=== PATIENT | female | born 1945 | race Caucasian/White ===

== ENCOUNTER → 2023-10-24 14:13 | Outpatient (REF) | payer MEDICARE, OTHER, SELFPAY | LOC: REG 14:13 | PROVIDERS: ATTENDING PHYSICIAN Psychiatry & Neurology Neurology; FAMILY PHYSICIAN Internal Medicine; REFERRING PHYSICIAN Psychiatry & Neurology Psychiatry | DX: R79.0 Abnormal level of blood mineral (principal) | CPT/HCPCS: 36415; 82728 ==

== ENCOUNTER → 2024-03-09 13:25 | Outpatient (REF) | payer MEDICARE, OTHER, SELFPAY ==
[2024-03-09 15:50] LABS: Ferritin 78.3 ng/ml (11.1-264.0)
== END ==
LOC: REG 13:25
PROVIDERS: ATTENDING PHYSICIAN Psychiatry & Neurology Psychiatry; FAMILY PHYSICIAN Internal Medicine; REFERRING PHYSICIAN Psychiatry & Neurology Neurology
DX: G25.81 Restless legs syndrome (principal); D64.9 Anemia, unspecified
CPT/HCPCS: 36415; 82728

== ENCOUNTER 2024-03-18 18:00 | Emergency (ER) | payer MEDICARE, OTHER, SELFPAY ==
[2024-03-18 18:03] VITALS: BP 179/88
[2024-03-18] MEDS: PERCOCET 5/325 1 TABLET PO ×2 (19:50→20:51)
--- NOTE | 2024-03-18 23:08 | ED.MUSCINJ ---
HPI-Injury
General
Chief Complaint: Extremity Pain (non-traumatic)
Source: patient
Exam Limitations: none
Time Seen by Provider: 03/18/24 19:34
Nursing documentation reviewed up to this point in time: agreed with
History of Present Illness-Injury
Is this injury a work related problem?: No
Is pt an associate of [facility] [place]?: No
Initial Injury comments:
Patient to ED wtih complaint of left posterior knee pain. States she woke last PM with a leg cramp and since then has had severe pain to left posterior knee. Brought to ED by spouse for eval. No fever/chills, recent illness. No history of truama.
Past History
Past History
ED Past Medical History: Hypercholesterolemia, Hypothyroidism, Psychiatric (bipolar) and Other (migraines, gi bleed, recurring UTI, anemia)
ED Past Surgical History: Other (tonsillectomy as child, tubal ligation, colonoscopy x 3, STEROTACTIC LEFT BREAST)
Social History
Tobacco: Non-smoker
Alcohol: Daily
Personal:
Living: with family
Employment: Employed
Review of Systems
Review of Systems
Allergies reviewed?: Yes
All Other Systems: ROS reviewed and negative except as documented in HPI and ROS
Constitutional: Reports no symptoms
EENT: Reports no symptoms
Respiratory: Reports no symptoms
Cardiac: Reports no symptoms
ABD/GI: Reports no symptoms
Musculoskeletal: Reports joint pain (pain to left posterior knee)
Skin: Reports no symptoms
Neurological: Reports no symptoms
Psychiatric: Reports no symptoms
Musculoskeletal Injury Exam
Musculoskeletal Injury Exam
Left Posterior Knee:
Pain with Movement?: Moderate
Tender to palpation?: Moderate
Soft tissue swelling?: None
External deformity and angulation?: None
Joint effusion?: None
Contusion?: None
Hematoma-local bleeding into tissue?: None
Strain- Sprain- Tear (Connective tissue injury)?: None
Crepitus with movement?: No
Joint instability?: No
Malalignment/deformity?: No
Range of motion: Limited
Distal skin color and temperature: normal-warm & good color
Capillary Refill: normal
Normal distal neurovascular exam?: Yes
Peripheral Pulses: posterior tibial (left): 3+ and dorsalis pedis (left): 3+
Phy Exam
General Physical Exam
General Presentation: well appearing and no apparent distress
General age: appears stated age
General Skin: warm and dry
General Habitus: normal
General Mental: alert
Musculoskeletal Exam
Musculoskeletal Exam: neuro vasc intact
Skin Exam
Skin Exam: normal color, warm/dry and no rash
Psychiatric Exam
Psychiatric Exam: normal mood/affect
Injury Course
Orders/Labs/Results
Orders:
Orders
03/18/24 18:05
Knee, Left 4 or More Views [CR Knee - Left 4 Or More View*] Urgent
Comment:
Reason For Exam: pain
03/18/24 19:43
Oxycodone/Acetaminophen [Percocet 5/325] 1 tablet PO NOW STA
US Periph Venous LOWER Ext LT Urgent
Comment:
Reason For Exam: posterior knee lower leg pain
03/18/24 20:39
Knee Immobilizer Left-Treatmen ONCE
03/18/24 20:40
Oxycodone/Acetaminophen [Percocet 5/325] 1 tablet PO NOW STA
*Radiology
Radiology exam reviewed: radiology read reviewed
*Pulse Oximetry
Patient hypoxic: no
*Critical Care Note
Total Time (30-74mins, 75-104mins- exclusive of procedures): Not Applicable
ED Attending Note
-
Portions of this chart may have been created with voice recognition software.� Occasional wrong word or��sound alike� substitutions may have occurred due to the inherent limitations of voice recognition software.
Discharge Plan
Departure
Patient Disposition: Home (Routine Discharge)
Date of Disposition: 03/18/24
Time of Disposition: 20:40
Patient with high blood pressure during this ER visit?: No
Condition: Good
Covid-19: Not Applicable
Discharge Problem:
Knee pain, Valle cyst
Instructions: Valle's Cyst (DC)
Prescriptions:
New
oxycodone-acetaminophen [Percocet] 5-325 mg tablet
1 tab PO Q4HPRN PRN (Reason: pain) Qty: 10 0RF
No Action
levothyroxine [Synthroid] 25 MCG tablet
25 mcg PO DAILY
lamotrigine 100 MG tablet
200 mg PO HS
clonazepam 1 MG tablet
1 mg PO DAILYPRN PRN (Reason: nerves)
zaleplon 10 mg Capsule
20 mg PO DAILY
rosuvastatin 20 mg Tablet
20 mg PO DAILY
zinc 50 mg Capsule
50 mg PO DAILY
Vitamin D-3 with Aloe 120-1,000-10 mg-unit-mg Tablet
1 tab PO DAILY
Centrum Adults
1 unit PO DAILY
iron, carbonyl [Feosol] 45 MG tablet
65 mg PO DAILY
valacyclovir [Valtrex] 1 gram Tablet
1,000 mg PO DAILY PRN (Reason: outbreak)
trazodone 150 mg Tablet
150 mg PO HS
hydrochlorothiazide 25 mg Tablet
25 mg PO DAILY
aspirin 81 mg Capsule
81 mg PO DAILY
Referrals:
Holland Pagan I., [Family Provider] -
Freedom Carlin MD [Active] - (Follow up if your symptoms do not improve over the next week.)
Interventions
Interventions:
*Risk Screen - Suicide Last Done: 03/18/24 19:15
*General Assessment Last Done: 03/18/24 19:15
*Neglect/Abuse Screening Last Done: 03/18/24 19:15
ED- Fall Risk Assessment Last Done: 03/18/24 19:15
*ED COVID-19 Vaccine History Last Done: 03/18/24 19:15
*Nursing Disposition Last Done: 03/18/24 20:59
ED-Skin Assessment Last Done: 03/18/24 19:15
ED-Peripheral Vascular Assessment Last Done: 03/18/24 19:15
ED-Musculoskeletal Assessment Last Done: 03/18/24 19:15
Discharge Date and Time
Discharge Date/Time: 03/18/24 20:59
Print Language: LAO
== END 2024-03-18 20:59 | disposition home or self-care (01) ==
LOC: EMR 18:00
PROVIDERS: EMERGENCY PHYSICIAN Emergency Medicine; FAMILY PHYSICIAN Internal Medicine
DX: M25.562 Pain in left knee (principal); M71.22 Synovial cyst of popliteal space [Baker], left knee
CPT/HCPCS: 99284; 73564; 93971

== ENCOUNTER → 2024-05-30 13:19 | Outpatient (REF) | payer MEDICARE, OTHER, SELFPAY ==
[2024-05-30 14:16] LABS: % Basophils 0.5 % (0-2); % Eosinophils 3.8 % (0-6); % Immature Granulocytes 0.2 % (0-0.5); % Lymphocytes 25.3 % (20.5-51.1); % Neutrophils 60.2 % (42.2-75.2); Absolute Eosinophils 0.2 10^3/uL (0-0.7); Absolute Lymphocytes 1.5 10^3/uL (1.2-3.4); Absolute Monocytes 0.6 10^3/uL (0.1-0.6); Absolute Neutrophils 3.7 10^3/uL (1.4-6.5); Hematocrit 39.3 % (37.0-47.0); Hemoglobin 13.1 g/dL (12.0-16.0); Mean Corp Hgb Conc. 33.3 g/dL (33.0-37.0); Mean Corpuscular Hgb 30.6 pg (27.0-31.0); Mean Corpuscular Volume 91.8 fL (81.0-99.0); Mean Platelet Volume 10.4 fL (7.4-10.4); Nucleated Red Blood Cells % 0 %; Platelet Count 237 10^3/uL (130-400); Red Blood Cell Count 4.28 10^6/uL (4.20-5.40); Red Cell Dist. Width 13.2 % (11.5-14.5); White Blood Cell Count 6.1 10^3/uL (4.8-10.8)
[2024-05-30 15:19] LABS: ALT (SGPT) 20 U/L (0-35); AST (SGOT) 25 U/L (14-36); Albumin 4.7 g/dl (3.5-5.0); Alkaline Phosphatase 76 U/L (38-126); Blood Urea Nitrogen 13 mg/dl (7-17); Calcium 10.1 mg/dl (8.4-10.2); Carbon Dioxide 29 mmol/L (22-30); Chloride 101 mmol/L (98-107); Glucose 118 mg/dl (70-99); Potassium 4.5 mmol/L (3.5-5.1); Sodium 140 mmol/L (135-145); Total Bilirubin 0.4 mg/dl (0.2-1.3); Total Cholesterol 208 mg/dl (50-199); Total Protein 7.3 g/dl (6.3-8.2); Triglyceride 57 mg/dl (10-149); Very Low Density Lipoprotein 11 mg/dl (0-30); eGFR > 60.00
[2024-05-30 15:28] LABS: Total Iron Binding Capacity 378 ug/dl (265-497)
[2024-05-30 15:29] LABS: HDL Cholesterol 117 mg/dl; LDL Cholesterol, Calculated 80 mg/dl
[2024-05-30 15:48] LABS: TSH Reflex To Free T4 3.35 uIU/ml (0.47-4.68)
[2024-05-30 15:52] LABS: Ferritin 65.7 ng/ml (11.1-264.0)
[2024-05-31 10:19] LABS: Glycohemoglobin (HgbA1c) 5.5 % (4.0-5.6)
== END ==
LOC: REG 13:19
PROVIDERS: ATTENDING PHYSICIAN Internal Medicine; FAMILY PHYSICIAN Psychiatry & Neurology Neurology; REFERRING PHYSICIAN Psychiatry & Neurology Psychiatry
DX: R73.9 Hyperglycemia, unspecified (principal); E03.9 Hypothyroidism, unspecified; D64.9 Anemia, unspecified; I10 Essential (primary) hypertension; E78.2 Mixed hyperlipidemia; R73.09 Other abnormal glucose; D50.0 Iron deficiency anemia secondary to blood loss (chronic); R79.89 Other specified abnormal findings of blood chemistry
CPT/HCPCS: 36415; 80053; 80061; 82728; 83036; 83550; 84443; 85025

== ENCOUNTER → 2024-06-20 14:01 | Outpatient (REF) | payer MEDICARE, OTHER, SELFPAY | LOC: HWWDC 14:01 | PROVIDERS: ATTENDING PHYSICIAN Internal Medicine | DX: Z12.31 Encounter for screening mammogram for malignant neoplasm of breast (principal) | CPT/HCPCS: 77063; 77067 ==

== ENCOUNTER 2024-09-21 16:32 | Inpatient (IN) | payer MEDICARE, OTHER, SELFPAY ==
[2024-09-21] VITALS (19 sets, daily range): BP systolic 75–166; BP diastolic 59–111; BMI 31.1
[2024-09-21 11:36] LABS: % Basophils 0.2 % (0-2); % Eosinophils 0.4 % (0-6); % Immature Granulocytes 0.7 % (0-0.5); % Lymphocytes 8.1 % (20.5-51.1); % Monocytes 8.9 % (1.7-9.3); % Neutrophils 81.7 % (42.2-75.2); Absolute Eosinophils 0.1 10^3/uL (0-0.7); Absolute Immature Granulocytes 0.1 10^3/uL (0-0.05); Absolute Monocytes 1.1 10^3/uL (0.1-0.6); Absolute Neutrophils 9.9 10^3/uL (1.4-6.5); Hematocrit 40.2 % (37.0-47.0); Hemoglobin 13.6 g/dL (12.0-16.0); Mean Corp Hgb Conc. 33.8 g/dL (33.0-37.0); Mean Corpuscular Hgb 30.8 pg (27.0-31.0); Mean Corpuscular Volume 91.2 fL (81.0-99.0); Mean Platelet Volume 10.3 fL (7.4-10.4); Nucleated Red Blood Cells % 0 %; Platelet Count 192 10^3/uL (130-400); Red Blood Cell Count 4.41 10^6/uL (4.20-5.40); Red Cell Dist. Width 13.8 % (11.5-14.5); White Blood Cell Count 12.1 10^3/uL (4.8-10.8)
[2024-09-21 11:44] LABS: ALT (SGPT) 21 U/L (0-35); AST (SGOT) 31 U/L (14-36); Albumin 3.9 g/dl (3.5-5.0); Alkaline Phosphatase 77 U/L (38-126); Blood Urea Nitrogen 17 mg/dl (7-17); Calcium 9.7 mg/dl (8.4-10.2); Carbon Dioxide 28 mmol/L (22-30); Chloride 93 mmol/L (98-107); Estimated Creatinine Clearance 60 ml/min; Glucose 153 mg/dl (70-99); Potassium 3.7 mmol/L (3.5-5.1); Sodium 131 mmol/L (135-145); Total Bilirubin 0.5 mg/dl (0.2-1.3); Total Protein 6.6 g/dl (6.3-8.2); eGFR > 60.00
[2024-09-21] MEDS: TYLENOL 650 MG PO (11:49)
[2024-09-21] MEDS: DUONEB 3 ML INH (11:49)
--- NOTE | 2024-09-21 12:01 | ED.GENMED ---
History of Present Illness
<Piyush Little PA-C - Last Filed: 09/21/24 15:59>
General
Chief Complaint: Breathing Problem
Source: patient
Time Seen by Provider: 09/21/24 11:19
History of Present Illness
History of Present Illness:
79-year-old female with past medical history of GERD, hypertension, hyperlipidemia presenting to the emergency department for evaluation after she started with flulike symptoms this past Tuesday, went to primary care provider on Tuesday where she
was given a nebulizer treatment and was found to be flu a positive. Patient states that her breathing has gotten worse to the point where she needed to contact EMS this morning. EMS notes that patient was hypoxic upon their arrival and
administered a breathing treatment as well as placed her on 2 L via nasal cannula. Patient still reporting shortness of breath on arrival and was still satting at 89% on room air so was placed on 2 L with minimal response and had this increased to
4 L. Patient endorses cough productive of a yellow-green sputum, shortness of breath, waxing and waning fevers, generalized fatigue. was also sick with the flu prior to this but patient reports he is now feeling better.
Past History
<Piyush Little PA-C - Last Filed: 09/21/24 15:59>
Past History
ED Past Medical History: GERD, HTN, Hypercholesterolemia, Hypothyroidism, Psychiatric (bipolar) and Other (migraines, gi bleed, recurring UTI, anemia)
ED Past Surgical History: Other (tonsillectomy as child, tubal ligation, colonoscopy x 3, STEROTACTIC LEFT BREAST)
Social History
Tobacco: Non-smoker
Alcohol: Occasional
Drug: None
Personal:
Living: with family
Employment: Employed
Review of Systems
<Piyush Little PA-C - Last Filed: 09/21/24 15:59>
Review of Systems
All Other Systems: ROS reviewed and negative except as documented in HPI and ROS
Phy Exam
<Piyush Little PA-C - Last Filed: 09/21/24 15:59>
Physical Exam
Physical Exam:
GENERAL: Alert , in no apparent distress
EYE: conjunctiva clear
NECK: Supple, no significant adenopathy.
ENT: o/p clr, mmm.
CARDIAC: tachycardic rate and rhythm
LUNGS: Wheezing most pronounced in the posterior lung erwin, somewhat restricted, coughing throughout the exam, tachypneic
NEUROLOGICAL: Alert and oriented
SKIN: Warm and dry, skin intact.
MUSCULOSKELETAL: well perfused. No edema
PSYCH: Normal and appropriate interaction.
Scores
<Piyush Little PA-C - Last Filed: 09/21/24 15:59>
Heart Failure Risk
Heart Failure Risk Score: Not Applicable
Heart Score for Chest Pain Patients
STEMI patient?: Not applicable
Withdrawal Assessment of Alcohol
Withdrawal Assessment Completed?: Not applicable
Sepsis
<Piyush Little PA-C - Last Filed: 09/21/24 15:59>
Sepsis Screening
Sepsis Assessment: Sepsis
Sepsis Screen
Sepsis Screen: Sepsis
Date: 09/21/24
Time: 15:59
<Diana Nina DO - Last Filed: 09/21/24 20:12>
Sepsis Screen
Sepsis Screen: Sepsis
Date: 09/21/24
Time: 20:10
Course
<Piyush Little PA-C - Last Filed: 09/21/24 15:59>
Orders/Labs/Results
Orders:
Orders
09/21/24 11:16
Electrocardiogram (*1) Urgent
Reason for Study: Other
Other Reason for Exam: Respiratory Distress
EKG- Treatment ONCE
09/21/24 11:17
Complete Blood Count/With Diff Urgent
Comprehensive Metabolic Panel Urgent
09/21/24 11:34
Acetaminophen [Tylenol] 650 mg PO NOW STA
Ipratropium/Albuterol Sulfate [Duoneb] 3 ml INH R NOW ONE
MethylPREDNISolone PF [Solu-Medrol Pf] 60 mg IV NOW STA
CR Chest Portable - 1 View Urgent
Comment:
Reason For Exam: flu, hypoxia
Reason Study Needs to be Portable: Unable to Transport
09/21/24 15:58
Admit/Transfer Patient As Directed
Co-Sign Provider:
Level of Care: Inpatient admission
Assign to:: Medical/Surgical
Physician / Group: Jamie
Diagnosis: Influenza bronchitis with hypoxia
Reason for Hospitalization: Above
Expected length of stay greater than two midnights?: Yes
ELOS- Estimated Length of Stay in days: 2
I certify the patient meets the requirements for IP care: Yes
PRN Pain Medication Management As Directed
May give lesser potent ordered pain med per pt: Yes
preference::
Protocol:: Medication orders for pain may be administered in a
manner that supports deferring to patient preference
when the pt is:
- Requesting an ordered lesser potent pain medication.
Least to most potent pain medications are defined
as: acetaminophen < NSAID < tramadol < opioids
(morphine, oxycodone, hydromorphone).
- Requesting a lesser dose of the same medication IF
ORDERED.
- Requesting a less intrusive route of administration
if both routes are prescribed by the provider (PO <
IV).
09/21/24 16:10
Code Status As Directed
Resuscitation Status: Full Code
09/21/24 19:31
Clonazepam [Klonopin] 0.5 mg PO DAILYPRN PRN
09/22/24 08:00
Non-Formulary Item See Dose Instructions PO Q48H
Abnormal Lab Results
09/21/24
11:17
WBC 12.1 H 10^3/uL
(4.8-10.8)
Abs Immat Gran (auto) 0.1 H 10^3/uL
(0-0.05)
Absolute Neuts (auto) 9.9 H 10^3/uL
(1.4-6.5)
Absolute Lymphs (auto) 1.0 L 10^3/uL
(1.2-3.4)
Absolute Monos (auto) 1.1 H 10^3/uL
(0.1-0.6)
Immature Gran % 0.7 H %
(0-0.5)
Neutrophils % 81.7 H %
(42.2-75.2)
Lymphocytes % 8.1 L %
(20.5-51.1)
Sodium 131 L mmol/L
(135-145)
Chloride 93 L mmol/L
(98-107)
Glucose 153 H mg/dl
(70-99)
09/21/24 11:17
09/21/24 11:17
Vital Signs
Initial and Last Documented VS:
Initial Vital Signs
Temp Pulse Resp BP Pulse Ox
100.3 F 119 24 157/86 89
09/21/24 11:12 09/21/24 11:12 09/21/24 11:12 09/21/24 11:12 09/21/24 11:12
Last Documented Vital Signs
Temp Pulse Resp BP Pulse Ox
98.3 F 93 20 132/67 95
09/21/24 15:04 09/21/24 17:00 09/21/24 17:00 09/21/24 17:00 09/21/24 17:00
<Diana Nina, DO - Last Filed: 09/21/24 20:12>
Orders/Labs/Results
Orders:
Orders
09/21/24 11:16
Electrocardiogram (*1) Urgent
Reason for Study: Other
Other Reason for Exam: Respiratory Distress
EKG- Treatment ONCE
09/21/24 11:17
Complete Blood Count/With Diff Urgent
Comprehensive Metabolic Panel Urgent
09/21/24 11:34
Acetaminophen [Tylenol] 650 mg PO NOW STA
Ipratropium/Albuterol Sulfate [Duoneb] 3 ml INH R NOW ONE
MethylPREDNISolone PF [Solu-Medrol Pf] 60 mg IV NOW STA
CR Chest Portable - 1 View Urgent
Comment:
Reason For Exam: flu, hypoxia
Reason Study Needs to be Portable: Unable to Transport
09/21/24 15:58
Admit/Transfer Patient As Directed
Co-Sign Provider:
Level of Care: Inpatient admission
Assign to:: Medical/Surgical
Physician / Group: Jamie
Diagnosis: Influenza bronchitis with hypoxia
Reason for Hospitalization: Above
Expected length of stay greater than two midnights?: Yes
ELOS- Estimated Length of Stay in days: 2
I certify the patient meets the requirements for IP care: Yes
PRN Pain Medication Management As Directed
May give lesser potent ordered pain med per pt: Yes
preference::
Protocol:: Medication orders for pain may be administered in a
manner that supports deferring to patient preference
when the pt is:
- Requesting an ordered lesser potent pain medication.
Least to most potent pain medications are defined
as: acetaminophen < NSAID < tramadol < opioids
(morphine, oxycodone, hydromorphone).
- Requesting a lesser dose of the same medication IF
ORDERED.
- Requesting a less intrusive route of administration
if both routes are prescribed by the provider (PO <
IV).
09/21/24 16:10
Code Status As Directed
Resuscitation Status: Full Code
09/21/24 19:31
Clonazepam [Klonopin] 0.5 mg PO DAILYPRN PRN
09/22/24 08:00
Non-Formulary Item See Dose Instructions PO Q48H
Abnormal Lab Results
09/21/24
11:17
WBC 12.1 H 10^3/uL
(4.8-10.8)
Abs Immat Gran (auto) 0.1 H 10^3/uL
(0-0.05)
Absolute Neuts (auto) 9.9 H 10^3/uL
(1.4-6.5)
Absolute Lymphs (auto) 1.0 L 10^3/uL
(1.2-3.4)
Absolute Monos (auto) 1.1 H 10^3/uL
(0.1-0.6)
Immature Gran % 0.7 H %
(0-0.5)
Neutrophils % 81.7 H %
(42.2-75.2)
Lymphocytes % 8.1 L %
(20.5-51.1)
Sodium 131 L mmol/L
(135-145)
Chloride 93 L mmol/L
(98-107)
Glucose 153 H mg/dl
(70-99)
09/21/24 11:17
09/21/24 11:17
Vital Signs
Initial and Last Documented VS:
Initial Vital Signs
Temp Pulse Resp BP Pulse Ox
100.3 F 119 24 157/86 89
09/21/24 11:12 09/21/24 11:12 09/21/24 11:12 09/21/24 11:12 09/21/24 11:12
Last Documented Vital Signs
Temp Pulse Resp BP Pulse Ox
98.3 F 93 20 132/67 95
09/21/24 15:04 09/21/24 17:00 09/21/24 17:00 09/21/24 17:00 09/21/24 17:00
Procedures
<Diana Nina DO - Last Filed: 09/21/24 20:12>
Intubations
Procedure completed by: Diana Nina DO
Method of Intubation: glidescope
Tube size (cm): 7.5
Placement confirmed by: auscutation and CXR
Breath sounds after intubation: equal
Intubation complications: no complications
<Piyush Little PA-C - Last Filed: 09/21/24 15:59>
MDM/Problems Addressed
Differential Diagnosis Includes:
Flu, pneumonia, COVID, reactive airway disease
MDM/Problems Addressed:
79-year-old female presenting to the emergency department for evaluation after she has been experiencing flulike symptoms over the last 4 to 5 days, tested positive for the flu on Tuesday with primary care provider. Worsening shortness of breath
and now hypoxic with increased respiratory rate, increased heart rate and febrile. She is currently on 4 L via nasal cannula satting between 93% to 95%. Wheezing noted. Will order Solu-Medrol and nebulizer treatment. Given her current O2
requirement and worsening symptoms we will plan for admission for continued supportive care. Remaining labs and chest x-ray ordered.
<Piyush Little PA-C - Last Filed: 09/21/24 15:59>
*Radiology
Radiology exam reviewed: preliminary read by ED provider (Normal chest x-ray)
*Pulse Oximetry
Patient hypoxic: yes
*EKG
Heart Rate: 111
Rate: tachycardiac
Rhythm: sinus
Ischemia: no ischemia
*[employer] Interpretation
Rate: tachycardiac
Rhythm: sinus
*Critical Care Note
Total Time (30-74mins, 75-104mins- exclusive of procedures): Not Applicable
<Diana Nina DO - Last Filed: 09/21/24 20:12>
*Critical Care Note
Total Time (30-74mins, 75-104mins- exclusive of procedures): 37
comment:
The high probability of a clinically significant, sudden or life threatening deterioration of the respiratory system(s) required my full and direct attention, intervention and personal management. The aggregate critical care time was 37 minutes.
This time is in addition to time spent performing reported procedures but includes the following:
[x] Data Review and interpretation
[x] Patient assessment and monitoring of vital signs
[x] Documentation
[x] Medication orders and management
<Piyush Little PA-C - Last Filed: 09/21/24 15:59>
Patient Management
Discussion with other providers: Hospitalist
Escalation/DeEscalation of care consider admission/obs:
Given patient's hypoxia combined with her known flu, unable to safely discharge patient home. Will continue with supportive care of oxygen and breathing treatments. Hospitalist team accepts for continued evaluation.
<Diana Nina DO - Last Filed: 09/21/24 20:12>
Update Note
Update Note:
Diana Nina DO
20:10 -called to bedside for increasing respiratory distress. Patient admitted to the hospital, flu a positive, requiring oxygen support. Patient already admitted to the hospital. However on my assessment, tachypnea, constantly pulling off
nonrebreather. Markedly tachycardic to the 160s and febrile to 105. Rectal Tylenol administered. Patient full code. Did discuss intubation with patient, and she would like to proceed with the intubation. Patient intubated without issue. Will
start propofol for sedation. Admitting team at bedside, plan for ICU. Will confirm tube with chest x-ray. Will update
ED Attending Note
<Piyush Little PA-C - Last Filed: 09/21/24 15:59>
-
Portions of this chart may have been created with voice recognition software.� Occasional wrong word or��sound alike� substitutions may have occurred due to the inherent limitations of voice recognition software.
Discharge Plan
Departure
Patient Disposition: Admit
Date of Disposition: 09/21/24
Time of Disposition: 12:56
Presentation/result/management discussed w/ accepting MD/DO: Hospitalist
Discharge Problem:
Influenza A, Hypoxia
Interventions
Interventions:
*Risk Screen - Suicide Last Done: 09/21/24 11:12
*General Assessment Last Done: 09/21/24 11:08
*Neglect/Abuse Screening Last Done: 09/21/24 11:12
ED- Fall Risk Assessment Last Done: 09/21/24 11:40
ED- Cardiac Assessment Last Done: 09/21/24 11:40
ED- Pulmonary Assessment Last Done: 09/21/24 11:40
--- NOTE | 2024-09-21 16:14 | HPS.HSE ---
Family Physician
-
Family Physician: Holland Pagan
Chief Complaint
-
Shortness of breath
History of Present Illness
Patient is a 79 is a female with hypertension and bipolar disorder who presents to the emergency room with shortness of breath. Patient was found to be positive for influenza 2 days prior to presentation. She was initiated on Tamiflu. Over the
last 24 hours or so patient describes worsening shortness of breath and productive cough now with yellow sputum. She denies any chest pain.-Presentation to the emergency room patient was found to be hypoxic with pulse ox in mid 80s. She was placed
on 2 L of nasal cannula oxygen with improved oxygenation. She feels improved after 1 nebulized bronchodilator treatment.
Medical History
Past Medical History
Past Medical History: Reports HTN and Other (Bipolar disorder)
Past Surgical History: Reports None
Social History
Tobacco: Non-smoker
Alcohol: None
Drug: None
Personal:
Living: With Family
Family History
Family History: Not pertinent
Allergies / Home Medications
Allergies reflects when Allergies were last updated in [facility].
Home Medications with original date entered in [facility]
Allergy/Medication List:
Allergies
Allergy/AdvReac Type Severity Reaction Status Date / Time
Corticosteroids Allergy KERRY Verified 09/21/24 11:08
(Glucocorticoids)
iodine [Iodine] Allergy Rash Verified 09/21/24 11:08
NSAIDS (Non-Steroidal Allergy Unknown Verified 09/21/24 11:08
Anti-Inflamma
Home Medications
levothyroxine 25 mcg tablet (Synthroid) 25 mcg PO DAILY 07/28/10
rosuvastatin 20 mg tablet 20 mg PO DAILY 01/05/23
therapeutic multivitamin 1 tab PO DAILY 01/05/23
zaleplon 10 mg capsule 20 mg PO DAILY 01/05/23
zinc 50 mg capsule 50 mg PO DAILY 01/05/23
aspirin 81 mg capsule 81 mg PO DAILY 07/01/23
hydrochlorothiazide 25 mg tablet 25 mg PO DAILY 07/01/23
valacyclovir 1 gram tablet (Valtrex) 1,000 mg PO DAILYPRN PRN outbreak 07/01/23
albuterol sulfate 90 mcg/actuation aerosol inhaler 1 puff inhalation R Q6HPRN PRN sob/wheezing 09/21/24
cariprazine 3 mg capsule (Vraylar) 3 mg PO Q48H 09/21/24
cholecalciferol (vitamin D3) 25 mcg (1,000 unit) tablet 25 mcg PO DAILY 09/21/24
clonazepam 0.5 mg tablet 0.5 mg PO DAILYPRN PRN severe anxiety 09/21/24
ferrous sulfate 325 mg (65 mg iron) tablet 325 mg PO DAILY 09/21/24
guaifenesin 600 mg tablet, extended release 12 hr (Mucinex) 600 mg PO [id number] PRN congestion 09/21/24
lamotrigine 200 mg tablet 200 mg PO HS 09/21/24
oseltamivir 75 mg capsule (Tamiflu) 75 mg PO BID 09/21/24
trazodone 100 mg tablet 150 mg PO HS 09/21/24
Review of Systems
-
A 12 point ROS was completed and negative except as noted: Yes
Physical Exam
Vital Signs
Vital Signs
Temp Pulse Resp BP Pulse Ox
98.3 F 94 19 124/71 92
09/21/24 15:04 09/21/24 15:00 09/21/24 15:00 09/21/24 14:00 09/21/24 15:00
Physical Exam
General: Well Developed, Well Nourished and No Apparent Distress
HEENT: NormoCephalic, Moist mucous membranes and Atraumatic
Respiratory: Wheezes and Rhonchi
Cardiac: S1/S2 and Regular Rhythm; No Murmur or Rub
GI: Soft, Non Tender, Non Distended and Normal Bowel Sounds; No Organomegaly
Rectal: Deferred by Provider
Musculoskeletal: No Clubbing, No Cyanosis and No Edema
Skin: No Rash
Neuro: Nonfocal/grossly intact
Psych: Calm
Laboratory Results
-
09/21/24 11:17
09/21/24 11:17
Laboratory Results
Total Bilirubin 0.5 mg/dl (0.2-1.3) 09/21/24 11:17
AST 31 U/L (14-36) 09/21/24 11:17
ALT 21 U/L (0-35) 09/21/24 11:17
Alkaline Phosphatase 77 U/L (38-126) 09/21/24 11:17
Impression/Plan
-
IMPRESSION:
Acute hypoxic respiratory insufficiency secondary to influenza bronchitis
Mild hyponatremia
Hypertension
Hypothyroidism
Bipolar disorder
PLAN:
Acute hypoxic respiratory insufficiency secondary to influenza bronchitis
Improved with oxygen supplementation and short acting bronchodilator treatment
Chest x-ray with no focal infiltrates, although reports productive sputum over the last 24 hours.
Continue oxygen supplementation.
Continue Tamiflu
Continue mucolytic's
Continue LINDSEY
Patient has been offered short course of corticosteroids, although reports manic episodes in the past while on systemic steroids.
Mild hyponatremia suspect due to acute respiratory illness, also had been on thiazide diuretic prior to presentation.
Update TSH.
Hold HCTZ.
Gentle hydration
Follow BMP
Essential hypertension
Dyslipidemia
Hold HCTZ.
Continue statin
Bipolar disorder.
Continue preadmission regimen include Vraylar, clonazepam, lamotrigine, zaleplon.
DVT prophylaxis heparin
Full code
[2024-09-21] MEDS: KLONOPIN 0.5 MG PO (19:34)
--- NOTE | 2024-09-21 20:38 | EDRN ---
Patient started at approx 1900 with what the patient explained as one of her panic attacks. Patient started with elevated HR, sinus on monitor and increased respirations. Patient was on found at the edge of the bed stating that she couldn't breath.
Increased Spo2 to 6L NC. Patient stated that she gets medication every night for her anxiety. Patient was given a dose of her Klonopin at 1930.
Patient had no improvement of her breathing. Patient then started to become more tachycardic and diaphoretic. Patient with increased restlessness and agitation.
Rolled patient to the side and got rectal temperature of 105.4.
Patient then placed on NRB at 15L as she was hypoxic in the low 80's.
Rapid response was called at approx 1950.
ICU staff along with Mishel Barrett ADMISSIONS CLINICIAN and Dr. Nina responded.
Patient was intubated due to respiratory distress and hypoxia on NRB.
Patient received 650mg rectal Tylenol for fever.
20mg etomidate, 70 rocc for intubation and propofol started at 20mcg/min for post intubation sedation.
ICU staff and respiratory transported the patient to ICU.
ED charge aware along with nursing brush fabrication supervisor.
[2024-09-21 20:56] LABS: Triglycerides 106 mg/dl (10-149)
[2024-09-21] MEDS: SUBLIMAZE 50 MCG IV ×2 (22:00→23:34)
[2024-09-21] MEDS: NSS IV (22:14)
[2024-09-21 22:21] LABS: INR 0.97; PT 13.2 Sec (11.4-14.6)
[2024-09-21 22:21] LABS: TSH 1.22 uIU/ml (0.47-4.68)
[2024-09-21 22:22] LABS: APTT 27.9 Sec (23.4-35.0)
[2024-09-21] MEDS: HEPARIN 5000 UNITS SC (22:25)
[2024-09-21 22:37] LABS: Triglycerides 119 mg/dl (10-149)
[2024-09-21 22:42] LABS: Blood Urea Nitrogen 24 mg/dl (7-17); Calcium 9.5 mg/dl (8.4-10.2); Carbon Dioxide 21 mmol/L (22-30); Chloride 93 mmol/L (98-107); Estimated Creatinine Clearance 34 ml/min; Glucose 308 mg/dl (70-99); Magnesium 1.8 mg/dl (1.6-2.3); Potassium 4.1 mmol/L (3.5-5.1); Sodium 129 mmol/L (135-145); eGFR 38.51
[2024-09-21 23:04] LABS: Glucose - Point of Care 254 mg/dl (70-99)
--- NOTE | 2024-09-21 23:04 | PTCARENOTE ---
Flakita (daughter, pediatric surgeon) okay to be given information per daughter Ladi and Viet.
Flakita # - [phone]
Frida - # [phone]
[2024-09-21 23:45] LABS: Lactic Acid 2.5 mmol/L (0.7-2.0)
[2024-09-21] MEDS: NOVOLIN R INSULIN INFUSION 100 IV (23:47)
[2024-09-21] MEDS: NSS 1000 IV (23:49)
[2024-09-21 23:50] LABS: Glucose - Point of Care 265 mg/dl (70-99)
[2024-09-21] MEDS: NSS 250 IV (23:50)
[2024-09-21] MEDS: VIBRAMYCIN 260 MG IV (23:50)
[2024-09-21] MEDS: NOVOLIN R 5 UNITS IV (23:53)
[2024-09-22] VITALS (7 sets, daily range): BP systolic 70–93; BP diastolic 48–67; BMI 30.8
--- NOTE | 2024-09-22 00:26 | W.PN.UPDATE ---
Update Note
Progress Note Update
Procedure Note: Arterial Line�
� Right Wrist Arrow 20 (09/25)�
Diagnosis:��Acute respiratory distress due to Flu A
IV Line Comments: Uneventful Procedure�
Domenic's test completed pre-procedure: Yes�
A-Line Comments: Sterile technique as per standard protocol, Ultrasound guided insertion�
Functioning A-line in situ: Yes�
A-line Insertion Start Time:�0000�
A-line in at:��0005
[2024-09-22 00:30] LABS: HCO3 23.7 mmol/L (21-28); Ionized Calcium 1.21 mMOL/L (1.15-1.33); O2 Saturation % 99.6 % (94-98); PCO2 43 mmHg (32-35); PO2 169 mmHg (83-108); Potassium 3.1 mMOL/L (3.5-5.1); Sodium 128 mMOL/L (136-145); pH 7.35 (7.35-7.45)
[2024-09-22] MEDS: SUBLIMAZE 50 MCG IV ×6 (00:35→18:17)
[2024-09-22] MEDS: SUBLIMAZE 100 IV ×2 (00:35→19:49)
[2024-09-22 00:45] LABS: Glucose - Point of Care 191 mg/dl (70-99)
[2024-09-22] MEDS: LEVOPHED 250 IV (00:45)
[2024-09-22] MEDS: NSS 250 IV ×2 (01:02→02:25)
--- NOTE | 2024-09-22 01:13 | PTCARENOTE ---
Late entry:
Rapid response called in ED ~1950 for pt. in respiratory distress, tachycardic (HR 170s), febrile 105 rectal. Pt. intubated by ED doctor. Propofol started. Transferred to ICU.
Pt. awakens to verbal, propofol titrated as needed to maintain RASS -2 to 0. Fentanyl pushes given PRN and fentanyl gtt started at 0035 for ongoing pain. Pt. able to nod 'yes' to pain. Following simple commands. Wrist restraints in place. Pupils 3mm
B/L. DEANGELO. #7.5 ETT - initially at 18cm at the lip, multiple xrays obtained and repositioned to 24cm at lip. Tolerating A/C 14/400/+5/80% (was weaned from 100% fio2). Spo2 >95%. ABG was obtained. Initially ST on tele, HR 160s upon arrival. Febrile
105.6 core upon arrival. Tylenol was given in ED. Placed on cooling blanket. As temp came down, HR improved. HR now 80s- NSR with occasional PVCs noted. Initially hypertensive, 160s/100s. Slowly trended down then became hypotensive 60s-70s/40s MAPs
50s. R radial A line placed by NANDINI Merrill. Levophed added with no effect despite up titrating. LABEL OPERATOR notified. Arsh ordered and infusing with good response. See worklist for titrations. Hypoactive bowel sounds. NG and OG tube placement was
attempted by 3 RNS with no success. LABEL OPERATOR aware. No BM. Evans was placed for I&O. 275ml yellow urine out initially. Urine output slowed- 250ml bolus x2 given. NSS @ 100ml/hr infusing. R FA #22, L AC #22, L hand #22 patent. Insulin gtt added for
hyperglycemia - see worklist. BCx2, urine culture and sputum cultures ordered. Following labs as ordered.
Daughter Ladi at bedside for a few hours - support given, questions answered.
Also updated daughter Flakita over the phone and answered questions.
[2024-09-22 01:43] LABS: Glucose - Point of Care 174 mg/dl (70-99)
[2024-09-22] MEDS: KCL 260 MEQ IV (01:59)
[2024-09-22] MEDS: NEO-SYNEPHRINE 250 IV ×4 (02:00→19:48)
--- NOTE | 2024-09-22 02:14 | PTCARENOTE ---
Addendum entered by Aminah Warner RN 09/22/24 02:25:
Correction: another 250ml bolus ordered and infusing.
Original Note:
Urine output dropping off, no output over last hour. Evans flushed without issue. Bladder scan = 0. CAR INSPECTION AND REPAIR MANAGER notified. Monitor for now, no new orders.
Was given two 250ml boluses previously with little effect on BP or urine output. Continue NSS @ 100ml/hr.
[2024-09-22 02:38] LABS: Glucose - Point of Care 125 mg/dl (70-99)
[2024-09-22 02:42] LABS: Urine Albumin 3+ (Neg - Trace); Urine Bilirubin Negative (Negative); Urine Character Clear (Clear); Urine Color Yellow; Urine Glucose Negative (Negative); Urine Ketone Negative (Negative); Urine Leukocyte Negative (Negative); Urine Nitrite Negative (Negative); Urine Occult Blood 3+ (Negative); Urine Urobilinogen Negative (Neg - 1+)
[2024-09-22 02:50] LABS: Urine Amorphous Seen; Urine Mucus Moderate; Urine Squamous Cell >30 /LPF (Few)
[2024-09-22 02:51] LABS: Urine Bacteria Many (Negative)
[2024-09-22 02:52] LABS: Urine White Cell 21-25 /HPF (0-5)
[2024-09-22 02:54] LABS: Urine Hyaline Cast >15 /LPF (0-2); Urine White Cell Cast 0-2 /LPF
--- NOTE | 2024-09-22 03:09 | PTCARENOTE ---
Pt. very restless in bed. Ativan ordered by NANDINI.
[2024-09-22] MEDS: NSS (PRESERVATIVE FREE) 0.25 ML IV (03:17)
[2024-09-22] MEDS: ATIVAN 0.5 MG IV (03:17)
[2024-09-22 03:57] LABS: Glucose - Point of Care 120 mg/dl (70-99)
[2024-09-22 04:09] LABS: Hematocrit 34.7 % (37.0-47.0); Hemoglobin 11.9 g/dL (12.0-16.0); Mean Corp Hgb Conc. 34.3 g/dL (33.0-37.0); Mean Corpuscular Hgb 31.2 pg (27.0-31.0); Mean Corpuscular Volume 91.1 fL (81.0-99.0); Mean Platelet Volume 10.5 fL (7.4-10.4); Platelet Count 210 10^3/uL (130-400); Red Blood Cell Count 3.81 10^6/uL (4.20-5.40); White Blood Cell Count 19.1 10^3/uL (4.8-10.8)
[2024-09-22 04:16] LABS: PT 13.5 Sec (11.4-14.6)
[2024-09-22] MEDS: DIPRIVAN 100 IV ×3 (04:27→23:11)
[2024-09-22 04:39] LABS: Blood Urea Nitrogen 26 mg/dl (7-17); Calcium 8.7 mg/dl (8.4-10.2); Carbon Dioxide 18 mmol/L (22-30); Chloride 102 mmol/L (98-107); Estimated Creatinine Clearance 27 ml/min; Glucose 118 mg/dl (70-99); Potassium 4.6 mmol/L (3.5-5.1); Sodium 131 mmol/L (135-145); eGFR 28.48
--- NOTE | 2024-09-22 05:39 | PTCARENOTE ---
Ativan had good effect on pt. for anxiety/restlessness. Resting comfortably now. Remains on propofol at 10mcg and fentanyl at 25mcg.RASS -1 to -2.
Remains with no urine output. Repeat bladder scan = 0. FERRYBOAT CAPTAIN aware. AM labs sent.
Rectal probe placed due to core being inaccurate with no urine. Afebrile 98.2.
On benedicto at 160mcg to maintain MAP>65. Levo off.
[2024-09-22 06:05] LABS: Glucose - Point of Care 119 mg/dl (70-99)
--- NOTE | 2024-09-22 08:00 | PTCARENOTE ---
Assumed care of patient. Pt rec'd intubated and sedated on ventilator. Responds to tactile stimuli. Pupils 3/sluggish. Bilateral wrist restraints on. S1 S2 reg w/ NSR on monitor. Weak PP. No edema. Heels elevated on pillows. #7.5 ETT 24cm
center lip....current vent settings: 14/400/+5/80%...sats 98%. Lungs diminished w/ scattered coarse rhonchi and exp wheezing throughout. Abdomen round...hypo BS. No GI access at present...will discuss w/ MD. Temp sensing paula draining scant
dark yellow/darin urine w/ sediment. Skin pale and diaphoretic...cool extremities...sacrum intact. Right radial victoriano...zeroed and flushed. IVF's, insulin, benedicto, fent, and propofol infusing via peripheral sites. VS documented. Safe environment
confirmed. Will continue to monitor closely.
[2024-09-22 08:18] LABS: Glucose - Point of Care 107 mg/dl (70-99)
[2024-09-22] MEDS: HEPARIN 5000 UNITS SC ×2 (08:21→19:48)
--- NOTE | 2024-09-22 08:23 | CON.INTV ---
Consultation
Consultation Request
Date/Time Consultation Requested: 09/21/2024 - 2042
Date/Time Consultation Performed: 09/22/2024818
Requesting Provider: NANDINI Quinteros
Performing Provider: Dr. Soriano
Reason for Consultation: Pneumonia/Flu/Intubated
Medical History
-
Chief Complaint: Shortness of breath
History of Present Illness:
79-year-old female non-smoker with a past medical history of hiatal hernia with intrathoracic stomach, Schatzki's ring with dilation (2012), bipolar disorder, osteopenia, history of swallowing difficulty, history of diverticula, tortuous colon,
nonrheumatic mitral regurgitation, hyperlipidemia, aortic atherosclerosis, hypothyroidism, Zarate's esophagus and history of syncope (2010) who presents with shortness of breath. She says she was flu a positive as of 1 day prior to arrival (09/20)
and has had symptoms for 4 days now. She was started on Tamiflu as an outpatient. Her shortness of breath has unfortunately continued to worsen and she has had a productive cough with yellow phlegm. Apparently her also has been sick with
the flu but he is starting to feel better. Initially in the ER she had a low-grade fever to 100.3 �F, pulse rate 119, respiratory rate 24, BP 157/86 and saturating 89% on room air. She was placed onto 4 L/min with saturations improving to 95%. At
around 8:00 PM the patient developed worsening respiratory distress, and she was intubated for airway protection. Initial labs showed leukocytosis to 12.1, Hb 13.6, sodium 131, TSH 1.22, and UA was not suggestive of UTI, and initial glucose was 265
via POCT. Blood cultures were collected. Flu swab was positive for influenza A. CXR showed a large predominantly air-filled hiatal hernia/intrathoracic stomach. In the ER she was given acetaminophen and DuoNebs. After intubation, she was
admitted to the ICU and Child Nutrition Assistant services consulted for additional management/recommendations.
When I saw the patient this morning, she was intubated on AC/CMV at 14/400/40%/5, with PIP: 20 cmH2O, VTe 396 mL and breathing at 14 breaths/min. Current heart rate 68, BP via A-line: 112/65 and saturating 95%. She is sedated on propofol
15mcg/kg/min and fentanyl at 50mcg/hr. Currently on insulin drip at 1 unit/hr and on Arsh-Synephrine at 100mcg/min. She is sedated and in no acute distress.
PMHx: Bipolar disorder, osteopenia, Schatzki's ring with dilation (2012), hiatal hernia with intrathoracic stomach, history of swallowing difficulty s/p EGD, history of diverticula, anemia, Zarate's esophagus, history of syncope (2010),
hypothyroidism, tubal ligation, aortic atherosclerosis, hyperlipidemia, nonrheumatic mitral regurgitation, tortuous colon, diverticulosis
PSHx: Breast biopsy, tonsillectomy, cataract surgery
Past Medical History
Past Medical History: Other (Above as per HPI)
Past Surgical History: Other (Above as per HPI)
Social History
Tobacco: Non-smoker
Alcohol: Occasional (Socially: Wine)
Drug: None
Personal:
Living: With Family
Family History
Family History: CAD (Father + mother), Cancer (Sibling: Breast cancer), Diabetes (Father) and Other (Father: Pacemaker)
Allergies / Home Medications
Allergies
Allergy/AdvReac Type Severity Reaction Status Date / Time
Corticosteroids Allergy ARCENIO Verified 09/21/24 11:08
(Glucocorticoids)
iodine [Iodine] Allergy Rash Verified 09/21/24 11:08
NSAIDS (Non-Steroidal Allergy Unknown Verified 09/21/24 11:08
Anti-Inflamma
Home Medications
�Medication �Instructions �Recorded �Confirmed �Last Taken �Type
levothyroxine 25 mcg tablet 25 mcg PO DAILY 07/28/10 09/21/24 06/30/23 History
(Synthroid)
rosuvastatin 20 mg tablet 20 mg PO DAILY 01/05/23 09/21/24 06/30/23 History
therapeutic multivitamin 1 tab PO DAILY 01/05/23 09/21/24 06/30/23 History
zaleplon 10 mg capsule 20 mg PO HS 01/05/23 09/21/24 06/30/23 History
zinc 50 mg capsule 50 mg PO DAILY 01/05/23 09/21/24 07/01/23 History
aspirin 81 mg capsule 81 mg PO DAILY 07/01/23 09/21/24 06/30/23 History
hydrochlorothiazide 25 mg tablet 25 mg PO DAILY 07/01/23 09/21/24 06/30/23 History
valacyclovir 1 gram tablet 1,000 mg PO DAILYPRN PRN outbreak 07/01/23 09/21/24 Unknown History
(Valtrex)
albuterol sulfate 90 mcg/actuation 1 puff inhalation R Q6HPRN PRN 09/21/24 09/21/24 Unknown History
aerosol inhaler sob/wheezing
cariprazine 3 mg capsule (Vraylar) 3 mg PO Q48H 09/21/24 09/21/24 Unknown History
cholecalciferol (vitamin D3) 25 25 mcg PO DAILY 09/21/24 09/21/24 Unknown History
mcg (1,000 unit) tablet
clonazepam 0.5 mg tablet 0.5 mg PO DAILYPRN PRN severe 09/21/24 09/21/24 Unknown History
anxiety
ferrous sulfate 325 mg (65 mg 325 mg PO DAILY 09/21/24 09/21/24 Unknown History
iron) tablet
guaifenesin 600 mg tablet, 600 mg PO [id number] PRN congestion 09/21/24 09/21/24 09/21/24 History
extended release 12 hr (Mucinex)
lamotrigine 200 mg tablet 200 mg PO HS 09/21/24 09/21/24 Unknown History
oseltamivir 75 mg capsule (Tamiflu) 75 mg PO BID 09/21/24 09/21/24 09/21/24 History
trazodone 100 mg tablet 150 mg PO HS 09/21/24 09/21/24 Unknown History
Review of Systems
-
Unable to Obtain full review of systems at this time due to: Patient Intubation
Vitals / Labs / Diagnostic Testing
Vital Signs
Temp Pulse Resp BP Pulse Ox
99.2 F 76 14 85/62 97
09/22/24 07:40 09/22/24 08:00 09/22/24 08:00 09/22/24 01:31 09/22/24 09:30
Lab Data
09/22/24 03:50
09/22/24 03:50
Laboratory Results
09/21/24 09/22/24 09/22/24
21:59 00:16 03:50
PT 13.2 13.5
INR 0.97 1.00
APTT 27.9
pH 7.35
pCO2 43 H
pO2 169 H
HCO3 23.7
O2 Delivery Level
Microbiology
09/22/24 00:16 Nasal Swab Influenza Types A & B (JAVON) - Final
Influenza A Positive, NAAT
Diagnostic Testing:
Physical Exam
-
HEENT: Normocephalic, Anicteric and Other (ETT in place)
Cardiovascular: S1/S2 and Peripheral Edema (negative)
Respiratory: Wheeze (negative), Rhonchi (negative), Non-Labored Respirations and Other (Mechanical/coarse breath sounds heard bilaterally)
GI: Soft, Distended (Abdominal obesity), Non Tender and Normal Bowel Sounds
Neurology: Tremors (negative) and Other (Sedated)
Skin: Warm and Dry
General: Respiratory Distress (negative), Comfortable, Fever (negative) and Chills (negative)
Assessment
-
Assessment: 79-year-old female non-smoker with a past medical history of hiatal hernia with intrathoracic stomach, Schatzki's ring with dilation (2012), bipolar disorder, osteopenia, history of swallowing difficulty, history of diverticula,
tortuous colon, nonrheumatic mitral regurgitation, hyperlipidemia, aortic atherosclerosis, hypothyroidism, Zarate's esophagus and history of syncope (2010) who presents with shortness of breath. She says she was flu a positive as of 1 day prior to
arrival (09/20) and has had symptoms for 4 days now. She was started on Tamiflu as an outpatient. Her shortness of breath has unfortunately continued to worsen and she has had a productive cough with yellow phlegm. Apparently her also has
been sick with the flu but he is starting to feel better. Initially in the ER she had a low-grade fever to 100.3 �F, pulse rate 119, respiratory rate 24, BP 157/86 and saturating 89% on room air. She was placed onto 4 L/min with saturations
improving to 95%. At around 8:00 PM the patient developed worsening respiratory distress, and she was intubated for airway protection. Initial labs showed leukocytosis to 12.1, Hb 13.6, sodium 131, TSH 1.22, and UA was not suggestive of UTI, and
initial glucose was 265 via POCT. Blood cultures were collected. Flu swab was positive for influenza A. CXR showed a large predominantly air-filled hiatal hernia/intrathoracic stomach. In the ER she was given acetaminophen and DuoNebs. After
intubation, she was admitted to the ICU and Child Nutrition Assistant services consulted for additional management/recommendations.
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
(2010), hypothyroidism, tubal ligation, aortic atherosclerosis, hyperlipidemia, nonrheumatic mitral regurgitation, tortuous colon, diverticulosis
Impression:
#Acute respiratory failure with hypoxia now on mechanical ventilation (intubated 09/21/2024)
#Septic shock due to severe CAP
#Influenza A pneumonia started on Tamiflu prior to arrival (got approximately 2 days worth thus far) with suspected bacterial superinfection likely from aspiration
#Large hiatal hernia with intrathoracic stomach noted on the right lower lobe of CXR
#Leukocytosis with bandemia (34%) due to sepsis
#Acute anemia
#Hyponatremia
#Metabolic acidosis with preserved anion gap
#MITALI
#Prediabetes with hyperglycemia now on insulin drip
#History of hiatal hernia with intrathoracic stomach
#Bipolar disorder
#Nonrheumatic mitral regurgitation
Plan:
- Continue with mechanical ventilation with daily SAT/SBT if clinically appropriate
- Keep plateau pressure <30
- Titrate PEEP + FiO2 to keep SpO2 >90-94%
- Endotracheal suctioning as needed for pulmonary toilet purposes, and keep HOB >30-45 �
- prn nebulized bronchodilators - not currently bronchospastic
- Lightly sedate with goal RASS 0 to -2
- Adjust ventilator daily as needed based on blood gas
- Check CXR tomorrow to assess proper position of ETT and further assess for any worsening pneumonia
- Continue with Tamiflu for 5 days, potentially 10 days if he remains critical
- Unfortunately with her hiatal hernia, multiple attempts have been made for NGT and OGT insertion which have been unsuccessful --> I will consult GI for assistance as it may need to be placed endoscopically --> she will get EGD tomorrow morning
for procedure
- Also currently on doxycycline --> given the development of a retrocardiac opacity on the evening CXR from 09/21/2024, would change Abx to Unasyn to cover for aspiration pneumonia
- Follow up sputum culture (collected today) + blood cultures x2 collected on 09/21/2024
- Follow up urine Cx
- Given that she has severe, I will start her on IV hydrocortisone --> monitor for side effects as apparently she has a reaction of arcenio to steroids; if any agitation occurs then we will need to start her on additional medications to counteract
this
- Trend WBC, monitor for fevers and tx with Ofirmev given no PO access currently
- Hold home PO meds for now, but transition any PO meds to IV for now if possible
- Given that she is septic and initial glucose was >200, she is now on an insulin drip, currently at 1 unit/h; continue with insulin as per hyperglycemic critical care protocol
- Trend sCr; give an additional 1L of crystalloids as she is likely dry; monitor UOP; strict I/O; renally dose all meds/Abx
- Maintain MAP>65 with Arsh-Synephrine, weaning down as tolerated
- Last echo in December 2019 showed normal biventricular function with mild concentric LVH and normal diastolic function. There was mild MR at the time and trace AI with mildly elevated PASP at 35 mmHg.; If we are unable to wean off vasopressors then
she will need a repeat echo
- Replete electrolytes with K>4, Mg>2
- Maintain euglycemia with goal BG 140-180
- early nutrition --> tried to insert NGT and OGT --> unsuccessful due to coiling and resistance; will need to wait till GI inserts enteral tube on 09/23 and then will start tube feeds at that time
- Trend H/H and transfuse if needed to keep Hb>7g/dL; keep plt>20k, unless there is concern for bleeding then keep plt>50k
- Stress ulcer ppx: start PPI
- DVT ppx: HSQ
Patient is critically ill � continue ICU level of care
Critical care statement: A total of 38 minutes of critical care time was provided for this patient today. This includes management of unstable vital signs, evaluation of the patient at bedside, reviewing the patient's pertinent medical records
including radiographs, microbiology, laboratory evaluations, and discussion with primary team, consultants, pharmacy, nutrition, physical therapy, case management, charge nurse, critical care nursing, and respiratory therapy.
[2024-09-22 10:18] LABS: Glucose - Point of Care 100 mg/dl (70-99)
[2024-09-22 10:18] LABS: Absolute Neutrophils -Man Diff 17.3 10^3/uL (1.4-6.5); Band Neutrophils 34 % (0-3); Lymphocytes 4 % (20-51); Metamyelocytes 2 % (-); Monocytes 3 % (2-9); Segmented Neutrophils 57 % (42-75)
[2024-09-22 10:21] LABS: Normal RBC Morphology Yes; Platelets Checked YES; Total Cells Counted 100
[2024-09-22] MEDS: UNASYN IV ×2 (10:39→19:45)
--- NOTE | 2024-09-22 11:19 | CM ---
Initial assessment completed. Admitted for shortness of breath.
Pt resides w/ spouse, daughter (Ladi) and grandchild in a 2STH- no steps to enter. Pt independent w/ ambulating and ADLs, pt has grab bars in all the bathrooms in the home. Pt has another supportive daughter who is a pediatric surgeon. No
SNF/VN/PT hx.
Address, point of contact and insurance verified. Spouse requested daughters, Ladi and Flakita Daniel to be listed as additional contacts. Admissions made aware and will update.
PCP: Dr. Pagan
Pharmacy: [facility]
Plan: CM will cont to follow hospital course for d/c planning
--- NOTE | 2024-09-22 12:00 | PTCARENOTE ---
Attempted to place dobhoff per MD orders....unsuccessful. aware. No major changes in physical assessment. Pt remains intubated, sedated, and restrained. Order rec'd to maintain sats > or = 90%. Will continue to monitor closely.
[2024-09-22] MEDS: NSS 1000 IV ×2 (12:21→20:42)
[2024-09-22 12:28] LABS: Glucose - Point of Care 107 mg/dl (70-99)
--- NOTE | 2024-09-22 14:30 | PTCARENOTE ---
Attempted to assist in placing a [place] sump both nasally and orally...both unsuccessful. GI consulted. Pt agitated and desats w/ agitation to 88%....prn fentanyl provided.
[2024-09-22 14:39] LABS: Glucose - Point of Care 87 mg/dl (70-99)
--- NOTE | 2024-09-22 15:18 | W.PN.HOSP.TC ---
Today's Communication/Plan
-
Assessment / Plan
Assessment / Plan
Gen-intubated and sedated
HEENT-ETT in place, normocephalic atraumatic
Neck-supple
CV-reg, no M, +S1/S2
Lungs-mechanical breath sounds bilaterally
Abd-soft, ND
Musculoskeletal-no edema, no deformity
Skin-warm and dry
Neuro-responds to noxious stimuli, no tremor
Psych-unable to assess
Ms. Daniel is a 79-year-old female with a medical history of hypertension and bipolar disorder who presented with shortness of breath. She tested positive for influenza 2 days prior to arrival and was started on oseltamivir as an outpatient.
However she had progressively worsening dyspnea and productive cough for 24 hours prior to presenting to the emergency department. In the ED, she was found to be hypoxic with her pulse ox in the mid 80s on room air. She was started on supplemental
oxygen via nasal cannula at that time with improvement in her respiratory status and oxygenation. She was also given nebulizer treatments. She was admitted for further evaluation and management of acute respiratory failure with hypoxia in the
setting of influenza infection.
Acute respiratory failure with hypoxia:
-Secondary to influenza A infection
-Worsening respiratory status overnight after admission leading to intubation
-Currently on relatively low vent settings, to be managed by parliamentary counsel
-Continue oseltamivir, also started on antibiotics empirically to cover for superimposed bacterial infection
-Follow-up respiratory cultures
Septic shock:
-Secondary to pulmonary infection
-Hypotension refractory to IV fluid resuscitation
-Continue vasopressors, appreciate input from parliamentary counsel
-Continue oseltamavir and antibiotics for treatment of pneumonia
-Titrate off of vasopressors as able
-Lactic acid now resulted within normal limits
MITALI:
-Mild, likely secondary to hypoperfusion in the setting of shock
-Continue IV fluids to maintain perfusion with vasopressors as needed
-Monitor
-Renally dose all medications
CODE STATUS: Full code
Anticipated Discharge: > 48 hours
Subjective/Interval History
-
Date of Service: September 22, 2024
Patient was seen and examined at bedside this morning. He was intubated overnight for respiratory distress in the setting of influenza infection. Respiratory status currently stable on close to minimal vent settings.
Objective Data
-
Labs:
Laboratory Results
09/22/24
03:50
WBC 19.1 H
Hgb 11.9 L
Hct 34.7 L
Plt Count 210
PT 13.5
INR 1.00
Sodium 131 L
Potassium 4.6
Chloride 102
Carbon Dioxide 18 L
BUN 26 H
Creatinine 1.8 H
Glucose 118 H
Calcium 8.7
Vital Signs:
Vital Signs
Temp Pulse Resp BP Pulse Ox
99.4 F 70 14 85/62 93
09/22/24 11:45 09/22/24 13:00 09/22/24 13:00 09/22/24 01:31 09/22/24 13:00
I&O
09/21/24 09/22/24 09/23/24
06:59 06:59 06:59
Intake Total 1841.2 / 2008.8 2980.2 / 2980.2
Output Total 362 / 362 188 / 188
Balance 1479.2 / 1646.8 2792.2 / 2792.2
Review of Systems
-
Unable to obtain full review of systems at this time due to: Patient Intubation
Physical Exam
-
General: Intubated
[2024-09-22 15:36] LABS: Glucose - Point of Care 87 mg/dl (70-99)
--- NOTE | 2024-09-22 16:00 | PTCARENOTE ---
Pt remains intubated and sedated. Lungs diminished w/ coarse scattered rhonchi throughout L>R and soft I/E wheezing. Spoke w/ GI MD in reference to issues w/ inserting NGT/OGT. Possible EGD tmr to evaluate hiatal hernia and tentatively insert
NGT. Off insulin gtt at present per glycemic protocol...see intervention. Slowly weaning benedicto gtt to maintain MAP > 65. Safe environment confirmed. Will continue to monitor closely.
[2024-09-22 16:38] LABS: Glucose - Point of Care 86 mg/dl (70-99)
[2024-09-22] MEDS: TYLENOL/FEVERALL 650 MG RECTAL (17:19)
[2024-09-22 17:46] LABS: Glucose - Point of Care 85 mg/dl (70-99)
[2024-09-22 18:33] LABS: Glucose - Point of Care 81 mg/dl (70-99)
--- NOTE | 2024-09-22 22:15 | PTCARENOTE ---
Pt received at 19:00. Intubated and sedated on fentanyl and propofol. Opens eyes spontaneously and tracks, not following commands. SR 60s-80s, pulses weak but palpable, R radial a-line zeroed and trasduced. Continues on benedicto to maintain MAP >65. 7.5
ETT @ 24cm. repositioned from L to R. AC 14/400/40%/+5. Diminished/coarse t/o. Suctioned for minimal thin clear to martinez secretions. Hypoactive bowel sounds, no BM. Evans in place, cloudy yellow urine, 15-30ml/hr. Safe environment maintained, pt
repositioned. call for update, update provided.
[2024-09-22 22:41] LABS: Glucose - Point of Care 85 mg/dl (70-99)
[2024-09-22] MEDS: VERSED 2 MG IV (23:11)
[2024-09-22] MEDS: SOLU-CORTEF 50 MG IV (23:59)
--- NOTE | 2024-09-22 23:59 | PTCARENOTE ---
Pt with increased agitation, PRN versed given and effective.
[2024-09-23 00:29] LABS: Glucose - Point of Care 72 mg/dl (70-99)
[2024-09-23] MEDS: KEPPRA 500 MG IV ×3 (01:27→19:47)
[2024-09-23 02:30] LABS: Glucose - Point of Care 99 mg/dl (70-99)
[2024-09-23] MEDS: NOVOLOG FLEXPEN-LOW RESISTANCE SC ×4 (03:06→18:09)
[2024-09-23 03:47] LABS: O2 Saturation % 99.1 % (94-98); PCO2 30 mmHg (32-35); PO2 128 mmHg (83-108); pH 7.31 (7.35-7.45)
[2024-09-23 03:53] LABS: HCO3 15.1 mmol/L (21-28)
[2024-09-23 04:24] LABS: ALT (SGPT) 297 U/L (0-35); AST (SGOT) 534 U/L (14-36); Albumin 2.6 g/dl (3.5-5.0); Alkaline Phosphatase 83 U/L (38-126); Blood Urea Nitrogen 33 mg/dl (7-17); Calcium 7.8 mg/dl (8.4-10.2); Carbon Dioxide 15 mmol/L (22-30); Chloride 109 mmol/L (98-107); Estimated Creatinine Clearance 25 ml/min; Glucose 93 mg/dl (70-99); Phosphorus 3.9 mg/dl (2.5-4.5); Potassium 4.5 mmol/L (3.5-5.1); Sodium 135 mmol/L (135-145); Total Bilirubin 0.5 mg/dl (0.2-1.3); Total Protein 4.8 g/dl (6.3-8.2); eGFR 26.69
[2024-09-23 04:33] LABS: Hematocrit 31.4 % (37.0-47.0); Hemoglobin 10.4 g/dL (12.0-16.0); Mean Corp Hgb Conc. 33.1 g/dL (33.0-37.0); Mean Corpuscular Hgb 30.8 pg (27.0-31.0); Mean Corpuscular Volume 92.9 fL (81.0-99.0); Mean Platelet Volume 11.1 fL (7.4-10.4); Platelet Count 141 10^3/uL (130-400); Red Blood Cell Count 3.38 10^6/uL (4.20-5.40); Red Cell Dist. Width 14.5 % (11.5-14.5); White Blood Cell Count 11.7 10^3/uL (4.8-10.8)
[2024-09-23] MEDS: DIPRIVAN 100 IV ×4 (04:58→21:54)
[2024-09-23] MEDS: SUBLIMAZE 100 IV ×2 (04:59→15:31)
[2024-09-23] MEDS: SOLU-CORTEF 50 MG IV ×2 (05:17→17:28)
[2024-09-23] MEDS: SODIUM BICARBONATE 1150 MEQ IV (05:17)
[2024-09-23 06:00] VITALS: BMI 33.4
[2024-09-23 06:31] LABS: Glucose - Point of Care 88 mg/dl (70-99)
--- NOTE | 2024-09-23 07:30 | PTCARENOTE ---
Assumed care of patient. Pt rec'd intubated and sedated on ventilator. Responds to tactile stimuli. Pupils 3/sluggish. Bilateral wrist restraints on. S1 S2 reg w/ SB on monitor w/ ST changes. ECG obtained and updated. Weak PP. No
edema. Heels elevated on pillows. #7.5 ETT 24cm left lip....current vent settings: 14/400/+5/80%...sats 98%. Lungs diminished w/ scattered coarse rhonchi and insp/exp wheezing throughout. Abdomen round...hypo BS. No GI access at present. Temp
sensing paula draining scant dark yellow/darin urine w/ sediment. Skin pale and diaphoretic...cool extremities...sacrum intact. Right radial victoriano...zeroed and flushed. IVF's, fent, and propofol infusing via peripheral sites. VS documented.
Safe environment confirmed. Will continue to monitor closely.
--- NOTE | 2024-09-23 07:55 | PTCARENOTE ---
notified via TT that pt had ST depression on monitor. ECG obtained and troponin sent.
[2024-09-23] MEDS: NSS (PRESERVATIVE FREE) 10 ML IV (08:02)
[2024-09-23] MEDS: PROTONIX IV 40 MG IV (08:02)
[2024-09-23] MEDS: HEPARIN 5000 UNITS SC (08:06)
[2024-09-23] MEDS: UNASYN IV ×2 (08:08→21:03)
--- NOTE | 2024-09-23 08:09 | W.PN.INTV ---
Today's Communication / Plan
Recommendations
Diffuse ST elevation seen today on EKG � LHC showed clear coronaries with evidence of Takotsubo's cardiomyopathy with postcapillary pulmonary hypertension with reduced cardiac index
Now on Bumex drip
Heparin drip started this morning but now we will change back to heparin SQ
Still with no PO access, GI was unable to insert OGT this morning even with EGD guidance
Convert PO meds to IV, if possible
Uses lamotrigine at home � will use Keppra for now to avoid lamotrigine withdrawal symptoms
Continue mechanical ventilation with daily SAT/SBT if clinically appropriate
Maintain SpO2 >90-94%
Off of vasopressors since alligator shear operator 09/23/2024
Follow Kane-Acosta numbers and consider inotropic support if CI remains <2 and MVO2 remains <70-75
Once PO access is established, start Tamiflu
Sputum culture growing strep pneumonia, continue with Unasyn
Continue stress dose steroids
Goal BG 140�180
Stress ulcer prophylaxis
Patient critically ill; continue with ICU level of care
Assessment
-
Assessment: 79-year-old female non-smoker with a past medical history of hiatal hernia with intrathoracic stomach, Schatzki's ring with dilation (2012), bipolar disorder, osteopenia, history of swallowing difficulty, history of diverticula,
tortuous colon, nonrheumatic mitral regurgitation, hyperlipidemia, aortic atherosclerosis, hypothyroidism, Zarate's esophagus and history of syncope (2010) who presents with shortness of breath. She says she was flu a positive as of 1 day prior to
arrival (09/20) and has had symptoms for 4 days now. She was started on Tamiflu as an outpatient. Her shortness of breath has unfortunately continued to worsen and she has had a productive cough with yellow phlegm. Apparently her also has
been sick with the flu but he is starting to feel better. Initially in the ER she had a low-grade fever to 100.3 �F, pulse rate 119, respiratory rate 24, BP 157/86 and saturating 89% on room air. She was placed onto 4 L/min with saturations
improving to 95%. At around 8:00 PM the patient developed worsening respiratory distress, and she was intubated for airway protection. Initial labs showed leukocytosis to 12.1, Hb 13.6, sodium 131, TSH 1.22, and UA was not suggestive of UTI, and
initial glucose was 265 via POCT. Blood cultures were collected. Flu swab was positive for influenza A. CXR showed a large predominantly air-filled hiatal hernia/intrathoracic stomach. In the ER she was given acetaminophen and DuoNebs. After
intubation, she was admitted to the ICU and Watch Assembler services consulted for additional management/recommendations.
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
(2010), hypothyroidism, tubal ligation, aortic atherosclerosis, hyperlipidemia, nonrheumatic mitral regurgitation, tortuous colon, diverticulosis
Impression:
#Acute respiratory failure with hypoxia now on mechanical ventilation (intubated 09/21/2024)
#Septic shock due to severe CAP due to Streptococcus pneumonia - septic shock state resolved as of alligator shear operator of 09/23/2024
#EKG changes today (on 09/23/2024) with ST elevations in lateral leads and elevated troponin, concern for ACS --> clear coronaries on [facility] with Dx of Takotsubo's cardiomyopathy
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
#Influenza A pneumonia started on Tamiflu prior to arrival (got approximately 2 days worth thus far) with suspected bacterial superinfection likely from aspiration
#Large hiatal hernia with intrathoracic stomach noted on the right lower lobe of CXR
#Leukocytosis with bandemia (34%) due to sepsis
#Acute anemia
#Hyponatremia
#Metabolic acidosis with preserved anion gap
#MITALI
#Prediabetes with hyperglycemia now on insulin drip
#History of hiatal hernia with intrathoracic stomach
#Bipolar disorder
#Nonrheumatic mitral regurgitation
Plan:
- Continue with mechanical ventilation with daily SAT/SBT if clinically appropriate
- Keep plateau pressure <30
- Titrate PEEP + FiO2 to keep SpO2 >90-94%
- Endotracheal suctioning as needed for pulmonary toilet purposes, and keep HOB >30-45 �
- prn nebulized bronchodilators - not currently bronchospastic
- Lightly sedate with goal RASS 0 to -2
- Adjust ventilator daily as needed based on blood gas
- Check CXR tomorrow to assess proper position of ETT and further assess for any worsening pneumonia
- Continue with Tamiflu for 5 days, potentially 10 days if he remains critical
- Unfortunately with her hiatal hernia, multiple attempts have been made for NGT and OGT insertion which have been unsuccessful --> GI consulted and they attempted EGD assisted enteral tube insertion however this was unsuccessful today (09/23/2024).
Hopefully we can extubate the patient over the next few days and then patient can take her PO meds at that is time.
- She was on doxycycline --> given the development of a retrocardiac opacity on the evening CXR from 09/21/2024, changed Abx to Unasyn to cover for aspiration pneumonia
- Sputum culture collected 09/22/2024 has grown Streptococcus pneumonia --> follow-up sensitivities; follow up blood cultures x2 collected on 09/21/2024
- Follow up urine Cx (collected 09/22/2024)
- Given that she has severe, I started her on IV hydrocortisone --> monitor for side effects as apparently she has a reaction of arcenio to steroids; if any agitation occurs then we will need to start her on additional medications to counteract this
- Trend WBC, monitor for fevers and tx with Ofirmev given no PO access currently
- Hold home PO meds for now, but transition any PO meds to IV for now if possible
- She takes lamotrigine at home and this was changed to Keppra; resume lamotrigine and stop Keppra once PO access is back
- Given her abnormal EKG findings this morning with elevated troponin, started heparin drip and gave rectal aspirin on AM of 09/23/2024
- Cardiology urgently consulted
- Check stat echo --> shows akinesis of the mid to apical inferoseptal, inferolateral and apical quintero with LVEF 40-45% and mild concentric LVH. Normal RV size/function with mild�moderate TR
- Given rectal ASA now
- Went for left heart catheterization today (09/23/2024) showing clear coronaries with left ventriculography showing hyperdynamic LV base with akinesis of the mid ventricle and dyskinesis of the apical ventricle consistent with Takotsubo's
cardiomyopathy. LVEF was 30-35%. There was discordance between the Rudy and thermodilution cardiac function with index lying somewhere between 1.27 to 2.03. Also moderate postcapillary pulmonary hypertension with mPAP 40 mmHg, PCWP: 35 mmHg, and
PVR: 2.02 HURTADO.
- Continue with GDMT as heart function normalizes
- Low threshold for inotropic therapy, and cardiology favors milrinone rather than dobutamine given elevated SVR of 1943 and stable BP off pressors since early on AM of 09/23
- Aggressive diuresis as tolerated - now on bumex gtt and she has Kane Acosta catheter in place via R-IJ cordis
- Given that she is septic and initial glucose was >200, she required an insulin drip on 09/22/2024. Now off insulin drip. Maintain goal BG 140�180; HbA1c was 6 on 09/21/2024
- Trend sCr; gave an additional 1L of crystalloids on 09/22/2024 given concern for hypovolemia with reduced UOP; monitor UOP; strict I/O; renally dose all meds/Abx
- Maintain MAP>65; now off all pressors as of early AM on 09/23/2024
- Last echo in December 2019 showed normal biventricular function with mild concentric LVH and normal diastolic function. There was mild MR at the time and trace AI with mildly elevated PASP at 35 mmHg. Repeat echo performed today (09/23/2024 - see
below for report).
- Replete electrolytes with K>4, Mg>2
- Early nutrition --> tried to insert NGT and OGT --> unsuccessful due to coiling and resistance; GI also attempted to place OGT under direct visualization with EGD however this was also unsuccessful on 09/23/2024 and the OGT was coiled in the mouth
- Trend H/H and transfuse if needed to keep Hb>7-8g/dL; keep plt>20k, unless there is concern for bleeding then keep plt>50k
- Stress ulcer ppx: PPI
- DVT ppx: Started heparin drip this AM, but given the clear coronaries on C with no evidence of CAD, I will stop heparin drip and resume HSQ
Family was updated by Dr. Soriano on AM of 09/23/2024 prior to left heart catheterization (Dr. Soriano spoke with and daughter), and cardiology updated the family after the left heart catheterization.
Patient is critically ill � continue ICU level of care
Data:
Left heart catheterization 09/23/2024:
CONCLUSIONS:
1. Right dominant circulation with no coronary artery disease.
2. Severely elevated filling pressures (LVEDP = 35 mmHg, PCWP = 35 mmHg at 88.0 kg).
3. Hyperdynamic LV base with akinesis of the mid ventricle and dyskinesis of the apical ventricle consistent with Takotsubo cardiomyopathy, LV ejection fraction estimated at 30-35%.
4. Discordance between Rudy and thermodilution cardiac function. Low normal to mildly impaired function by Rudy equation (cardiac index = 2.03 L/min/m�, a VO2 difference 5.45 volume %), severely depressed function by cardiac index (1.27 L/min/m�).
I suspect the truth is somewhere in between.
5. Moderate, postcapillary pulmonary hypertension (mean PA = 40 mmHg, PCWP = 35 mmHg, cardiac output = 2.47 L/min, PVR = 2.02 Oates units), WHO group 2.
Transthoracic echocardiogram 09/23/2024:
Normal left ventricular size.
Mild concentric left ventricular hypertrophy.
Akinesis of the mid to apical inferoseptal, inferolateral and apical quintero.
LV ejection fraction is 40-45% by Allen's method of discs which may be
overestimated.
Normal right ventricular size and function.
Mild to moderate tricuspid regurgitation.
Estimated pulmonary artery pressure of 15-20 mmHg assuming a right atrial
pressure of 3 mmHg.
Pulmonic valve is grossly normal but poorly visualized.
Normal pericardium without effusion.
The IVC is dilated and does not collapse.
The patient is mechanically ventilated.
CXR 09/23/2024:
ET tube placement as described above. No pneumothorax.
Large hiatal hernia versus intrathoracic stomach. Stable.
New minimal left lower lobe atelectasis.
Critical care statement: A total of 43 minutes of critical care time was provided for this patient today. This includes management of unstable vital signs, evaluation of the patient at bedside, reviewing the patient's pertinent medical records
including radiographs, microbiology, laboratory evaluations, and discussion with primary team, consultants, pharmacy, nutrition, physical therapy, case management, charge nurse, critical care nursing, and respiratory therapy.
Subjective Dataa
Subjective Data
Date of Service:
Date of Service: September 23, 2024
Chief Complaint: Watch Assembler Follow Up
Subjective:
Patient was seen and evaluated this morning. Nurse noted ST changes on payroll professional, and EKG showed diffuse ST elevations. Patient brought to the Mainframe Systems Engineer showing severely elevated filling pressures with LVEDP 35 mmHg, PCWP: 35 mmHg with
reduced cardiac index and moderate postcapillary pulmonary hypertension. Coronaries were clear. Diagnosed with Takotsubo's cardiomyopathy. LVEF 30-35% on left ventriculography. This morning prior to going to Mainframe Systems Engineer, heart rate 64, BP 106/57
via A-line, and saturating 100% via AC/CMV at 14/400/5/100%, with PIP: 27 cmH2O, VTe 453 mL and breathing at 14 breaths/min. Currently sedated on fentanyl at 100 mcg/hr + propofol at 30mcgkg/min. Also on bicarb drip at 100 cc/hour. Patient
remains sedated.
Review of Systems
General: Unobtainable - Sedation (Intubated)
Objective Data
Data Reviewed
Vital Signs / I&O / Oxygen:
Vital Signs
Temp Pulse Resp BP Pulse Ox
97.7 F 58 14 85/62 100
09/23/24 07:26 09/23/24 06:40 09/23/24 06:40 09/22/24 01:31 09/23/24 08:20
Intake and Output
09/22/24 09/23/24 09/24/24
06:59 06:59 06:59
Intake Total 1841.2 / 2008.8 5062.5 / 5184.8 362.1 / 362.1
Output Total 362 / 362 630 / 650 65 / 65
Balance 1479.2 / 1646.8 4432.5 / 4534.8 297.1 / 297.1
SaO2 [A/C] 98
SaO2 100
Nasal Cannula flow liters per 4
minute
Physical Exam
General: Respiratory Distress (negative), Comfortable, Chills (negative), Sweats (negative) and Other (Intubated/sedated)
HEENT: Normocephalic, Anicteric and Other (ETT in place)
Cardiovascular: S1-S2, Rub (negative) and Peripheral Edema (negative)
Respiratory: Wheeze (negative), Crackles (negative), Rhonchi (negative), Accessory Resp Muscle Use (negative) and ET Tube (Chronic breath sounds heard bilaterally)
GI: Soft, Non Distended, Non Tender and Other (Hypoactive bowel sounds)
Neurology: Tremors (negative) and Other (Sedated)
Skin: Warm, Dry, Cyanosis (negative) and Jaundice (negative)
Labs/Micro/Reports
Lab Data
03/02/25 03:39
09/23/24 03:39
Laboratory Results
09/23/24
03:39
pH 7.31 L
pCO2 30 L
pO2 128 H
HCO3 15.1 L*
O2 Delivery Level
Microbiology
09/21/24 23:24 Blood/Venous Blood Culture - Preliminary
No Growth in 24 hours- Final report to follow
09/21/24 23:24 Blood/Venous Blood Culture - Preliminary
No Growth in 24 hours- Final report to follow
09/22/24 04:33 Tracheal Aspirate Gram Stain - Preliminary
09/22/24 00:16 Nasal Swab Influenza Types A & B (JAVON) - Final
Influenza A Positive, NAAT
[2024-09-23] MEDS: SUBLIMAZE 50 MCG IV ×4 (09:29→19:21)
[2024-09-23] MEDS: VERSED 2 MG IV ×3 (09:34→19:31)
--- NOTE | 2024-09-23 09:40 | PTCARENOTE ---
At bedside w/ GI team and GI MD. Fentanyl and versed provided for EGD and insertion of NGT/OGT.
--- NOTE | 2024-09-23 09:42 | PTCARENOTE ---
made aware of pt's troponin results. Cardiology consulted.
--- NOTE | 2024-09-23 10:10 | PTCARENOTE ---
16fr salem placed orally by GI MD at bedside w/ guide wire and scope after EGD. Xray ordered to confirm placement. Rectal aspirin provided per MD order.
[2024-09-23] MEDS: ASPIRIN 300 MG RECTAL (10:17)
--- NOTE | 2024-09-23 10:19 | W.PN.UPDATE ---
Update Note
Progress Note Update
Requested by ICU team for placement of OGT under direct visualization with EGD since unable to place by ICU team. Consent obtained from patient's over the phone .
[2024-09-23] MEDS: HEPARIN 25000 UNITS/250 ML IV (10:37)
--- NOTE | 2024-09-23 10:45 | PTCARENOTE ---
Multiple manipulations of OGT by ULISES STEWART...unable to view on xray. OGT removed. Will proceed w/ prepping pt for tag and label cutter.
[2024-09-23] MEDS: HEPARIN 4000 UNITS IV (10:52)
[2024-09-23] MEDS: SOLU-CORTEF IV (11:06)
[2024-09-23 11:13] LABS: Glucose - Point of Care 93 mg/dl (70-99)
[2024-09-23] MEDS: SOLU-MEDROL PF 120 MG IV (11:13)
--- NOTE | 2024-09-23 11:17 | W.PN.UPDATE ---
Update Note
Progress Note Update
Please see full consultation to follow
Dr. Soriano from the pulmonary critical care team reached out regarding EKG changes in Mrs. Daniel. Her 7:50 AM ECG notes inferolateral and anterior ST elevations with terminal T wave inversions and sinus bradycardia. Her ECG from yesterday is
relatively normal. Troponin this morning noted to be 14.5. She is admitted with vent dilatory dependent respiratory failure and acute flu a infection. She has an echocardiogram from 2019 which is relatively normal. As she is intubated I called
her Viet by phone communicating the ECG changes, the positive troponin, and the need to perform emergent left and right heart catheterization and depending upon hemodynamics consideration for hemodynamic support. In parallel once notified
of the ECG changes I contacted Dr. Munson who called in the cardiac catheterization team and also will perform bedside echocardiography. Her creatinine is 1.9. I discussed with the critical nature of her care and risk benefits and
treatment alternatives for the left and right heart catheterization. He requested my contact information as his daughter is a pediatric surgeon and I did give him my cell phone number and told him that that his daughter can feel free to reach out
to me to discuss. Prior to this admission she has been relatively functional. Creatinine is 1.9 currently and was normal a few days ago.
Differential:
Her ST-T changes could be from coronary occlusion, profound myocarditis related to flu, Takotsubo cardiomyopathy, versus other and depending upon the left and right heart catheterization plan of care to follow. Findings communicated with nursing
team, pulmonary critical care, interventional cardiology, patient and family and GI team who is at the bedside. I arrived to evaluate the patient as she was getting an attempted endoscopic G-tube.
--- NOTE | 2024-09-23 11:30 | PTCARENOTE ---
Report given to cardiac catheterization technician and pt transported to cardiac catheterization technician w/ respiratory and cardiac catheterization technician staff.
--- NOTE | 2024-09-23 12:11 | CON.CAR ---
Addendum entered and electronically signed by Lc Powell MD 09/23/24 12:47:
Discussed results of left and right heart catheterization with Dr. Munson including clean coronaries, LV gram consistent with Takotsubo cardiomyopathy and elevated right and left heart pressures. Obviously the situation is somewhat more complex
given her acute renal failure but we will proceed with diuresis with bumetanide drip. Ideally in the intermediate term we would like to add beta-leticia and afterload reduction but would hold on ARB therapy given her renal insufficiency at this
time. Perhaps over the next 12 to 24 hours we can introduce low-dose Toprol XL or Coreg if she remains stable hemodynamically. Hopefully the diuresis will aid in her respiratory management as well.
I communicated these findings with the , critical care team, critical care nursing and internal medicine team.
Maintain telemetry in ICU
We will follow closely with you
Original Note:
Consultation
Consultation Request
Date/Time Consultation Requested: September 23, 2024
Date/Time Consultation Performed: September 23, 2024
Requesting Provider: Pulmonary critical care
Performing Provider: Andre
Reason for Consultation: EKG changes
Medical History
-
Chief Complaint: EKG changes
History of Present Illness:
79-year-old female who I was consulted earlier this morning by the pulmonary critical care team for a troponin of 14.5 and EKG changes. Review of yesterday's ECG is relatively normal and this morning she has new acute sinus bradycardia with diffuse
ST segment elevations with biphasic terminal ST segment inversions in the anterior, inferior, and lateral leads. She has contralateral changes in aVR. She is intubated and was admitted with ventilatory dependent respiratory failure from acute flu
A.
I spoke with her by phone detailing the EKG changes and the need for emergent right and left heart catheterization and in parallel discussed the case with Dr. Munson who called in the care team. I provided my contact information to the
in case his daughter who is a pediatric surgeon wanted to reach out.
When seen in ICU she was just finishing an attempted placement of a gastric tube and she has a known history of hiatal hernia and intrathoracic stomach.
She was noted to have heart rates in the high 50s with blood pressures in the 80s to 90 systolic over 50s to 60s.
She has acute renal failure creatinine 1.9 and at baseline was 1.02 days ago.
She has transaminitis.
History of normal echo in the past.
Past Medical History
Past Medical History: CHF
Social History
Tobacco: Non-Smoker
Alcohol: None
Drug: None
Personal:
Living: With Family
Employment: Not Employed
Family History
Family History: Reviewed & Not Pertinent
Allergies / Home Medications
Allergy/AdvReac Type Severity Reaction Status Date / Time
Corticosteroids Allergy KERRY Verified 09/21/24 11:08
(Glucocorticoids)
iodine [Iodine] Allergy Rash Verified 09/21/24 11:08
NSAIDS (Non-Steroidal Allergy Unknown Verified 09/21/24 11:08
Anti-Inflamma
�Medication �Instructions �Recorded �Confirmed �Type
levothyroxine 25 mcg tablet 25 mcg PO DAILY 07/28/10 09/21/24 History
(Synthroid)
rosuvastatin 20 mg tablet 20 mg PO DAILY 01/05/23 09/21/24 History
therapeutic multivitamin 1 tab PO DAILY 01/05/23 09/21/24 History
zaleplon 10 mg capsule 20 mg PO HS 01/05/23 09/21/24 History
zinc 50 mg capsule 50 mg PO DAILY 01/05/23 09/21/24 History
aspirin 81 mg capsule 81 mg PO DAILY 07/01/23 09/21/24 History
hydrochlorothiazide 25 mg tablet 25 mg PO DAILY 07/01/23 09/21/24 History
valacyclovir 1 gram tablet 1,000 mg PO DAILYPRN PRN outbreak 07/01/23 09/21/24 History
(Valtrex)
albuterol sulfate 90 mcg/actuation 1 puff inhalation R Q6HPRN PRN 09/21/24 09/21/24 History
aerosol inhaler sob/wheezing
cariprazine 3 mg capsule (Vraylar) 3 mg PO Q48H 09/21/24 09/21/24 History
cholecalciferol (vitamin D3) 25 25 mcg PO DAILY 09/21/24 09/21/24 History
mcg (1,000 unit) tablet
clonazepam 0.5 mg tablet 0.5 mg PO DAILYPRN PRN severe 09/21/24 09/21/24 History
anxiety
ferrous sulfate 325 mg (65 mg 325 mg PO DAILY 09/21/24 09/21/24 History
iron) tablet
guaifenesin 600 mg tablet, 600 mg PO [id number] PRN congestion 09/21/24 09/21/24 History
extended release 12 hr (Mucinex)
lamotrigine 200 mg tablet 200 mg PO HS 09/21/24 09/21/24 History
oseltamivir 75 mg capsule (Tamiflu) 75 mg PO BID 09/21/24 09/21/24 History
trazodone 100 mg tablet 150 mg PO HS 09/21/24 09/21/24 History
Review of Systems
-
Unable to obtain full review of systems at this time due to: Patient Intubation
Physical Exam
Vital Signs
Temp Pulse Resp BP Pulse Ox
97.7 F 65 5 85/62 98
09/23/24 11:11 09/23/24 10:40 09/23/24 10:40 09/22/24 01:31 09/23/24 10:00
Lab Results
09/23/24 03:39
Troponin I 14.500 ng/ml H* 09/23/24 08:58
Physical Exam
General: Well Developed, Well Nourished and Respiratory Distress
HEENT: Normocephalic and Other (Intubated)
Respiratory: Crackles and Rhonchi
Cardiac: Regular Rhythm and Murmur (No audible murmur)
Breast: Deferred by me
GI: Soft, Non Tender and Non Distended
Rectal: Deferred by Provider
Genito-urinary: Other
Musculoskeletal: No Clubbing and No Cyanosis
Skin: Warm, Dry and Other (Peripherally she is warm)
Neuro: Other (Intubated and sedated)
Hematologic/Lymphatic: No Lymphadenopathy
Psych: Other (Intubated and sedated)
Impression / Plan
-
Impression:
Acute ST segment elevation
Elevated troponin
Acute flu infection
Acute renal failure
Acute liver failure with transaminitis
Ventilatory dependent respiratory failure
History of normal ejection fraction without significant cardiac issue at prior echo
Sinus bradycardia
Recommendations:
I recommended emergent left and right heart catheterization and consent and the over the phone for each plus possible hemodynamic support. In the differential and sending to the cardiac catheterization lab would be coronary occlusion,
fulminant myocarditis from flu a, and stress cardiomyopathy. Treatment of each is different and despite the risk of intravenous dye targeting therapy is quite important in this critical ill patient.
Further orders by Dr. Munson as I observed at bedside during left heart catheterization as she has clean coronaries and left ventriculogram suggestive of Takotsubo or stress cardiomyopathy. This is also consistent with the limited bedside
echocardiogram which was performed in parallel.
Her LVEDP appears to be 37 and we will order diuretic as blood pressure tolerates and ultimately beta-leticia and ARB would be advised for the Takotsubo cardiomyopathy which is likely related to her fluid infection.
Given her acute renal insufficiency we will not be able to add the ARB until renal function is improving.
Further orders depending on right heart catheterization numbers which will be fully reported by Dr. Munson
I communicated findings of the left heart catheterization to the pulmonary critical care, internal medicine, and GI teams and we will follow closely with you. Please maintain telemetry
I communicated findings with the patient's and provided my contact information to the daughter is a pediatric surgeon. I left a message with the daughter.
Data Reviewed
-
EKG: Tracing Personally Visualized and interpreted
Radiology: Image Personally Visualized and interpreted
Medical Tests (Nuc Med, Echo etc): Image Personally Visualized and interpreted
Labs: Labs Reviewed by me
Old Records: Requested
--- NOTE | 2024-09-23 12:37 | ITS.CL.CATH ---
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
Cardiac Catheterization
Procedure Report:
CARDIAC CATHETERIZATION REPORT
Date of Procedure: 09/23/2024
Referring: Lc Powell M.D.
Indication: ST elevation on EKG with multifactorial shock, influenza A.
PROCEDURE:
1. Right heart catheterization.
2. Coronary angiography.
3. Left heart catheterization
4. Left ventriculography
A total of 60 minutes of procedural/moderate sedation was utilized. An independent medical staff assistant was present to assist with and help manage the patient's level of consciousness and physiologic status.
ACCESS:
1. 6 Kazakh right common femoral artery using a modified Seldinger technique with a micropuncture kit under ultrasound guidance. Ultrasound image obtained.
2. 8 Kazakh right internal jugular vein using a modified Seldinger technique with a micropuncture kit under ultrasound guidance. Ultrasound image obtained.
CATHETERS:
1. 7.5 Kazakh Reva-Acosta.
2. 5 Kazakh JL 4.
3. 5 Kazakh JR4.
4. 5 Kazakh angled pigtail.
HEMODYNAMIC DATA
Weight (kg): 88.0
AO (s/d/x, mmHg): 122/69/90
LV (s/x, mmHg): 124/35
PCWP (a/v/x, mmHg): 37/39/35
PA (s/d/x, mmHg): 51/35/40
RV (s/x, mmHg): 51/30
RA (a/v/x, mmHg): 35/31/30
SVC SvO2 (%): 64.5
IVC SvO2 (%): Not obtained.
RA SvO2 (%): Not obtained.
RV SvO2 (%): Not obtained.
PA SvO2 (%): 56.2
SaO2 (%): 94.0
Hbg (g/dL): 10.6
JORDY
CO (L/min): 3.94
CI (L/min/m2): 2.03
Thermodilution
CO (L/min): 2.47
CI (L/min/m2): 1.27
TPG (mmHg): 5
PVR (Oates Units): 2.02
SVR (dynes*seconds*cm^-5): 1943
AVO2 Diff (Volume %): 5.45
AV gradient (x, mmHg): None.
AV area (cm2): Normal
MV gradient (x, mmHg): Not obtained.
MV area (cm2): Not obtained.
LEFT VENTRICULOGRAPHY: Performed in an WALTERS projection. Normal left ventricular size with hyperdynamic ventricular basal function and akinesis of the mid ventricle to apex with ballooning of the LV apex and severe reduction in left ventricular
systolic function. LV ejection fraction estimated at 30-35%. There is no mitral regurgitation. There is no aortic valve insufficiency. The aortic root and visualized ascending and descending aorta appear normal.
AORTOGRAPHY: Not performed.
CORONARY ANGIOGRAPHY
Dominance: Right.
Left Main: Normal size, bifurcating vessel. There is no coronary artery disease.
LAD: Normal size vessel giving rise to 1 significant diagonal. There is no coronary artery disease.
Ramus: Congenitally absent.
Circumflex: Normal size, nondominant vessel that is essentially a single obtuse marginal. There is severe tortuosity but no coronary artery disease.
RCA: Large size, dominant vessel with a significant posterolateral arcade. There is no coronary artery disease. The distal RPDA severely tortuous.
INTERVENTIONS
None.
Closure Device: 6 Kazakh Angio-Seal for the right common femoral artery, the 8 Kazakh right internal jugular sheath was sutured in place.
Radiation dose (mGy): 328.94
DAP (cm2.Gy): 30.8775
Fluoroscopy time (minutes): 4.4
CONCLUSIONS:
1. Right dominant circulation with no coronary artery disease.
2. Severely elevated filling pressures (LVEDP = 35 mmHg, PCWP = 35 mmHg at 88.0 kg).
3. Hyperdynamic LV base with akinesis of the mid ventricle and dyskinesis of the apical ventricle consistent with Takotsubo cardiomyopathy, LV ejection fraction estimated at 30-35%.
4. Discordance between Jordy and thermodilution cardiac function. Low normal to mildly impaired function by Jordy equation (cardiac index = 2.03 L/min/m�, a VO2 difference 5.45 volume %), severely depressed function by cardiac index (1.27 L/min/m�).
I suspect the truth is somewhere in between.
5. Moderate, postcapillary pulmonary hypertension (mean PA = 40 mmHg, PCWP = 35 mmHg, cardiac output = 2.47 L/min, PVR = 2.02 Oates units), WHO group 2.
RECOMMENDATIONS:
1. Expectant management after cardiac catheterization via right common femoral approach.
2. Limited weight bearing for one week.
3. Aggressive diuresis as hemodynamics will tolerate.
4. Low threshold for initiation of inotropic therapy if indicated (favor milrinone or dobutamine given elevated SVR and stable blood pressure).
5. GDMT as heart function normalizes.
6. Discussed with Dr. Powell and Dr. Sexton.
Copy to: Lc Powell M.D., Holland Pagan D.O.
Benedicto Oneill, DO, FACC, FACP
--- NOTE | 2024-09-23 13:15 | PTCARENOTE ---
Pt rec'd from denture laboratory technician. Arrived to ICU post cath....right femoral dressing dry intact. Will monitor and chart under post angiography intervention. EM benitez/ delicia noted. All gtt tubing changed and infusing via cordis. Bumex gtt added per MD
orders. Will continue to monitor closely.
[2024-09-23] MEDS: BUMEX 50 IV (14:01)
[2024-09-23] MEDS: SODIUM BICARBONATE IV (14:46)
[2024-09-23 15:38] LABS: Lactic Acid 0.8 mmol/L (0.7-2.0)
--- NOTE | 2024-09-23 16:00 | PTCARENOTE ---
VAT made aware that PICC order could be placed on hold and re-evaluated in am. Pt currently has a RIJ swan w/ cordis. Current gtts: prop, fent, bumex, (and will add milrinone per cardiology) are all compatible and able to infuse via cordis.
Manifold applied. Pt remains sedated on vent...restrained. No major changes in physical assessment. Dtr at bedside...fully updated. Safe environment confirmed. Will continue to monitor.
--- NOTE | 2024-09-23 16:01 | PTCARENOTE ---
picc order on hold, per garth LAM, patient with adequate iv access at this time, cont to reevaluate for picc placement.
[2024-09-23] MEDS: PRIMACOR 20 MG 100 IV (16:15)
--- NOTE | 2024-09-23 16:23 | W.PN.HOSP.TC ---
Today's Communication/Plan
-
Assessment / Plan
Assessment / Plan
Gen-intubated and sedated
HEENT-ETT in place, normocephalic atraumatic
Neck-supple
CV-reg, no M, +S1/S2
Lungs-mechanical breath sounds bilaterally
Abd-soft, ND
Musculoskeletal-no edema, no deformity
Skin-warm and dry
Neuro-responds to noxious stimuli, no tremor
Psych-unable to assess
Ms. Daniel is a 79-year-old female with a medical history of hypertension and bipolar disorder who presented with shortness of breath. She tested positive for influenza 2 days prior to arrival and was started on oseltamivir as an outpatient.
However she had progressively worsening dyspnea and productive cough for 24 hours prior to presenting to the emergency department. In the ED, she was found to be hypoxic with her pulse ox in the mid 80s on room air. She was started on supplemental
oxygen via nasal cannula at that time with improvement in her respiratory status and oxygenation. She was also given nebulizer treatments. She was admitted for further evaluation and management of acute respiratory failure with hypoxia in the
setting of influenza infection.
Acute respiratory failure with hypoxia:
-Secondary to influenza A infection
-Worsening respiratory status overnight after admission leading to intubation
-Currently on relatively low vent settings, to be managed by slitter cut off operator
-Continue oseltamivir, also started on antibiotics empirically to cover for superimposed bacterial infection
-Follow-up respiratory cultures
Acute cardiomyopathy:
-Abnormal rhythm noted on telemetry
-EKG showed acute ST segment changes in the anterolateral leads, troponin significantly elevated
-Provide urgently for cardiac cath, no obstructive coronary artery disease, did identify Takotsubo's cardiomyopathy
-Started aggressive diuresis with Bumex and milrinone drips, will monitor renal function closely
-Beta-leticia and afterload reduction with DELANEY inhibitor/ARB as hemodynamics allow
-Appreciate guidance of cardiology
Septic shock:
-Secondary to pulmonary infection
-Now off vasopressors
-Continue oseltamavir and antibiotics for treatment of pneumonia
-Lactic acid now resulted within normal limits
Transaminitis:
-Significantly elevated AST greater than ALT, suspect due to acute viral illness and shock
-Will continue to monitor
MITALI:
-Suspect initially secondary to hypoperfusion in the setting of shock, however now likely element of volume overload
-Off vasopressors, continue aggressive diuresis with Bumex drip and milrinone
-Monitor
-Renally dose all medications
CODE STATUS: Full code
Anticipated Discharge: > 48 hours
Subjective/Interval History
-
Date of Service: September 23, 2024
Patient was seen and examined at bedside this morning. Remains intubated and sedated. Off vasopressors. Abnormal rhythm noted on telemetry. EKG showed acute ST segment changes in the anterolateral leads.
Objective Data
-
Labs:
Laboratory Results
09/23/24 09/23/24 09/23/24
03:39 10:33 10:37
WBC 11.7 H Cancelled Cancelled
Hgb 10.4 L Cancelled Cancelled
Hct 31.4 L Cancelled Cancelled
Plt Count 141 D Cancelled Cancelled
APTT Cancelled Cancelled
Sodium 135
Potassium 4.5
Chloride 109 H
Carbon Dioxide 15 L
BUN 33 H
Creatinine 1.9 H
Glucose 93
Calcium 7.8 L
Total Bilirubin 0.5
AST 534 H*
ALT 297 H
Alkaline Phosphatase 83
Vital Signs:
Vital Signs
Temp Pulse Resp BP Pulse Ox
96.5 F L 65 5 85/62 100
09/23/24 15:14 09/23/24 10:40 09/23/24 10:40 09/22/24 01:31 09/23/24 16:03
I&O
03/08/1809/23/24 09/24/24
06:59 06:59 06:59
Intake Total 1841.2 / 2008.8 5062.5 / 5184.8 838.3 / 838.3
Output Total 362 / 362 630 / 650 770 / 770
Balance 1479.2 / 1646.8 4432.5 / 4534.8 68.3 / 68.3
Review of Systems
-
Unable to obtain full review of systems at this time due to: Patient Intubation
Physical Exam
-
General: No Apparent Distress
[2024-09-23 17:54] LABS: Glucose - Point of Care 111 mg/dl (70-99)
[2024-09-23 19:21] LABS: Blood Urea Nitrogen 42 mg/dl (7-17); Calcium 7.9 mg/dl (8.4-10.2); Carbon Dioxide 16 mmol/L (22-30); Chloride 103 mmol/L (98-107); Estimated Creatinine Clearance 28 ml/min; Glucose 139 mg/dl (70-99); Phosphorus 4.9 mg/dl (2.5-4.5); Sodium 137 mmol/L (135-145); eGFR 28.48
[2024-09-23] MEDS: SODIUM BICARBONATE 50 MEQ IV (19:47)
[2024-09-23] MEDS: CORDARONE 103 MG IV (19:49)
[2024-09-23] MEDS: MAGNESIUM SULFATE 102 GRAMS IV (19:50)
[2024-09-23] MEDS: CORDARONE 518 MG IV (20:01)
[2024-09-23 20:24] LABS: B.E. -6.3 mmol/L; O2 Saturation % 95.6 % (94-98); PCO2 36 mmHg (32-35); PO2 72 mmHg (83-108); pH 7.33 (7.35-7.45)
--- NOTE | 2024-09-23 20:44 | W.PN.UPDATE ---
Update Note
Progress Note Update
Millrinone started earlier this afternoon without bolus (0.25 mcg/kg/min) due to CI 1.4 along with SVR 1900 to improve CI/lower SVR and potentially improve renal perfusion. Unfortunately she is having ventricular arrhythmia this evening and we will
stop milrinone and start amidoarone bolus/drip to suppress arrhythmia. The NSVT could be from the Takotsubo CM and/or the inotrope but given the timing will hold inotrope at this time. Her CI/SVR did improve with the milrinone at most recent
hemodynamics. Her urine output is reasonable on bumex gtt. Also keep K/Mg. >4, >2 and I did recommend consideration for empiric magnesium
Prognosis guarded.
I did communicate findings with her daughter Flakita who is a pediatric surgeon in phone call earlier and took time to answer all her questions
[2024-09-23] MEDS: NEO-SYNEPHRINE 250 IV (21:03)
--- NOTE | 2024-09-23 21:16 | W.PN.UPDATE ---
Update Note
Progress Note Update
1929- Patient having increased ectopy, polymorphic ventricular tachycardia. SBP 100s not currently on vasopressors. Stat electrolyte labs sent. Patient having some agitation additional sedation fentanyl and versed IV given, propofol gtt also
increased. Dr. Powell, portfolio analyst updated and recommendations received: stop milrinone gtt, check electrolytes K and Mag, give empiric magnesium, if continues amiodarone bolus 150mg IV and initiate amio gtt per protocol at 1mg/min, metoprolol
2.5mg IV q6h hold for HR<50 and SBP<90. Continue Bumex gtt, bicarb noted on BMP at 16, 1amp bicarb push IV given. Will also send ABG to check acidosis. RN updated with plan of care.
[2024-09-23] MEDS: VERSED 5 MG IV (22:26)
[2024-09-24] VITALS (26 sets, daily range): BP systolic 76–126; BP diastolic 40–100; BMI 32.8
--- NOTE | 2024-09-24 00:32 | PTCARENOTE ---
Pt became severely agitated and restless at 18:45, trying to sit up/moving legs/biting on ETT, desating into mid 80s, not receiving volumes on ventilator. PRN fentanyl given and gtt increased per protocol, PRN versed given with minimal
effectiveness, PRN fentanyl repeated and again in effective, Propofol gtt increased per protocol, x1 dose of 2mg versed ordered--effective. During this time, Pt began having VT runs and frequent ectopy, I-TAPE CONTROL SKIN OR SPAR MILL OPERATOR made aware and discussed with
cardiology-->milrinone discontinued, amiodarone bolus/gtt started approx 19:50, restarted benedicto to maintain map >65. Approx 23:50, sinus tho with PVCs, HR mid 50s, order received to decrease amio gtt rate from 1mg/min to 0.5mg/min.
Pt becomes severely agitated with care and stimulation. Remains seated on prop and fent. When awake not following commands, opens eyes and tracks. Sinus tho, mid to high 50s at this time, ocassional PVCs. R IJ swan/cordis, C.I. = 2.91, C.O. =
5.61. 7.5 ETT @ 24cm on the R. 14/400/50%/+5. Tolerating vent settings. Breath sounds coarse/intermittent wheezes both inspiratory & expiratory. Suctions for thick yellow secretions via ETT. Abdomen round, hypoactive bowel sounds, no BM. Evans in
place, draining clear yellow urine, output 140-250ml. R groin dressing remains CDI. Safe environment maintained, pt repositioned.
[2024-09-24] MEDS: SOLU-CORTEF 50 MG IV ×3 (00:42→12:50)
[2024-09-24] MEDS: NOVOLOG FLEXPEN-LOW RESISTANCE SC ×3 (00:43→23:40)
[2024-09-24] MEDS: HEPARIN 5000 UNITS SC ×4 (00:43→23:37)
[2024-09-24] MEDS: SUBLIMAZE 100 IV ×3 (00:44→17:34)
[2024-09-24 00:49] LABS: Glucose - Point of Care 142 mg/dl (70-99)
[2024-09-24 03:25] LABS: B.E. -2.8 mmol/L; HCO3 21.9 mmol/L (21-28); O2 Saturation % 98.4 % (94-98); PCO2 37 mmHg (32-35); PO2 115 mmHg (83-108); pH 7.38 (7.35-7.45)
[2024-09-24] MEDS: DIPRIVAN 100 IV ×4 (03:30→21:21)
[2024-09-24 03:50] LABS: Hematocrit 31.6 % (37.0-47.0); Hemoglobin 10.8 g/dL (12.0-16.0); Mean Corp Hgb Conc. 34.2 g/dL (33.0-37.0); Mean Corpuscular Hgb 30.8 pg (27.0-31.0); Mean Platelet Volume 11.5 fL (7.4-10.4); Platelet Count 187 10^3/uL (130-400); Red Blood Cell Count 3.51 10^6/uL (4.20-5.40); Red Cell Dist. Width 14.4 % (11.5-14.5); White Blood Cell Count 8.6 10^3/uL (4.8-10.8)
[2024-09-24 04:05] LABS: ALT (SGPT) 342 U/L (0-35); AST (SGOT) 383 U/L (14-36); Albumin 2.8 g/dl (3.5-5.0); Alkaline Phosphatase 88 U/L (38-126); Blood Urea Nitrogen 47 mg/dl (7-17); Calcium 7.5 mg/dl (8.4-10.2); Carbon Dioxide 23 mmol/L (22-30); Chloride 104 mmol/L (98-107); Estimated Creatinine Clearance 28 ml/min; Glucose 155 mg/dl (70-99); Magnesium 2.2 mg/dl (1.6-2.3); Phosphorus 4.9 mg/dl (2.5-4.5); Potassium 3.3 mmol/L (3.5-5.1); Sodium 139 mmol/L (135-145); Total Bilirubin 0.5 mg/dl (0.2-1.3); eGFR 28.48
[2024-09-24] MEDS: SUBLIMAZE 50 MCG IV ×3 (04:26→12:54)
[2024-09-24] MEDS: BUMEX 50 IV (04:41)
[2024-09-24] MEDS: NOVOLOG FLEXPEN-LOW RESISTANCE 1 UNITS SC ×2 (05:19→17:55)
[2024-09-24 05:29] LABS: Glucose - Point of Care 152 mg/dl (70-99)
--- NOTE | 2024-09-24 05:45 | PTCARENOTE ---
Pt with episode of agitation with bath/turn and ETT repositioning. PRN fentanyl given and effective. ETT repositioned from L to R. Otherwise assessment unchanged.
[2024-09-24] MEDS: KCL 270 MEQ IV (06:02)
[2024-09-24 07:56] LABS: Glucose - Point of Care 82 mg/dl (70-99)
[2024-09-24] MEDS: NSS (PRESERVATIVE FREE) 10 ML IV (07:56)
[2024-09-24] MEDS: KEPPRA 500 MG IV ×2 (07:56→20:27)
[2024-09-24] MEDS: PROTONIX IV 40 MG IV (07:57)
--- NOTE | 2024-09-24 08:00 | PTCARENOTE ---
Received pt @ change of shift intubated/sedated w b/l soft limb/4 rails restraints- see flow sheet. Pt. opens eyes spont; does not track or follow commands; agitated w care/resolves w rest. SB w prolonged QT on monitor. SpO2 99% on vent settings
AC14/400/.40/+5; FiO2 dropped from 50% to 40% @ this time; pt. tolerating. Suctioned for small amt of thick/yellow secretions. +cough/weak gag reflex. Hypoactive BS, abd round. Temp sensing paula in place draining clear, yellow urine. R groin
dressing c/d/i; neurovascular checks maintained per orders. R IJ cordis w prop/fent/bumex gtts infusing- see flow sheet. Amio gtt infusing via #22 L FA- see flow sheet. [place] stanley catheter in place measuring CVP/PAP; C.O./C.I. numbers obtained
this AM and relayed to cards. R rad A-line; CVP;PAP; transduced, calibrated, and monitored; all ports patent and secured. Pt. repositioned per protocol.
--- NOTE | 2024-09-24 08:11 | PN.DE.MGMTRT ---
Insulin Management
- -
09/24/2024: Diabetes Management Consult
79 year old female admitted with SOB-->Acute respiratory failure with hypoxia 2/2 Influenza A infection. PMH: HTN, Bipolar d/o. No hx of DM, A1C on admission was 6.0%-->pre-diabetes, Cr 0.8, eGFR >60-->Cr 1.8, eGFR 28.48 today.
Pt was noted for Hyperglycemia requiring initiation of glycemic protocol. She was transitioned off insulin infusion to low corrective insulin yesterday.
Pt is currently intubated and sedated, unable to provide h/o diabetes care, information obtained from chart review, and Dtr.
Pt's denies any knowledge of being treated for DM. Review of chart shows no diabetes medicines prior to admission.
Current glucose range 111 to 152, requiring no corrective insulin
Will make no changes, cont low corrective insulin Q6 hrs. Will cont to follow
Diabetes History
- -
Type of Diabetes: 2
Pre-Admission Diabetes Regimen
09/23/24 09/24/24
18:57 03:14
Creatinine 1.8 H 1.8 H
Lab Results
Hemoglobin A1c Cancelled 09/21/24 23:19
Insulin Pump Settings
IP Diabetes Regimen
09/22/24 09/23/24 09/23/24
20:34 11:02 17:43
Glucose
POC Glucose 82 93 111 H
09/23/24 09/24/24 09/24/24
18:57 00:37 03:14
Glucose 139 H 155 H
POC Glucose 142 H
09/24/24
05:17
Glucose
POC Glucose 152 H
Patient Education
[2024-09-24] MEDS: UNASYN IV ×2 (08:39→20:28)
--- NOTE | 2024-09-24 08:48 | W.PN.INTV ---
Today's Communication / Plan
Recommendations
-DC hydrocortisone
-Continue to wean pressors
-Continue Unasyn
-Replacing potassium and checking BMP with magnesium level every 12 hours
-DC Bumex drip and start 2 mg IV twice daily
Assessment
-
Assessment: 79-year-old female non-smoker with a past medical history of hiatal hernia with intrathoracic stomach, Schatzki's ring with dilation (2012), bipolar disorder, osteopenia, history of swallowing difficulty, history of diverticula,
tortuous colon, nonrheumatic mitral regurgitation, hyperlipidemia, aortic atherosclerosis, hypothyroidism, Zarate's esophagus and history of syncope (2010) who presents with shortness of breath. She says she was flu a positive as of 1 day prior to
arrival (09/20) and has had symptoms for 4 days now. She was started on Tamiflu as an outpatient. Her shortness of breath has unfortunately continued to worsen and she has had a productive cough with yellow phlegm. Apparently her also has
been sick with the flu but he is starting to feel better. Initially in the ER she had a low-grade fever to 100.3 �F, pulse rate 119, respiratory rate 24, BP 157/86 and saturating 89% on room air. She was placed onto 4 L/min with saturations
improving to 95%. At around 8:00 PM the patient developed worsening respiratory distress, and she was intubated for airway protection. Initial labs showed leukocytosis to 12.1, Hb 13.6, sodium 131, TSH 1.22, and UA was not suggestive of UTI, and
initial glucose was 265 via POCT. Blood cultures were collected. Flu swab was positive for influenza A. CXR showed a large predominantly air-filled hiatal hernia/intrathoracic stomach. In the ER she was given acetaminophen and DuoNebs. After
intubation, she was admitted to the ICU and Manufacturing Engineering Professor services consulted for additional management/recommendations.
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
(2010), hypothyroidism, tubal ligation, aortic atherosclerosis, hyperlipidemia, nonrheumatic mitral regurgitation, tortuous colon, diverticulosis
#1. Acute respiratory failure with hypoxia due to Influenza A (nasal swab positive)
- now on mechanical ventilation (intubated 09/21/2024)
- 40% FiO2 and PEEP of 5
-Unasyn to cover for superimposed bacterial infection, strep pneumo on tracheal aspirate noted
-Blood cultures have stayed negative
-Unable to give additional Tamiflu due to inability to secure GI access
#2. Cardiogenic shock with acute Takotsubo cardiomyopathy. Suspect primarily cardiogenic shock with low cardiac index of 1.4 and elevated SVR of 1900 rather than septic.
-Currently off pressors and has been weaned off phenylephrine
-Milrinone was attempted overnight however patient developed tachyarrhythmias hence it was stopped and amiodarone was started. Amiodarone has since been stopped, cardiology service on case
-Magnesium level normal, potassium low hence 40 mg IV given, will check BMP and magnesium level every 12 hours to monitor closely
-Continue to monitor QT interval
-Went for left heart catheterization (09/23/2024) showing clear coronaries with left ventriculography showing hyperdynamic LV base with akinesis of the mid ventricle and dyskinesis of the apical ventricle consistent with Takotsubo's cardiomyopathy.
LVEF was 30-35%
-Aspirin, statins
-DC hydrocortisone in view of influenza A positive status and reported increase in mortality with steroid use and influenza
#3. Nonsustained ventricular tachycardia, exacerbated with milrinone
-Avoid milrinone or dobutamine
-Currently off pressors
-Magnesium normal, replacing potassium, monitor potassium and magnesium every 12 hours
-Will start beta-blockers once blood pressure allows
#4. Acute kidney injury. Nonoliguric, suspect cardiorenal syndrome
-Creatinine stable at 1.8
-Continue Bumex infusion
#5. Large hiatal hernia with intrathoracic stomach.
-High risk of aspiration.
-Continue PPI
-Unable to get GI access even with EGD by GI service
hence not able to give oral Tamiflu
#6. Bipolar disorder
-Continue Keppra
-Rest of the meds to be started once oral access secured
#7. DVT prophylaxis with subcu heparin and GI prophylaxis with PPI 40 mg daily
Patient is critically ill � continue ICU level of care
Data:
Left heart catheterization 09/23/2024:
CONCLUSIONS:
1. Right dominant circulation with no coronary artery disease.
2. Severely elevated filling pressures (LVEDP = 35 mmHg, PCWP = 35 mmHg at 88.0 kg).
3. Hyperdynamic LV base with akinesis of the mid ventricle and dyskinesis of the apical ventricle consistent with Takotsubo cardiomyopathy, LV ejection fraction estimated at 30-35%.
4. Discordance between Rudy and thermodilution cardiac function. Low normal to mildly impaired function by Rudy equation (cardiac index = 2.03 L/min/m�, a VO2 difference 5.45 volume %), severely depressed function by cardiac index (1.27 L/min/m�).
I suspect the truth is somewhere in between.
5. Moderate, postcapillary pulmonary hypertension (mean PA = 40 mmHg, PCWP = 35 mmHg, cardiac output = 2.47 L/min, PVR = 2.02 Oates units), WHO group 2.
Transthoracic echocardiogram 09/23/2024:
Normal left ventricular size.
Mild concentric left ventricular hypertrophy.
Akinesis of the mid to apical inferoseptal, inferolateral and apical quintero.
LV ejection fraction is 40-45% by Allen's method of discs which may be
overestimated.
Normal right ventricular size and function.
Mild to moderate tricuspid regurgitation.
Estimated pulmonary artery pressure of 15-20 mmHg assuming a right atrial
pressure of 3 mmHg.
Pulmonic valve is grossly normal but poorly visualized.
Normal pericardium without effusion.
The IVC is dilated and does not collapse.
The patient is mechanically ventilated.
CXR 09/24:
Appears to be stable with bibasilar atelectasis more pronounced on the left.
Critical care statement: A total of 43 minutes of critical care time was provided for this patient today. This includes management of unstable vital signs, evaluation of the patient at bedside, reviewing the patient's pertinent medical records
including radiographs, microbiology, laboratory evaluations, and discussion with primary team, consultants, pharmacy, nutrition, physical therapy, case management, charge nurse, critical care nursing, and respiratory therapy.
Subjective Dataa
Subjective Data
Date of Service:
Date of Service: September 24, 2024
Chief Complaint: Manufacturing Engineering Professor Follow Up
Subjective:
Patient not in any acute distress
Objective Data
Data Reviewed
Vital Signs / I&O / Oxygen:
Vital Signs
Temp Pulse Resp BP Pulse Ox
98.3 F 55 14 85/62 100
09/24/24 07:00 09/24/24 05:00 09/24/24 05:00 09/22/24 01:31 09/24/24 08:17
Intake and Output
09/23/24 09/24/24 09/25/24
06:59 06:59 06:59
Intake Total 5062.5 / 5184.8 1871.4 / 1922.3 101.8 / 101.8
Output Total 630 / 650 3575 / 3875 525 / 525
Balance 4432.5 / 4534.8 -1703.6 / -1952.7 -423.2 / -423.2
SaO2 [A/C] 100
SaO2 100
Nasal Cannula flow liters per 4
minute
Physical Exam
General: Respiratory Distress (negative), Comfortable, Chills (negative), Sweats (negative) and Other (Intubated/sedated)
HEENT: Normocephalic, Anicteric and Other (ETT in place)
Cardiovascular: S1-S2, Rub (negative) and Peripheral Edema (negative)
Respiratory: Wheeze (negative), Crackles (negative), Rhonchi (negative), Accessory Resp Muscle Use (negative) and ET Tube (Chronic breath sounds heard bilaterally)
GI: Soft, Non Distended, Non Tender and Other (Hypoactive bowel sounds)
Neurology: Tremors (negative) and Other (Sedated)
Skin: Warm, Dry, Cyanosis (negative) and Jaundice (negative)
Labs/Micro/Reports
Lab Data
09/24/24 03:14
09/24/24 03:14
Laboratory Results
09/23/24 09/23/24 09/23/24
10:33 10:37 20:18
APTT Cancelled Cancelled
pH 7.33 L
pCO2 36 H
pO2 72 L
HCO3 19.0 L
O2 Delivery Level
09/24/24
03:14
APTT
pH 7.38
pCO2 37 H
pO2 115 H
HCO3 21.9
O2 Delivery Level
Microbiology
09/21/24 23:24 Blood/Venous Blood Culture - Preliminary
No Growth in 48 hours- Final report to follow
09/21/24 23:24 Blood/Venous Blood Culture - Preliminary
No Growth in 48 hours- Final report to follow
09/22/24 04:33 Tracheal Aspirate Respiratory Culture - Preliminary
Streptococcus pneumoniae
09/22/24 04:33 Tracheal Aspirate Gram Stain - Preliminary
09/22/24 02:35 Urine Urine Culture - Final
NO GROWTH
09/22/24 00:16 Nasal Swab Influenza Types A & B (JAVON) - Final
Influenza A Positive, NAAT
--- NOTE | 2024-09-24 09:06 | W.PN.CARDCBS ---
Today's Communication / Plan
-
Cont IV Bumex drip as per nephrology for diuresis
Wt coming down, 4 lbs down and over 2500 cc out with bumex drip
Likely d/c aaron cath tomorrow.
Wean pressor IV Arsh as able.
Cont to hold beta leticia
s/p NSVT on Milrinone which has resolved with transition to Amiodarone. Now QTc prolonged by EKG
Stop IV Amiodarone and monitor QTc.
Replete magnesium and potassium as needed.
Cath without obstructive CAD and consistent with Takotsubo CM
eventual beta leticia and ACEI once bp can tolerate.
Cont pulm toilet.
Discussed with nursing and with primary service
Impression / Plan
-
.
Impression:
Takotsubo CM with acute ST segment elevation with elevated trop consistent with Takotsubo
s/p NSVT
Elevated trop type II [place] with peak 14, abnormal EKG
Acute flu infection with Influenza A and suspected super-imposed bacterial pneumonitis and possible aspiration given large Hiatal hernia
Acute renal failure
Acute liver failure with transaminitis
Acute normocytic anemia
VDRF secondary to above
Prior hx of normal ejection fraction without significant cardiac issue at prior echo
Sinus bradycardia
Hypothyroidism
Bipolar disorder on psychiatric meds as outpt
Cath right and left September 23 2024:
HEMODYNAMIC DATA
AO (s/d/x, mmHg): 122/69/90
LV (s/x, mmHg): 124/35
PCWP (a/v/x, mmHg): 37/39/35
PA (s/d/x, mmHg): 51/35/40
RV (s/x, mmHg): 51/30
RA (a/v/x, mmHg): 35/31/30
SVC SvO2 (%):64.5
PA SvO2 (%):56.2
SaO2 (%):94.0
Hbg (g/dL):10.6
JORDY
CO (L/min): 3.94
CI (L/min/m2): 2.03
Thermodilution
CO (L/min):2.47
CI (L/min/m2):1.27
TPG (mmHg): 5
PVR (Oates Units): 2.02
SVR (dynes*seconds*cm^-5): 1943
AVO2 Diff (Volume %): 5.45
AV gradient (x, mmHg):None.
AV area (cm2):Normal
MV gradient (x, mmHg):Not obtained.
MV area (cm2):Not obtained.
LVG: Normal left ventricular size with hyperdynamic ventricular basal function and akinesis of the mid ventricle to apex with ballooning of the LV apex and severe reduction in left ventricular systolic function. LV ejection fraction estimated at
30-35%. There is no mitral regurgitation. There is no aortic valve insufficiency. The aortic root and visualized ascending and descending aorta appear normal.
CORONARY ANGIOGRAPHY
Dominance: Right.
Left Main: Normal size, bifurcating vessel. There is no coronary artery disease.
LAD: Normal size vessel giving rise to 1 significant diagonal. There is no coronary artery disease.
Ramus:Congenitally absent.
Circumflex: Normal size, nondominant vessel that is essentially a single obtuse marginal. There is severe tortuosity but no coronary artery disease.
RCA: Large size, dominant vessel with a significant posterolateral arcade. There is no coronary artery disease. The distal RPDA severely tortuous.
CONCLUSIONS:
1. Right dominant circulation with no coronary artery disease.
2. Severely elevated filling pressures (LVEDP = 35 mmHg, PCWP = 35 mmHg at 88.0 kg).
3. Hyperdynamic LV base with akinesis of the mid ventricle and dyskinesis of the apical ventricle consistent with Takotsubo cardiomyopathy, LV ejection fraction estimated at 30-35%.
4. Discordance between Jordy and thermodilution cardiac function. Low normal to mildly impaired function by Jordy equation (cardiac index = 2.03 L/min/m�, a VO2 difference 5.45 volume %), severely depressed function by cardiac index (1.27 L/min/m�).
I suspect the truth is somewhere in between.
5. Moderate, postcapillary pulmonary hypertension (mean PA = 40 mmHg, PCWP = 35 mmHg, cardiac output = 2.47 L/min, PVR = 2.02 Oates units), WHO group 2.
RECOMMENDATIONS:
1. Expectant management after cardiac catheterization via right common femoral approach.
2. Limited weight bearing for one week.
3. Aggressive diuresis as hemodynamics will tolerate.
4. Low threshold for initiation of inotropic therapy if indicated (favor milrinone or dobutamine given elevated SVR and stable blood pressure).
5. GDMT as heart function normalizes.
6. Discussed with Dr. Powell and Dr. Sexton.
Plan:
Cont IV Bumex drip as per nephrology for diuresis
Wt coming down, 4 lbs down and over 2500 cc out with bumex drip
Likely d/c aaron cath tomorrow.
Wean pressor IV Arsh as able.
Cont to hold beta leticia
s/p NSVT on Milrinone which has resolved with transition to Amiodarone. Now QTc prolonged by EKG
Stop IV Amiodarone and monitor QTc.
Replete magnesium and potassium as needed.
Cath without obstructive CAD and consistent with Takotsubo CM
eventual beta leticia and ACEI once bp can tolerate.
Cont pulm toilet.
Discussed with nursing and with primary service
Daughter Flakita is a pediactric surgeon.
CCT: 36 min
Progress Note - City Planning Teacher
Subjective
Date of Service: September 24, 2024
Pt seen and examined. Intubated and sedated
Objective
Labs:
09/24/24 03:14
09/24/24 03:14
Labs
Hgb 10.8 g/dL (12.0-16.0) L 09/24/24 03:14
Hct 31.6 % (37.0-47.0) L 09/24/24 03:14
Plt Count 187 10^3/uL (130-400) D 09/24/24 03:14
PT 13.5 Sec (11.4-14.6) 09/22/24 03:50
INR 1.00 09/22/24 03:50
APTT Cancelled 09/23/24 10:37
Sodium 139 mmol/L (135-145) 09/24/24 03:14
Potassium 3.3 mmol/L (3.5-5.1) L 09/24/24 03:14
BUN 47 mg/dl (7-17) H 09/24/24 03:14
Creatinine 1.8 mg/dL (0.6-1.0) H 09/24/24 03:14
Glucose 155 mg/dl (70-99) H 09/24/24 03:14
Troponins
09/23/24 09/23/24 09/23/24
08:16 08:58 15:00
Troponin I Cancelled 14.500 H* Cancelled
09/23/24
21:00
Troponin I Cancelled
Vital Signs and I&O:
Vital Signs
Temp Pulse Resp BP Pulse Ox
98.3 F 55 14 100
09/24/24 07:00 09/24/24 05:00 09/24/24 05:00 09/22/24 01:31 09/24/24 08:17
Vital Signs
Temp Pulse Resp BP Pulse Ox
98.3 F 55 14 100
09/24/24 07:00 09/24/24 05:00 09/24/24 05:00 09/22/24 01:31 09/24/24 08:17
Intake & Output
09/22/24 09/23/24 09/24/24 09/25/24
06:59 06:59 06:59 06:59
Intake Total 1841.2 / 2007.8 5062.5 / 5184.8 1871.4 / 1922.3 101.8 / 101.8
Output Total 362 / 362 630 / 650 3575 / 3875 525 / 525
Balance 1479.2 / 1646.8 4432.5 / 4534.8 -1703.6 / -1952.7 -423.2 / -423.2
Physical Exam
Physical Exam
General: Sedated on vent
Neck: Negative JVD
Heart: Regular, Negative S3 positive S1/S2, Negative S4, No murmur
Lungs: CTA b/l, negative wheezes/rales/rhonchi
Abd: Positive BS, NT/ND, neg rebound/rigidity/guarding
Ext: Negative cyanosis/clubbing/edema
Neuro: nonfocal
--- NOTE | 2024-09-24 09:44 | W.PN.HOSP.TC ---
Today's Communication/Plan
-
Ventilatory support
Antibiotics.
Aggressive diuresis.
Monitor for recurrent ventricular tachycardia
Replete electrolytes.
Follow hemoglobin.
GI for attempt of NG tube placement and initiate nutrition.
IV PPI
Total Critical Care Time__55___ minutes. I was immediately available to the patient and staff. I personally examined, reviewed labs, diagnostic images/reports, interpretations, treatment plans, discussed patient care with other providers and
family or caregivers (if patient is unable to make decisions), entered orders as appropriate and documented the medical record.
Assessment / Plan
Assessment / Plan
Ms. Daniel is a 79-year-old female with a medical history of hypertension and bipolar disorder who presented with shortness of breath. She tested positive for influenza 2 days prior to arrival and was started on oseltamivir as an outpatient.
However she had progressively worsening dyspnea and productive cough for 24 hours prior to presenting to the emergency department. In the ED, she was found to be hypoxic with her pulse ox in the mid 80s on room air. She was started on supplemental
oxygen via nasal cannula at that time with improvement in her respiratory status and oxygenation. She was also given nebulizer treatments. She was admitted for further evaluation and management of acute respiratory failure with hypoxia in the
setting of influenza infection.
Impression:
Acute hypoxic respiratory failure.
� Intubated 09/21/2024
Sepsis secondary to influenza A/bacterial�community-acquired pneumonia, also suspected aspiration pneumonia given large hiatal hernia with intrathoracic stomach
Shock, multifactorial due to sepsis as well as cardiogenic.
Acute heart failure reduced EF secondary to stress�Takotsubo cardiomyopathy.
Type II VA/demand ischemia with troponin peak 14
Polymorphic ventricular tachycardia on monitoring 09/23/24
Acute kidney injury.
Hypovolemic hyponatremia
Acute anemia with no evidence of blood loss, suspect dilutional/acute illness.
Elevated transaminases
Prediabetes
Hypothyroidism on replacement
Bipolar disorder.
Plan:
Acute hypoxic respiratory failure multifactorial in the settings of influenza A/bacterial pneumonia as well as cardiogenic shock.
Intubated on 09/21/24
Follow-up chest x-ray with large hiatal hernia, although with no focal infiltrate.
Remains on ventilatory support with FiO2 at 40%/PEEP 5
Continues sedation Fentanyl/propofol
Influenza A.
Suspected superimposed bacterial pneumonia community-acquired possibly aspiration given large hiatal hernia
Respiratory culture positive for Streptococcus
Initiated on Tamiflu, although currently no enteral access given large hiatal hernia and difficulty with NG tube placement
Antibiotics expanded from doxycycline to Unasyn.
Continue stress dose of corticosteroids: Hydrocortisone 50 mg IV every 6 hours
Acute cardiomyopathy.
Type II VA with troponin peak of 14.
ECG with diffuse ST segment changes with anterior lateral leads.
Urgent right and left catheterization with findings consistent with stress/Takotsubo cardiomyopathy LVEF 30-35%, no evidence of CAD, hemodynamics findings consistent with cardiogenic shock with decreased cardiac index, elevated PCWP/LVEDP and SVR
Initiated on milrinone
Noted with monomorphic ventricular tachycardia on 09/23/2024
Off milrinone to amiodarone
Initiated with diuresis on Bumex drip
Close follow-up with electrolytes including potassium and magnesium
Eventually introduction of GDMT including DELANEY and ARB's when hemodynamics allows
Acute kidney injury likely prerenal
Hyponatremia secondary to hypovolemia
Monitor renal function closely with diuresis
On HCTZ CLINICAL REVIEW NURSE
Acute normocytic anemia
Noted drop in hemoglobin 13.6�10.8
Urgent upper endoscopy with a large hiatal hernia and no evidence of bleeding
Follow-up hemoglobin closely.
Continue PPI prophylactic dose
Large hiatal hernia with intrathoracic stomach.
Remains with high aspiration risk.
Continue PPI.
GI on board with plan for NG tube placement.
Elevated transaminases suspect in the settings of hemodynamic instability.
No gastrointestinal complaints upon presentation
Follow-up trend
Consider additional imaging if uptrending
Hypothyroidism on replacement
Prediabetes
Continue basal bolus protocol with serial Accu-Cheks
Bipolar disorder.
Continue preadmission regimen include Vraylar, clonazepam, lamotrigine, zaleplon.
DVT prophylaxis heparin
Full code
Anticipated Discharge: > 48 hours
Subjective/Interval History
-
Date of Service: September 24, 2024
Objective Data
-
Labs:
Laboratory Results
09/24/24 09/24/24
03:14 16:00
WBC 8.6
Hgb 10.8 L
Hct 31.6 L
Plt Count 187 D
HCO3 21.9
Sodium 139 Pending
Potassium 3.3 L Pending
Chloride 104 Pending
Carbon Dioxide 23 Pending
BUN 47 H Pending
Creatinine 1.8 H Pending
Glucose 155 H Pending
Calcium 7.5 L Pending
Total Bilirubin 0.5
AST 383 H
ALT 342 H
Alkaline Phosphatase 88
Vital Signs:
Vital Signs
Temp Pulse Resp BP Pulse Ox
98.3 F 55 14 85/62 100
09/24/24 07:00 09/24/24 05:00 09/24/24 05:00 09/22/24 01:31 09/24/24 08:17
I&O
09/23/24 09/24/24 09/25/24
06:59 06:59 06:59
Intake Total 5062.5 / 5184.8 1871.4 / 1922.3 101.8 / 101.8
Output Total 630 / 650 3575 / 3875 525 / 525
Balance 4432.5 / 4534.8 -1703.6 / -1952.7 -423.2 / -423.2
Physical Exam
-
General: Well Developed and No Apparent Distress
HEENT: Normocephalic, Atraumatic, Moist Mucous Membranes and Other (ET tube with clear secretions)
Respiratory: Decreased Breath Sounds
Cardiac: Regular Rhythm and S1/S2; Negative Murmur, Rub or Gallop
GI: Soft, Nontender, Nondistended and Normal Bowel Sounds; Negative Organomegaly
Rectal: Deferred by Provider
Genito-urinary: Evans
Musculoskeletal: No Clubbing, No Cyanosis and No Edema
Skin: Negative Rash
Neuro: Sedated
--- NOTE | 2024-09-24 10:48 | PTCARENOTE ---
pt.'s cardiac rhythm w prolonged QT/QTc this AM. EKG obtained; no changes in EKG from previous. Cards, Dr. Dennis, made aware. Further orders to d/c amio gtt- see flow sheet. On grand rounds this AM, plan to keep pt. intubated/sedated and monitor
closely for cardiac changes/ectopy off amio gtt and re-eval for SAT/SBT when approp. R rad A-line w/out wave form; upon assessment, leaking; removed and clean dressing applied. Pt.'s daughter @ bedside, updated by MD during rounds. Safe
environment maintained.
[2024-09-24 12:10] LABS: Glucose - Point of Care 141 mg/dl (70-99)
--- NOTE | 2024-09-24 14:00 | PTCARENOTE ---
RASS -3; sedation lowered- see flow sheet. Approx 1H s/p sedation lightened @ approx 1250 pt w increased cardiac ectopy; v-tach alarms, upon cardiac review appears as wide complex tachycardiac/ multiple runs of pvc's. EKG obtained- unchanged from
previous. Increased agitation/RASS/CPOT during increased cardiac ectopy episodes. Fent bolus'd x2-see SEP. Fent and prop gtts increased per orders; RASS and CPOT improved. Cardiac ectopy improved s/p sedation increase. Pt. repositioned per
protocol. Safe environment maintained.
[2024-09-24 16:13] LABS: Blood Urea Nitrogen 54 mg/dl (7-17); Calcium 7.3 mg/dl (8.4-10.2); Carbon Dioxide 30 mmol/L (22-30); Chloride 102 mmol/L (98-107); Estimated Creatinine Clearance 26 ml/min; Glucose 156 mg/dl (70-99); Magnesium 2.1 mg/dl (1.6-2.3); Potassium 3.2 mmol/L (3.5-5.1); Sodium 141 mmol/L (135-145); eGFR 26.69
--- NOTE | 2024-09-24 17:13 | W.PN.UPDATE ---
Update Note
Progress Note Update
Case discussed with hospitalist today. Difficulty placing NG tube secondary to intra-thoracic stomach. Attempted EGD for placement yesterday-unsuccessful secondary to coiling. Patient currently being treated for shock secondary to
sepsis/cardiogenic. Discussed about aspiration risk with tube feeding with intrathoracic stomach . Will hold off on further attempts on placing NG tube or OG-tube at this point. Medical team will consider TPN if feeding to be initiated in the
future. Advised to call us back if any assistance required in the future.
[2024-09-24] MEDS: KCL 100 IV (17:41)
--- NOTE | 2024-09-24 18:00 | PTCARENOTE ---
Bumex gtt d/c'd per orders- see flow sheet. K+ resulted 3.2 on latest BMP draw. Continued ectopy/runs of PVCs on telemetry. Dr. Headley notified and further order received for additional IV K+ rider- see JOSE D. Family @ bedside, updated.
--- NOTE | 2024-09-24 20:00 | PTCARENOTE ---
assumed care, pt intubated and sedated, not aroused verbally, wd to pain, not following commands, NS on the monitor c PVCs and prolonged Qt, +2 anasarca, weak pulses, B/L scds, GARCIA gtt started per worklist, lungs coarse c expiratory wheeze, SpO2
95%, AC 14/400/40/5 ETT 7.5 24 @ lip, BSx4 hypoactive, thermistor paula clear yellow output, scattered ecchymosis on upper extremities and abd, R groin dressing dry and intact, R cordis, 18G RAC, B/L 22G in forearms, Fent and prop gtts per worklist,
otherwise refer to documentation.
[2024-09-24] MEDS: BUMEX 2 MG IV (20:27)
[2024-09-24 22:52] LABS: ALT (SGPT) 312 U/L (0-35); AST (SGOT) 241 U/L (14-36); Albumin 3.3 g/dl (3.5-5.0); Alkaline Phosphatase 102 U/L (38-126); Blood Urea Nitrogen 55 mg/dl (7-17); Calcium 7.7 mg/dl (8.4-10.2); Carbon Dioxide 26 mmol/L (22-30); Chloride 105 mmol/L (98-107); Estimated Creatinine Clearance 24 ml/min; Glucose 157 mg/dl (70-99); Magnesium 2.3 mg/dl (1.6-2.3); Potassium 3.9 mmol/L (3.5-5.1); Sodium 143 mmol/L (135-145); Total Bilirubin 0.8 mg/dl (0.2-1.3); Total Protein 5.7 g/dl (6.3-8.2); eGFR 23.67
[2024-09-24] MEDS: KCL 50 IV (23:37)
[2024-09-24 23:51] LABS: Glucose - Point of Care 145 mg/dl (70-99)
[2024-09-25] VITALS (52 sets, daily range): BP systolic 72–166; BP diastolic 58–98; PULSE 77; BMI 32.5
--- NOTE | 2024-09-25 | PTCARENOTE ---
systems reviewed, gtts per worklist, labs sent @ 2230 and replenished per SEP, daughter updated via phone, CHG bath otherwise refer to documentation
[2024-09-25] MEDS: DIPRIVAN 100 IV ×2 (01:57→09:48)
[2024-09-25] MEDS: SUBLIMAZE 100 IV ×2 (02:29→11:08)
--- NOTE | 2024-09-25 04:22 | PTCARENOTE ---
systems reviewed, put in new IV per worklist, labs drawn, gtts per worklist, otherwise refer to documentation.
[2024-09-25 05:13] LABS: % Basophils 0.1 % (0-2); % Immature Granulocytes 1.5 % (0-0.5); % Lymphocytes 9.8 % (20.5-51.1); % Monocytes 7.8 % (1.7-9.3); % Neutrophils 80.8 % (42.2-75.2); Absolute Immature Granulocytes 0.2 10^3/uL (0-0.05); Absolute Lymphocytes 1.1 10^3/uL (1.2-3.4); Absolute Monocytes 0.9 10^3/uL (0.1-0.6); Absolute Neutrophils 8.9 10^3/uL (1.4-6.5); Hematocrit 33.4 % (37.0-47.0); Hemoglobin 11.2 g/dL (12.0-16.0); Mean Corp Hgb Conc. 33.5 g/dL (33.0-37.0); Mean Corpuscular Hgb 30.4 pg (27.0-31.0); Mean Corpuscular Volume 90.5 fL (81.0-99.0); Mean Platelet Volume 11.6 fL (7.4-10.4); Nucleated Red Blood Cells % 0.6 %; Platelet Count 242 10^3/uL (130-400); Red Blood Cell Count 3.69 10^6/uL (4.20-5.40); Red Cell Dist. Width 14.6 % (11.5-14.5)
[2024-09-25 05:28] LABS: Blood Urea Nitrogen 57 mg/dl (7-17); Calcium 7.9 mg/dl (8.4-10.2); Carbon Dioxide 27 mmol/L (22-30); Chloride 104 mmol/L (98-107); Estimated Creatinine Clearance 25 ml/min; Glucose 151 mg/dl (70-99); Magnesium 2.3 mg/dl (1.6-2.3); Potassium 3.7 mmol/L (3.5-5.1); Sodium 143 mmol/L (135-145)
[2024-09-25] MEDS: NOVOLOG FLEXPEN-LOW RESISTANCE 1 UNITS SC (05:41)
[2024-09-25 05:52] LABS: Glucose - Point of Care 151 mg/dl (70-99)
[2024-09-25] MEDS: KCL 270 MEQ IV (06:26)
--- NOTE | 2024-09-25 07:21 | W.PN.CARDCBS ---
Addendum entered and electronically signed by Guanaco Dennis DO 09/26/24 06:22:
.
spoke with family friend, at family's request, who is a autocad draftsman, Dr Zaidi, and gave him an update. he was very appreciative and feels care has been excellent and appropriate here at [place].
Original Note:
Today's Communication / Plan
-
Cont IV Bumex drip changed to Bumex 2mg IV BID as per nephrology for diuresis
over 1500 cc out last 24 hrs. wt down 1 lb
D/C swan and cordis September 25 2024.
No longer on pressors.
Likely add beta leticia next 24 hrs if bp remains stable.
s/p NSVT on Milrinone which has resolved with stopping Milrinone.
QTc prolongation with amiodarone which was stopped September 24 2024.
Cont to replete magnesium and potassium as needed.
QTc improving and was 585 on EKG September 25 2024.
Cath without obstructive CAD and consistent with Takotsubo CM
eventual beta leticia and ACEI once bp can tolerate.
GI was unable to place NG tube secondary to intra-thoracic stomach, including via EGD approach.
Cont pulm toilet.
Monitor H/H with anemia, Hb 11.2 on September 25.
Impression / Plan
-
.
Impression:
Takotsubo CM with acute ST segment elevation with elevated trop consistent with Takotsubo
s/p NSVT
Elevated trop type II [place] with peak 14, abnormal EKG
Acute flu infection with Influenza A and suspected super-imposed bacterial pneumonitis and possible aspiration given large Hiatal hernia
Acute renal failure
Acute liver failure with transaminitis
Acute normocytic anemia
VDRF secondary to above
Prior hx of normal ejection fraction without significant cardiac issue at prior echo
Sinus bradycardia
Hypothyroidism
Bipolar disorder on psychiatric meds as outpt
Hiatal hernia
Cath right and left September 23 2024:
HEMODYNAMIC DATA
AO (s/d/x, mmHg): 122/69/90
LV (s/x, mmHg): 124/35
PCWP (a/v/x, mmHg): 37/39/35
PA (s/d/x, mmHg): 51/35/40
RV (s/x, mmHg): 51/30
RA (a/v/x, mmHg): 35/31/30
SVC SvO2 (%):64.5
PA SvO2 (%):56.2
SaO2 (%):94.0
Hbg (g/dL):10.6
JORDY
CO (L/min): 3.94
CI (L/min/m2): 2.03
Thermodilution
CO (L/min):2.47
CI (L/min/m2):1.27
TPG (mmHg): 5
PVR (Oates Units): 2.02
SVR (dynes*seconds*cm^-5): 1943
AVO2 Diff (Volume %): 5.45
AV gradient (x, mmHg):None.
AV area (cm2):Normal
MV gradient (x, mmHg):Not obtained.
MV area (cm2):Not obtained.
LVG: Normal left ventricular size with hyperdynamic ventricular basal function and akinesis of the mid ventricle to apex with ballooning of the LV apex and severe reduction in left ventricular systolic function. LV ejection fraction estimated at
30-35%. There is no mitral regurgitation. There is no aortic valve insufficiency. The aortic root and visualized ascending and descending aorta appear normal.
CORONARY ANGIOGRAPHY
Dominance: Right.
Left Main: Normal size, bifurcating vessel. There is no coronary artery disease.
LAD: Normal size vessel giving rise to 1 significant diagonal. There is no coronary artery disease.
Ramus:Congenitally absent.
Circumflex: Normal size, nondominant vessel that is essentially a single obtuse marginal. There is severe tortuosity but no coronary artery disease.
RCA: Large size, dominant vessel with a significant posterolateral arcade. There is no coronary artery disease. The distal RPDA severely tortuous.
CONCLUSIONS:
1. Right dominant circulation with no coronary artery disease.
2. Severely elevated filling pressures (LVEDP = 35 mmHg, PCWP = 35 mmHg at 88.0 kg).
3. Hyperdynamic LV base with akinesis of the mid ventricle and dyskinesis of the apical ventricle consistent with Takotsubo cardiomyopathy, LV ejection fraction estimated at 30-35%.
4. Discordance between Jordy and thermodilution cardiac function. Low normal to mildly impaired function by Jordy equation (cardiac index = 2.03 L/min/m�, a VO2 difference 5.45 volume %), severely depressed function by cardiac index (1.27 L/min/m�).
I suspect the truth is somewhere in between.
5. Moderate, postcapillary pulmonary hypertension (mean PA = 40 mmHg, PCWP = 35 mmHg, cardiac output = 2.47 L/min, PVR = 2.02 Oates units), WHO group 2.
RECOMMENDATIONS:
1. Expectant management after cardiac catheterization via right common femoral approach.
2. Limited weight bearing for one week.
3. Aggressive diuresis as hemodynamics will tolerate.
4. Low threshold for initiation of inotropic therapy if indicated (favor milrinone or dobutamine given elevated SVR and stable blood pressure).
5. GDMT as heart function normalizes.
6. Discussed with Dr. Powell and Dr. Sexton.
Echo September 23 2024: Normal left ventricular size. Mild concentric left ventricular hypertrophy. Akinesis of the mid to apical inferoseptal, inferolateral and apical quintero.
LV ejection fraction is 40-45% by Allen's method of discs which may be overestimated. Normal right ventricular size and function. Mild to moderate tricuspid regurgitation.
Estimated pulmonary artery pressure of 15-20 mmHg assuming a right atrial pressure of 3 mmHg. Pulmonic valve is grossly normal but poorly visualized. Normal pericardium without effusion.
The IVC is dilated and does not collapse.
Plan:
Cont IV Bumex drip changed to Bumex 2mg IV BID as per nephrology for diuresis
over 1500 cc out last 24 hrs. wt down 1 lb
D/C swan and cordis September 25 2024.
No longer on pressors.
Likely add beta leticia next 24 hrs if bp remains stable.
s/p NSVT on Milrinone which has resolved with stopping Milrinone.
QTc prolongation with amiodarone which was stopped September 24 2024.
Cont to replete magnesium and potassium as needed.
QTc improving and was 585 on EKG September 25 2024.
Cath without obstructive CAD and consistent with Takotsubo CM
eventual beta leticia and ACEI once bp can tolerate.
GI was unable to place NG tube secondary to intra-thoracic stomach, including via EGD approach.
Cont pulm toilet.
Monitor H/H with anemia, Hb 11.2 on September 25.
Discussed with nursing
Daughter Flakita is a pediatric surgeon.
CCT: 34 min
Progress Note - Scientific Manager
Subjective
Date of Service: September 25, 2024
pt seen and examined. Sedated on vent.
Objective
Labs:
09/25/24 04:06
Labs
Hgb 11.2 g/dL (12.0-16.0) L 09/25/24 04:06
Hct 33.4 % (37.0-47.0) L 09/25/24 04:06
Plt Count 242 10^3/uL (130-400) D 09/25/24 04:06
PT 13.5 Sec (11.4-14.6) 09/22/24 03:50
INR 1.00 09/22/24 03:50
APTT Cancelled 09/23/24 10:37
Sodium 143 mmol/L (135-145) 09/25/24 04:06
Potassium 3.7 mmol/L (3.5-5.1) 09/25/24 04:06
BUN 57 mg/dl (7-17) H 09/25/24 04:06
Creatinine 2.0 mg/dL (0.6-1.0) H 09/25/24 04:06
Glucose 151 mg/dl (70-99) H 09/25/24 04:06
Troponins
09/23/24 09/23/24 09/23/24
08:16 08:58 15:00
Troponin I Cancelled 14.500 H* Cancelled
09/23/24
21:00
Troponin I Cancelled
Vital Signs and I&O:
Vital Signs
Temp Pulse Resp BP Pulse Ox
99.4 F 54 14 106/67 98
09/25/24 04:20 09/25/24 06:40 09/25/24 06:40 09/25/24 06:30 09/25/24 04:00
Vital Signs
Temp Pulse Resp BP Pulse Ox
99.4 F 54 14 106/67 98
09/25/24 04:20 09/25/24 06:40 09/25/24 06:40 09/25/24 06:30 09/25/24 04:00
Intake & Output
09/23/24 09/24/24 09/25/24 09/26/24
06:59 06:59 06:59 06:59
Intake Total 5062.5 / 5184.8 1871.4 / 1922.3 1284.1 / 1284.1
Output Total 630 / 650 3575 / 3875 3115 / 3115
Balance 4432.5 / 4534.8 -1703.6 / -1952.7 -1830.9 / -1830.9
Physical Exam
Physical Exam
General: sedated on vent
Neck: Negative JVD
Heart: Regular, Negative S3 positive S1/S2, Negative S4, No murmur
Lungs: CTA b/l, negative wheezes/rales/rhonchi
Abd: Positive BS, NT/ND, neg rebound/rigidity/guarding
Ext: Negative cyanosis/clubbing/edema
Neuro: nonfocal
--- NOTE | 2024-09-25 07:45 | W.PN.INTV ---
Today's Communication / Plan
Recommendations
-BMP and Mg q 12 hrs, target K above 4 and Mg above 2
-Monitor i/o and Cr closely
-Continue Unasyn and Bumex current dose
-Start Precedex and initiate weaning from propofol with the aim to extubate within next 24 hours
Assessment
-
Assessment: 79-year-old female non-smoker with a past medical history of hiatal hernia with intrathoracic stomach, Schatzki's ring with dilation (2012), bipolar disorder, osteopenia, history of swallowing difficulty, history of diverticula,
tortuous colon, nonrheumatic mitral regurgitation, hyperlipidemia, aortic atherosclerosis, hypothyroidism, Zarate's esophagus and history of syncope (2010) who presents with shortness of breath. Patient noted to have influenza A and was started on
oseltamivir as outpatient. Initially in the ER she had a low-grade fever to 100.3 �F, pulse rate 119, respiratory rate 24, BP 157/86 and saturating 89% on room air. She was placed onto 4 L/min with saturations improving to 95%. At around 8:00 PM
the patient developed worsening respiratory distress, and she was intubated for airway protection. Flu swab was positive for influenza A. CXR showed a large predominantly air-filled hiatal hernia/intrathoracic stomach. In the ER she was given
acetaminophen and DuoNebs. After intubation, she was admitted to the ICU and Conveyor Weigher Operator services consulted for additional management/recommendations. Subsequently patient developed diffused ST elevation and was taken to Architecture Instructor. Patient was not
noted to have any significant coronary artery disease and was thought to have Takotsubo cardiomyopathy. Patient did develop cardiogenic shock and briefly required pressor support. When milrinone was started, patient developed significant
ectopy/nonsustained ventricular tachycardia hence it was discontinued. Wedge pressure was noted to be quite high in the setting of cardiogenic shock and patient was started on Bumex infusion with significant diuresis and ongoing improvement.
Oral access could not be obtained because patient has large hiatal hernia. GI consult was requested and even with the assistance of endoscopy oral access could not be secured.
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
(2010), hypothyroidism, tubal ligation, aortic atherosclerosis, hyperlipidemia, nonrheumatic mitral regurgitation, tortuous colon, diverticulosis
#1. Acute respiratory failure with hypoxia due to Influenza A (nasal swab positive)
- now on mechanical ventilation (intubated 09/21/2024)
-Start weaning. Patient gets agitated with lowering propofol/fentanyl. Unable to give any oral medication due to lack of oral access. Start Precedex infusion with the goal of lowering propofol and then eventually taking off propofol. Will try to
extubate patient on Precedex. SAT/SBT
- 40% FiO2 and PEEP of 5
-Unasyn to cover for superimposed bacterial infection, strep pneumo on tracheal aspirate noted
-Blood cultures have stayed negative
-Unable to give additional Tamiflu due to inability to secure GI access
#2. Cardiogenic shock with acute Takotsubo cardiomyopathy. Suspect primarily cardiogenic shock with low cardiac index of 1.4 and elevated SVR of 1900 rather than septic.
-Currently off pressors and has been weaned off phenylephrine
-Milrinone was attempted however patient developed tachyarrhythmias hence it was stopped and amiodarone was started. Amiodarone has since been stopped due to elevated QTc cardiology service on case
-Magnesium level normal, additional potassium ordered and scheduled 40 mg IV every 8 ordered while on Bumex IV
-Continue to monitor QT interval
-Went for left heart catheterization (09/23/2024) showing clear coronaries with left ventriculography showing hyperdynamic LV base with akinesis of the mid ventricle and dyskinesis of the apical ventricle consistent with Takotsubo's cardiomyopathy.
LVEF was 30-35%
-Aspirin, statins
-Discontinued hydrocortisone in view of influenza A positive status and reported increase in mortality with steroid use and influenza
#3. Nonsustained ventricular tachycardia, exacerbated with milrinone
-Avoid milrinone or dobutamine
-Currently off pressors
-Magnesium normal, replacing potassium, monitor potassium and magnesium every 12 hours
-Will start beta-blockers once blood pressure allows, likely within the next 24 hours
#4. Acute kidney injury. Nonoliguric, suspect cardiorenal syndrome
-Creatinine stable at 2.0, nonoliguric
-Continue Bumex twice daily and close monitoring of ins and out as well as creatinine trend
#5. Large hiatal hernia with intrathoracic stomach.
-High risk of aspiration.
-Continue PPI
-Unable to get GI access even with EGD by GI service
hence not able to give oral Tamiflu
#6. Bipolar disorder
-Continue Keppra
-Rest of the meds to be started once oral access secured
#7. DVT prophylaxis with subcu heparin and GI prophylaxis with PPI 40 mg daily
Patient is critically ill � continue ICU level of care
Data:
Left heart catheterization 09/23/2024:
CONCLUSIONS:
1. Right dominant circulation with no coronary artery disease.
2. Severely elevated filling pressures (LVEDP = 35 mmHg, PCWP = 35 mmHg at 88.0 kg).
3. Hyperdynamic LV base with akinesis of the mid ventricle and dyskinesis of the apical ventricle consistent with Takotsubo cardiomyopathy, LV ejection fraction estimated at 30-35%.
4. Discordance between Rudy and thermodilution cardiac function. Low normal to mildly impaired function by Rudy equation (cardiac index = 2.03 L/min/m�, a VO2 difference 5.45 volume %), severely depressed function by cardiac index (1.27 L/min/m�).
I suspect the truth is somewhere in between.
5. Moderate, postcapillary pulmonary hypertension (mean PA = 40 mmHg, PCWP = 35 mmHg, cardiac output = 2.47 L/min, PVR = 2.02 Oates units), WHO group 2.
Transthoracic echocardiogram 09/23/2024:
Normal left ventricular size.
Mild concentric left ventricular hypertrophy.
Akinesis of the mid to apical inferoseptal, inferolateral and apical quintero.
LV ejection fraction is 40-45% by Allen's method of discs which may be
overestimated.
Normal right ventricular size and function.
Mild to moderate tricuspid regurgitation.
Estimated pulmonary artery pressure of 15-20 mmHg assuming a right atrial
pressure of 3 mmHg.
Pulmonic valve is grossly normal but poorly visualized.
Normal pericardium without effusion.
The IVC is dilated and does not collapse.
The patient is mechanically ventilated.
CXR 09/24:
Appears to be stable with bibasilar atelectasis more pronounced on the left.
Critical care statement: A total of 43 minutes of critical care time was provided for this patient today. This includes management of unstable vital signs, evaluation of the patient at bedside, reviewing the patient's pertinent medical records
including radiographs, microbiology, laboratory evaluations, and discussion with primary team, consultants, pharmacy, nutrition, physical therapy, case management, charge nurse, critical care nursing, and respiratory therapy.
Subjective Dataa
Subjective Data
Date of Service:
Date of Service: September 25, 2024
Chief Complaint: Conveyor Weigher Operator Follow Up
Subjective:
Patient continues to be intubated and mechanically ventilated
Objective Data
Data Reviewed
Vital Signs / I&O / Oxygen:
Vital Signs
Temp Pulse Resp BP Pulse Ox
99.4 F 54 14 106/67 98
09/25/24 04:20 09/25/24 06:40 09/25/24 06:40 09/25/24 06:30 09/25/24 04:00
Intake and Output
09/24/24 09/25/24 09/26/24
06:59 06:59 06:59
Intake Total 1871.4 / 1922.3 1284.1 / 1284.1
Output Total 3575 / 3875 3115 / 3115
Balance -1703.6 / -1952.7 -1830.9 / -1830.9
SaO2 [A/C] 98
SaO2 100
Nasal Cannula flow liters per 4
minute
Physical Exam
General: Respiratory Distress (negative), Comfortable, Chills (negative), Sweats (negative) and Other (Intubated/sedated)
HEENT: Normocephalic, Anicteric and Other (ETT in place)
Cardiovascular: S1-S2, Rub (negative) and Peripheral Edema (negative)
Respiratory: Wheeze (negative), Crackles (negative), Rhonchi (negative), Accessory Resp Muscle Use (negative) and ET Tube (Chronic breath sounds heard bilaterally)
GI: Soft, Non Distended, Non Tender and Other (Hypoactive bowel sounds)
Neurology: Tremors (negative) and Other (Sedated)
Skin: Warm, Dry, Cyanosis (negative) and Jaundice (negative)
Labs/Micro/Reports
Lab Data
09/25/24 04:06
Microbiology
09/21/24 23:24 Blood/Venous Blood Culture - Preliminary
No Growth in 72 hours- Final report to follow
09/21/24 23:24 Blood/Venous Blood Culture - Preliminary
No Growth in 72 hours- Final report to follow
09/22/24 04:33 Tracheal Aspirate Respiratory Culture - Final
Streptococcus pneumoniae
09/22/24 04:33 Tracheal Aspirate Gram Stain - Final
09/22/24 02:35 Urine Urine Culture - Final
NO GROWTH
--- NOTE | 2024-09-25 08:00 | PTCARENOTE ---
Received pt @ change of shift intubated/sedated w b/l soft limb/4 rails restraints- see flow sheet. RASS -3. SB w prolonged QT on monitor. SpO2 99% on vent settings AC 14/400/.40/+5; weak gag reflex. Scant oral secretions, Hypoactive BS, abd
round. Temp sensing paula in place draining clear, yellow urine. R groin dressing c/d/i; neurovascular checks maintained per orders. R IJ cordis w prop/fent gtts infusing- see flow sheet. Orders reviewed, oral and paula care provided. Pt.
repositioned per protocol.
[2024-09-25 08:04] LABS: Glucose - Point of Care 191 mg/dl (70-99)
--- NOTE | 2024-09-25 08:14 | PN.DE.MGMTRT ---
Insulin Management
- -
09/25/2024: Diabetes Management Consult Follow up
79 year old female admitted with SOB-->Acute respiratory failure with hypoxia 2/2 Influenza A infection. PMH: HTN, Bipolar d/o. No hx of DM, A1C on admission was 6.0%-->pre-diabetes, Cr 0.8, eGFR >60-->Cr 2, eGFR 25.10 today.
Pt was noted for Hyperglycemia requiring initiation of glycemic protocol. She was transitioned off insulin infusion to low corrective insulin 09/23.
Pt is currently intubated and sedated, unable to provide h/o diabetes care, information obtained from chart review.
Current glucose range 141 to 191, requiring corrective insulin
Will make no changes, cont low corrective insulin Q6 hrs.
Will cont to follow
Discussed with nurse, she will notify me if glucose begins to trend up.
09/24 Pt's denies any knowledge of being treated for DM. Review of chart shows no diabetes medicines prior to admission.
Diabetes History
- -
Pre-Admission Diabetes Regimen
09/24/24 09/24/24 09/24/24
15:44 20:00 22:23
Creatinine 1.9 H Cancelled 2.1 H
09/25/24
04:06
Creatinine 2.0 H
Lab Results
Hemoglobin A1c Cancelled 09/21/24 23:19
Insulin Pump Settings
IP Diabetes Regimen
09/24/24 09/24/24 09/24/24
11:50 15:44 17:39
Glucose 156 H
POC Glucose 141 H 191 H
09/24/24 09/24/24 09/24/24
20:00 22:23 23:39
Glucose Cancelled 157 H
POC Glucose 145 H
09/25/24 09/25/24
04:06 05:41
Glucose 151 H
POC Glucose 151 H
Patient Education
[2024-09-25] MEDS: NSS (PRESERVATIVE FREE) 10 ML IV (09:50)
[2024-09-25] MEDS: KEPPRA 500 MG IV ×2 (09:51→20:43)
[2024-09-25] MEDS: BUMEX 2 MG IV ×2 (09:51→20:42)
[2024-09-25] MEDS: HEPARIN 5000 UNITS SC ×2 (09:52→17:00)
[2024-09-25] MEDS: UNASYN IV ×2 (09:53→20:43)
[2024-09-25] MEDS: PROTONIX IV 40 MG IV (09:56)
--- NOTE | 2024-09-25 10:53 | PTCARENOTE ---
Addendum entered by Taurus Aguayo, RN 09/25/24 12:26:
Family asking if MD can update family friend who is yardage control clerk Dr. Pichardo-per media marketing director, msg sent to Dr. Dennis who will reach out to him when able. ([phone])
Original Note:
Plan discussed in rounds with daughter at bedside, Product Marketing Intern and care team, will attempt SAT and SBT. Orders rec'd to dc CALVIN jones contacted to place PICC per orders, RELIEF COOK at bedside to remove swan, for now Cordis remains. Orders rec'd...meds
and assessment as documented. Propofol lowered at this time, see flowsheet.
[2024-09-25] MEDS: KCL 100 IV ×2 (11:47→20:51)
[2024-09-25 11:50] LABS: Glucose - Point of Care 123 mg/dl (70-99)
[2024-09-25] MEDS: PRECEDEX 100 IV (11:52)
--- NOTE | 2024-09-25 12:01 | PTCARENOTE ---
Precedex gtt initiated at 12:00 at 0.2 mcg/kg/hr per order, propofol weaned further to 30 mcg/kg/min, RASS -3. See flowsheet. Daughter continues offering emotional support to patient, questions answered.
--- NOTE | 2024-09-25 13:33 | PTCARENOTE ---
Addendum entered by Taurus Aguayo RN 09/25/24 13:45:
Pt failed SBT for apnea after <5 min. Per RT, will attempt again at approx 14:00. Pt remains on Precedex gtt, pt more awake, RASS +1, no eye contact but moving arms and legs, opening eyes.
Original Note:
Prop and fent weaned off, SBT started at 13:35.
[2024-09-25] MEDS: NOVOLOG FLEXPEN-LOW RESISTANCE SC ×2 (13:40→17:54)
--- NOTE | 2024-09-25 13:58 | W.PN.HOSP.TC ---
Today's Communication/Plan
-
IV antibiotics
IV diuresis
Attempt to wean off sedation with SBT.
Total Critical Care Time__55___ minutes. I was immediately available to the patient and staff. I personally examined, reviewed labs, diagnostic images/reports, interpretations, treatment plans, discussed patient care with other providers and
family or caregivers (if patient is unable to make decisions), entered orders as appropriate and documented the medical record.
Assessment / Plan
Assessment / Plan
Ms. Daniel is a 79-year-old female with a medical history of hypertension and bipolar disorder who presented with shortness of breath. She tested positive for influenza 2 days prior to arrival and was started on oseltamivir as an outpatient.
However she had progressively worsening dyspnea and productive cough for 24 hours prior to presenting to the emergency department. In the ED, she was found to be hypoxic with her pulse ox in the mid 80s on room air. She was started on supplemental
oxygen via nasal cannula at that time with improvement in her respiratory status and oxygenation. She was also given nebulizer treatments. She was admitted for further evaluation and management of acute respiratory failure with hypoxia in the
setting of influenza infection.
Impression:
Acute hypoxic respiratory failure.
� Intubated 09/21/2024
Sepsis secondary to influenza A/bacterial�community-acquired pneumonia, also suspected aspiration pneumonia given large hiatal hernia with intrathoracic stomach
Shock, multifactorial due to sepsis as well as cardiogenic.
Acute heart failure reduced EF secondary to stress�Takotsubo cardiomyopathy.
Type II VT/demand ischemia with troponin peak 14
Polymorphic ventricular tachycardia on monitoring 09/23/24
Prolonged QTc
Acute kidney injury.
Hypovolemic hyponatremia
Acute anemia with no evidence of blood loss, suspect dilutional/acute illness.
Elevated transaminases
Prediabetes
Hypothyroidism on replacement
Bipolar disorder.
Plan:
Acute hypoxic respiratory failure multifactorial in the settings of influenza A/bacterial pneumonia as well as cardiogenic shock.
Intubated on 09/21/24
Follow-up chest x-ray with large hiatal hernia, although with no focal infiltrate.
Remains on ventilatory support with FiO2 at 40%/PEEP 5
As volume status improves. Consider wean off continuous sedation with attempt of SBT
Influenza A.
Suspected superimposed bacterial pneumonia community-acquired possibly aspiration given large hiatal hernia
Respiratory culture positive for Streptococcus
Initiated on Tamiflu, although currently no enteral access given large hiatal hernia and difficulty with NG tube placement
Antibiotics expanded from doxycycline to Unasyn.
Continue stress dose of corticosteroids: Hydrocortisone 50 mg IV every 6 hours
Acute cardiomyopathy.
Type II VT with troponin peak of 14.
ECG with diffuse ST segment changes with anterior lateral leads.
Urgent right and left catheterization with findings consistent with stress/Takotsubo cardiomyopathy LVEF 30-35%, no evidence of CAD, hemodynamics findings consistent with cardiogenic shock with decreased cardiac index, elevated PCWP/LVEDP and SVR
Initiated on milrinone
Noted with monomorphic ventricular tachycardia on 09/23/2024
Off milrinone and amiodarone
Initiated with diuresis on Bumex drip transition to Bumex twice daily
Close follow-up with electrolytes including potassium and magnesium
Eventually introduction of GDMT including DELANEY and ARB's when hemodynamics allows
Acute kidney injury likely prerenal
Hyponatremia secondary to hypovolemia
Monitor renal function closely with diuresis
On HCTZ NEUROPSYCHIATRIC AIDE
Creatinine plateaued at 2.
Acute normocytic anemia
Noted drop in hemoglobin 13.6�10.8
Urgent upper endoscopy with a large hiatal hernia and no evidence of bleeding
Follow-up hemoglobin closely.
Continue PPI prophylactic dose
Large hiatal hernia with intrathoracic stomach.
Remains with high aspiration risk.
Continue PPI.
Unable to place NG tube due to large hiatal hernia
Elevated transaminases suspect in the settings of hemodynamic instability.
No gastrointestinal complaints upon presentation
Follow-up trend
Consider additional imaging if uptrending
Hypothyroidism on replacement
Prediabetes
Continue basal bolus protocol with serial Accu-Cheks
Bipolar disorder.
Continue preadmission regimen include Vraylar, clonazepam, lamotrigine, zaleplon.
DVT prophylaxis heparin
Full code
Anticipated Discharge: > 48 hours
Subjective/Interval History
-
Date of Service: September 25, 2024
Objective Data
-
Labs:
Laboratory Results
09/25/24
04:06
WBC 11.0 H
Hgb 11.2 L
Hct 33.4 L
Plt Count 242 D
Sodium 143
Potassium 3.7
Chloride 104
Carbon Dioxide 27
BUN 57 H
Creatinine 2.0 H
Glucose 151 H
Calcium 7.9 L
Vital Signs:
Vital Signs
Temp Pulse Resp BP Pulse Ox
98.1 F 57 14 122/81 99
09/25/24 12:00 09/25/24 13:40 09/25/24 13:40 09/25/24 13:30 09/25/24 12:20
I&O
09/24/24 09/25/24 09/26/24
06:59 06:59 06:59
Intake Total 1871.4 / 1922.3 1284.1 / 1383.6 672.3 / 672.3
Output Total 3575 / 3875 3115 / 3175 800 / 800
Balance -1703.6 / -1952.7 -1830.9 / -1791.4 -127.7 / -127.7
Physical Exam
-
General: Well Developed and No Apparent Distress
HEENT: Normocephalic, Atraumatic, Moist Mucous Membranes and Other (ET tube with clear secretions)
Respiratory: Decreased Breath Sounds
Cardiac: Regular Rhythm and S1/S2; Negative Murmur, Rub or Gallop
GI: Soft, Nontender, Nondistended and Normal Bowel Sounds; Negative Organomegaly
Rectal: Deferred by Provider
Genito-urinary: Evans
Musculoskeletal: No Clubbing, No Cyanosis and No Edema
Skin: Negative Rash
Neuro: Sedated
--- NOTE | 2024-09-25 14:38 | PTCARENOTE ---
midline placed by IVT ~13:00.
--- NOTE | 2024-09-25 15:11 | CM ---
CM following re: discharge planning.
Reviewed pt's chart. per Rounds meeting, pt intubated on 09/21/24 due to Acute hypoxic respiratory failure, Sepsis secondary to influenza A/bacterial�community-acquired pneumonia, remains intubated, continue supportive care.
Pt resides w/ spouse, daughter (Ladi) and grandchild in a 2SH and pt independent w/ ambulating and ADLs
D/c plan: uncertain at this time and will depend on pt's progress.
CM will follow with discharge plan updates as hospitalization progresses
[2024-09-25 17:43] LABS: Blood Urea Nitrogen 57 mg/dl (7-17); Calcium 8.8 mg/dl (8.4-10.2); Carbon Dioxide 32 mmol/L (22-30); Chloride 105 mmol/L (98-107); Estimated Creatinine Clearance 25 ml/min; Glucose 145 mg/dl (70-99); Magnesium 2.1 mg/dl (1.6-2.3); Potassium 3.6 mmol/L (3.5-5.1); Sodium 147 mmol/L (135-145)
--- NOTE | 2024-09-25 17:51 | RESPNOTE ---
Respiratory: patient extubated @ 1735 without incident no stridor, per Dr Headley. Patient placed on Bilevel 12/5 5 LPM.
--- NOTE | 2024-09-25 18:00 | PTCARENOTE ---
Received pt at 1500, complete assessment done and documented. Pt intubated, was put on a wean of PS 5/5 40%, O2 ksd=382%. Pt seen by ICU milk powder grinder, and was updated. Pt extubated as per Dr Osuna, at put on bipap 12/5, 5L. Pt's in room
updated. Pt tolerating bipap well. O2 tnk=853%. Dex presently at 0.2 mcg/kg/min.
[2024-09-25 18:04] LABS: Glucose - Point of Care 141 mg/dl (70-99)
--- NOTE | 2024-09-25 19:45 | PTCARENOTE ---
Assumed care of Pt from day RN. Pt continues on Precedex at 0.2mcg with RASS of -2. Received Pt on Bipap 12/ 5L. Pt SPO2 100%. During assessment Pt RASS going to 2. Precedex titrated per order, see work list. Respiratory at bed side Bipap removed,
Pt placed on NC 4L. PT appears to be tolerating nc 4L ,spo2 97% lungs course b/l throughout respiration even unlabored.
[2024-09-25] MEDS: LOPRESSOR 2.5 MG IV (21:02)
[2024-09-25] MEDS: DILAUDID 0.25 MG IV (21:23)
[2024-09-26] VITALS (42 sets, daily range): BP systolic 110–174; BP diastolic 59–112; PULSE 2–78; BMI 31.0
[2024-09-26 00:09] LABS: Glucose - Point of Care 158 mg/dl (70-99)
--- NOTE | 2024-09-26 00:15 | PTCARENOTE ---
Red/Mccormick petechiae rash found on Pt back, EYE SURGEON made aware. CHG wipes used for bathing, clean sheets to bed. Pt continues on Precedex (see work list for titration). Pt maintaining 99-100% on NC at 4L, brief periods of apnea noted without drop in spo2.
[2024-09-26] MEDS: NOVOLOG FLEXPEN-LOW RESISTANCE 1 UNITS SC ×2 (00:27→06:11)
[2024-09-26] MEDS: HEPARIN 5000 UNITS SC ×4 (00:27→23:16)
[2024-09-26] MEDS: PRECEDEX 100 IV ×5 (00:28→21:01)
[2024-09-26] MEDS: DILAUDID 0.25 MG IV ×3 (00:33→11:04)
[2024-09-26] MEDS: LOPRESSOR 2.5 MG IV ×2 (03:04→11:46)
[2024-09-26] MEDS: KCL 100 IV ×2 (04:09→11:02)
[2024-09-26 04:58] LABS: Hemoglobin 10.9 g/dL (12.0-16.0); Mean Corp Hgb Conc. 34.1 g/dL (33.0-37.0); Mean Corpuscular Hgb 31.1 pg (27.0-31.0); Mean Corpuscular Volume 91.4 fL (81.0-99.0); Mean Platelet Volume 11.1 fL (7.4-10.4); Platelet Count 186 10^3/uL (130-400); Red Cell Dist. Width 14.3 % (11.5-14.5); White Blood Cell Count 9.2 10^3/uL (4.8-10.8)
--- NOTE | 2024-09-26 05:30 | PTCARENOTE ---
Pt continues on Precedex. Pt spo2 98-99% on 5L. Pt hypertensive at times, PRN Lopressor given. CPOT done, PRN pain medication given, improving BP's. B/L soft restraints order continued.
[2024-09-26 05:42] LABS: Hematocrit 34.2 % (37.0-47.0); Hemoglobin 11.5 g/dL (12.0-16.0); Mean Corp Hgb Conc. 33.6 g/dL (33.0-37.0); Mean Corpuscular Hgb 30.6 pg (27.0-31.0); Mean Platelet Volume 10.7 fL (7.4-10.4); Platelet Count 196 10^3/uL (130-400); Red Blood Cell Count 3.76 10^6/uL (4.20-5.40); Red Cell Dist. Width 14.4 % (11.5-14.5)
[2024-09-26 05:56] LABS: Blood Urea Nitrogen 53 mg/dl (7-17); Calcium 9.6 mg/dl (8.4-10.2); Carbon Dioxide 33 mmol/L (22-30); Chloride 108 mmol/L (98-107); Estimated Creatinine Clearance 30 ml/min; Glucose 181 mg/dl (70-99); Magnesium 1.9 mg/dl (1.6-2.3); Potassium 3.7 mmol/L (3.5-5.1); Sodium 151 mmol/L (135-145); eGFR 32.81
[2024-09-26 06:20] LABS: Glucose - Point of Care 176 mg/dl (70-99)
--- NOTE | 2024-09-26 07:41 | W.PN.INTV ---
Today's Communication / Plan
Recommendations
-In view of hypernatremia and significant diuresis, hold 2 mg IV Bumex twice daily dose
-Repeat labs later in the day and decide on dose of diuretics/D5W
-CXR in am
-Resume oral medications including Tamiflu when able to take p.o.
-PT/OT/ST
-Considering patient bit encephalopathy stable, continue BiPAP on for 4 hours with 2-hour break alternating
-Titrate Precedex down as tolerated
Assessment
-
Assessment: 79-year-old female non-smoker with a past medical history of hiatal hernia with intrathoracic stomach, Schatzki's ring with dilation (2012), bipolar disorder, osteopenia, history of swallowing difficulty, history of diverticula,
tortuous colon, nonrheumatic mitral regurgitation, hyperlipidemia, aortic atherosclerosis, hypothyroidism, Zarate's esophagus and history of syncope (2010) who presents with shortness of breath. Patient noted to have influenza A and was started on
oseltamivir as outpatient. Initially in the ER she had a low-grade fever to 100.3 �F, pulse rate 119, respiratory rate 24, BP 157/86 and saturating 89% on room air. She was placed onto 4 L/min with saturations improving to 95%. At around 8:00 PM
the patient developed worsening respiratory distress, and she was intubated for airway protection. Flu swab was positive for influenza A. CXR showed a large predominantly air-filled hiatal hernia/intrathoracic stomach. In the ER she was given
acetaminophen and DuoNebs. After intubation, she was admitted to the ICU and Clinical Education Manager services consulted for additional management/recommendations. Subsequently patient developed diffused ST elevation and was taken to Circulation Director. Patient was not
noted to have any significant coronary artery disease and was thought to have Takotsubo cardiomyopathy. Patient did develop cardiogenic shock and briefly required pressor support. When milrinone was started, patient developed significant
ectopy/nonsustained ventricular tachycardia hence it was discontinued. Wedge pressure was noted to be quite high in the setting of cardiogenic shock and patient was started on Bumex infusion with significant diuresis and ongoing improvement.
Oral access could not be obtained because patient has large hiatal hernia. GI consult was requested and even with the assistance of endoscopy oral access could not be secured.
09/25, patient was extubated
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
(2010), hypothyroidism, tubal ligation, aortic atherosclerosis, hyperlipidemia, nonrheumatic mitral regurgitation, tortuous colon, diverticulosis
#1. Acute respiratory failure with hypoxia due to Influenza A (nasal swab positive)
-Intubated 09/21, successfully extubated 09/25
-saturating well on room air, no respiratory distress
-Unasyn to cover for superimposed bacterial infection, strep pneumo on tracheal aspirate noted
-Blood cultures have stayed negative
-Start oral Tamiflu when able to take p.o.
#2. Cardiogenic shock with acute Takotsubo cardiomyopathy. Suspect primarily cardiogenic shock with low cardiac index of 1.4 and elevated SVR of 1900 rather than septic.
-Currently off pressors and has been weaned off phenylephrine
-Milrinone was attempted however patient developed tachyarrhythmias hence it was stopped and amiodarone was started. Amiodarone has since been stopped due to elevated QTc cardiology service on case
-Replacing magnesium and potassium
-Continue to monitor QT interval
-Went for left heart catheterization (09/23/2024) showing clear coronaries with left ventriculography showing hyperdynamic LV base with akinesis of the mid ventricle and dyskinesis of the apical ventricle consistent with Takotsubo's cardiomyopathy.
LVEF was 30-35%
-Aspirin, statins
-Discontinued hydrocortisone in view of influenza A positive status and reported increase in mortality with steroid use and influenza
-Hydralazine, nitrate and metoprolol started per cardiology service
#3. Nonsustained ventricular tachycardia, exacerbated with milrinone
-Avoid milrinone or dobutamine
-Currently off pressors
-Continue to replete potassium and magnesium
-Started low-dose beta-blockers
#4. Acute kidney injury. Now with hypernatremia,
-Creatinine improved to 1.6 this morning, nonoliguric, patient urinated 3.7 L yesterday and is -2.6 L
-In view of hypernatremia, hold Bumex and follow-up on labs later today
#5. Large hiatal hernia with intrathoracic stomach.
-High risk of aspiration.
-Continue PPI
-Unable to get GI access even with EGD by GI service
hence not able to give oral Tamiflu
#6. Bipolar disorder
-Continue Keppra
-Rest of the meds to be started once oral intake deemed safe
#7. DVT prophylaxis with subcu heparin and GI prophylaxis with PPI 40 mg daily
Patient is critically ill � continue ICU level of care
Critical Care time 45 mins -- The patient is admitted for acute critical illness for the treatment of vital organ failure and/or prevention of further life-threatening conditions. Total care includes time spent in review of history, physical exam,
medications, hemodynamic/ventilator parameters, laboratory data, imaging and discussion with house staff, pharmacy, respiratory therapy, wire mill rover, and nursing. Time includes discussion with family at bedside.
Data:
Left heart catheterization 09/23/2024:
CONCLUSIONS:
1. Right dominant circulation with no coronary artery disease.
2. Severely elevated filling pressures (LVEDP = 35 mmHg, PCWP = 35 mmHg at 88.0 kg).
3. Hyperdynamic LV base with akinesis of the mid ventricle and dyskinesis of the apical ventricle consistent with Takotsubo cardiomyopathy, LV ejection fraction estimated at 30-35%.
4. Discordance between Rudy and thermodilution cardiac function. Low normal to mildly impaired function by Rudy equation (cardiac index = 2.03 L/min/m�, a VO2 difference 5.45 volume %), severely depressed function by cardiac index (1.27 L/min/m�).
I suspect the truth is somewhere in between.
5. Moderate, postcapillary pulmonary hypertension (mean PA = 40 mmHg, PCWP = 35 mmHg, cardiac output = 2.47 L/min, PVR = 2.02 Oates units), WHO group 2.
Transthoracic echocardiogram 09/23/2024:
Normal left ventricular size.
Mild concentric left ventricular hypertrophy.
Akinesis of the mid to apical inferoseptal, inferolateral and apical quintero.
LV ejection fraction is 40-45% by Allen's method of discs which may be
overestimated.
Normal right ventricular size and function.
Mild to moderate tricuspid regurgitation.
Estimated pulmonary artery pressure of 15-20 mmHg assuming a right atrial
pressure of 3 mmHg.
Pulmonic valve is grossly normal but poorly visualized.
Normal pericardium without effusion.
The IVC is dilated and does not collapse.
The patient is mechanically ventilated.
CXR 09/24:
Appears to be stable with bibasilar atelectasis more pronounced on the left.
Critical care statement: A total of 43 minutes of critical care time was provided for this patient today. This includes management of unstable vital signs, evaluation of the patient at bedside, reviewing the patient's pertinent medical records
including radiographs, microbiology, laboratory evaluations, and discussion with primary team, consultants, pharmacy, nutrition, physical therapy, case management, charge nurse, critical care nursing, and respiratory therapy.
Subjective Dataa
Subjective Data
Date of Service:
Date of Service: September 26, 2024
Chief Complaint: Clinical Education Manager Follow Up
Objective Data
Data Reviewed
Vital Signs / I&O / Oxygen:
Vital Signs
Temp Pulse Resp BP Pulse Ox
98.7 F 64 13 161/93 99
09/26/24 03:20 09/26/24 05:20 09/26/24 05:20 09/26/24 05:20 09/26/24 05:20
Intake and Output
09/25/24 09/26/24 09/27/24
06:59 06:59 06:59
Intake Total 1284.1 / 1383.6 1206.0 / 1206.0
Output Total 3115 / 3175 3800 / 3800
Balance -1830.9 / -1791.4 -2594.0 / -2594.0
SaO2 [A/C] 99
SaO2 99
Nasal Cannula flow liters per 5
minute
Physical Exam
General: Respiratory Distress (negative), Comfortable, Chills (negative), Sweats (negative) and Other (Intubated/sedated)
HEENT: Normocephalic, Anicteric and Other (ETT in place)
Cardiovascular: S1-S2, Rub (negative) and Peripheral Edema (negative)
Respiratory: Wheeze (negative), Crackles (negative), Rhonchi (negative), Accessory Resp Muscle Use (negative) and ET Tube (Chronic breath sounds heard bilaterally)
GI: Soft, Non Distended, Non Tender and Other (Hypoactive bowel sounds)
Neurology: Tremors (negative) and Other (Sedated)
Skin: Warm, Dry, Cyanosis (negative) and Jaundice (negative)
Labs/Micro/Reports
Lab Data
09/26/24 05:31
Laboratory Results
09/25/24
16:07
pH Cancelled
pCO2 Cancelled
pO2 Cancelled
HCO3 Cancelled
O2 Delivery Level Cancelled
Microbiology
09/21/24 23:24 Blood/Venous Blood Culture - Preliminary
No Growth in 4 days- Final report to follow
09/21/24 23:24 Blood/Venous Blood Culture - Preliminary
No Growth in 4 days- Final report to follow
09/22/24 04:33 Tracheal Aspirate Respiratory Culture - Final
Streptococcus pneumoniae
09/22/24 04:33 Tracheal Aspirate Gram Stain - Final
09/22/24 02:35 Urine Urine Culture - Final
NO GROWTH
Cultures, tracheal aspirate showed strep pneumo, pansensitive also influenza A positive.
[2024-09-26] MEDS: NSS (PRESERVATIVE FREE) 10 ML IV (07:53)
[2024-09-26] MEDS: PROTONIX IV 40 MG IV (07:53)
[2024-09-26] MEDS: UNASYN IV ×2 (07:54→21:45)
[2024-09-26] MEDS: KEPPRA 500 MG IV (07:59)
--- NOTE | 2024-09-26 08:48 | PN.DE.MGMTRT ---
Insulin Management
- -
09/25/2024: Diabetes Management Consult Follow up
79 year old female admitted with SOB-->Acute respiratory failure with hypoxia 2/2 Influenza A infection. PMH: HTN, Bipolar d/o. No hx of DM, A1C on admission was 6.0%-->pre-diabetes, Cr 0.8, eGFR >60-->Cr 1.6, eGFR 32.81 today.
Pt was noted for Hyperglycemia requiring initiation of glycemic protocol. She was transitioned off insulin infusion to low corrective insulin 09/23.
Patient is sedated, unable to answer questions.
Current glucose range 141 to 158 requiring corrective insulin
Glucose beginning to trend up, 228 pre lunch. Will increase corrective insulin to moderate Q6 hrs.
Will cont to follow
Discussed with nurse, will notify me if glucose begins to trend up.
/ Pt's denies any knowledge of being treated for DM. Review of chart shows no diabetes medicines prior to admission.
Diabetes History
- -
Pre-Admission Diabetes Regimen
09/25/24 09/26/24 09/26/24
17:12 04:35 05:31
Creatinine 2.0 H Cancelled 1.6 H
Lab Results
Hemoglobin A1c Cancelled 09/21/24 23:19
Insulin Pump Settings
IP Diabetes Regimen
09/25/24 09/25/24 09/25/24
11:38 17:12 17:53
Glucose 145 H
POC Glucose 123 H 141 H
09/25/24 09/26/24 09/26/24
23:58 04:35 05:31
Glucose Cancelled 181 H
POC Glucose 158 H
09/26/24
06:09
Glucose
POC Glucose 176 H
Patient Education
--- NOTE | 2024-09-26 10:14 | W.PN.CARDCBS ---
Today's Communication / Plan
-
Cont Bumex 2mg IV BID as per nephrology for diuresis.
Aggressively replete potassium and magnesium
Hydralazine intravenously with parameters and nitroglycerin patch started given patient is sedated.
Low-dose IV beta-leticia added.
Repeat EKG.
Avoid QT prolonging medications
Impression / Plan
-
.
Impression:
Takotsubo CM with acute ST segment elevation with elevated trop consistent with Takotsubo
Multifactorial shock in the setting of influenza pneumonia and cardiogenic shock contributing
s/p NSVT
Elevated trop type II DE with peak 14, abnormal EKG
Acute flu infection with Influenza A and suspected super-imposed bacterial pneumonitis and possible aspiration given large Hiatal hernia
Acute renal failure
Acute liver failure with transaminitis
Acute normocytic anemia
VDRF secondary to above
Prior hx of normal ejection fraction without significant cardiac issue at prior echo
Sinus bradycardia
Hypothyroidism
Bipolar disorder on psychiatric meds as outpt
Hiatal hernia
Cath right and left September 23 2024:
HEMODYNAMIC DATA
AO (s/d/x, mmHg): 122/69/90
LV (s/x, mmHg): 124/35
PCWP (a/v/x, mmHg): 37/39/35
PA (s/d/x, mmHg): 51/35/40
RV (s/x, mmHg): 51/30
RA (a/v/x, mmHg): 35/31/30
SVC SvO2 (%):64.5
PA SvO2 (%):56.2
SaO2 (%):94.0
Hbg (g/dL):10.6
JORDY
CO (L/min): 3.94
CI (L/min/m2): 2.03
Thermodilution
CO (L/min):2.47
CI (L/min/m2):1.27
TPG (mmHg): 5
PVR (Oates Units): 2.02
SVR (dynes*seconds*cm^-5): 1943
AVO2 Diff (Volume %): 5.45
AV gradient (x, mmHg):None.
AV area (cm2):Normal
MV gradient (x, mmHg):Not obtained.
MV area (cm2):Not obtained.
LVG: Normal left ventricular size with hyperdynamic ventricular basal function and akinesis of the mid ventricle to apex with ballooning of the LV apex and severe reduction in left ventricular systolic function. LV ejection fraction estimated at
30-35%. There is no mitral regurgitation. There is no aortic valve insufficiency. The aortic root and visualized ascending and descending aorta appear normal.
CORONARY ANGIOGRAPHY
Dominance: Right.
Left Main: Normal size, bifurcating vessel. There is no coronary artery disease.
LAD: Normal size vessel giving rise to 1 significant diagonal. There is no coronary artery disease.
Ramus:Congenitally absent.
Circumflex: Normal size, nondominant vessel that is essentially a single obtuse marginal. There is severe tortuosity but no coronary artery disease.
RCA: Large size, dominant vessel with a significant posterolateral arcade. There is no coronary artery disease. The distal RPDA severely tortuous.
CONCLUSIONS:
1. Right dominant circulation with no coronary artery disease.
2. Severely elevated filling pressures (LVEDP = 35 mmHg, PCWP = 35 mmHg at 88.0 kg).
3. Hyperdynamic LV base with akinesis of the mid ventricle and dyskinesis of the apical ventricle consistent with Takotsubo cardiomyopathy, LV ejection fraction estimated at 30-35%.
4. Discordance between Jordy and thermodilution cardiac function. Low normal to mildly impaired function by Jordy equation (cardiac index = 2.03 L/min/m�, a VO2 difference 5.45 volume %), severely depressed function by cardiac index (1.27 L/min/m�).
I suspect the truth is somewhere in between.
5. Moderate, postcapillary pulmonary hypertension (mean PA = 40 mmHg, PCWP = 35 mmHg, cardiac output = 2.47 L/min, PVR = 2.02 Oates units), WHO group 2.
RECOMMENDATIONS:
1. Expectant management after cardiac catheterization via right common femoral approach.
2. Limited weight bearing for one week.
3. Aggressive diuresis as hemodynamics will tolerate.
4. Low threshold for initiation of inotropic therapy if indicated (favor milrinone or dobutamine given elevated SVR and stable blood pressure).
5. GDMT as heart function normalizes.
6. Discussed with Dr. Powell and Dr. Sexton.
Echo September 23 2024: Normal left ventricular size. Mild concentric left ventricular hypertrophy. Akinesis of the mid to apical inferoseptal, inferolateral and apical quintero.
LV ejection fraction is 40-45% by Allen's method of discs which may be overestimated. Normal right ventricular size and function. Mild to moderate tricuspid regurgitation.
Estimated pulmonary artery pressure of 15-20 mmHg assuming a right atrial pressure of 3 mmHg. Pulmonic valve is grossly normal but poorly visualized. Normal pericardium without effusion.
The IVC is dilated and does not collapse.
Plan:
Guideline directed medical therapy for heart failure with reduced ejection fraction in the setting of Takotsubo cardiomyopathy as tolerates. Given elevated right heart pressures continue with diuresis, numbers had been followed by [facility]
catheter until 09/25/2024.
Cont Bumex 2mg IV BID as per nephrology for diuresis. She continues to diurese well.
Aggressively replete potassium and magnesium
Follow input/output and daily weights.
Currently given renal failure not an DELANEY inhibitor/ARB/Arni/Aldactone candidate. Continue to reassess. Hold on SGLT2 inhibitor at this time also.
Hydralazine intravenously with parameters and nitroglycerin patch started given patient is sedated. Blood pressure is elevated. Continue to work on decreasing afterload.
Low-dose IV beta-leticia added. Eventually switched to carvedilol.
s/p NSVT on Milrinone which has resolved with stopping Milrinone.
In addition, QTc prolongation with amiodarone which was stopped September 24 2024.
Cont to replete magnesium and potassium as needed.
QTc improving and was 585 on EKG September 25 2024. Repeat EKG.
Avoid QT prolonging medications
Cath without obstructive CAD and consistent with Takotsubo CM
GI was unable to place NG tube secondary to intra-thoracic stomach, including via EGD approach.
Cont pulm toilet.
Monitor H/H with anemia. Defer to primary service.
Discussed with nursing
Total critical care time 31 minutes
Progress Note - [employer]
Subjective
Date of Service: September 26, 2024
Sedated and not answering questions
Objective
Labs:
09/26/24 05:31
Labs
Hgb 11.5 g/dL (12.0-16.0) L 09/26/24 05:31
Hct 34.2 % (37.0-47.0) L 09/26/24 05:31
Plt Count 196 10^3/uL (130-400) 09/26/24 05:31
PT 13.5 Sec (11.4-14.6) 09/22/24 03:50
INR 1.00 09/22/24 03:50
APTT Cancelled 09/23/24 10:37
Sodium 151 mmol/L (135-145) H 09/26/24 05:31
Potassium 3.7 mmol/L (3.5-5.1) 09/26/24 05:31
BUN 53 mg/dl (7-17) H 09/26/24 05:31
Creatinine 1.6 mg/dL (0.6-1.0) H 09/26/24 05:31
Glucose 181 mg/dl (70-99) H 09/26/24 05:31
Troponins
09/23/24 09/23/24
15:00 21:00
Troponin I Cancelled Cancelled
Vital Signs and I&O:
Vital Signs
Temp Pulse Resp BP Pulse Ox
98.1 F 64 13 161/93 99
09/26/24 07:44 09/26/24 05:20 09/26/24 05:20 09/26/24 05:20 09/26/24 05:20
Vital Signs
Temp Pulse Resp BP Pulse Ox
98.1 F 64 13 161/93 99
09/26/24 07:44 09/26/24 05:20 09/26/24 05:20 09/26/24 05:20 09/26/24 05:20
Intake & Output
09/24/24 09/25/24 09/26/24 09/27/24
06:59 06:59 06:59 06:59
Intake Total 1871.4 / 1922.3 1284.1 / 1383.6 1206.0 / 1206.0
Output Total 3575 / 3875 3115 / 3175 3800 / 3800
Balance -1703.6 / -1952.7 -1830.9 / -1791.4 -2594.0 / -2594.0
Physical Exam
Physical Exam
General: Critically ill woman sedated
Heart: Distant heart sounds, regular
Lungs: Coarse anterior breath sounds
Extremities: No clubbing, cyanosis and trace edema bilaterally.
Neuro: Grossly nonfocal, awake, alert and oriented x3.
[2024-09-26] MEDS: APRESOLINE 10 MG IV ×3 (10:15→22:10)
[2024-09-26] MEDS: MAGNESIUM SULFATE 50 IV (11:46)
[2024-09-26] MEDS: NOVOLOG FLEXPEN-LOW RESISTANCE 2 UNITS SC (11:59)
[2024-09-26 12:06] LABS: Glucose - Point of Care 228 mg/dl (70-99)
[2024-09-26] MEDS: NITRO-DUR 0.1 MG TRANSDERM (13:07)
--- NOTE | 2024-09-26 14:35 | CM ---
CM following re: discharge planning.
Discussed in rounds, reviewed pt's chart.
Per Rounds meeting, pt was intubated 09/21, successfully extubated yesterday 09/25 to Bi-pap, continue Bi-pap treatment, continue supportive care.
PT and OT will evaluate the pt when clinically appropriate to determine a level of care at discharge.
Pt resides w/ spouse, daughter (Ladi) and grandchild in a 2SH and pt independent w/ ambulating and ADLs.
D/c plan: Awaiting for PT/OT evaluations and recommendations.
CM will follow with discharge plan updates as hospitalization progresses
--- NOTE | 2024-09-26 16:21 | W.PN.HOSP.TC ---
Today's Communication/Plan
-
Extubated on 09/25.
Remains encephalopathic delirious
Continue Precedex while off preadmission psychiatric regimen including Lamictal, clonazepam, Vraylar.
With hypernatremia, hold Bumex
Noticed improved creatinine down to 1.6.
Optimize cardiovascular regimen with goal of afterload reduction given acute stress cardiomyopathy.
Remains n.p.o. with aspiration precautions
Assessment / Plan
Assessment / Plan
Ms. Daniel is a 79-year-old female with a medical history of hypertension and bipolar disorder who presented with shortness of breath. She tested positive for influenza 2 days prior to arrival and was started on oseltamivir as an outpatient.
However she had progressively worsening dyspnea and productive cough for 24 hours prior to presenting to the emergency department. In the ED, she was found to be hypoxic with her pulse ox in the mid 80s on room air. She was started on supplemental
oxygen via nasal cannula at that time with improvement in her respiratory status and oxygenation. She was also given nebulizer treatments. She was admitted for further evaluation and management of acute respiratory failure with hypoxia in the
setting of influenza infection.
Impression:
Acute hypoxic respiratory failure.
� Intubated 09/21/2024
Sepsis secondary to influenza A/bacterial�community-acquired pneumonia, also suspected aspiration pneumonia given large hiatal hernia with intrathoracic stomach
Shock, multifactorial due to sepsis as well as cardiogenic.
Acute heart failure reduced EF secondary to stress�Takotsubo cardiomyopathy.
Type II ID/demand ischemia with troponin peak 14
Polymorphic ventricular tachycardia on monitoring 09/23/24
Prolonged QTc
Acute kidney injury.
Hypovolemic hyponatremia
Acute anemia with no evidence of blood loss, suspect dilutional/acute illness.
Elevated transaminases
Prediabetes
Hypothyroidism on replacement
Bipolar disorder.
Plan:
Acute hypoxic respiratory failure multifactorial in the settings of influenza A/bacterial pneumonia as well as cardiogenic shock.
Intubated on 09/21/24
Extubated on 09/25/2024
Follow-up chest x-ray with large hiatal hernia, although with no focal infiltrate.
Influenza A.
Suspected superimposed bacterial pneumonia community-acquired possibly aspiration given large hiatal hernia
Respiratory culture positive for Streptococcus
Initiated on Tamiflu, although currently no enteral access given large hiatal hernia and difficulty with NG tube placement
Antibiotics expanded from doxycycline to Unasyn.
Continue stress dose of corticosteroids: Hydrocortisone 50 mg IV every 6 hours
Toxic metabolic encephalopathy protracted secondary to acute illness
Reported bipolar disorder of unknown significance.
Acute delirium.
Continue Precedex
Currently off Lamictal
Stress cardiomyopathy Takotsubo type
Type II ID with troponin peak of 14.
ECG with diffuse ST segment changes with anterior lateral leads.
Urgent right and left catheterization with findings consistent with stress/Takotsubo cardiomyopathy LVEF 30-35%, no evidence of CAD, hemodynamics findings consistent with cardiogenic shock with decreased cardiac index, elevated PCWP/LVEDP and SVR
Status post milrinone and amiodarone, short course, discontinued
Noted with monomorphic ventricular tachycardia on 09/23/2024
Initiated on diuresis initially Bumex drip, then Bumex twice daily. Noted hyponatremia.
Hold further Bumex
Consider gentle hydration if persistent hyponatremia
Optimize cardiovascular regimen as per cardiology introducing IV Lopressor, hydralazine, Nitropaste with goal for afterload reduction
Acute kidney injury likely prerenal
Creatinine 2.0�1 point
Hyponatremia secondary to hypovolemia
Currently hyponatremia while on Bumex
Hold diuresis
Follow renal function
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
Acute normocytic anemia
Noted drop in hemoglobin 13.6�10.8
Urgent upper endoscopy with a large hiatal hernia and no evidence of bleeding
Follow-up hemoglobin closely.
Continue PPI prophylactic dose
Large hiatal hernia with intrathoracic stomach.
Remains with high aspiration risk.
Continue PPI.
Unable to place NG tube due to large hiatal hernia
Elevated transaminases suspect in the settings of hemodynamic instability.
No gastrointestinal complaints upon presentation
Follow-up trend
Consider additional imaging if uptrending
Hypothyroidism on replacement
Prediabetes
Continue basal bolus protocol with serial Accu-Cheks
Bipolar disorder.
Continue preadmission regimen include Vraylar, clonazepam, lamotrigine, zaleplon.
DVT prophylaxis heparin
Full code
Anticipated Discharge: > 48 hours
Subjective/Interval History
-
Date of Service: September 26, 2024
Objective Data
-
Labs:
Laboratory Results
09/26/24 09/26/24
04:35 05:31
WBC 9.2 9.0
Hgb 10.9 L 11.5 L
Hct 32.0 L 34.2 L
Plt Count 186 D 196
Sodium Cancelled 151 H
Potassium Cancelled 3.7
Chloride Cancelled 108 H
Carbon Dioxide Cancelled 33 H
BUN Cancelled 53 H
Creatinine Cancelled 1.6 H
Glucose Cancelled 181 H
Calcium Cancelled 9.6
Vital Signs:
Vital Signs
Temp Pulse Resp BP Pulse Ox
97.9 F 69 25 140/78 100
09/26/24 15:10 09/26/24 13:20 09/26/24 13:20 09/26/24 13:00 09/26/24 13:20
I&O
09/25/24 09/26/24 09/27/24
06:59 06:59 06:59
Intake Total 1284.1 / 1383.6 1206.0 / 1252.4 434.6 / 434.6
Output Total 3115 / 3175 3800 / 3950 1200 / 1200
Balance -1830.9 / -1791.4 -2594.0 / -2697.6 -765.4 / -765.4
Physical Exam
-
General: Well Developed and No Apparent Distress
HEENT: Normocephalic, Atraumatic, Moist Mucous Membranes and Other (ET tube with clear secretions)
Respiratory: Decreased Breath Sounds
Cardiac: Regular Rhythm and S1/S2; Negative Murmur, Rub or Gallop
GI: Soft, Nontender, Nondistended and Normal Bowel Sounds; Negative Organomegaly
Rectal: Deferred by Provider
Genito-urinary: Evans
Musculoskeletal: No Clubbing, No Cyanosis and No Edema
Skin: Negative Rash
Neuro: Other (Lethargic, thrashing and not following commands.)
[2024-09-26 17:15] LABS: Blood Urea Nitrogen 53 mg/dl (7-17); Calcium 9.7 mg/dl (8.4-10.2); Carbon Dioxide 33 mmol/L (22-30); Chloride 107 mmol/L (98-107); Estimated Creatinine Clearance 34 ml/min; Glucose 174 mg/dl (70-99); Magnesium 2.5 mg/dl (1.6-2.3); Potassium 4.1 mmol/L (3.5-5.1); Sodium 150 mmol/L (135-145); eGFR 38.51
[2024-09-26] MEDS: LOPRESSOR IV ×2 (18:17→23:15)
[2024-09-26] MEDS: NOVOLOG FLEXPEN-MODERATE RESISTANCE 2 UNITS SC (18:25)
--- NOTE | 2024-09-26 19:29 | PTCARENOTE ---
Updated assessment ongoing and documented. Vital signs as per unit based protocols. Continue progressive wean of prescedex thru day. Follow up labs and lytes as per orders. Updates with attending and hospitalist thru day. Follow up teaching needs
and emotional support thru day. Skin cares and wound cares as per unit based protocols. working with gas engine operator team and respiratory therapy for Bipap progression thru day, with 2hour breaks as tolerated. Complete bed bath and update with daughter
via phone. Change Agent team in and out at bedside with updates for family and critical cares staff. Continue supportive cares. Follow up medications with pharmacy, follow up home meds with patients family, continue with Emar follow up. Hourly
rounds, frequent patient safety checks, nursing or tech at bedside while maintained on BIPap
--- NOTE | 2024-09-26 21:00 | PTCARENOTE ---
Resumed care of pt this evening. Received pt on precedex gtt infusing at 0.8 mcg/kg/hr via cordis. Pt also on Bipap at 12/6, tolerating satting at 98% pulse ox. Pt currently asleep but arousable to verbal/tactile stimuli.
[2024-09-27] VITALS (29 sets, daily range): BP systolic 122–165; BP diastolic 65–92; PULSE 2–107; O2SAT 100; BMI 30.4
[2024-09-27 00:17] LABS: Glucose - Point of Care 171 mg/dl (70-99)
[2024-09-27] MEDS: NOVOLOG FLEXPEN-MODERATE RESISTANCE 1 UNITS SC ×4 (00:51→19:29)
--- NOTE | 2024-09-27 01:25 | PTCARENOTE ---
Upon reassessment pt resting comfortably.
--- NOTE | 2024-09-27 04:20 | PTCARENOTE ---
1:[address] for continuous bipap while restrained.
[2024-09-27 04:41] LABS: % Basophils 0.3 % (0-2); % Eosinophils 0.6 % (0-6); % Lymphocytes 12.6 % (20.5-51.1); % Monocytes 10.6 % (1.7-9.3); % Neutrophils 73.9 % (42.2-75.2); Absolute Immature Granulocytes 0.1 10^3/uL (0-0.05); Absolute Lymphocytes 0.9 10^3/uL (1.2-3.4); Absolute Monocytes 0.7 10^3/uL (0.1-0.6); Absolute Neutrophils 5.1 10^3/uL (1.4-6.5); Hematocrit 33.1 % (37.0-47.0); Hemoglobin 10.8 g/dL (12.0-16.0); Mean Corp Hgb Conc. 32.6 g/dL (33.0-37.0); Mean Corpuscular Hgb 30.3 pg (27.0-31.0); Mean Platelet Volume 11.1 fL (7.4-10.4); Nucleated Red Blood Cells % 0 %; Platelet Count 191 10^3/uL (130-400); Red Blood Cell Count 3.56 10^6/uL (4.20-5.40); Red Cell Dist. Width 14.6 % (11.5-14.5); White Blood Cell Count 6.9 10^3/uL (4.8-10.8)
[2024-09-27 05:02] LABS: NT-proBNP 13300 pg/ml
[2024-09-27] MEDS: APRESOLINE 10 MG IV ×4 (05:05→21:01)
[2024-09-27 05:22] LABS: Blood Urea Nitrogen 56 mg/dl (7-17); Calcium 9.9 mg/dl (8.4-10.2); Carbon Dioxide 34 mmol/L (22-30); Chloride 111 mmol/L (98-107); Estimated Creatinine Clearance 34 ml/min; Glucose 157 mg/dl (70-99); Magnesium 2.5 mg/dl (1.6-2.3); Potassium 3.8 mmol/L (3.5-5.1); Sodium 153 mmol/L (135-145); eGFR 38.51
[2024-09-27] MEDS: LOPRESSOR 2.5 MG IV ×4 (06:16→23:27)
[2024-09-27 06:20] LABS: Glucose - Point of Care 150 mg/dl (70-99)
--- NOTE | 2024-09-27 07:32 | W.PN.INTV ---
Today's Communication / Plan
Recommendations
-Continue to stay off Precedex
-Speech therapy evaluation, PT, OT
-Up in chair, activity as tolerated
-Stop Unasyn in view of maculopapular rash, Benadryl x 1 followed by ceftriaxone IV instead
-BIPAP nightly
Assessment
-
Assessment: 79-year-old female non-smoker with a past medical history of hiatal hernia with intrathoracic stomach, Schatzki's ring with dilation (2012), bipolar disorder, osteopenia, history of swallowing difficulty, history of diverticula,
tortuous colon, nonrheumatic mitral regurgitation, hyperlipidemia, aortic atherosclerosis, hypothyroidism, Zarate's esophagus and history of syncope (2010) who presents with shortness of breath. Patient noted to have influenza A and was started on
oseltamivir as outpatient. Initially in the ER she had a low-grade fever to 100.3 �F, pulse rate 119, respiratory rate 24, BP 157/86 and saturating 89% on room air. She was placed onto 4 L/min with saturations improving to 95%. At around 8:00 PM
the patient developed worsening respiratory distress, and she was intubated for airway protection. Flu swab was positive for influenza A. CXR showed a large predominantly air-filled hiatal hernia/intrathoracic stomach. In the ER she was given
acetaminophen and DuoNebs. After intubation, she was admitted to the ICU and Medical Referral Coordinator services consulted for additional management/recommendations. Subsequently patient developed diffused ST elevation and was taken to Wine Manager. Patient was not
noted to have any significant coronary artery disease and was thought to have Takotsubo cardiomyopathy. Patient did develop cardiogenic shock and briefly required pressor support. When milrinone was started, patient developed significant
ectopy/nonsustained ventricular tachycardia hence it was discontinued. Wedge pressure was noted to be quite high in the setting of cardiogenic shock and patient was started on Bumex infusion with significant diuresis and ongoing improvement.
Oral access could not be obtained because patient has large hiatal hernia. GI consult was requested and even with the assistance of endoscopy oral access could not be secured.
09/25, patient was extubated
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
(2010), hypothyroidism, tubal ligation, aortic atherosclerosis, hyperlipidemia, nonrheumatic mitral regurgitation, tortuous colon, diverticulosis
#1. Acute respiratory failure with hypoxia due to Influenza A (nasal swab positive)
-Intubated 09/21, successfully extubated 09/25
-saturating well on room air, no respiratory distress
-Rocephin to cover for strep pneumo on tracheal aspirate, plan for total 7 days of antibiotics
-Blood cultures have stayed negative
-Start oral Tamiflu when able to take p.o.
#2. Cardiogenic shock with acute Takotsubo cardiomyopathy. Suspect primarily cardiogenic shock with low cardiac index of 1.4 and elevated SVR of 1900 rather than septic.
-Currently off pressors and has been weaned off phenylephrine
-Milrinone was attempted however patient developed tachyarrhythmias hence it was stopped and amiodarone was started. Amiodarone has since been stopped due to elevated QTc cardiology service on case
-Replacing magnesium and potassium
-Continue to monitor QT interval
-Went for left heart catheterization (09/23/2024) showing clear coronaries with left ventriculography showing hyperdynamic LV base with akinesis of the mid ventricle and dyskinesis of the apical ventricle consistent with Takotsubo's cardiomyopathy.
LVEF was 30-35%
-Aspirin, statins
-Discontinued hydrocortisone in view of influenza A positive status and reported increase in mortality with steroid use and influenza
-Hydralazine, nitrate and metoprolol started per cardiology service
#3. Nonsustained ventricular tachycardia, exacerbated with milrinone
-Avoid milrinone or dobutamine
-Currently off pressors
-Continue to replete potassium and magnesium
-Started low-dose beta-blockers
#4. Acute kidney injury. Now with hypernatremia,
-Creatinine improved to 1.6 this morning, nonoliguric, patient urinated 3.7 L yesterday and is -2.6 L
-In view of hypernatremia, hold Bumex and follow-up on labs later today
#5. Large hiatal hernia with intrathoracic stomach.
-High risk of aspiration.
-Continue PPI
-Unable to get GI access even with EGD by GI service
hence not able to give oral Tamiflu
#6. Bipolar disorder
-Continue Keppra
-Rest of the meds to be started once oral intake deemed safe
#7. DVT prophylaxis with subcu heparin and GI prophylaxis with PPI 40 mg daily
Patient is critically ill � continue ICU level of care
Critical Care time 35 mins -- The patient is admitted for acute critical illness for the treatment of vital organ failure and/or prevention of further life-threatening conditions. Total care includes time spent in review of history, physical exam,
medications, hemodynamic/ventilator parameters, laboratory data, imaging and discussion with house staff, pharmacy, respiratory therapy, machine operators, and nursing. Time includes discussion with family at bedside.
Data:
Left heart catheterization 09/23/2024:
CONCLUSIONS:
1. Right dominant circulation with no coronary artery disease.
2. Severely elevated filling pressures (LVEDP = 35 mmHg, PCWP = 35 mmHg at 88.0 kg).
3. Hyperdynamic LV base with akinesis of the mid ventricle and dyskinesis of the apical ventricle consistent with Takotsubo cardiomyopathy, LV ejection fraction estimated at 30-35%.
4. Discordance between Rudy and thermodilution cardiac function. Low normal to mildly impaired function by Rudy equation (cardiac index = 2.03 L/min/m�, a VO2 difference 5.45 volume %), severely depressed function by cardiac index (1.27 L/min/m�).
I suspect the truth is somewhere in between.
5. Moderate, postcapillary pulmonary hypertension (mean PA = 40 mmHg, PCWP = 35 mmHg, cardiac output = 2.47 L/min, PVR = 2.02 Oates units), WHO group 2.
Transthoracic echocardiogram 09/23/2024:
Normal left ventricular size.
Mild concentric left ventricular hypertrophy.
Akinesis of the mid to apical inferoseptal, inferolateral and apical quintero.
LV ejection fraction is 40-45% by Allen's method of discs which may be
overestimated.
Normal right ventricular size and function.
Mild to moderate tricuspid regurgitation.
Estimated pulmonary artery pressure of 15-20 mmHg assuming a right atrial
pressure of 3 mmHg.
Pulmonic valve is grossly normal but poorly visualized.
Normal pericardium without effusion.
The IVC is dilated and does not collapse.
The patient is mechanically ventilated.
CXR 09/24:
Appears to be stable with bibasilar atelectasis more pronounced on the left.
Critical care statement: A total of 43 minutes of critical care time was provided for this patient today. This includes management of unstable vital signs, evaluation of the patient at bedside, reviewing the patient's pertinent medical records
including radiographs, microbiology, laboratory evaluations, and discussion with primary team, consultants, pharmacy, nutrition, physical therapy, case management, charge nurse, critical care nursing, and respiratory therapy.
Subjective Dataa
Subjective Data
Date of Service:
Date of Service: September 27, 2024
Chief Complaint: Medical Referral Coordinator Follow Up
Objective Data
Data Reviewed
Vital Signs / I&O / Oxygen:
Vital Signs
Temp Pulse Resp BP Pulse Ox
98.3 F 72 19 135/70 99
09/27/24 04:38 09/27/24 06:16 09/27/24 06:00 09/27/24 06:16 09/27/24 06:00
Intake and Output
09/26/24 09/27/24 09/28/24
06:59 06:59 06:59
Intake Total 1206.0 / 1252.4 901.9 / 901.9
Output Total 3800 / 3950 2371 / 2371
Balance -2594.0 / -2697.6 -1469.1 / -1469.1
SaO2 [A/C] 99
SaO2 99
Nasal Cannula flow liters per 4
minute
Physical Exam
General: Respiratory Distress (negative), Comfortable, Chills (negative), Sweats (negative) and Other (Intubated/sedated)
HEENT: Normocephalic, Anicteric and Other (ETT in place)
Cardiovascular: S1-S2, Rub (negative) and Peripheral Edema (negative)
Respiratory: Wheeze (negative), Crackles (negative), Rhonchi (negative), Accessory Resp Muscle Use (negative) and ET Tube (Chronic breath sounds heard bilaterally)
GI: Soft, Non Distended, Non Tender and Other (Hypoactive bowel sounds)
Neurology: Tremors (negative) and Other (Sedated)
Skin: Warm, Dry, Cyanosis (negative) and Jaundice (negative)
Labs/Micro/Reports
Lab Data
09/27/24 04:29
09/27/24 04:29
Microbiology
09/21/24 23:24 Blood/Venous Blood Culture - Final
No Growth - Final Report
09/21/24 23:24 Blood/Venous Blood Culture - Final
No Growth - Final Report
09/22/24 04:33 Tracheal Aspirate Respiratory Culture - Final
Streptococcus pneumoniae
09/22/24 04:33 Tracheal Aspirate Gram Stain - Final
--- NOTE | 2024-09-27 08:09 | PN.DE.MGMTRT ---
Insulin Management
- -
09/27/2024: Diabetes Management Consult Follow up
79 year old female admitted with SOB-->Acute respiratory failure with hypoxia 2/2 Influenza A infection. PMH: HTN, Bipolar d/o. No hx of DM, A1C on admission was 6.0%-->pre-diabetes, Cr 0.8, eGFR >60.
Pt was noted for Hyperglycemia requiring initiation of glycemic protocol. She was transitioned off insulin infusion to low corrective insulin 09/23.
Patient is sedated, briefly opens eyes when name called but unable to answer most questions. She did nod her head NO when asked if her doctor ever told her she had diabetes. Remains NPO, will need to be more awake for speech eval.
Current glucose range 171 to 228 requiring corrective insulin. Cr 1.4, eGFR 38.51. Glucose target 140 to 180.
Will continue moderate corrective insulin Q6 hrs.
Will cont to follow
Discussed with nurse, will notify me if glucose begins to trend up or if diet started.
3/ Pt's denies any knowledge of being treated for DM. Review of chart shows no diabetes medicines prior to admission.
Diabetes History
- -
Pre-Admission Diabetes Regimen
09/26/24 09/27/24
16:31 04:29
Creatinine 1.4 H 1.4 H
Lab Results
Hemoglobin A1c Cancelled 09/21/24 23:19
Insulin Pump Settings
IP Diabetes Regimen
09/26/24 09/26/24 09/27/24
11:55 16:31 00:04
Glucose 174 H
POC Glucose 228 H 171 H
09/27/24 09/27/24
04:29 06:08
Glucose 157 H
POC Glucose 150 H
Meal type: Lunch
Meal type: Breakfast
Patient Education
--- NOTE | 2024-09-27 08:17 | W.PN.CARDCBS ---
Today's Communication / Plan
-
Overall improving
Stop Bumex
Patient will need gentle hypotonic fluid, defer to hospitalist/critical care
Eventual oral medications
Possibly repeat echo prior to discharge
Impression / Plan
-
.
Impression:
Takotsubo CM, trop 14
Multifactorial shock with MSOF
s/p NSVT
VDRF/influenza A, probable bacterial pneumonia acute
Acute renal failure
Acute liver failure with transaminitis
Acute normocytic anemia
Hypothyroidism
Bipolar disorder on psychiatric meds as outpt
Hiatal hernia
Hyponatremia
Cath September 23 2024:
PCWP (a/v/x, mmHg): 37/39/35
Rudy
CI (L/min/m2): 2.03
Thermodilution
CI (L/min/m2):1.2
LVG: hyperdynamic ventricular basal function and akinesis of the mid ventricle to apex with ballooning of the LV apex EF 30-35%. There is no mitral regurgitation.
Left Main: Normal size, bifurcating vessel. There is no coronary artery disease.
LAD: Normal size vessel giving rise to 1 significant diagonal. There is no coronary artery disease.
Circumflex: Normal size, nondominant vessel that is essentially a single obtuse marginal. There is severe tortuosity but no coronary artery disease.
RCA: Large size, dominant vessel with a significant posterolateral arcade. There is no coronary artery disease. The distal RPDA severely tortuous.
Echo September 23 2024: Normal left ventricular size. Mild concentric left ventricular hypertrophy. Akinesis of the mid to apical inferoseptal, inferolateral and apical quintero.
LV ejection fraction is 40-45% by Allen's method of discs which may be overestimated. Normal right ventricular size and function. Mild to moderate tricuspid regurgitation.
Estimated pulmonary artery pressure of 15-20 mmHg assuming a right atrial pressure of 3 mmHg. Pulmonic valve is grossly normal but poorly visualized. Normal pericardium without effusion.
The IVC is dilated and does not collapse.
Plan:
Despite presumed Takotsubo cardiomyopathy in the setting of influenza A, with severe LV dysfunction, she seems improved.
Level of awareness seems to be improving.
Still NPO related to impaired mentation
No evidence of heart failure, and based on clinical appearance no evidence of cardiogenic shock despite proBNP of 13,300 today, suspect it was higher, acute kidney injury is resolving, shock liver resolving, mentation improving
Stop Bumex.
She is hypernatremic, needs hypotonic fluid, will defer to hospitalist/critical care team.
EKG shows prolonged QT with T wave inversions, typical of Takotsubo.
She seems to be recovering from influenza A.
Will continue IV hydralazine IV beta-leticia, convert to oral when mentation has improved, consider DELANEY or ARB in place of hydralazine and nitrates. Patient does not have NG tube related to anatomic considerations.
We may repeat echo prior to discharge looking for improvement in EF.
Total critical care time 40 minutes
Progress Note - Translator Deaf
Subjective
Date of Service: September 27, 2024:
Patient more alert today, still fairly obtunded, calling out 'coffee', no longer on droplet precautions
Current meds: Vraylar, aspirin 81 mg a day on hold, levothyroxine on hold, rosuvastatin 20, Tamiflu on hold, subcu heparin, Bumex 2 IV every 12 on hold, Precedex, hydralazine IV Q6, nitroglycerin patch, metoprolol 2.5 IV every 6, potassium rider
135/78, pulse 72, respiratory 19, afebrile, sats 90%, weight is 80.4 kg, Down 1.4 kg from yesterday and 5.4 kg since the third, intake and output -1.3 L, does not open eyes to command but occasionally calls out for coffee,, limited lung exam but
relatively clear, regular rate and rhythm without obvious murmurs, abdomen benign, no edema
White count 6.9, hemoglobin 10.8, platelets are 190, sodium is 153, potassium is 3.8, carbon dioxide is 34, BUN is 56, creatinine is 1.4,, creatinine had been 2.1
Chest x-ray today, probably improved vascular congestion, atherosclerotic change
EKG today sinus bradycardia deep anterolateral T wave inversions, long QT
Objective
Labs:
09/27/24 04:29
09/27/24 04:29
Labs
Hgb 10.8 g/dL (12.0-16.0) L 09/27/24 04:29
Hct 33.1 % (37.0-47.0) L 09/27/24 04:29
Plt Count 191 10^3/uL (130-400) 09/27/24 04:29
PT 13.5 Sec (11.4-14.6) 09/22/24 03:50
INR 1.00 09/22/24 03:50
APTT Cancelled 09/23/24 10:37
Sodium 153 mmol/L (135-145) H 09/27/24 04:29
Potassium 3.8 mmol/L (3.5-5.1) 09/27/24 04:29
BUN 56 mg/dl (7-17) H 09/27/24 04:29
Creatinine 1.4 mg/dL (0.6-1.0) H 09/27/24 04:29
Glucose 157 mg/dl (70-99) H 09/27/24 04:29
Vital Signs and I&O:
Vital Signs
Temp Pulse Resp BP Pulse Ox
36.7 C 72 19 135/70 99
09/27/24 08:10 09/27/24 06:16 09/27/24 06:00 09/27/24 06:16 09/27/24 06:00
Vital Signs
Temp Pulse Resp BP Pulse Ox
36.7 C 72 19 135/70 99
09/27/24 08:10 09/27/24 06:16 09/27/24 06:00 09/27/24 06:16 09/27/24 06:00
Intake & Output
09/25/24 09/26/24 09/27/24 09/28/24
07:59 07:59 07:59 07:59
Intake Total 1332.7 / 1432.2 1152.9 / 1197.3 855.5 / 855.5
Output Total 2875 / 3000 3890 / 4040 2221 / 2221
Balance -1542.3 / -1567.8 -2737.1 / -2842.7 -1365.5 / -1365.5
Physical Exam
Physical Exam
See above
[2024-09-27] MEDS: HEPARIN 5000 UNITS SC ×3 (09:06→23:50)
[2024-09-27] MEDS: KCL 100 IV (09:06)
[2024-09-27] MEDS: NITRO-DUR 0.1 MG TRANSDERM (09:08)
[2024-09-27] MEDS: UNASYN IV (09:11)
[2024-09-27] MEDS: D5W 1000 IV ×2 (10:52→20:46)
[2024-09-27 11:39] LABS: Glucose - Point of Care 151 mg/dl (70-99)
--- NOTE | 2024-09-27 12:39 | PTOTSP ---
Speech Therapy Evaluation:
Pt exhibits clinical signs of oropharyngeal dysphagia, acutely related to prolonged intubation (5 days), tenuous respiratory status, lethargy, and generalized weakness/fatigue. Pt accepted PO trials of ice chips, thin liquids via pipetted straw/1/2
tsp, and puree. Pt demonstrated guarded retrieval, reduced oral opening, reduced labial seal, and occasional oral holding requiring cues for oral manipulation. No overt s/sx of aspiration at bedside, however cannot exclude silent aspiration given pt
specific risk factors. Pt also remains at HIGH risk for post-prandial aspiration given significant esophageal hx including GERD, Schatzki's ring, Zarate's esophagus, and large hiatal hernia.
Recommend:
1. Continue NPO
2. Meds non-oral
3. Initiate ARHP via sparing ice chips/tsp of water with staff supervision
4. d/c ARHP if worsening in respiratory status
5. Oral care 3x/daily
6. WOOL DYER to closely follow to assess candidacy for diet initiation versus need for instrumental. Pt not currently appropriate for instrumental assessment.
--- NOTE | 2024-09-27 12:45 | PTCARENOTE ---
red rash noted on her entire back that wraps around her torso under her breasts and groin area. Dr. Headley notified via TT to assess.
[2024-09-27] MEDS: BENADRYL 25 MG IV (14:09)
--- NOTE | 2024-09-27 14:46 | CM ---
CM following re: discharge planning.
Reviewed pt' that, met with pt and pt's at bedside.
PT and OT evaluations noted. Both pt and her are aware, expressed their agreement. A list of SNFs provided. Pt's stated he will review it with their children and will let me know.
D/C plan: preferred SNF. has a list of SNFs
CM will follow to assist the pt with discharge to a preferred SNF.
--- NOTE | 2024-09-27 15:24 | W.PN.HOSP.TC ---
Today's Communication/Plan
-
Treat toxic metabolic encephalopathy and delirium. Attempt to wean off Precedex.
Aspiration precautions.
Speech and swallow evaluation with hope to initiate diet when mental status allows.
Free water repletion while holding Bumex.
IV antibiotics to cover aspiration changed from Unasyn to ceftriaxone with concern for allergic reaction/rash.
Optimize cardiovascular regimen treating stress cardiomyopathy with goal of afterload reduction
Close monitoring ICU
Discussed with house steward/stewardess, nursing, cardiology, family at the bedside
Assessment / Plan
Assessment / Plan
Ms. Daniel is a 79-year-old female with a medical history of hypertension and bipolar disorder who presented with shortness of breath. She tested positive for influenza 2 days prior to arrival and was started on oseltamivir as an outpatient.
However she had progressively worsening dyspnea and productive cough for 24 hours prior to presenting to the emergency department. In the ED, she was found to be hypoxic with her pulse ox in the mid 80s on room air. She was started on supplemental
oxygen via nasal cannula at that time with improvement in her respiratory status and oxygenation. She was also given nebulizer treatments. She was admitted for further evaluation and management of acute respiratory failure with hypoxia in the
setting of influenza infection.
Impression:
Acute hypoxic respiratory failure.
� Intubated 09/21/2024
Sepsis secondary to influenza A/bacterial�community-acquired pneumonia, also suspected aspiration pneumonia given large hiatal hernia with intrathoracic stomach
Shock, multifactorial due to sepsis as well as cardiogenic.
Acute heart failure reduced EF secondary to stress�Takotsubo cardiomyopathy.
Type II IL/demand ischemia with troponin peak 14
Polymorphic ventricular tachycardia on monitoring 09/23/24
Prolonged QTc
Acute kidney injury.
Hypovolemic hyponatremia
Hypernatremia while on diuresis
Acute anemia with no evidence of blood loss, suspect dilutional/acute illness.
Elevated transaminases
Prediabetes
Hypothyroidism on replacement
Bipolar disorder.
Plan:
Acute hypoxic respiratory failure multifactorial in the settings of influenza A/bacterial pneumonia as well as cardiogenic shock.
Intubated on 09/21/24
Extubated on 09/25/2024
Follow-up chest x-ray with large hiatal hernia, although with no focal infiltrate.
Influenza A.
Suspected superimposed bacterial pneumonia community-acquired possibly aspiration given large hiatal hernia
Respiratory culture positive for Streptococcus
Initiated on Tamiflu, although currently no enteral access given large hiatal hernia and difficulty with NG tube placement
Antibiotics expanded from doxycycline to Unasyn.
Develop possibly reaction to Unasyn. Antibiotics switched to Rocephin on 09/27/2024
Unable to receive Tamiflu given primary respiratory issues with aspiration risk
IV steroids tapered and discontinued
Toxic metabolic encephalopathy protracted secondary to acute illness
Reported bipolar disorder of unknown significance.
Acute delirium.
Continue Precedex
Currently off Lamictal while n.p.o. status
Treat hypernatremia holding diuretics and replete and free water
Stress cardiomyopathy Takotsubo type
Type II IL with troponin peak of 14.
ECG with diffuse ST segment changes with anterior lateral leads.
Urgent right and left catheterization with findings consistent with stress/Takotsubo cardiomyopathy LVEF 30-35%, no evidence of CAD, hemodynamics findings consistent with cardiogenic shock with decreased cardiac index, elevated PCWP/LVEDP and SVR
Status post milrinone and amiodarone, short course, discontinued
Noted with monomorphic ventricular tachycardia on 09/23/2024
Initiated on diuresis initially Bumex drip, then Bumex twice daily.
Hold further Bumex with hypernatremia
Optimize cardiovascular regimen as per cardiology introducing IV Lopressor, hydralazine, Nitropaste with goal for afterload reduction
Acute kidney injury likely prerenal
Creatinine 2.0�1.4
Hypovolemic hyponatremia on admission
While on Bumex turn into the hypernatremia
Hold diuresis
Follow renal function
On HCTZ ACID PUMPER currently held
Acute normocytic anemia
Noted drop in hemoglobin 13.6�10.8
Urgent upper endoscopy with a large hiatal hernia and no evidence of bleeding
Follow-up hemoglobin closely.
Continue PPI prophylactic dose
Large hiatal hernia with intrathoracic stomach.
Remains with high aspiration risk.
Continue PPI.
Unable to place NG tube due to large hiatal hernia
Elevated transaminases suspect in the settings of hemodynamic instability.
No gastrointestinal complaints upon presentation
Follow-up trend
Consider additional imaging if uptrending
Hypothyroidism on replacement
Prediabetes
Continue basal bolus protocol with serial Accu-Cheks
Bipolar disorder.
Continue preadmission regimen include Vraylar, clonazepam, lamotrigine, zaleplon.
DVT prophylaxis heparin
Full code
Anticipated Discharge: > 48 hours
Subjective/Interval History
-
Date of Service: September 27, 2024
Objective Data
-
Labs:
Laboratory Results
09/27/24 09/27/24
04:29 18:00
WBC 6.9
Hgb 10.8 L
Hct 33.1 L
Plt Count 191
Sodium 153 H Pending
Potassium 3.8 Pending
Chloride 111 H Pending
Carbon Dioxide 34 H Pending
BUN 56 H Pending
Creatinine 1.4 H Pending
Glucose 157 H Pending
Calcium 9.9 Pending
Vital Signs:
Vital Signs
Temp Pulse Resp BP Pulse Ox
100.1 F 85 20 151/86 97
09/27/24 14:57 09/27/24 14:20 09/27/24 14:20 09/27/24 14:00 09/27/24 14:57
I&O
09/26/24 09/27/24 09/28/24
06:59 06:59 06:59
Intake Total 1206.0 / 1252.4 901.9 / 919.0 658.5 / 658.5
Output Total 3800 / 3950 2371 / 2401 325 / 325
Balance -2594.0 / -2697.6 -1469.1 / -1482.0 333.5 / 333.5
Physical Exam
-
General: Well Developed and No Apparent Distress
HEENT: Normocephalic, Atraumatic, Moist Mucous Membranes and Other (ET tube with clear secretions)
Respiratory: Decreased Breath Sounds
Cardiac: Regular Rhythm and S1/S2; Negative Murmur, Rub or Gallop
GI: Soft, Nontender, Nondistended and Normal Bowel Sounds; Negative Organomegaly
Rectal: Deferred by Provider
Genito-urinary: Evans
Musculoskeletal: No Clubbing, No Cyanosis and No Edema
Skin: Negative Rash
Neuro: Other (Lethargic, thrashing and not following commands.)
[2024-09-27] MEDS: ROCEPHIN 1000 MG IV (15:34)
[2024-09-27] MEDS: STERILE WATER FOR INJECTION 10 ML IV (15:34)
[2024-09-27] MEDS: TYLENOL/FEVERALL 650 MG RECTAL (15:36)
--- NOTE | 2024-09-27 16:15 | PTCARENOTE ---
Dr. Headley notified of no change in her rash and that her temperature was 100.3, Tylenol administered. Intermittent moist cough after water swabs. Family encouraging her to verbalize her responses. Her is aware of the rash and the change in
the antibiotics once the physician assessed her. Safe environment maintained.
--- NOTE | 2024-09-27 16:52 | PTCARENOTE ---
Clarified with Dr. Rose and Dr. Ayala if pt still required indwelling catheter and right IJ Cordis. Dr. Ayala ordered to keep the indwelling catheter in due to pt's mental status but ok to remove right IJ Cordis per both Dr. Ayala and
Milton.
--- NOTE | 2024-09-27 17:31 | PTCARENOTE ---
Rt IJ cordis removed by this RN. Hemostasis achieved after manual pressure applied.
--- NOTE | 2024-09-27 17:39 | PTCARENOTE ---
Updating pt's daughter Nighat on her rash, interventions and change in antibiotics. Temperature of 100.3 w/Tylenol administered. Also aware she just had her right IJ Cordis removed. Her sister called her into the room and interrupted the update.
Will be available for questions.
--- NOTE | 2024-09-27 17:50 | PTCARENOTE ---
Dr. Headley at the bedside discussing the plan of care with family. They verbalized their concern regarding her nutritional status, and no BM since admission. Family would prefer parenteral nutrition centrally. Midline would need to be changed to
PICC. Pt repositioned. Right neck dressing CDI.
[2024-09-27 18:20] LABS: Glucose - Point of Care 138 mg/dl (70-99)
[2024-09-27 19:04] LABS: Blood Urea Nitrogen 51 mg/dl (7-17); Calcium 9.9 mg/dl (8.4-10.2); Carbon Dioxide 33 mmol/L (22-30); Chloride 112 mmol/L (98-107); Estimated Creatinine Clearance 37 ml/min; Glucose 153 mg/dl (70-99); Phosphorus 3.4 mg/dl (2.5-4.5); Potassium 3.8 mmol/L (3.5-5.1); Sodium 152 mmol/L (135-145); eGFR 42.09
--- NOTE | 2024-09-27 21:00 | PTCARENOTE ---
Resumed care of pt this evening. Received pt more alert than previous assembler 1st shift. Pt able to vocalize request for water. Oral swabs provided by this RN.
--- NOTE | 2024-09-27 22:30 | PTCARENOTE ---
Pt placed on Bipap 12/6 w/ 2L of O2 satting at 99% pulse ox overnight per order. Upon reassessment pt resting comfortably.
[2024-09-28] VITALS (29 sets, daily range): BP systolic 130–176; BP diastolic 68–138; PULSE 2–78; BMI 30.6
[2024-09-28 00:10] LABS: Glucose - Point of Care 186 mg/dl (70-99)
[2024-09-28] MEDS: NOVOLOG FLEXPEN-MODERATE RESISTANCE 1 UNITS SC ×3 (01:01→18:00)
[2024-09-28] MEDS: APRESOLINE 10 MG IV ×2 (03:34→10:12)
[2024-09-28] MEDS: LOPRESSOR 2.5 MG IV (05:09)
[2024-09-28 05:18] LABS: Hematocrit 35.5 % (37.0-47.0); Hemoglobin 11.7 g/dL (12.0-16.0); Mean Corpuscular Hgb 30.5 pg (27.0-31.0); Mean Corpuscular Volume 92.7 fL (81.0-99.0); Mean Platelet Volume 10.5 fL (7.4-10.4); Platelet Count 226 10^3/uL (130-400); Red Blood Cell Count 3.83 10^6/uL (4.20-5.40); Red Cell Dist. Width 14.9 % (11.5-14.5); White Blood Cell Count 10.4 10^3/uL (4.8-10.8)
--- NOTE | 2024-09-28 05:30 | PTCARENOTE ---
Pt tolerated BiPAP throughout night. Pt placed back on 2L O2 via nasal cannula satting at 96% pulse ox.
[2024-09-28 05:36] LABS: Blood Urea Nitrogen 43 mg/dl (7-17); Calcium 9.9 mg/dl (8.4-10.2); Carbon Dioxide 30 mmol/L (22-30); Chloride 112 mmol/L (98-107); Estimated Creatinine Clearance 43 ml/min; Glucose 192 mg/dl (70-99); Potassium 3.5 mmol/L (3.5-5.1); Sodium 150 mmol/L (135-145); eGFR 51.43
[2024-09-28] MEDS: DULCOLAX 10 MG RECTAL (06:16)
--- NOTE | 2024-09-28 08:05 | W.PN.CARDCBS ---
Addendum entered and electronically signed by Jhonatan Rose MD 09/28/24 09:40:
Also with rash, per hospitalist, now on ceftriaxone, Unasyn DC'd
Original Note:
Today's Communication / Plan
-
Increase metoprolol to 5 every 4 hours
Transition medications to oral if possible following swallowing eval
Eventual DELANEY/ARB/statin/oral metoprolol, can consider SGLT2 antagonist, ARNI, spironolactone though less clearly indicated in Takotsubo
Continue to hold diuretic, favor additional hypotonic fluid for hypernatremia
K rider
Impression / Plan
-
.
Impression:
Takotsubo CM, trop 14
Multifactorial shock with MSOF
s/p NSVT
VDRF/influenza A, probable bacterial pneumonia acute
Acute renal failure
Acute liver failure with transaminitis
Acute normocytic anemia
Hypothyroidism
Bipolar disorder on psychiatric meds as outpt
Hiatal hernia
Hyponatremia
Cath September 23 2024:
PCWP (a/v/x, mmHg): 37/39/35
Rudy
CI (L/min/m2): 2.03
Thermodilution
CI (L/min/m2):1.2
LVG: hyperdynamic ventricular basal function and akinesis of the mid ventricle to apex with ballooning of the LV apex EF 30-35%. There is no mitral regurgitation.
Left Main: Normal size, bifurcating vessel. There is no coronary artery disease.
LAD: Normal size vessel giving rise to 1 significant diagonal. There is no coronary artery disease.
Circumflex: Normal size, nondominant vessel that is essentially a single obtuse marginal. There is severe tortuosity but no coronary artery disease.
RCA: Large size, dominant vessel with a significant posterolateral arcade. There is no coronary artery disease. The distal RPDA severely tortuous.
Echo September 23 2024: Normal left ventricular size. Mild concentric left ventricular hypertrophy. Akinesis of the mid to apical inferoseptal, inferolateral and apical quintero.
LV ejection fraction is 40-45% by Allen's method of discs which may be overestimated. Normal right ventricular size and function. Mild to moderate tricuspid regurgitation.
Estimated pulmonary artery pressure of 15-20 mmHg assuming a right atrial pressure of 3 mmHg. Pulmonic valve is grossly normal but poorly visualized. Normal pericardium without effusion.
The IVC is dilated and does not collapse.
Plan:
Overall she is considerably improved following what we presume to be Takotsubo cardiomyopathy in the setting of influenza A and multisystem organ failure.
She remains with mild hypokalemia. MITALI and azotemia are improving., Suspect shock liver has resolved, last ALT was 312. Mentation is improving.
No evidence of heart failure on exam.
She is tachycardic with hypertension.
Await swallowing evaluation, goal will be to transition to oral beta-leticia, DELANEY inhibitor, discontinuation of nitrates and hydralazine, aspirin, and statin. Other GDMT for LV dysfunction probably optional given Takotsubo physiology.
Continue to hold diuretics and favor hypotonic fluid
Will increase metoprolol to 5 mg IV Q4
Supplement potassium
Progress Note - Translational Specialist
Subjective
Date of Service: September 28, 2024:
Patient awake, able to state name, awaiting swallowing evaluation, tremor of right upper extremity
Medications: Vraylar, aspirin 81 mg a day on hold, levothyroxine on hold, rosuvastatin 20 mg a day, subcu heparin, hydralazine 10 IV Q6, nitro Dur patch 0.1 while awake, metoprolol 2.5 IV Q6, insulin
160/75, pulse 96, respiratory rate 16, afebrile, sats 95%, weight 80.7 kg, stable, tremor right upper extremity, does not seem to be in distress, mentation still significantly impaired but can answer simple questions, lungs relatively clear,
tachycardic, neck veins okay, no obvious murmurs, abdomen benign not much edema
Hemoglobin 11.7, white count 10.4, platelets are 226, sodium is 150, had been 153, potassium 3.5, bicarb 30, BUN/creatinine 43 and 1.1, creatinine had been 1.3, 2.1 earlier in hospital stay, BUN dropping
Objective
Labs:
09/28/24 04:58
09/28/24 04:58
Labs
Hgb 11.7 g/dL (12.0-16.0) L 09/28/24 04:58
Hct 35.5 % (37.0-47.0) L 09/28/24 04:58
Plt Count 226 10^3/uL (130-400) 09/28/24 04:58
PT 13.5 Sec (11.4-14.6) 09/22/24 03:50
INR 1.00 09/22/24 03:50
APTT Cancelled 09/23/24 10:37
Sodium 150 mmol/L (135-145) H 09/28/24 04:58
Potassium 3.5 mmol/L (3.5-5.1) 09/28/24 04:58
BUN 43 mg/dl (7-17) H 09/28/24 04:58
Creatinine 1.1 mg/dL (0.6-1.0) H 09/28/24 04:58
Glucose 192 mg/dl (70-99) H 09/28/24 04:58
Vital Signs and I&O:
Vital Signs
Temp Pulse Resp BP Pulse Ox
37.6 C 96 16 160/75 95
09/28/24 07:54 09/28/24 06:30 09/28/24 06:30 09/28/24 06:30 09/28/24 06:30
Vital Signs
Temp Pulse Resp BP Pulse Ox
37.6 C 96 16 160/75 95
09/28/24 07:54 09/28/24 06:30 09/28/24 06:30 09/28/24 06:30 09/28/24 06:30
Intake & Output
09/26/24 09/27/24 09/28/24 09/29/24
07:59 07:59 07:59 07:59
Intake Total 1152.9 / 1197.3 872.6 / 885.4 2241.4 / 2241.4
Output Total 3890 / 4040 2251 / 2281 1286 / 1286
Balance -2737.1 / -2842.7 -1378.4 / -1395.6 955.4 / 955.4
Physical Exam
Physical Exam
See above
--- NOTE | 2024-09-28 08:17 | PN.DE.MGMTRT ---
Insulin Management
- -
09/28/2024: Diabetes Management Follow up
79 year old female admitted with SOB-->Acute respiratory failure with hypoxia 2/2 Influenza A infection. PMH: HTN, Bipolar d/o. No hx of DM, A1C on admission was 6.0%-->pre-diabetes, Cr 0.8, eGFR >60.
Pt was noted for Hyperglycemia requiring initiation of glycemic protocol. She was transitioned off insulin infusion to low corrective insulin on 09/23.
Patient alert, eyes closed, briefly opens eyes when name called but unable to answer most questions. Family 2 Dtr at bedside, all questions answered.
Pt nodded her head NO when asked if her doctor ever told her she had diabetes. MITALI improving, Cr 1.4-->1.1, eGFR 51.43 today
Current glucose range 138 to 151 requiring NO corrective insulin.
Speech eval done, pt has been started on puree diet with possibility of initiating TPN later today
Will change to moderate corrective insulin ACHS. Will cont to follow.
Discussed with ICU team and Nurse, anticipate restarting Critical Crae Glycemic protocol with start of TPN.
Nurse will notify me if glucose begins to trend up, will add AC NovoLog if pt remains in oral diet only.
09/24 Pt's denies any knowledge of being treated for DM. Review of chart shows no diabetes medicines prior to admission.
Diabetes History
- -
Type of Diabetes: 2
Pre-Admission Diabetes Regimen
09/27/24 09/28/24
18:34 04:58
Creatinine 1.3 H 1.1 H
Lab Results
Hemoglobin A1c Cancelled 09/21/24 23:19
Insulin Pump Settings
IP Diabetes Regimen
09/27/24 09/27/24 09/27/24
11:26 18:09 18:34
Glucose 153 H
POC Glucose 151 H 138 H
09/27/24 09/28/24
23:59 04:58
Glucose 192 H
POC Glucose 186 H
Patient Education
[2024-09-28 08:24] LABS: % Basophils 0.4 % (0-2); % Eosinophils 0.9 % (0-6); % Immature Granulocytes 5.4 % (0-0.5); % Lymphocytes 8.7 % (20.5-51.1); % Monocytes 10.1 % (1.7-9.3); % Neutrophils 74.5 % (42.2-75.2); Absolute Eosinophils 0.1 10^3/uL (0-0.7); Absolute Immature Granulocytes 0.6 10^3/uL (0-0.05); Absolute Lymphocytes 0.9 10^3/uL (1.2-3.4); Absolute Monocytes 1.1 10^3/uL (0.1-0.6); Absolute Neutrophils 7.7 10^3/uL (1.4-6.5); Nucleated Red Blood Cells % 0.8 %
[2024-09-28] MEDS: NITRO-DUR 0.1 MG TRANSDERM (08:36)
[2024-09-28] MEDS: HEPARIN 5000 UNITS SC (08:37)
--- NOTE | 2024-09-28 08:51 | W.PN.INTV ---
Today's Communication / Plan
Recommendations
-Lopressor IV push followed by amiodarone for A-fib RVR
-Start Lovenox 1 mg/kg SQ every 12
-Place PICC line
-Plan to start TPN
Assessment
-
Assessment: 79-year-old female non-smoker with a past medical history of hiatal hernia with intrathoracic stomach, Schatzki's ring with dilation (2012), bipolar disorder, osteopenia, history of swallowing difficulty, history of diverticula,
tortuous colon, nonrheumatic mitral regurgitation, hyperlipidemia, aortic atherosclerosis, hypothyroidism, Zarate's esophagus and history of syncope (2010) who presents with shortness of breath. Patient noted to have influenza A and was started on
oseltamivir as outpatient. Initially in the ER she had a low-grade fever to 100.3 �F, pulse rate 119, respiratory rate 24, BP 157/86 and saturating 89% on room air. She was placed onto 4 L/min with saturations improving to 95%. At around 8:00 PM
the patient developed worsening respiratory distress, and she was intubated for airway protection. Flu swab was positive for influenza A. CXR showed a large predominantly air-filled hiatal hernia/intrathoracic stomach. In the ER she was given
acetaminophen and DuoNebs. After intubation, she was admitted to the ICU and Electrical Mechanic services consulted for additional management/recommendations. Subsequently patient developed diffused ST elevation and was taken to Bulk Intake Worker. Patient was not
noted to have any significant coronary artery disease and was thought to have Takotsubo cardiomyopathy. Patient did develop cardiogenic shock and briefly required pressor support. When milrinone was started, patient developed significant
ectopy/nonsustained ventricular tachycardia hence it was discontinued. Wedge pressure was noted to be quite high in the setting of cardiogenic shock and patient was started on Bumex infusion with significant diuresis and ongoing improvement.
Oral access could not be obtained because patient has large hiatal hernia. GI consult was requested and even with the assistance of endoscopy oral access could not be secured.
09/25, patient was extubated
Chronic conditions DIRECTOR OF PAYROLL: Bipolar disorder, osteopenia, Schatzki's ring with dilation (2012), hiatal hernia with intrathoracic stomach, history of swallowing difficulty s/p EGD, history of diverticula, anemia, Zarate's esophagus, history of syncope
(2010), hypothyroidism, tubal ligation, aortic atherosclerosis, hyperlipidemia, nonrheumatic mitral regurgitation, tortuous colon, diverticulosis
#1. Acute respiratory failure with hypoxia due to Influenza A (nasal swab positive)
-Intubated 09/21, successfully extubated 09/25
-saturating well on room air, no respiratory distress
-Rocephin to cover for strep pneumo on tracheal aspirate, plan for total 7 days of antibiotics
-Blood cultures have stayed negative
#2. Cardiogenic shock with acute Takotsubo cardiomyopathy. Suspect primarily cardiogenic shock with low cardiac index of 1.4 and elevated SVR of 1900 rather than septic.
-Currently off pressors and has been weaned off phenylephrine
-Milrinone was attempted however patient developed tachyarrhythmias hence it was stopped and amiodarone was started. Amiodarone has since been stopped due to elevated QTc cardiology service on case
-Replacing magnesium and potassium
-Continue to monitor QT interval
-Went for left heart catheterization (09/23/2024) showing clear coronaries with left ventriculography showing hyperdynamic LV base with akinesis of the mid ventricle and dyskinesis of the apical ventricle consistent with Takotsubo's cardiomyopathy.
LVEF was 30-35%
-Aspirin, statins
-Discontinued hydrocortisone in view of influenza A positive status and reported increase in mortality with steroid use and influenza
-Continue lisinopril and Coreg
#3. Nonsustained ventricular tachycardia, exacerbated with milrinone
-Avoid milrinone or dobutamine
-Currently off pressors
-Continue to replete potassium and magnesium
-Started low-dose beta-blockers
#3a. Atrial fibrillation with rapid ventricular rate, 09/28/2024.
-Patient given IV Lopressor 5 mg push followed by amiodarone infusion
-Start Lovenox therapeutic dose
#4. Acute kidney injury. Now with hypernatremia,
-Creatinine quite improved, sodium improving with D5 supplementation
-Follow-up labs in the evening
#5. Large hiatal hernia with intrathoracic stomach.
-High risk of aspiration.
-Continue PPI
-Unable to get GI access even with EGD by GI service
hence not able to give oral Tamiflu
#6. Bipolar disorder
-Continue Keppra
-Rest of the meds to be started once oral intake deemed safe
#7. DVT prophylaxis with subcu heparin and GI prophylaxis with PPI 40 mg daily
I met with the patient's family at bedside including Dr. Daniel who is a pediatric surgeon. Family insistent on starting TPN as patient has been without nutrition for almost a week. Patient passed swallow eval today but family is concerned that
patient's intake may not be sufficient for coming days. I brought up the risk of bacteremia and fungemia with central access and TPN infusion. I suggested my hesitancy to start TPN and rather rely on oral nutrition and close monitoring if she
meets her calorie intake. Family chose to accept the risk of fungemia, bacteremia and complications related to TPN and want to proceed with short-term TPN, TPN ordered
Patient is critically ill � continue ICU level of care
Critical Care time 35 mins -- The patient is admitted for acute critical illness for the treatment of vital organ failure and/or prevention of further life-threatening conditions. Total care includes time spent in review of history, physical exam,
medications, hemodynamic/ventilator parameters, laboratory data, imaging and discussion with house staff, pharmacy, respiratory therapy, director selection and administration, and nursing. Time includes discussion with family at bedside.
Data:
Left heart catheterization 09/23/2024:
CONCLUSIONS:
1. Right dominant circulation with no coronary artery disease.
2. Severely elevated filling pressures (LVEDP = 35 mmHg, PCWP = 35 mmHg at 88.0 kg).
3. Hyperdynamic LV base with akinesis of the mid ventricle and dyskinesis of the apical ventricle consistent with Takotsubo cardiomyopathy, LV ejection fraction estimated at 30-35%.
4. Discordance between Rudy and thermodilution cardiac function. Low normal to mildly impaired function by Rudy equation (cardiac index = 2.03 L/min/m�, a VO2 difference 5.45 volume %), severely depressed function by cardiac index (1.27 L/min/m�).
I suspect the truth is somewhere in between.
5. Moderate, postcapillary pulmonary hypertension (mean PA = 40 mmHg, PCWP = 35 mmHg, cardiac output = 2.47 L/min, PVR = 2.02 Oates units), WHO group 2.
Transthoracic echocardiogram 09/23/2024:
Normal left ventricular size.
Mild concentric left ventricular hypertrophy.
Akinesis of the mid to apical inferoseptal, inferolateral and apical quintero.
LV ejection fraction is 40-45% by Allen's method of discs which may be
overestimated.
Normal right ventricular size and function.
Mild to moderate tricuspid regurgitation.
Estimated pulmonary artery pressure of 15-20 mmHg assuming a right atrial
pressure of 3 mmHg.
Pulmonic valve is grossly normal but poorly visualized.
Normal pericardium without effusion.
The IVC is dilated and does not collapse.
The patient is mechanically ventilated.
CXR 09/24:
Appears to be stable with bibasilar atelectasis more pronounced on the left.
Critical care statement: A total of 43 minutes of critical care time was provided for this patient today. This includes management of unstable vital signs, evaluation of the patient at bedside, reviewing the patient's pertinent medical records
including radiographs, microbiology, laboratory evaluations, and discussion with primary team, consultants, pharmacy, nutrition, physical therapy, case management, charge nurse, critical care nursing, and respiratory therapy.
Subjective Dataa
Subjective Data
Date of Service:
Date of Service: September 28, 2024
Chief Complaint: Electrical Mechanic Follow Up
Subjective:
Patient comfortably sitting in bed in no acute distress. She appears to be more awake.
Review of Systems
General: Other (Still not fully oriented to participate fully in the review of system evaluation)
Objective Data
Data Reviewed
Vital Signs / I&O / Oxygen:
Vital Signs
Temp Pulse Resp BP Pulse Ox
99.6 F 96 16 160/75 95
09/28/24 07:54 09/28/24 06:30 09/28/24 06:30 09/28/24 06:30 09/28/24 06:30
Intake and Output
09/27/24 09/28/24 09/29/24
06:59 06:59 06:59
Intake Total 901.9 / 919.0 2258.5 / 2258.5
Output Total 2371 / 2401 1316 / 1316
Balance -1469.1 / -1482.0 942.5 / 942.5
SaO2 [A/C] 99
SaO2 95
Nasal Cannula flow liters per 2
minute
Physical Exam
General: Respiratory Distress (negative), Comfortable, Chills (negative), Sweats (negative) and Other (Intubated/sedated)
HEENT: Normocephalic, Anicteric and Other (ETT in place)
Cardiovascular: S1-S2, Rub (negative) and Peripheral Edema (negative)
Respiratory: Wheeze (negative), Crackles (negative), Rhonchi (negative), Accessory Resp Muscle Use (negative) and ET Tube (Chronic breath sounds heard bilaterally)
GI: Soft, Non Distended, Non Tender and Other (Hypoactive bowel sounds)
Neurology: Tremors (negative) and Other (Sedated)
Skin: Warm, Dry, Cyanosis (negative) and Jaundice (negative)
Labs/Micro/Reports
Lab Data
09/28/24 04:58
09/28/24 04:58
Microbiology
09/21/24 23:24 Blood/Venous Blood Culture - Final
No Growth - Final Report
09/21/24 23:24 Blood/Venous Blood Culture - Final
No Growth - Final Report
[2024-09-28 11:18] LABS: Glucose - Point of Care 145 mg/dl (70-99)
--- NOTE | 2024-09-28 11:28 | PTOTSP ---
Speech Therapy Video Swallow Examination:
Patient presents with mild oral and mild pharyngeal stage of swallowing. Trace upper laryngeal penetration observed with thin liquids via consecutive straw sip due to mistiming of laryngeal vestibule closure. No aspiration observed during the study.
Etiology of swallowing is felt to be due to recent intubation in the setting of flu, contributing to generalized weakness and deconditioning. Please see patient care note for full details of penetration/aspiration and swallowing physiology.
Recommend:
1. Initiate oral diet of IDDSI Level 4 (puree) and thin liquids via straw (preference given limited ability to self-feed)
2. Medications crushed in puree
3. 1:1 assistance and supervision with meals
4. Strategies: Upright for all meals; small bites/sips; slow rate; alternate solids and liquids; remain upright for at least 30 minutes following meals given esophageal hx
5. STATE DIRECTOR to follow to monitor tolerance of diet and determine appropriateness for further diet advancements
--- NOTE | 2024-09-28 11:41 | W.PN.HOSP.TC ---
Today's Communication/Plan
-
Monitor respiratory status closely.
BiPAP at night.
Consider follow-up chest x-ray versus CT scan to reevaluate possible right loculated pleural effusion
Adjust cardiovascular regimen with initiation of Coreg and lisinopril.
Free water repletion and follow BMP
Pur�ed diet/thin liquids with aspiration precautions
Short course of TPN as per daughter's request. PICC line to be placed.
Physical therapy assessment
Trial of voiding
Discussed with ICU team
Discussed with patient's daughter at the bedside
Assessment / Plan
Assessment / Plan
Ms. Daniel is a 79-year-old female with a medical history of hypertension and bipolar disorder who presented with shortness of breath. She tested positive for influenza 2 days prior to arrival and was started on oseltamivir as an outpatient.
However she had progressively worsening dyspnea and productive cough for 24 hours prior to presenting to the emergency department. In the ED, she was found to be hypoxic with her pulse ox in the mid 80s on room air. She was started on supplemental
oxygen via nasal cannula at that time with improvement in her respiratory status and oxygenation. She was also given nebulizer treatments. She was admitted for further evaluation and management of acute respiratory failure with hypoxia in the
setting of influenza infection.
Impression:
Acute hypoxic respiratory failure.
� Intubated 09/21/2024
Sepsis secondary to influenza A/bacterial�community-acquired pneumonia, also suspected aspiration pneumonia given large hiatal hernia with intrathoracic stomach
Shock, multifactorial due to sepsis as well as cardiogenic.
Acute heart failure reduced EF secondary to stress�Takotsubo cardiomyopathy.
Type II RI/demand ischemia with troponin peak 14
Polymorphic ventricular tachycardia on monitoring 09/23/24
Prolonged QTc
Acute kidney injury.
Hypovolemic hyponatremia
Hypernatremia while on diuresis
Acute anemia with no evidence of blood loss, suspect dilutional/acute illness.
Elevated transaminases
Prediabetes
Hypothyroidism on replacement
Bipolar disorder.
Plan:
Acute hypoxic respiratory failure multifactorial in the settings of influenza A/bacterial pneumonia as well as cardiogenic shock.
Intubated on 09/21/24
Extubated on 09/25/2024
Influenza A.
Suspected superimposed bacterial pneumonia community-acquired possibly aspiration given large hiatal hernia
Respiratory culture positive for Streptococcus
Was not able to complete course of Tamiflu given lack of enteral access
With acute respiratory failure, antibiotics expanded from doxycycline to Unasyn. Noted rash while on Unasyn on 09/27. With concern for allergy antibiotics changed to ceftriaxone
IV steroids tapered and discontinued
Follow-up chest x-ray on 09/27 with possible small right loculated pleural effusion.
Currently with stable respiratory status with no requirements of supplemental oxygen
Consider follow-up chest x-ray or CT scan of the chest without contrast to evaluate for right pleural effusion/loculation.
Continue BiPAP at night
Toxic metabolic encephalopathy protracted secondary to acute illness
Reported bipolar disorder of unknown significance.
Acute delirium resolving
Off Precedex
Monitor mental status closely. Hold preadmission psychiatric regimen.
Speech and swallow evaluation on 09/28 including VSE. Recommended pur�ed diet with thin liquids
Dehydration with hypernatremia developed while on IV diuresis.
Monitor oral intake.
Continue free water repletion D5 water IV fluids ordered
Follow BMP
Stress cardiomyopathy Takotsubo type
Type II RI with troponin peak of 14.
ECG with diffuse ST segment changes with anterior lateral leads.
Urgent right and left catheterization with findings consistent with stress/Takotsubo cardiomyopathy LVEF 30-35%, no evidence of CAD, hemodynamics findings consistent with cardiogenic shock with decreased cardiac index, elevated PCWP/LVEDP and SVR
Status post milrinone and amiodarone, short course, discontinued
Noted with monomorphic ventricular tachycardia on 09/23/2024
Diuresed with Bumex. Currently off given stable respiratory status
Optimize cardiovascular regimen.
Start Coreg, lisinopril. Titrate regimen according to hemodynamics.
Acute kidney injury likely prerenal
Creatinine 2.0�1.4-1.1
Hypovolemic hyponatremia on admission
While on Bumex turn into the hypernatremia
Hold diuresis
On HCTZ PROJ ENGINEER currently held
Evans catheter to be removed on 09/28 for voiding trial
Acute normocytic anemia
Noted fluctuation of hemoglobin 13�11.7 likely reflects volume state. No evidence for acute bleeding
Urgent upper endoscopy with a large hiatal hernia and no evidence of bleeding
Follow-up hemoglobin closely.
Continue PPI prophylactic dose
Large hiatal hernia with intrathoracic stomach.
Remains with high aspiration risk.
Continue PPI.
Elevated transaminases suspect in the settings of hemodynamic instability.
No gastrointestinal complaints upon presentation
Follow-up trend
Hypothyroidism on replacement
Prediabetes
Continue basal bolus protocol with serial Accu-Cheks
Bipolar disorder.
Continue preadmission regimen include Vraylar, clonazepam, lamotrigine, zaleplon.
Monitor mental status and evaluate for any introduction.
Nutrition
Initiated on pur�ed diet 09/28 with aspiration precautions
Given interruption of oral intake and absence of nutrition over the last 7 days, will initiate short course of TPN.
DVT prophylaxis heparin
Full code
Anticipated Discharge: > 48 hours
Subjective/Interval History
-
Date of Service: September 28, 2024
Objective Data
-
Labs:
Laboratory Results
09/28/24
04:58
WBC 10.4
Hgb 11.7 L
Hct 35.5 L
Plt Count 226
Sodium 150 H
Potassium 3.5
Chloride 112 H
Carbon Dioxide 30
BUN 43 H
Creatinine 1.1 H
Glucose 192 H
Calcium 9.9
Vital Signs:
Vital Signs
Temp Pulse Resp BP Pulse Ox
99.6 F 110 18 154/97 93
09/28/24 07:54 09/28/24 11:00 09/28/24 11:00 09/28/24 11:00 09/28/24 11:00
I&O
09/27/24 09/28/24 09/29/24
06:59 06:59 06:59
Intake Total 901.9 / 919.0 2258.5 / 2358.5 100 / 100
Output Total 2371 / 2401 1316 / 1381 200 / 200
Balance -1469.1 / -1482.0 942.5 / 977.5 -100 / -100
Physical Exam
-
General: Well Developed and No Apparent Distress
HEENT: Normocephalic, Atraumatic, Moist Mucous Membranes and Other (ET tube with clear secretions)
Respiratory: Decreased Breath Sounds
Cardiac: Regular Rhythm and S1/S2; Negative Murmur, Rub or Gallop
GI: Soft, Nontender, Nondistended and Normal Bowel Sounds; Negative Organomegaly
Rectal: Deferred by Provider
Genito-urinary: Evans
Musculoskeletal: No Clubbing, No Cyanosis and No Edema
Skin: Negative Rash
Neuro: Awake, Alert and Oriented
--- NOTE | 2024-09-28 11:59 | VATNOTE ---
09/28 RT DL 5FR PICC placed- exchanged from existing midline. Sterile technique/and procedure used during exchange. Patient tolerated. TCL 44cm ECL0. X-ray ordered to confirm placement. Patient daughter insisted on being bedside for procedure. Patient
daughter brought own sterile gloves- sterile gown and hair bonnet was given to her. Daughter was made aware to observe only a few feet from patient bed. Daughter however intervened and placed her sterile hand on picc before insertion. pressure
dressing applied to insertion site- to be redressed tomorrow.
[2024-09-28] MEDS: LOPRESSOR 5 MG IV (13:03)
[2024-09-28] MEDS: KCL 270 MEQ IV (13:44)
[2024-09-28] MEDS: CORDARONE 103 MG IV (13:45)
[2024-09-28] MEDS: ZESTRIL 10 MG PO (13:46)
[2024-09-28] MEDS: COREG 3.125 MG PO ×2 (13:46→19:55)
[2024-09-28] MEDS: CORDARONE 518 MG IV (14:11)
--- NOTE | 2024-09-28 14:32 | PTOTSP ---
Reviewed chart and s/w RN who reports pt is now in rapid Afib so agreed to hold PT tx today.
[2024-09-28] MEDS: NOVOLOG FLEXPEN-MODERATE RESISTANCE SC (15:26)
--- NOTE | 2024-09-28 15:30 | PTCARENOTE ---
@ 1245 pt alarming CECIL 160-170's. S/P Right DL PICC insertion with pullback @ radiologist recommendation, incontinence of BM, turning and repositioning. 2 liters nasal cannula applied. Pt denies feeling palpitations. BP WNL. Dr. Headley notified
immediately via TT. EKG obtained and sent to Yulissa Rose via TT. 5mg IVP Lopressor administered per Dr. Headley. Dr. Rose at the bedside, repeated CXR shows PICC in SVC, and Mattie gave me verbal order to use the PICC. Amiodarone bolus
administered as ordered followed by Amio drip per protocol. She converted to SR/ST around 1435, Grecia Rose and Dr. Headley notified. EKG obtained as ordered. Pt did not want me to call her family, and rather wait until they returned from lunch.
--- NOTE | 2024-09-28 15:43 | CM ---
CM following re: discharge planning.
Discussed in rounds, reviewed pt's chart, met with pt. CM has a meeting with pt's at and daughter Jeanette. pt's daughter Regine participated in Rounds meeting.
Both pt's and pt's daughter asked whether or not pt can qualify for acute rehab level of care and they requested [facility].
A referral to [facility] made, spoke to [facility] nurse and she will review a referral and will follow with pt's progress.
D/C plan: [facility]
CM will follow to assist the pt with discharge to a preferred SNF.
--- NOTE | 2024-09-28 16:23 | W.PN.UPDATE ---
Update Note
Progress Note Update
Found to be in rapid A-fib. New onset.
Initiated on amiodarone drip for rate control.
CHADS-VASC score at 6 (CHF, hypertension, diabetes, age, female)
Initiated on weight-based Lovenox
[2024-09-28] MEDS: ROCEPHIN 1000 MG IV (17:00)
[2024-09-28] MEDS: STERILE WATER FOR INJECTION 10 ML IV (17:00)
[2024-09-28] MEDS: LOVENOX 80 MG SC (17:00)
--- NOTE | 2024-09-28 17:25 | PTCARENOTE ---
Pt's daughter Janae asked if prealbumin could be added to her lab work. Dr. Headley notified via TT.
[2024-09-28 17:55] LABS: ALT (SGPT) 105 U/L (0-35); AST (SGOT) 37 U/L (14-36); Albumin 3.4 g/dl (3.5-5.0); Alkaline Phosphatase 96 U/L (38-126); Blood Urea Nitrogen 38 mg/dl (7-17); Calcium 9.4 mg/dl (8.4-10.2); Carbon Dioxide 31 mmol/L (22-30); Chloride 108 mmol/L (98-107); Estimated Creatinine Clearance 48 ml/min; Glucose 192 mg/dl (70-99); Magnesium 1.9 mg/dl (1.6-2.3); Potassium 3.8 mmol/L (3.5-5.1); Sodium 147 mmol/L (135-145); Total Bilirubin 1.1 mg/dl (0.2-1.3); Triglycerides 167 mg/dl (10-149); eGFR 57.66
[2024-09-28 17:56] LABS: Glucose - Point of Care 158 mg/dl (70-99)
--- NOTE | 2024-09-28 20:18 | PTCARENOTE ---
PPt is Alert to self and place, able to make needs known. Soft spoke, garbled speech. NSR on monitor, remains on Amiodarone gtt, decreased to 0.50, 16.7ml/hr. Pt remains on 2L for comfort, BIpap HS. Tolerating water with straw when in an upright
position, also able to take meds crushed in apple sauce. incontinent of bowel and bladder. Rash on flank, abdomen, back and thighs. skin monitored. Q2 turns with pillows. pt offers no complaints at this time and appears to be comfortable.
[2024-09-28] MEDS: Parenteral Nutrition, Central 860 IV (21:24)
[2024-09-28 21:38] LABS: Glucose - Point of Care 140 mg/dl (70-99)
--- NOTE | 2024-09-28 21:43 | PTCARENOTE ---
TPN started started 2123. Oral care complete. Family updated.
[2024-09-29] VITALS (27 sets, daily range): BP systolic 129–174; BP diastolic 57–100; PULSE 2–88; BMI 30.4
[2024-09-29] MEDS: APRESOLINE 10 MG IV (01:46)
--- NOTE | 2024-09-29 02:16 | PTCARENOTE ---
Pt complained of mid sternal chest pain, EKG obtained. BP elevated 160/90, 10 mg hydralazine given, with improvement of chest pain and BP. Trop sent.
[2024-09-29 02:17] LABS: Troponin I 0.962 ng/ml
[2024-09-29 02:19] LABS: Glucose - Point of Care 185 mg/dl (70-99)
[2024-09-29 04:48] LABS: % Basophils 0.3 % (0-2); % Eosinophils 3.1 % (0-6); % Immature Granulocytes 3.8 % (0-0.5); % Lymphocytes 11.3 % (20.5-51.1); % Monocytes 9.6 % (1.7-9.3); % Neutrophils 71.9 % (42.2-75.2); Absolute Eosinophils 0.4 10^3/uL (0-0.7); Absolute Immature Granulocytes 0.4 10^3/uL (0-0.05); Absolute Lymphocytes 1.3 10^3/uL (1.2-3.4); Absolute Monocytes 1.1 10^3/uL (0.1-0.6); Absolute Neutrophils 8.2 10^3/uL (1.4-6.5); Hematocrit 36.4 % (37.0-47.0); Hemoglobin 11.9 g/dL (12.0-16.0); Mean Corp Hgb Conc. 32.7 g/dL (33.0-37.0); Mean Corpuscular Hgb 30.7 pg (27.0-31.0); Mean Corpuscular Volume 93.8 fL (81.0-99.0); Mean Platelet Volume 10.7 fL (7.4-10.4); Nucleated Red Blood Cells % 0.4 %; Platelet Count 210 10^3/uL (130-400); Red Blood Cell Count 3.88 10^6/uL (4.20-5.40); Red Cell Dist. Width 15.1 % (11.5-14.5); White Blood Cell Count 11.5 10^3/uL (4.8-10.8)
[2024-09-29] MEDS: LOVENOX 80 MG SC ×2 (06:04→17:24)
[2024-09-29] MEDS: SYNTHROID 25 MCG PO (06:04)
[2024-09-29] MEDS: COREG 3.125 MG PO (08:44)
[2024-09-29] MEDS: CRESTOR 20 MG PO (08:44)
[2024-09-29] MEDS: VITAMIN D3 (cholecalciferol) 25 MCG PO (08:44)
[2024-09-29] MEDS: THERAGRAN 1 TABLET PO (08:44)
[2024-09-29 08:45] LABS: Glucose - Point of Care 163 mg/dl (70-99)
[2024-09-29] MEDS: LOW STRENGTH ASPIRIN 81 MG PO (08:45)
[2024-09-29] MEDS: ZESTRIL 10 MG PO (08:45)
[2024-09-29] MEDS: NOVOLOG FLEXPEN-MODERATE RESISTANCE 1 UNITS SC (08:51)
[2024-09-29 09:00] LABS: Blood Urea Nitrogen 42 mg/dl (7-17); Calcium 9.8 mg/dl (8.4-10.2); Carbon Dioxide 30 mmol/L (22-30); Chloride 109 mmol/L (98-107); Estimated Creatinine Clearance 48 ml/min; Glucose 189 mg/dl (70-99); Magnesium 1.8 mg/dl (1.6-2.3); Potassium 3.5 mmol/L (3.5-5.1); Sodium 149 mmol/L (135-145); eGFR 57.66
--- NOTE | 2024-09-29 09:01 | PTCARENOTE ---
Pt received in bed @ 0700. Oriented to self. Able to identify in hospital but unable to recall '[place].' Disoriented to time. Soft spoken with garbled speech. Denying pain. Sinus rhythm on night monitor. Amiodarone gtt infusing @ 0.5 mg/hr.
SaO2 97% on 2L. Lungs diminished. Frequent request for ice chips, but refusing breakfast at this time. Tolerating meds crushed in applesauce. Right DL PICC with TPN infusing.
--- NOTE | 2024-09-29 09:04 | W.PN.INTV ---
Today's Communication / Plan
Recommendations
-Give KCl 40 mEq IV x 1, magnesium sulfate 2 g x 1
-Check potassium and magnesium in a.m
-Increase Coreg dose to 6.25 mg p.o. twice daily
Assessment
-
Assessment: 79-year-old female non-smoker with a past medical history of hiatal hernia with intrathoracic stomach, Schatzki's ring with dilation (2012), bipolar disorder, osteopenia, history of swallowing difficulty, history of diverticula,
tortuous colon, nonrheumatic mitral regurgitation, hyperlipidemia, aortic atherosclerosis, hypothyroidism, Zarate's esophagus and history of syncope (2010) who presents with shortness of breath. Patient noted to have influenza A and was started on
oseltamivir as outpatient. Initially in the ER she had a low-grade fever to 100.3 �F, pulse rate 119, respiratory rate 24, BP 157/86 and saturating 89% on room air. She was placed onto 4 L/min with saturations improving to 95%. At around 8:00 PM
the patient developed worsening respiratory distress, and she was intubated for airway protection. Flu swab was positive for influenza A. CXR showed a large predominantly air-filled hiatal hernia/intrathoracic stomach. In the ER she was given
acetaminophen and DuoNebs. After intubation, she was admitted to the ICU and Vacuum Cleaner Mechanic services consulted for additional management/recommendations. Subsequently patient developed diffused ST elevation and was taken to [facility]. Patient was not
noted to have any significant coronary artery disease and was thought to have Takotsubo cardiomyopathy. Patient did develop cardiogenic shock and briefly required pressor support. When milrinone was started, patient developed significant
ectopy/nonsustained ventricular tachycardia hence it was discontinued. Wedge pressure was noted to be quite high in the setting of cardiogenic shock and patient was started on Bumex infusion with significant diuresis and ongoing improvement.
Oral access could not be obtained because patient has large hiatal hernia. GI consult was requested and even with the assistance of endoscopy oral access could not be secured.
09/25, patient was extubated
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
(2010), hypothyroidism, tubal ligation, aortic atherosclerosis, hyperlipidemia, nonrheumatic mitral regurgitation, tortuous colon, diverticulosis
Last 24 hours:
09/28, patient developed atrial fibrillation with rapid ventricular rate and was managed with IV Lopressor IV amiodarone push followed by amiodarone infusion. Patient also had an episode of chest discomfort overnight which subsequently resolved.
Fluid balance, +30
Hemoglobin stable 11.9, white count 11.5, platelet 210
Sodium improved 849, potassium 3.5, BUN/creatinine 42 x 1 sodium improved 849, potassium 3.5, BUN/creatinine 42 x 1 and a phosphorus of 3, phosphorus 3 and magnesium 1.8
#1. Acute respiratory failure with hypoxia due to Influenza A (nasal swab positive)
-Intubated 09/21, successfully extubated 09/25
-saturating well on room air, no respiratory distress
-Completed 7 days of antibiotics initially with Unasyn later on with ceftriaxone
-Blood cultures have stayed negative
#2. Cardiogenic shock with acute Takotsubo cardiomyopathy. Suspect primarily cardiogenic shock with low cardiac index of 1.4 and elevated SVR of 1900 rather than septic.
-Currently off pressors and has been weaned off phenylephrine
-Milrinone was attempted however patient developed tachyarrhythmias hence it was stopped and amiodarone was started. Amiodarone has since been stopped due to elevated QTc cardiology service on case
-Replacing magnesium and potassium
-Continue to monitor QT interval
-Went for left heart catheterization (09/23/2024) showing clear coronaries with left ventriculography showing hyperdynamic LV base with akinesis of the mid ventricle and dyskinesis of the apical ventricle consistent with Takotsubo's cardiomyopathy.
LVEF was 30-35%
-Aspirin, statins
-Discontinued hydrocortisone in view of influenza A positive status and reported increase in mortality with steroid use and influenza
-Continue lisinopril and Coreg, uptitrate Coreg
#3. Nonsustained ventricular tachycardia, exacerbated with milrinone
-Avoid milrinone or dobutamine
-Currently off pressors
-Continue to replete potassium and magnesium
-Uptitrate Coreg
#3a. Atrial fibrillation with rapid ventricular rate, 09/28/2024.
-Patient given IV Lopressor 5 mg push followed by amiodarone infusion
-Uptitrate Coreg to 6.25 twice daily, continue Lovenox therapeutic dose
#4. Acute kidney injury. Now with hypernatremia,
-Creatinine quite improved, sodium improving with D5 supplementation
-Follow-up labs in the evening
#5. Large hiatal hernia with intrathoracic stomach.
-High risk of aspiration.
-Continue PPI
-Unable to get GI access even with EGD by GI service
hence not able to give oral Tamiflu
-Able to take some p.o. now, also TPN started via PICC line
#6. Bipolar disorder with metabolic encephalopathy, current component of delirium.
-Patient more awake, alert, makes eye contact today.
-Patient is off all psychotropic medications and after discussion with patient's family decision has been made to withhold all psychotropic medication as their concern is around polypharmacy.
-Rest of the meds to be started once oral intake deemed safe
#7. DVT prophylaxis fully anticoagulated with Lovenox
Goals of care discussion 09/28 I met with the patient's family at bedside including Dr. Daniel who is a pediatric surgeon. Family insistent on starting TPN as patient has been without nutrition for almost a week. Patient passed swallow eval today
but family is concerned that patient's intake may not be sufficient for coming days. I brought up the risk of bacteremia and fungemia with central access and TPN infusion. I suggested my hesitancy to start TPN and rather rely on oral nutrition and
close monitoring if she meets her calorie intake. Family chose to accept the risk of fungemia, bacteremia and complications related to TPN and want to proceed with short-term TPN, TPN ordered
Patient is critically ill � continue ICU level of care
Critical Care time 30 mins -- The patient is admitted for acute critical illness for the treatment of vital organ failure and/or prevention of further life-threatening conditions. Total care includes time spent in review of history, physical exam,
medications, hemodynamic/ventilator parameters, laboratory data, imaging and discussion with house staff, pharmacy, respiratory therapy, electronic tester, and nursing. Time includes discussion with family at bedside.
Data:
Left heart catheterization 09/23/2024:
CONCLUSIONS:
1. Right dominant circulation with no coronary artery disease.
2. Severely elevated filling pressures (LVEDP = 35 mmHg, PCWP = 35 mmHg at 88.0 kg).
3. Hyperdynamic LV base with akinesis of the mid ventricle and dyskinesis of the apical ventricle consistent with Takotsubo cardiomyopathy, LV ejection fraction estimated at 30-35%.
4. Discordance between Rudy and thermodilution cardiac function. Low normal to mildly impaired function by Rudy equation (cardiac index = 2.03 L/min/m�, a VO2 difference 5.45 volume %), severely depressed function by cardiac index (1.27 L/min/m�).
I suspect the truth is somewhere in between.
5. Moderate, postcapillary pulmonary hypertension (mean PA = 40 mmHg, PCWP = 35 mmHg, cardiac output = 2.47 L/min, PVR = 2.02 Oates units), WHO group 2.
Transthoracic echocardiogram 09/23/2024:
Normal left ventricular size.
Mild concentric left ventricular hypertrophy.
Akinesis of the mid to apical inferoseptal, inferolateral and apical quintero.
LV ejection fraction is 40-45% by Allen's method of discs which may be
overestimated.
Normal right ventricular size and function.
Mild to moderate tricuspid regurgitation.
Estimated pulmonary artery pressure of 15-20 mmHg assuming a right atrial
pressure of 3 mmHg.
Pulmonic valve is grossly normal but poorly visualized.
Normal pericardium without effusion.
The IVC is dilated and does not collapse.
The patient is mechanically ventilated.
CXR 09/24:
Appears to be stable with bibasilar atelectasis more pronounced on the left.
Critical care statement: A total of 43 minutes of critical care time was provided for this patient today. This includes management of unstable vital signs, evaluation of the patient at bedside, reviewing the patient's pertinent medical records
including radiographs, microbiology, laboratory evaluations, and discussion with primary team, consultants, pharmacy, nutrition, physical therapy, case management, charge nurse, critical care nursing, and respiratory therapy.
Subjective Dataa
Subjective Data
Date of Service:
Date of Service: September 29, 2024
Chief Complaint: Vacuum Cleaner Mechanic Follow Up
Subjective:
Patient sitting in bed in no acute distress. Patient is more awake, alert. She makes eye contact today and even smiled at me.
Review of Systems
General: Other (Patient still encephalopathic and unable to participate in review of system. Does not appear to be in any distress.)
Objective Data
Data Reviewed
Vital Signs / I&O / Oxygen:
Vital Signs
Temp Pulse Resp BP Pulse Ox
98.2 F 92 18 147/99 97
09/29/24 07:38 09/29/24 05:40 09/29/24 05:40 09/29/24 05:00 09/29/24 05:40
Intake and Output
09/28/24 09/29/24 09/30/24
06:59 06:59 07:59
Intake Total 2258.5 / 2358.5 1030.6 / 1030.6
Output Total 1316 / 1381 1100 / 1100
Balance 942.5 / 977.5 -69.4 / -69.4
SaO2 [A/C] 99
SaO2 97
Nasal Cannula flow liters per 100
minute
Physical Exam
General: Respiratory Distress (negative), Comfortable, Chills (negative), Sweats (negative) and Other (Intubated/sedated)
HEENT: Normocephalic, Anicteric and Other (ETT in place)
Cardiovascular: S1-S2, Rub (negative) and Peripheral Edema (negative)
Respiratory: Wheeze (negative), Crackles (negative), Rhonchi (negative), Accessory Resp Muscle Use (negative) and ET Tube (Chronic breath sounds heard bilaterally)
GI: Soft, Non Distended, Non Tender and Other (Hypoactive bowel sounds)
Neurology: Tremors (negative) and Other (Sedated)
Skin: Warm, Dry, Cyanosis (negative) and Jaundice (negative)
Labs/Micro/Reports
Lab Data
09/29/24 04:35
09/29/24 07:54
Microbiology
09/21/24 23:24 Blood/Venous Blood Culture - Final
No Growth - Final Report
09/21/24 23:24 Blood/Venous Blood Culture - Final
No Growth - Final Report
[2024-09-29] MEDS: MAGNESIUM SULFATE 50 IV (10:20)
[2024-09-29] MEDS: KCL 100 IV (10:32)
--- NOTE | 2024-09-29 12:00 | CHAP ---
Father Piyush Andrade of [facility] in [place] blessed [place]. Exact time uncertain.
[2024-09-29 12:32] LABS: Glucose - Point of Care 137 mg/dl (70-99)
--- NOTE | 2024-09-29 12:56 | PTCARENOTE ---
Pt reassessed. No changes observed. Amiodarone gtt and TPN gtt continue. Potassium Chloride 40 meq IV and Magnesium 2 grams IV administered.
[2024-09-29] MEDS: NOVOLOG FLEXPEN-MODERATE RESISTANCE SC ×2 (13:29→17:19)
--- NOTE | 2024-09-29 14:05 | W.PN.CARDCBS ---
Today's Communication / Plan
-
Continue to optimize goal-directed medical therapy for nonischemic cardiomyopathy/Takotsubo's cardiomyopathy
Continue to optimize nutritional status
Monitor telemetry for recurrent atrial fibrillation
Continue IV amiodarone today
Impression / Plan
-
Impression:
Takotsubo CM, trop 14
Multifactorial shock with MSOF
s/p NSVT
VDRF/influenza A, probable bacterial pneumonia acute
Acute renal failure
Acute liver failure with transaminitis
Acute normocytic anemia
Hypothyroidism
Bipolar disorder on psychiatric meds as outpt
Hiatal hernia
Hyponatremia
Cath September 23 2024:
PCWP (a/v/x, mmHg): 37/39/35
Rudy
CI (L/min/m2): 2.03
Thermodilution
CI (L/min/m2):1.2
LVG: hyperdynamic ventricular basal function and akinesis of the mid ventricle to apex with ballooning of the LV apex EF 30-35%. There is no mitral regurgitation.
Left Main: Normal size, bifurcating vessel. There is no coronary artery disease.
LAD: Normal size vessel giving rise to 1 significant diagonal. There is no coronary artery disease.
Circumflex: Normal size, nondominant vessel that is essentially a single obtuse marginal. There is severe tortuosity but no coronary artery disease.
RCA: Large size, dominant vessel with a significant posterolateral arcade. There is no coronary artery disease. The distal RPDA severely tortuous.
Echo September 23 2024: Normal left ventricular size. Mild concentric left ventricular hypertrophy. Akinesis of the mid to apical inferoseptal, inferolateral and apical quintero.
LV ejection fraction is 40-45% by Allen's method of discs which may be overestimated. Normal right ventricular size and function. Mild to moderate tricuspid regurgitation.
Estimated pulmonary artery pressure of 15-20 mmHg assuming a right atrial pressure of 3 mmHg. Pulmonic valve is grossly normal but poorly visualized. Normal pericardium without effusion.
The IVC is dilated and does not collapse.
Plan:
Multifactorial shock with multisystem organ failure in the setting of influenza A
Takotsubo's cardiomyopathy
-Left heart catheterization September 23, 2024 and subsequent echocardiogram reviewed
-Hemodynamics have improved initially in cardiogenic shock with cardiac index of 1.4 SVR of 1900 however did not tolerate attempt at milrinone which was stopped due to polymorphic NSVT 09/23/24
-Overnight with recurrent rapid atrial fibrillation possibly related to PICC line position which has been addressed. Currently in sinus rhythm
-Twelve-lead EKG this morning normal sinus rhythm with septal infarct pattern and T wave abn in anterolateral leads. QTc interval 500ms
-Will continue IV amiodarone which was restarted overnight and monitor telemetry closely.
-At this point we will hold off anticoagulation unless further atrial fibrillation: Discussed with her daughter who is a physician at bedside
-She is now extubated as of 09/25/2024 with speech therapy following and cleared for thickened liquids; will slowly start to add goal-directed medical therapy
-Continue carvedilol 6.25 mg twice daily, lisinopril 10 mg daily. Will tentatively plan to add Aldactone 12.5 mg daily tomorrow and uptitrate DELANEY inhibitor
-Keep K greater than 4, mag greater than 2
-Will hold off SGLT2 inhibitor at this point but considering future. Consider eventual transition from DELANEY inhibitor to Entresto
-Continue to monitor volume status with the start of TPN additional Lasix but will hold for now
-Will consider limited 2D echocardiogram early next week to reassess ejection fraction
Influenza A with hypoxic respiratory failure requiring intubation 2024 and successfully extubated on 09/25/2024
-O2 supplementation and respiratory toilet/I-S
-Management per photo print specialist
-Aspiration precautions
Malnutrition/swallowing dysfunction large hiatal hernia high risk of aspiration
-TPN
-Speech and swallow following
-Mentation is slowly improving
-Would start more aggressive efforts towards PT/OT
Discussed with her daughter, Dr. Flakita Daniel at bedside.
Planalso discussed with photo print specialist
Progress Note - Head Of Research & Insights
Subjective
Date of Service: September 29, 2024
Seen and examined. She is awake alert tolerating thin liquids. Offers no complaints. Chart/telemetry/studies reviewed.
Objective
Labs:
09/29/24 04:35
09/29/24 07:54
Labs
Hgb 11.9 g/dL (12.0-16.0) L 09/29/24 04:35
Hct 36.4 % (37.0-47.0) L 09/29/24 04:35
Plt Count 210 10^3/uL (130-400) 09/29/24 04:35
PT 13.5 Sec (11.4-14.6) 09/22/24 03:50
INR 1.00 09/22/24 03:50
APTT Cancelled 09/23/24 10:37
Sodium 149 mmol/L (135-145) H 09/29/24 07:54
Potassium 3.5 mmol/L (3.5-5.1) 09/29/24 07:54
BUN 42 mg/dl (7-17) H 09/29/24 07:54
Creatinine 1.0 mg/dL (0.6-1.0) 09/29/24 07:54
Glucose 189 mg/dl (70-99) H 09/29/24 07:54
Troponins
09/29/24 09/29/24
01:39 04:35
Troponin I 0.962 H* 1.020 H*
Vital Signs and I&O:
Vital Signs
Temp Pulse Resp BP Pulse Ox
99.1 F 92 18 147/99 97
09/29/24 11:22 09/29/24 05:40 09/29/24 05:40 09/29/24 05:00 09/29/24 13:21
Vital Signs
Temp Pulse Resp BP Pulse Ox
99.1 F 92 18 147/99 97
09/29/24 11:22 09/29/24 05:40 09/29/24 05:40 09/29/24 05:00 09/29/24 13:21
Intake & Output
09/27/24 09/28/24 09/29/24 09/30/24
06:59 06:59 06:59 07:59
Intake Total 901.9 / 919.0 2258.5 / 2358.5 1030.6 / 1083.3 608.9 / 608.9
Output Total 2371 / 2401 1316 / 1381 1100 / 1100
Balance -1469.1 / -1482.0 942.5 / 977.5 -69.4 / -16.7 608.9 / 608.9
Physical Exam
Physical Exam
General: Appears older than stated age, nasal cannula O2. Awake and alert
Heart: Regular. Positive S1-S2. No murmurs or rubs.
Lungs: Bronchovesicular breath sounds decreased bilaterally with fine crackles right base and end expiratory wheeze scattered throughout
Abd: Positive BS, NT/ND, neg rebound/rigidity/guarding
Ext: No edema
Neuro: nonfocal
--- NOTE | 2024-09-29 14:42 | W.PN.HOSP.TC ---
Today's Communication/Plan
-
Continue bronchodilators
Aspiration precautions
Pur�ed diet with TPN
FINANCIAL ACCOUNTANT follow-up
Promote hydration
Wean O2
PT/OT
Assessment / Plan
Assessment / Plan
Ms. Daniel is a 79-year-old female with a medical history of hypertension and bipolar disorder who presented with shortness of breath. She tested positive for influenza 2 days prior to arrival and was started on oseltamivir as an outpatient.
However she had progressively worsening dyspnea and productive cough for 24 hours prior to presenting to the emergency department. In the ED, she was found to be hypoxic with her pulse ox in the mid 80s on room air. She was started on supplemental
oxygen via nasal cannula at that time with improvement in her respiratory status and oxygenation. She was also given nebulizer treatments. She was admitted for further evaluation and management of acute respiratory failure with hypoxia in the
setting of influenza infection.
#Acute hypoxic respiratory failure
-multifactorial in the settings of influenza A/bacterial pneumonia as well as cardiogenic shock.
-Intubated on 09/21/24 and was ultimately extubated on 09/25/2024
-Respiratory culture positive for Streptococcus and nasal swab positive for influenza
-Unable to complete course of Tamiflu given lack of enteral access; s/p IV antibiotics with Unasyn, CTX
-Received course of steroids however discontinued as associated with increased mortality during flu
-Follow-up chest x-ray on 09/27 with possible small right loculated pleural effusion.
-Currently with stable respiratory status with minimal O2 requirement, nightly BiPAP
-Continue aspiration cautions and FINANCIAL ACCOUNTANT, PRN nebs
-SpO2 goal >90%
#Toxic metabolic encephalopathy protracted secondary to acute illness
#Reported bipolar disorder of unknown significance.
#Acute delirium resolving
#Aspiration risk
-Off Precedex; holding preadmission psychiatric regimen
-Currently on TPN due to aspiration risk from encephalopathy and intubation
-Oral diet pur�ed
#Dehydration with hypernatremia
-Developed while on IV diuresis; s/p replacement with D5W
-Sodium initially in the 150s, down to 147 149 now
-Monitor oral intake, encourage free water intake as swallowing improved
-Consider further hypotonic fluids as needed
-Follow BMP
#Acute HFrEF with cardiogenic shock
#Nonischemic cardiomyopathy
#Takotsubo cardiomyopathy
-Had type II NM with troponin peak of 14; ECG with diffuse ST changes in anterolateral leads
-Urgent right and left heart cath with LVEF 30 to 35%, patent coronaries, Takotsubo morphology, reduced cardiac index
-Status post milrinone infusion which was discontinued due to cardiac ectopy; s/p subsequent amiodarone drip
-Currently being diuresed with Bumex; was started on carvedilol and lisinopril for GDMT of NICM
-Continue to titrate GDMT as hemodynamics allow
-Monitor volume status and BMP closely on Bumex
-Continue on telemetry
#NSVT
-Secondary to reduced LVEF and cardiomyopathy
-Status post course of amiodarone
-Continue to monitor on telemetry
-Electrolyte goals K >4, mag >2
#Acute kidney injury
-Presumed prerenal in the context of cardiogenic shock
-Renal function normalized with normalization of volume status
-Home HCTZ was held
-Has since resolved
-Successful TOV on 09/28
#Acute normocytic anemia
-Noted fluctuation of hemoglobin 13�11.7 likely reflects volume state. No evidence for acute bleeding
-Urgent upper endoscopy with a large hiatal hernia and no evidence of bleeding
-Follow-up hemoglobin closely.
-Continue PPI prophylactic dose
#Large hiatal hernia with intrathoracic stomach.
-Remains with high aspiration risk.
-Continue PPI.
#Shock liver
-elevated transaminases suspect in the settings of hemodynamic instability.
-No gastrointestinal complaints upon presentation
-Follow LFTs
#Hypothyroidism
-Chronic, unclear etiology, home meds include levothyroxine 25 mcg
-No signs of thyroid dysfunction at this time
#Prediabetes
-Continue basal bolus protocol with serial Accu-Cheks
#Bipolar disorder.
-Continue preadmission regimen include Vraylar, clonazepam, lamotrigine, zaleplon.
-Monitor mental status and evaluate for any introduction.
#Malnutrition
-Initiated on pur�ed diet 09/28 with aspiration precautions
-Given interruption of oral intake and absence of nutrition over the last 7 days, will initiate short course of TPN
-Hopefully can wean TPN over upcoming days as swallowing capacity improves
DVT prophylaxis: Heparin
Diet: Pur�ed, TPN
CODE STATUS: Full code
Anticipated Discharge: > 48 hours
Subjective/Interval History
-
Date of Service: September 29, 2024
Seen and examined at the bedside. No acute events reported overnight. AFVSS on 2 L oxygen
Remains hyponatremic with serum sodium 149 this morning. Patient appears frail, able to speak but weakly
Requests ice chips but denies any acute complaints
Objective Data
-
Labs:
Laboratory Results
09/29/24 09/29/24 09/29/24
04:35 05:44 07:54
WBC 11.5 H
Hgb 11.9 L
Hct 36.4 L
Plt Count 210
Sodium Cancelled Cancelled 149 H
Potassium Cancelled Cancelled 3.5
Chloride Cancelled Cancelled 109 H
Carbon Dioxide Cancelled Cancelled 30
BUN Cancelled Cancelled 42 H
Creatinine Cancelled Cancelled 1.0
Glucose Cancelled Cancelled 189 H
Calcium Cancelled Cancelled 9.8
Vital Signs:
Vital Signs
Temp Pulse Resp BP Pulse Ox
99.1 F 92 18 147/99 97
09/29/24 11:22 09/29/24 05:40 09/29/24 05:40 09/29/24 05:00 09/29/24 13:21
I&O
09/28/24 09/29/24 09/30/24
06:59 06:59 07:59
Intake Total 2258.5 / 2358.5 1030.6 / 1083.3 608.9 / 608.9
Output Total 1316 / 1381 1100 / 1100
Balance 942.5 / 977.5 -69.4 / -16.7 608.9 / 608.9
Review of Systems
-
History Source: Patient
All other systems: Reviewed and negative
Physical Exam
-
General: Well Developed, No Apparent Distress, Obese and Other (Weak and frail appearing)
HEENT: Normocephalic, Atraumatic, Moist Mucous Membranes and Oxygen
Respiratory: Clear to Auscultation and Non Labored Respirations
Cardiac: Regular Rhythm and S1/S2; Negative Murmur, Rub or Gallop
GI: Soft, Nontender, Nondistended and Normal Bowel Sounds
Musculoskeletal: No Clubbing, No Cyanosis and No Edema
Skin: Warm, Dry and Normal Turgor; Negative Rash
Neuro: AO x 3 and Nonfocal/Grossly Intact
Psych: Calm
Data Reviewed
-
Labs: Labs Reviewed by me and Discussed with Patient
[2024-09-29] MEDS: STERILE WATER FOR INJECTION IV (15:26)
[2024-09-29] MEDS: CORDARONE 518 MG IV (15:26)
[2024-09-29 17:29] LABS: Glucose - Point of Care 128 mg/dl (70-99)
--- NOTE | 2024-09-29 17:51 | PTCARENOTE ---
Pt reassessed. No changes observed. Remains in Sinus rhythm. Amiodarone gtt continues @ 0.5 mg/min. Pt with max assist OOB to chair. No void this shift. Assisted to bedside commode but still unable to void. Bladder scanned for 583. Straight cath'd
for 600ml darin urine @ 14:00. Refused meals for breakfast and lunch, stating that she felt more comfortable with liquids. Attempted pureed diet for dinner. Stated she was unable to swallow pureed food and spit it out. Opted for juice and french
nurys. Amiodarone and TPN continue through Right DL PICC.
[2024-09-29 21:40] LABS: Glucose - Point of Care 136 mg/dl (70-99)
[2024-09-29] MEDS: Parenteral Nutrition, Central 860 IV (21:41)
[2024-09-29] MEDS: COREG 6.25 MG PO (21:41)
[2024-09-29] MEDS: MELATONIN 5 MG PO (22:17)
[2024-09-30] VITALS (21 sets, daily range): BP systolic 129–175; BP diastolic 74–106; BMI 30.5
[2024-09-30 03:19] LABS: Glucose - Point of Care 186 mg/dl (70-99)
[2024-09-30 04:26] LABS: % Basophils 0.3 % (0-2); % Eosinophils 4.2 % (0-6); % Immature Granulocytes 1.6 % (0-0.5); % Lymphocytes 11.3 % (20.5-51.1); % Monocytes 7.2 % (1.7-9.3); % Neutrophils 75.4 % (42.2-75.2); Absolute Eosinophils 0.5 10^3/uL (0-0.7); Absolute Immature Granulocytes 0.2 10^3/uL (0-0.05); Absolute Lymphocytes 1.3 10^3/uL (1.2-3.4); Absolute Monocytes 0.9 10^3/uL (0.1-0.6); Absolute Neutrophils 8.9 10^3/uL (1.4-6.5); Hematocrit 35.2 % (37.0-47.0); Hemoglobin 11.5 g/dL (12.0-16.0); Mean Corp Hgb Conc. 32.7 g/dL (33.0-37.0); Mean Corpuscular Hgb 30.4 pg (27.0-31.0); Mean Corpuscular Volume 93.1 fL (81.0-99.0); Mean Platelet Volume 10.7 fL (7.4-10.4); Nucleated Red Blood Cells % 0 %; Platelet Count 200 10^3/uL (130-400); Red Blood Cell Count 3.78 10^6/uL (4.20-5.40); Red Cell Dist. Width 14.7 % (11.5-14.5); White Blood Cell Count 11.9 10^3/uL (4.8-10.8)
[2024-09-30 04:47] LABS: Phosphorus 2.9 mg/dl (2.5-4.5)
[2024-09-30 06:07] LABS: Glucose - Point of Care 158 mg/dl (70-99)
--- NOTE | 2024-09-30 06:20 | PTCARENOTE ---
Pt did not tolerate Bipap overnight, she wore it for 2hours.
[2024-09-30] MEDS: LOVENOX 80 MG SC ×2 (07:09→19:21)
[2024-09-30] MEDS: SYNTHROID 25 MCG PO (07:09)
[2024-09-30] MEDS: ZESTRIL 10 MG PO ×2 (07:47→19:56)
[2024-09-30] MEDS: CRESTOR 20 MG PO (08:07)
[2024-09-30] MEDS: COREG 6.25 MG PO ×2 (08:07→19:56)
[2024-09-30] MEDS: LOW STRENGTH ASPIRIN 81 MG PO (08:07)
[2024-09-30] MEDS: THERAGRAN 1 TABLET PO (08:07)
[2024-09-30] MEDS: VITAMIN D3 (cholecalciferol) 25 MCG PO (08:07)
[2024-09-30] MEDS: NOVOLOG FLEXPEN-MODERATE RESISTANCE 1 UNITS SC ×3 (08:12→19:21)
[2024-09-30] MEDS: POLYSPORIN OINTMENT 1 APPLIC TOPICAL (08:19)
[2024-09-30 08:30] LABS: Blood Urea Nitrogen 38 mg/dl (7-17); Calcium 9.4 mg/dl (8.4-10.2); Carbon Dioxide 27 mmol/L (22-30); Chloride 109 mmol/L (98-107); Estimated Creatinine Clearance 53 ml/min; Glucose 189 mg/dl (70-99); Potassium 3.6 mmol/L (3.5-5.1); Sodium 143 mmol/L (135-145); eGFR > 60.00
[2024-09-30] MEDS: ALDACTONE 12.5 MG PO (09:27)
--- NOTE | 2024-09-30 10:12 | PTCARENOTE ---
Pt received in bed @ 0700. Sinus rhythm on monitoring specialist. Amiodarone gtt continues @ 0.5 mg/min. Refusing breakfast, but requesting water. Sips of water without apparent aspiration. Pills crushed in applesauce; pt tolerated swallowing. TPN
continues.
--- NOTE | 2024-09-30 10:45 | W.PN.INTV ---
Today's Communication / Plan
Recommendations
-Aldactone started, repeat potassium level in the evening today and again tomorrow morning
-Patient stable for downgrading from ICU
-Ssis Architect service will sign off please call as needed
Assessment
-
Assessment: 79-year-old female non-smoker with a past medical history of hiatal hernia with intrathoracic stomach, Schatzki's ring with dilation (2012), bipolar disorder, osteopenia, history of swallowing difficulty, history of diverticula,
tortuous colon, nonrheumatic mitral regurgitation, hyperlipidemia, aortic atherosclerosis, hypothyroidism, Zarate's esophagus and history of syncope (2010) who presents with shortness of breath. Patient noted to have influenza A and was started on
oseltamivir as outpatient. Initially in the ER she had a low-grade fever to 100.3 �F, pulse rate 119, respiratory rate 24, BP 157/86 and saturating 89% on room air. She was placed onto 4 L/min with saturations improving to 95%. At around 8:00 PM
the patient developed worsening respiratory distress, and she was intubated for airway protection. Flu swab was positive for influenza A. CXR showed a large predominantly air-filled hiatal hernia/intrathoracic stomach. In the ER she was given
acetaminophen and DuoNebs. After intubation, she was admitted to the ICU and Ssis Architect services consulted for additional management/recommendations. Subsequently patient developed diffused ST elevation and was taken to Staffing Manager. Patient was not
noted to have any significant coronary artery disease and was thought to have Takotsubo cardiomyopathy. Patient did develop cardiogenic shock and briefly required pressor support. When milrinone was started, patient developed significant
ectopy/nonsustained ventricular tachycardia hence it was discontinued. Wedge pressure was noted to be quite high in the setting of cardiogenic shock and patient was started on Bumex infusion with significant diuresis and ongoing improvement.
Oral access could not be obtained because patient has large hiatal hernia. GI consult was requested and even with the assistance of endoscopy oral access could not be secured.
09/25, patient was extubated
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
(2010), hypothyroidism, tubal ligation, aortic atherosclerosis, hyperlipidemia, nonrheumatic mitral regurgitation, tortuous colon, diverticulosis
Last 24 hours:
No major events overnight
Fluid balance, +386 ml
Hemoglobin stable 11.5, white count 11.9, platelets 200.
Sodium improved to 143, potassium 3.6, magnesium normal, phosphorus normal, BUN/creatinine 38 x 0.9.
#1. Acute respiratory failure with hypoxia due to Influenza A (nasal swab positive)
-Intubated 09/21, successfully extubated 09/25
-saturating well on room air, no respiratory distress
-Completed 7 days of antibiotics initially with Unasyn later on with ceftriaxone
-Blood cultures have stayed negative
#2. Cardiogenic shock with acute Takotsubo cardiomyopathy. Suspect primarily cardiogenic shock with low cardiac index of 1.4 and elevated SVR of 1900 rather than septic.
-Currently off pressors and has been weaned off phenylephrine
-Milrinone was attempted however patient developed tachyarrhythmias hence it was stopped and amiodarone was started. Amiodarone has since been stopped due to elevated QTc cardiology service on case
-Replacing magnesium and potassium
-Continue to monitor QT interval
-Went for left heart catheterization (09/23/2024) showing clear coronaries with left ventriculography showing hyperdynamic LV base with akinesis of the mid ventricle and dyskinesis of the apical ventricle consistent with Takotsubo's cardiomyopathy.
LVEF was 30-35%
-Aspirin, statins
-Discontinued hydrocortisone in view of influenza A positive status and reported increase in mortality with steroid use and influenza
-Continue lisinopril and Coreg,
-Aldactone added per cardiology.
#3. Nonsustained ventricular tachycardia, exacerbated with milrinone
-Avoid milrinone or dobutamine
-Currently off pressors
-Continue to replete potassium and magnesium
-Uptitrated Coreg
#3a. Atrial fibrillation with rapid ventricular rate, 09/28/2024.
-Patient given IV Lopressor 5 mg push followed by amiodarone infusion. Off amiodarone now
-Uptitrated Coreg to 6.25 twice daily, continue Lovenox therapeutic dose
#4. Acute kidney injury. Now with hypernatremia,
-Creatinine and hypernatremia both improved.
#5. Large hiatal hernia with intrathoracic stomach.
-Starting to take p.o., gradually increase intake as tolerated
-Able to take some p.o. now, also TPN started via PICC line pending oral feeding at goal
#6. Bipolar disorder with metabolic encephalopathy, current component of delirium.
-Patient more awake, alert, makes eye contact today.
-Patient is off all psychotropic medications and after discussion with patient's family decision has been made to withhold all psychotropic medication as their concern is around polypharmacy.
-Rest of the meds to be started once oral intake deemed safe
#7. DVT prophylaxis fully anticoagulated with Lovenox
Goals of care discussion 09/28 I met with the patient's family at bedside including Dr. Daniel who is a pediatric surgeon. Family insistent on starting TPN as patient has been without nutrition for almost a week. Patient passed swallow eval today
but family is concerned that patient's intake may not be sufficient for coming days. I brought up the risk of bacteremia and fungemia with central access and TPN infusion. I suggested my hesitancy to start TPN and rather rely on oral nutrition and
close monitoring if she meets her calorie intake. Family chose to accept the risk of fungemia, bacteremia and complications related to TPN and want to proceed with short-term TPN, TPN ordered
Patient is critically ill � continue ICU level of care
Critical Care time 30 mins -- The patient is admitted for acute critical illness for the treatment of vital organ failure and/or prevention of further life-threatening conditions. Total care includes time spent in review of history, physical exam,
medications, hemodynamic/ventilator parameters, laboratory data, imaging and discussion with house staff, pharmacy, respiratory therapy, chemical treatment operator, and nursing. Time includes discussion with family at bedside.
Data:
Left heart catheterization 09/23/2024:
CONCLUSIONS:
1. Right dominant circulation with no coronary artery disease.
2. Severely elevated filling pressures (LVEDP = 35 mmHg, PCWP = 35 mmHg at 88.0 kg).
3. Hyperdynamic LV base with akinesis of the mid ventricle and dyskinesis of the apical ventricle consistent with Takotsubo cardiomyopathy, LV ejection fraction estimated at 30-35%.
4. Discordance between Rudy and thermodilution cardiac function. Low normal to mildly impaired function by Rudy equation (cardiac index = 2.03 L/min/m�, a VO2 difference 5.45 volume %), severely depressed function by cardiac index (1.27 L/min/m�).
I suspect the truth is somewhere in between.
5. Moderate, postcapillary pulmonary hypertension (mean PA = 40 mmHg, PCWP = 35 mmHg, cardiac output = 2.47 L/min, PVR = 2.02 Oates units), WHO group 2.
Transthoracic echocardiogram 09/23/2024:
Normal left ventricular size.
Mild concentric left ventricular hypertrophy.
Akinesis of the mid to apical inferoseptal, inferolateral and apical quintero.
LV ejection fraction is 40-45% by Allen's method of discs which may be
overestimated.
Normal right ventricular size and function.
Mild to moderate tricuspid regurgitation.
Estimated pulmonary artery pressure of 15-20 mmHg assuming a right atrial
pressure of 3 mmHg.
Pulmonic valve is grossly normal but poorly visualized.
Normal pericardium without effusion.
The IVC is dilated and does not collapse.
The patient is mechanically ventilated.
CXR 09/24:
Appears to be stable with bibasilar atelectasis more pronounced on the left.
Subjective Dataa
Subjective Data
Date of Service:
Date of Service: September 30, 2024
Chief Complaint: Ssis Architect Follow Up
Subjective:
Patient comfortably sitting in bed, awake, alert, makes eye contact, more interactive
Review of Systems
Genitourinary: Other (Mental status still limits full review of system evaluation. Patient otherwise appears comfortable and not in any discomfort.)
Objective Data
Data Reviewed
Vital Signs / I&O / Oxygen:
Vital Signs
Temp Pulse Resp BP Pulse Ox
98.5 F 81 20 160/88 95
09/30/24 07:00 09/30/24 05:20 09/30/24 05:20 09/30/24 05:00 09/30/24 07:40
Intake and Output
09/29/24 09/30/24 10/01/24
05:59 06:59 06:59
Intake Total 105.4 / 105.4
Output Total
Balance 105.4 / 105.4
SaO2 [A/C] 99
SaO2 95
Nasal Cannula flow liters per 2
minute
Physical Exam
General: Respiratory Distress (negative), Comfortable, Chills (negative), Sweats (negative) and Other (Intubated/sedated)
HEENT: Normocephalic, Anicteric and Other (ETT in place)
Cardiovascular: S1-S2
Respiratory: Clear
GI: Soft, Non Distended and Non Tender
Neurology: Awake and Alert
Skin: Warm and Dry
Labs/Micro/Reports
Lab Data
09/30/24 04:01
--- NOTE | 2024-09-30 10:45 | W.PN.HOSP.TC ---
Today's Communication/Plan
-
Bronchodilators and aspiration precautions
Wean oxygen as possible
Uptitrate GDMT as hemodynamics and renal function allow
Supportive care for epistaxis/continue full dose Lovenox
Wean TPN as oral intake improves
Downgrade to IMU
Assessment / Plan
Assessment / Plan
Ms. Daniel is a 79-year-old female with a medical history of hypertension and bipolar disorder who presented with shortness of breath. She tested positive for influenza 2 days prior to arrival and was started on oseltamivir as an outpatient.
However she had progressively worsening dyspnea and productive cough for 24 hours prior to presenting to the emergency department. In the ED, she was found to be hypoxic with her pulse ox in the mid 80s on room air. She was started on supplemental
oxygen via nasal cannula at that time with improvement in her respiratory status and oxygenation. She was also given nebulizer treatments. She was admitted for further evaluation and management of acute respiratory failure with hypoxia in the
setting of influenza infection.
#Acute hypoxic respiratory failure
-multifactorial in the settings of influenza A/bacterial pneumonia as well as cardiogenic shock.
-Intubated on 09/21/24 and was ultimately extubated on 09/25/2024
-Respiratory culture positive for Streptococcus and nasal swab positive for influenza
-Unable to complete course of Tamiflu given lack of enteral access; s/p IV antibiotics with Unasyn, CTX
-Received course of steroids however discontinued as associated with increased mortality during flu
-Follow-up chest x-ray on 09/27 with possible small right loculated pleural effusion.
-Currently with stable respiratory status with minimal O2 requirement, nightly BiPAP
-Continue aspiration cautions and ADOLESCENT MEDICINE SPECIALIST, PRN nebs
-SpO2 goal >90%
#Epistaxis
-Likely from nasal dryness with supplemental O2
-Hemoglobin stable on CBC
-Will start nasal spray for moisturizing
-Continue to trend CBC, humidify O2
#Toxic metabolic encephalopathy protracted secondary to acute illness
#Reported bipolar disorder of unknown significance.
#Acute delirium resolving
#Aspiration risk
-Off Precedex; holding preadmission psychiatric regimen
-Currently on TPN due to aspiration risk from encephalopathy and intubation
-Oral diet pur�ed, speech following
-Wean TPN as oral intake improves
#Dehydration with hypernatremia
-Developed while on IV diuresis; s/p replacement with D5W
-Sodium initially in the 150s, down to 147 149 now
-Monitor oral intake, encourage free water intake as swallowing improved
-Consider further hypotonic fluids as needed
-Follow BMP, normalized as of 09/30
#Acute HFrEF with cardiogenic shock
#Nonischemic cardiomyopathy
#Takotsubo cardiomyopathy
-Had type II GA with troponin peak of 14; ECG with diffuse ST changes in anterolateral leads
-Urgent right and left heart cath with LVEF 30 to 35%, patent coronaries, Takotsubo morphology, reduced cardiac index
-Status post milrinone infusion which was discontinued due to cardiac ectopy; s/p subsequent amiodarone drip
-Currently being diuresed with Bumex; was started on carvedilol, lisinopril, MRA (added 09/30) for GDMT of NICM
-Continue to titrate GDMT as hemodynamics allow
-Monitor volume status and BMP closely on Bumex
-Continue on telemetry
#NSVT
-Secondary to reduced LVEF and cardiomyopathy
-Status post course of amiodarone
-Continue to monitor on telemetry
-Electrolyte goals K >4, mag >2
#Acute kidney injury
-Presumed prerenal in the context of cardiogenic shock
-Renal function normalized with normalization of volume status
-Home HCTZ was held
-Has since resolved
-Successful TOV on 09/28
#Acute normocytic anemia
-Noted fluctuation of hemoglobin 13�11.7 likely reflects volume state. No evidence for acute bleeding
-Urgent upper endoscopy with a large hiatal hernia and no evidence of bleeding
-Follow-up hemoglobin closely.
-Continue PPI prophylactic dose
#Large hiatal hernia with intrathoracic stomach.
-Remains with high aspiration risk.
-Continue PPI.
#Shock liver
-elevated transaminases suspect in the settings of hemodynamic instability.
-No gastrointestinal complaints upon presentation
-Follow LFTs
#Hypothyroidism
-Chronic, unclear etiology, home meds include levothyroxine 25 mcg
-No signs of thyroid dysfunction at this time
#Prediabetes
-Continue basal bolus protocol with serial Accu-Cheks
#Bipolar disorder.
-Continue preadmission regimen include Vraylar, clonazepam, lamotrigine, zaleplon.
-Monitor mental status and evaluate for any introduction.
#Malnutrition
-Initiated on pur�ed diet 09/28 with aspiration precautions
-Given interruption of oral intake and absence of nutrition over the last 7 days, will initiate short course of TPN
-Hopefully can wean TPN over upcoming days as swallowing capacity improves
DVT prophylaxis: Heparin
Diet: Pur�ed, TPN
CODE STATUS: Full code
Disposition: Downgrade to telemetry
Anticipated Discharge: > 48 hours
Subjective/Interval History
-
Date of Service: September 30, 2024
Seen and examined at the bedside. No acute events reported overnight. AFVSS on 2 L oxygen with SpO2 97%
She does have a bit of epistaxis from the right nare, not profuse. Sodium normalized, renal function stable. CBC stable
She denies any acute complaints though ROS limited by her weakness and speech difficult
Objective Data
-
Labs:
Laboratory Results
09/30/24 09/30/24
04:01 17:00
WBC 11.9 H
Hgb 11.5 L
Hct 35.2 L
Plt Count 200
Sodium 143 Pending
Potassium 3.6 Pending
Chloride 109 H Pending
Carbon Dioxide 27 Pending
BUN 38 H Pending
Creatinine 0.9 Pending
Glucose 189 H Pending
Calcium 9.4 Pending
Vital Signs:
Vital Signs
Temp Pulse Resp BP Pulse Ox
98.5 F 81 20 160/88 95
09/30/24 07:00 09/30/24 05:20 09/30/24 05:20 09/30/24 05:00 09/30/24 07:40
I&O
09/29/24 09/30/24 10/01/24
05:59 06:59 06:59
Intake Total 105.4 / 105.4
Output Total
Balance 105.4 / 105.4
Review of Systems
-
History Source: Patient
All other systems: Reviewed and negative
Physical Exam
-
General: Well Developed, Well Nourished, No Apparent Distress, Appears Chronically Ill and Other (Frail and weak-appearing)
HEENT: Normocephalic, Atraumatic and Moist Mucous Membranes
Respiratory: Clear to Auscultation and Non Labored Respirations
Cardiac: Regular Rhythm and S1/S2; Negative Murmur, Rub, JVD or Gallop
GI: Soft, Nontender, Nondistended and Normal Bowel Sounds
Musculoskeletal: No Clubbing, No Cyanosis and No Edema
Skin: Warm, Dry and Normal Turgor; Negative Rash
Neuro: AO x 3 and Nonfocal/Grossly Intact
Psych: Calm
Data Reviewed
-
Labs: Labs Reviewed by me, Discussed with Physician ([facility] [employer] [facility] Former) and Discussed with Patient
--- NOTE | 2024-09-30 11:22 | PTCARENOTE ---
Large incontinence of bowel and bladder. CHG bed bath performed and linens changed. Order to stop Amiodarone gtt. Pt downgraded to IMU level of care.
--- NOTE | 2024-09-30 11:33 | W.PN.CARDCBS ---
Today's Communication / Plan
-
Continue optimization of cardiac status
Continue optimization of nutritional status and efforts towards reconditioning
DC IV amiodarone
Monitor telemetry
Impression / Plan
-
Impression:
Takotsubo CM, trop 14
Multifactorial shock with MSOF
s/p NSVT
VDRF/influenza A, probable bacterial pneumonia acute
Acute renal failure
Acute liver failure with transaminitis
Acute normocytic anemia
Hypothyroidism
Bipolar disorder on psychiatric meds as outpt
Hiatal hernia
Hyponatremia
Cath September 23 2024:
PCWP (a/v/x, mmHg): 37/39/35
Rudy
CI (L/min/m2): 2.03
Thermodilution
CI (L/min/m2):1.2
LVG: hyperdynamic ventricular basal function and akinesis of the mid ventricle to apex with ballooning of the LV apex EF 30-35%. There is no mitral regurgitation.
Left Main: Normal size, bifurcating vessel. There is no coronary artery disease.
LAD: Normal size vessel giving rise to 1 significant diagonal. There is no coronary artery disease.
Circumflex: Normal size, nondominant vessel that is essentially a single obtuse marginal. There is severe tortuosity but no coronary artery disease.
RCA: Large size, dominant vessel with a significant posterolateral arcade. There is no coronary artery disease. The distal RPDA severely tortuous.
Echo September 23 2024: Normal left ventricular size. Mild concentric left ventricular hypertrophy. Akinesis of the mid to apical inferoseptal, inferolateral and apical quintero.
LV ejection fraction is 40-45% by Allen's method of discs which may be overestimated. Normal right ventricular size and function. Mild to moderate tricuspid regurgitation.
Estimated pulmonary artery pressure of 15-20 mmHg assuming a right atrial pressure of 3 mmHg. Pulmonic valve is grossly normal but poorly visualized. Normal pericardium without effusion.
The IVC is dilated and does not collapse.
Plan:
Multifactorial shock with multisystem organ failure in the setting of influenza A
Takotsubo's cardiomyopathy
- Left heart catheterization September 23, 2024 and subsequent echocardiogram reviewed
- Hemodynamics have improved initially in cardiogenic shock with cardiac index of 1.4 SVR of 1900
- Milrinone which was stopped due to polymorphic NSVT 09/23/24
- Atrial fibrillation possibly related to PICC line position 09/28 which has been addressed.
- Converted to sinus rhythm once PICC was repositioned with no further atrial fibrillation. Currently in sinus rhythm
- Will discontinue IV amiodarone. Will hold off adding oral amiodarone unless further atrial or ventricular arrhythmias
- At this point we will hold off anticoagulation unless further atrial fibrillation: Discussed 09/29 with her daughter who is a physician at bedside
- She is now extubated as of 09/25/2024 with speech therapy following and cleared for thickened liquids; will slowly start to add goal-directed medical therapy
- Continue carvedilol 6.25 mg twice daily
- Increase lisinopril 10 mg BID. Consider eventual transition from DELANEY inhibitor to Entresto
- Add Aldactone 12.5 mg daily
- Careful supplemental potassium with addition of Aldactone discussed with wood flooring specialist
- Keep K greater than 4, mag greater than 2
- Will hold off SGLT2 inhibitor at this point but considering future.
- Continue to monitor volume status with the start of TPN additional Lasix but will hold for now
- Will consider limited 2D echocardiogram early next week to reassess ejection fraction
Influenza A with hypoxic respiratory failure requiring intubation 2024 and successfully extubated on 09/25/2024
-O2 supplementation and respiratory toilet/I-S
-Management per wood flooring specialist
-Aspiration precautions
Malnutrition/swallowing dysfunction large hiatal hernia high risk of aspiration
-TPN
-Speech and swallow following
-Mentation is slowly improving
-Would start more aggressive efforts towards PT/OT
Progress Note - Job Checker
Subjective
Date of Service: September 30, 2024
Patient seen and examined with nursing at bedside. No events overnight maintaining sinus rhythm. Yesterday was out of bed to chair and continues to work with PT and speech therapy. Large BM today.
Objective
Labs:
09/30/24 04:01
Labs
Hgb 11.5 g/dL (12.0-16.0) L 09/30/24 04:01
Hct 35.2 % (37.0-47.0) L 09/30/24 04:01
Plt Count 200 10^3/uL (130-400) 09/30/24 04:01
PT 13.5 Sec (11.4-14.6) 09/22/24 03:50
INR 1.00 09/22/24 03:50
APTT Cancelled 09/23/24 10:37
Sodium 143 mmol/L (135-145) 09/30/24 04:01
Potassium 3.6 mmol/L (3.5-5.1) 09/30/24 04:01
BUN 38 mg/dl (7-17) H 09/30/24 04:01
Creatinine 0.9 mg/dL (0.6-1.0) 09/30/24 04:01
Glucose 189 mg/dl (70-99) H 09/30/24 04:01
Troponins
09/29/24 09/29/24
01:39 04:35
Troponin I 0.962 H* 1.020 H*
Vital Signs and I&O:
Vital Signs
Temp Pulse Resp BP Pulse Ox
98.5 F 81 20 160/88 95
09/30/24 07:00 09/30/24 05:20 09/30/24 05:20 09/30/24 05:00 09/30/24 07:40
Vital Signs
Temp Pulse Resp BP Pulse Ox
98.5 F 81 20 160/88 95
09/30/24 07:00 09/30/24 05:20 09/30/24 05:20 09/30/24 05:00 09/30/24 07:40
Intake & Output
09/28/24 09/29/24 09/30/24 10/01/24
05:59 05:59 06:59 06:59
Intake Total 246.8 / 246.8
Output Total
Balance 246.8 / 246.8
Physical Exam
Physical Exam
General: Appears older than stated age, nasal cannula O2. Awake and alert
Heart: Regular. Positive S1-S2. No murmurs or rubs.
Lungs: Bronchovesicular breath sounds decreased bilaterally with fine crackles right base and end expiratory wheeze scattered throughout
Abd: Positive BS, NT/ND, neg rebound/rigidity/guarding
Ext: No edema
Neuro: nonfocal
[2024-09-30] MEDS: OCEAN, SALINE MIST 2 SPRAYS NASAL (13:28)
[2024-09-30 13:40] LABS: Glucose - Point of Care 159 mg/dl (70-99)
[2024-09-30] MEDS: STERILE WATER FOR INJECTION IV (16:12)
[2024-09-30 17:49] LABS: Blood Urea Nitrogen 34 mg/dl (7-17); Calcium 9.5 mg/dl (8.4-10.2); Carbon Dioxide 30 mmol/L (22-30); Chloride 111 mmol/L (98-107); Estimated Creatinine Clearance 53 ml/min; Glucose 182 mg/dl (70-99); Potassium 3.7 mmol/L (3.5-5.1); Sodium 145 mmol/L (135-145); eGFR > 60.00
--- NOTE | 2024-09-30 19:30 | PTCARENOTE ---
Patient was received sitting up in the chair, awake, alert and oriented to person and place. She was assisted back to bed. Pericare given as incontinent of urine and stool. Protective sacral foam in place and CDI. Mouth is very dry, mouth breathing.
Oral care given. Saturating 91% on RA. Oxygen at 2L/nc replaced, sats improved to 96%. RUL clear, diminished t/o posteriorly. Left lung with fine scattered crackles t/o. Loose, weak NPC. Positive pulses x 4 extremities, no LE edema. Right Arm dual
lumen PICC with TPN infusing. Skin is pale, warm and dry with scattered ecchymosis. Under the chin is scabbed wound, dressing removed. Left hand dressing CDI. Afebrile. S1S2 regular with soft murmur. BP elevated. Oral Lisinopril and Coreg scheduled
now, crushed and given in applesauce. Strict Aspiration precautions with HOB up 90 degrees. Took very little of dinner tray when assisted by daughter. Flat affect. Sinus tachycardia on CM.
[2024-09-30 19:33] LABS: Glucose - Point of Care 178 mg/dl (70-99)
--- NOTE | 2024-09-30 20:31 | W.PN.UPDATE ---
Update Note
Progress Note Update
Lovenox stopped at request of Cardiology service. SCDs ordered for DVT prophylaxis.
[2024-09-30] MEDS: Parenteral Nutrition, Central 860 IV (21:15)
[2024-10-01] VITALS (26 sets, daily range): BP systolic 129–193; BP diastolic 70–102; O2SAT 95; BMI 30.4
[2024-10-01 00:09] LABS: Glucose - Point of Care 143 mg/dl (70-99)
[2024-10-01] MEDS: ROBITUSSIN DM 10 ML PO (01:52)
[2024-10-01] MEDS: MELATONIN PO (03:24)
[2024-10-01] MEDS: SYNTHROID 25 MCG PO (05:29)
[2024-10-01 05:35] LABS: % Basophils 0.2 % (0-2); % Immature Granulocytes 0.9 % (0-0.5); % Lymphocytes 11.5 % (20.5-51.1); % Monocytes 7.5 % (1.7-9.3); % Neutrophils 76.9 % (42.2-75.2); Absolute Eosinophils 0.4 10^3/uL (0-0.7); Absolute Immature Granulocytes 0.1 10^3/uL (0-0.05); Absolute Lymphocytes 1.5 10^3/uL (1.2-3.4); Absolute Neutrophils 9.8 10^3/uL (1.4-6.5); Hematocrit 35.6 % (37.0-47.0); Hemoglobin 11.6 g/dL (12.0-16.0); Mean Corp Hgb Conc. 32.6 g/dL (33.0-37.0); Mean Corpuscular Hgb 30.4 pg (27.0-31.0); Mean Corpuscular Volume 93.4 fL (81.0-99.0); Mean Platelet Volume 11.1 fL (7.4-10.4); Nucleated Red Blood Cells % 0 %; Platelet Count 176 10^3/uL (130-400); Red Blood Cell Count 3.81 10^6/uL (4.20-5.40); Red Cell Dist. Width 14.5 % (11.5-14.5); White Blood Cell Count 12.7 10^3/uL (4.8-10.8)
[2024-10-01 06:03] LABS: ALT (SGPT) 67 U/L (0-35); AST (SGOT) 50 U/L (14-36); Albumin 3.1 g/dl (3.5-5.0); Alkaline Phosphatase 70 U/L (38-126); Blood Urea Nitrogen 33 mg/dl (7-17); Calcium 9.2 mg/dl (8.4-10.2); Carbon Dioxide 27 mmol/L (22-30); Chloride 112 mmol/L (98-107); Estimated Creatinine Clearance 60 ml/min; Glucose 187 mg/dl (70-99); Magnesium 1.6 mg/dl (1.6-2.3); Phosphorus 3.2 mg/dl (2.5-4.5); Potassium 4.3 mmol/L (3.5-5.1); Sodium 145 mmol/L (135-145); Total Bilirubin 1.1 mg/dl (0.2-1.3); Total Protein 5.7 g/dl (6.3-8.2); Triglycerides 177 mg/dl (10-149); eGFR > 60.00
[2024-10-01 07:51] LABS: Glucose - Point of Care 172 mg/dl (70-99)
[2024-10-01 08:02] LABS: Glucose - Point of Care 140 mg/dl (70-99)
--- NOTE | 2024-10-01 08:14 | W.PN.CARDCBS ---
Today's Communication / Plan
-
Increase Coreg for better bp control
Cont GDMT
Impression / Plan
-
.
Impression:
Takotsubo CM, peak trop 14
Multifactorial shock with MSOF
s/p NSVT
VDRF/influenza A, probable bacterial pneumonia acute
s/p catheter related AFib, no recurrence
Acute renal failure
Acute liver failure with transaminitis
Acute normocytic anemia
Hypothyroidism
Bipolar disorder on psychiatric meds as outpt
Hiatal hernia
Hyponatremia
Cath September 23 2024:
PCWP (a/v/x, mmHg): 37/39/35
Rudy
CI (L/min/m2): 2.03
Thermodilution
CI (L/min/m2):1.2
LVG: hyperdynamic ventricular basal function and akinesis of the mid ventricle to apex with ballooning of the LV apex EF 30-35%. There is no mitral regurgitation.
Left Main: Normal size, bifurcating vessel. There is no coronary artery disease.
LAD: Normal size vessel giving rise to 1 significant diagonal. There is no coronary artery disease.
Circumflex: Normal size, nondominant vessel that is essentially a single obtuse marginal. There is severe tortuosity but no coronary artery disease.
RCA: Large size, dominant vessel with a significant posterolateral arcade. There is no coronary artery disease. The distal RPDA severely tortuous.
Echo September 23 2024: Normal left ventricular size. Mild concentric left ventricular hypertrophy. Akinesis of the mid to apical inferoseptal, inferolateral and apical quintero.
LV ejection fraction is 40-45% by Allen's method of discs which may be overestimated. Normal right ventricular size and function. Mild to moderate tricuspid regurgitation.
Estimated pulmonary artery pressure of 15-20 mmHg assuming a right atrial pressure of 3 mmHg. Pulmonic valve is grossly normal but poorly visualized. Normal pericardium without effusion.
The IVC is dilated and does not collapse.
Plan:
Multifactorial shock with multisystem organ failure in the setting of influenza A
>Takotsubo's cardiomyopathy
-Hemodynamics have improved initially in cardiogenic shock with cardiac index of 1.4 SVR of 1900
-Milrinone which was stopped due to polymorphic NSVT 09/23/24
-s/p episode Atrial fibrillation possibly related to PICC line position 09/28 which has been addressed.
-Converted to sinus rhythm once PICC was repositioned with no further atrial fibrillation.
-Remains sinus rhythm
-no anticoagulation recommended unless recurrent atrial fibrillation.
-discussed 09/[address] Turpin with her daughter who is a physician at bedside
-GDMT for Takotsubo CM:
-Continue carvedilol but increase to 12.5 mg BID for better bp control.
-Cont lisinopril which was recently increased to 10 mg BID. Consider eventual transition from DELANEY inhibitor to Entresto
-Cont Aldactone 12.5 mg daily added 09/30.
-Holding off SGLT2 inhibitor for now but can consider in the future.
-Monitor voume status with TPN, has been diuresed this admit.
-Could consider limited echo later this week for reeval EF.
>HTN
Increase Coreg to 12.5 mg BID
>Influenza A with hypoxic respiratory failure requiring intubation 2024 and successfully extubated on 09/25/2024
-Cont pulm toilet with O2 supplementation and incentive spirometry
-Management per editorial cartoonist
-Aspiration precautions
>Malnutrition/swallowing dysfunction large hiatal hernia high risk of aspiration
-Continue supportive care with TPN
-Speech and swallow following
-Mentation is slowly improving
-PT/OT
Discussed with nursing.
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
Subjective
Date of Service: October 01, 2024
Pt seen and examined. No cp. Breathing better.
Objective
Labs:
10/01/24 05:23
10/01/24 05:23
Labs
Hgb 11.6 g/dL (12.0-16.0) L 10/01/24 05:23
Hct 35.6 % (37.0-47.0) L 10/01/24 05:23
Plt Count 176 10^3/uL (130-400) 10/01/24 05:23
PT 13.5 Sec (11.4-14.6) 09/22/24 03:50
INR 1.00 09/22/24 03:50
APTT Cancelled 09/23/24 10:37
Sodium 145 mmol/L (135-145) 10/01/24 05:23
Potassium 4.3 mmol/L (3.5-5.1) 10/01/24 05:23
BUN 33 mg/dl (7-17) H 10/01/24 05:23
Creatinine 0.8 mg/dL (0.6-1.0) 10/01/24 05:23
Glucose 187 mg/dl (70-99) H 10/01/24 05:23
Troponins
09/29/24 09/29/24
01:39 04:35
Troponin I 0.962 H* 1.020 H*
Vital Signs and I&O:
Vital Signs
Temp Pulse Resp BP Pulse Ox
98.6 F 101 26 193/92 94
10/01/24 07:38 10/01/24 06:36 10/01/24 06:36 10/01/24 06:36 10/01/24 06:36
Vital Signs
Temp Pulse Resp BP Pulse Ox
98.6 F 101 26 193/92 94
10/01/24 07:38 10/01/24 06:36 10/01/24 06:36 10/01/24 06:36 10/01/24 06:36
Intake & Output
09/29/24 09/30/24 10/01/24 10/02/24
05:59 06:59 06:59 06:59
Intake Total 1335.8 / 1335.8
Output Total
Balance 1335.8 / 1335.8
Physical Exam
Physical Exam
General: No acute distress, AAOX3
Neck: Negative JVD
Heart: Regular, Negative S3 positive S1/S2, Negative S4, No murmur
Lungs: CTA b/l, negative wheezes/rales/rhonchi
Abd: Positive BS, NT/ND, neg rebound/rigidity/guarding
Ext: Negative cyanosis/clubbing/edema
Neuro: nonfocal
--- NOTE | 2024-10-01 08:17 | PN.DE.MGMTRT ---
Insulin Management
- -
10/01/2024: Diabetes Management Follow up
79 year old female admitted with SOB-->Acute respiratory failure with hypoxia 2/2 Influenza A infection. PMH: HTN, Bipolar d/o. No hx of DM, A1C on admission was 6.0%-->pre-diabetes, Cr 0.8, eGFR >60.
Pt was noted for Hyperglycemia requiring initiation of glycemic protocol. She was transitioned off insulin infusion to low corrective insulin on 09/23.
Patient alert, eyes open, not answering questions and unable to discuss diabetes care plan. Dtr at bedside, all questions answered.
MITALI resolved, Cr 1.4-->1.1-->0.8, eGFR >60 today. Pt was seen by speech, cleared for puree diet, TPN per family request due to poor oral intake
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
Will cont moderate corrective insulin Q6 hrs. Will cont to follow.
09/24 Pt's denies any knowledge of being treated for DM. Review of chart shows no diabetes medicines prior to admission.
Diabetes History
- -
Type of Diabetes: 2 requiring insulin
Pre-Admission Diabetes Regimen
09/30/24 09/30/24 10/01/24
04:01 17:20 05:23
Creatinine 0.9 0.9 0.8
Lab Results
Hemoglobin A1c Cancelled 09/21/24 23:19
Insulin Pump Settings
IP Diabetes Regimen
09/30/24 09/30/24 09/30/24
04:01 08:11 13:24
Glucose 189 H
POC Glucose 172 H 159 H
09/30/24 09/30/24 09/30/24
17:20 19:20 23:58
Glucose 182 H
POC Glucose 178 H 143 H
10/01/24 10/01/24
05:23 07:50
Glucose 187 H
POC Glucose 140 H
Meal type: Dinner
Meal type: Breakfast
Amount consumed: 10%
Amount consumed: Patient refused
Patient Education
[2024-10-01] MEDS: NOVOLOG FLEXPEN-MODERATE RESISTANCE SC (08:28)
[2024-10-01] MEDS: ALDACTONE 12.5 MG PO (09:00)
[2024-10-01] MEDS: LOW STRENGTH ASPIRIN 81 MG PO (09:00)
[2024-10-01] MEDS: THERAGRAN 1 TABLET PO (09:00)
[2024-10-01] MEDS: VITAMIN D3 (cholecalciferol) 25 MCG PO (09:00)
[2024-10-01] MEDS: ZESTRIL 10 MG PO ×2 (09:00→20:26)
[2024-10-01] MEDS: CRESTOR 20 MG PO (09:00)
[2024-10-01] MEDS: COREG 12.5 MG PO ×2 (09:52→20:27)
--- NOTE | 2024-10-01 12:52 | W.PN.HOSP.TC ---
Today's Communication/Plan
-
Adjust cardiovascular regimen/increase Coreg.
Continue TPN and monitor oral intake with plan to wean off as oral intake is sufficient
Continue physical therapy.
Assessment / Plan
Assessment / Plan
Ms. Daniel is a 79-year-old female with a medical history of hypertension and bipolar disorder who presented with shortness of breath. She tested positive for influenza 2 days prior to arrival and was started on oseltamivir as an outpatient.
However she had progressively worsening dyspnea and productive cough for 24 hours prior to presenting to the emergency department. In the ED, she was found to be hypoxic with her pulse ox in the mid 80s on room air. She was started on supplemental
oxygen via nasal cannula at that time with improvement in her respiratory status and oxygenation. She was also given nebulizer treatments. She was admitted for further evaluation and management of acute respiratory failure with hypoxia in the
setting of influenza infection.
Impression:
Acute hypoxic respiratory failure.
� Intubated 09/21/2024
Sepsis secondary to influenza A/bacterial�community-acquired pneumonia, also suspected aspiration pneumonia given large hiatal hernia with intrathoracic stomach
Shock, multifactorial due to sepsis as well as cardiogenic.
Acute heart failure reduced EF secondary to stress�Takotsubo cardiomyopathy.
Type II IL/demand ischemia with troponin peak 14
Polymorphic ventricular tachycardia on monitoring 09/23/24
Prolonged QTc resolved
Episode of atrial fibrillation with PICC line placement
Acute kidney injury.
Hypovolemic hyponatremia
Hypernatremia while on diuresis
Acute anemia with no evidence of blood loss, suspect dilutional/acute illness.
Elevated transaminases
Prediabetes
Hypothyroidism on replacement
Bipolar disorder.
Plan
#Acute hypoxic respiratory failure
-multifactorial in the settings of influenza A/bacterial pneumonia as well as cardiogenic shock.
-Intubated on 09/21/24 and was ultimately extubated on 09/25/2024
-Respiratory culture positive for Streptococcus and nasal swab positive for influenza
-Unable to complete course of Tamiflu given lack of enteral access;
s/p IV antibiotics with Unasyn, CTX
-Received course of steroids however discontinued as associated with increased mortality during flu
-Follow-up chest x-ray on 09/27 with possible small right loculated pleural effusion.
-Currently with stable respiratory status with minimal O2 requirement, nightly BiPAP
-Continue aspiration cautions and PULMONARY CARE NURSE, PRN nebs
-SpO2 goal >90%
#Epistaxis
-Likely from nasal dryness with supplemental O2
-Hemoglobin stable on CBC
-Will start nasal spray for moisturizing
-Continue to trend CBC, humidify O2
#Toxic metabolic encephalopathy protracted secondary to acute illness
#Reported bipolar disorder of unknown significance.
#Acute delirium resolving
#Aspiration risk
-Off Precedex; holding preadmission psychiatric regimen
-Currently on TPN due to aspiration risk from encephalopathy and intubation
-Oral diet pur�ed, speech following
-Wean TPN as oral intake improves
#Dehydration with hypernatremia
-Developed while on IV diuresis; s/p replacement with D5W
-Sodium initially in the 150s, down to 147 149 now
-Monitor oral intake, encourage free water intake as swallowing improved
-Consider further hypotonic fluids as needed
-Follow BMP, normalized as of 09/30
#Acute HFrEF with cardiogenic shock
#Nonischemic cardiomyopathy
#Takotsubo cardiomyopathy
-Had type II IL with troponin peak of 14; ECG with diffuse ST changes in anterolateral leads
-Urgent right and left heart cath with LVEF 30 to 35%, patent coronaries, Takotsubo morphology, reduced cardiac index
-Status post milrinone infusion which was discontinued due to cardiac ectopy; s/p subsequent amiodarone drip
-Currently being diuresed with Bumex; was started on carvedilol, lisinopril, Aldactone
-Continue to titrate GDMT as hemodynamics allow
-Monitor volume status and BMP closely on Bumex
-Continue on telemetry
#NSVT
-Secondary to reduced LVEF and cardiomyopathy
-Status post course of amiodarone
-Continue to monitor on telemetry
-Electrolyte goals K >4, mag >2
Episode of atrial fibrillation related to PICC line position on 04/30 which has been addressed.
PICC line position adjusted
Converted and remains in sinus rhythm.
Monitor.
No anticoagulation indicated.
#Acute kidney injury
-Presumed prerenal in the context of cardiogenic shock
-Renal function normalized with normalization of volume status
-Home HCTZ was held
-Has since resolved
-Successful TOV on 09/28
#Acute normocytic anemia
-Noted fluctuation of hemoglobin 13�11.7 likely reflects volume state. No evidence for acute bleeding
-Urgent upper endoscopy with a large hiatal hernia and no evidence of bleeding
-Follow-up hemoglobin closely.
-Continue PPI prophylactic dose
#Large hiatal hernia with intrathoracic stomach.
-Remains with high aspiration risk.
-Continue PPI.
#Shock liver
-elevated transaminases suspect in the settings of hemodynamic instability.
-No gastrointestinal complaints upon presentation
-Follow LFTs
#Hypothyroidism
-Chronic, unclear etiology, home meds include levothyroxine 25 mcg
-No signs of thyroid dysfunction at this time
#Prediabetes
-Continue basal bolus protocol with serial Accu-Cheks
#Bipolar disorder.
-Continue preadmission regimen include Vraylar, clonazepam, lamotrigine, zaleplon.
-Monitor mental status and evaluate for any introduction.
#Malnutrition
-Initiated on pur�ed diet 09/28 with aspiration precautions
-Given interruption of oral intake and absence of nutrition over the last 7 days, will initiate short course of TPN
-Hopefully can wean TPN over upcoming days as swallowing capacity improves
DVT prophylaxis: Heparin
Diet: Pur�ed, TPN
CODE STATUS: Full code
Disposition: Downgrade to telemetry
Anticipated Discharge: > 48 hours
Subjective/Interval History
-
Date of Service: October 01, 2024
Objective Data
-
Labs:
Laboratory Results
10/01/24
05:23
WBC 12.7 H
Hgb 11.6 L
Hct 35.6 L
Plt Count 176
Sodium 145
Potassium 4.3
Chloride 112 H
Carbon Dioxide 27
BUN 33 H
Creatinine 0.8
Glucose 187 H
Calcium 9.2
Total Bilirubin 1.1
AST 50 H
ALT 67 H
Alkaline Phosphatase 70
Vital Signs:
Vital Signs
Temp Pulse Resp BP Pulse Ox
98.5 F 86 21 151/78 95
10/01/24 11:25 10/01/24 12:00 10/01/24 12:00 10/01/24 12:00 10/01/24 12:19
I&O
09/30/24 10/01/24 10/02/24
06:59 06:59 06:59
Intake Total 1335.8 / 1335.8 336 / 336
Output Total
Balance 1335.8 / 1335.8 336 / 336
Physical Exam
-
General: Well Developed, Well Nourished, No Apparent Distress, Appears Chronically Ill and Other (Frail and weak-appearing)
HEENT: Normocephalic, Atraumatic and Moist Mucous Membranes
Respiratory: Clear to Auscultation and Non Labored Respirations
Cardiac: Regular Rhythm and S1/S2; Negative Murmur, Rub, JVD or Gallop
GI: Soft, Nontender, Nondistended and Normal Bowel Sounds
Musculoskeletal: No Clubbing, No Cyanosis and No Edema
Skin: Warm, Dry and Normal Turgor; Negative Rash
Neuro: AO x 3 and Nonfocal/Grossly Intact
Psych: Calm
--- NOTE | 2024-10-01 13:00 | PTCARENOTE ---
Pt received this morning, complete assessment done, see worklist. Pt with very soft voice, but oriented to name and 'hospital', and follows simple commands. HR SR with occ PACs, BP elevated at times. Dr Dennis updated, and coreg dose increased and
given. Pt with TPN infusing at 36 ml/hr. Pt fed puree breakfast, but only ate approx 10%, pt swallowing clear liqs without coughing at this time. Pt cleaned for loose brown stool, and incontinence urine. Protective sacral foam changed. Dr Ayala
also in to see pt, and updated. Pt remains IMU status when a bed is available. Mouth care done and rik care done. Pt turned q 2hr, and made comfortable. Pt's daughter and in room, and all questions answered.
[2024-10-01] MEDS: NOVOLOG FLEXPEN-MODERATE RESISTANCE 5 UNITS SC (13:26)
[2024-10-01 13:36] LABS: Glucose - Point of Care 235 mg/dl (70-99)
--- NOTE | 2024-10-01 13:40 | PTCARENOTE ---
Pt's accu check 235. Pt's daughter had given her lemon water ice and juice within the last hour before lunch, most likely reason for elevated glucose. Pt not to start glycemic protocol as per hospitalist. Pt OOB to chair with 2 person assist,
tolerating well.
--- NOTE | 2024-10-01 15:38 | CM ---
M following re: discharge planning.
Discussed in rounds, reviewed pt's chart, met with pt and pt's at bedside. Per Rounds meeting, continue TPN, continue supportive care.
[facility] director following.
D/C plan: [facility]
CM will follow to assist the pt with discharge to [facility]
[2024-10-01] MEDS: STERILE WATER FOR INJECTION IV (17:25)
[2024-10-01] MEDS: NOVOLOG FLEXPEN-MODERATE RESISTANCE 1 UNITS SC (17:29)
[2024-10-01 17:41] LABS: Glucose - Point of Care 153 mg/dl (70-99)
--- NOTE | 2024-10-01 18:54 | PTCARENOTE ---
Pt tolereted OOB in chair for 4 hrs today. Pt assisted back to bed now with 2 RNs, pt remains weak, but improving.
[2024-10-01] MEDS: Parenteral Nutrition, Central 860 IV (21:15)
--- NOTE | 2024-10-01 23:00 | PTCARENOTE ---
Patient incontinent of a large amount of urine. Complete cares given, CHG cloth bath. Zinc oxide applied perirectally and to perineum. Protective sacral foam in place. Complete linen change.
[2024-10-02] VITALS (24 sets, daily range): BP systolic 107–179; BP diastolic 57–106; PULSE 2–93; BMI 30.6
[2024-10-02] MEDS: MELATONIN PO (00:40)
--- NOTE | 2024-10-02 02:50 | PTCARENOTE ---
Patient received lying still in bed with eyes closed, respirations non labored but mouth breathing. She rouses easily to name called. She is very pleasant. She currently denies pain but does admit her tongue is sore. Her speech is very soft like a
whisper and difficult to understand at times. Her mouth is very dry and her tongue is cracked. Oral care rendered with mouth moisturizer. Sips of water given directly from cup, no straw. BBS with upper lobes clear. Bilateral bases diminished. S1S2
regular with soft murmur. SR on CM. Positive pulses x 4 extremities. Bilateral ankle edema trace. Bilateral hand edema. Sacral edema. Right arm dual lumen PICC with TPN infusing. Repositioned every 2 hours and prn. Assessed for incontinence every 2
hours.
[2024-10-02] MEDS: ROBITUSSIN DM 10 ML PO ×2 (03:15→20:43)
[2024-10-02 03:28] LABS: % Basophils 0.3 % (0-2); % Eosinophils 1.8 % (0-6); % Immature Granulocytes 0.6 % (0-0.5); % Lymphocytes 13.3 % (20.5-51.1); % Monocytes 9.4 % (1.7-9.3); % Neutrophils 74.6 % (42.2-75.2); Absolute Eosinophils 0.2 10^3/uL (0-0.7); Absolute Immature Granulocytes 0.1 10^3/uL (0-0.05); Absolute Lymphocytes 1.7 10^3/uL (1.2-3.4); Absolute Monocytes 1.2 10^3/uL (0.1-0.6); Absolute Neutrophils 9.3 10^3/uL (1.4-6.5); Hematocrit 34.6 % (37.0-47.0); Hemoglobin 11.1 g/dL (12.0-16.0); Mean Corp Hgb Conc. 32.1 g/dL (33.0-37.0); Mean Corpuscular Hgb 30.3 pg (27.0-31.0); Mean Corpuscular Volume 94.5 fL (81.0-99.0); Mean Platelet Volume 11.3 fL (7.4-10.4); Nucleated Red Blood Cells % 0 %; Platelet Count 149 10^3/uL (130-400); Red Blood Cell Count 3.66 10^6/uL (4.20-5.40); Red Cell Dist. Width 14.4 % (11.5-14.5); White Blood Cell Count 12.5 10^3/uL (4.8-10.8)
[2024-10-02] MEDS: POLYSPORIN OINTMENT 1 APPLIC TOPICAL (03:40)
[2024-10-02 03:51] LABS: Blood Urea Nitrogen 33 mg/dl (7-17); Calcium 9.2 mg/dl (8.4-10.2); Carbon Dioxide 27 mmol/L (22-30); Chloride 112 mmol/L (98-107); Estimated Creatinine Clearance 59 ml/min; Glucose 142 mg/dl (70-99); Potassium 3.9 mmol/L (3.5-5.1); Sodium 145 mmol/L (135-145); eGFR > 60.00
[2024-10-02] MEDS: COREG PO ×2 (07:20→08:51)
--- NOTE | 2024-10-02 07:28 | PTCARENOTE ---
Report given verbally to RN assuming care, Alma Ramos. Questions answered.
--- NOTE | 2024-10-02 08:10 | W.PN.CARDCBS ---
Today's Communication / Plan
-
Restart subcu Lovenox (not restarted when IV heparin stopped)
Increase carvedilol to 25 mg twice daily
Recheck EKG
Consider follow-up echo, suspect EF has improved
Impression / Plan
-
.
Impression:
Takotsubo CM, peak trop 14
Multifactorial shock with MSOF
s/p NSVT
VDRF/influenza A, probable bacterial pneumonia acute
s/p catheter related AFib, no recurrence
Acute renal failure
Acute liver failure with transaminitis
Acute normocytic anemia
Hypothyroidism
Bipolar disorder on psychiatric meds as outpt
Hiatal hernia
Hyponatremia
Cath September 23 2024:
PCWP (a/v/x, mmHg): 37/39/35
Rudy
CI (L/min/m2): 2.03
Thermodilution
CI (L/min/m2):1.2
LVG: hyperdynamic ventricular basal function and akinesis of the mid ventricle to apex with ballooning of the LV apex EF 30-35%. There is no mitral regurgitation.
Left Main: Normal size, bifurcating vessel. There is no coronary artery disease.
LAD: Normal size vessel giving rise to 1 significant diagonal. There is no coronary artery disease.
Circumflex: Normal size, nondominant vessel that is essentially a single obtuse marginal. There is severe tortuosity but no coronary artery disease.
RCA: Large size, dominant vessel with a significant posterolateral arcade. There is no coronary artery disease. The distal RPDA severely tortuous.
Echo September 23 2024: Normal left ventricular size. Mild concentric left ventricular hypertrophy. Akinesis of the mid to apical inferoseptal, inferolateral and apical quintero.
LV ejection fraction is 40-45% by Allen's method of discs which may be overestimated. Normal right ventricular size and function. Mild to moderate tricuspid regurgitation.
Estimated pulmonary artery pressure of 15-20 mmHg assuming a right atrial pressure of 3 mmHg. Pulmonic valve is grossly normal but poorly visualized. Normal pericardium without effusion.
The IVC is dilated and does not collapse.
Plan:
Multifactorial shock with multisystem organ failure in the setting of influenza A
She looks much better overall.
She is still hypertensive and tachycardic. Will increase to carvedilol 25 twice daily
Recheck EKG looking for evolution of changes status post Takotsubo syndrome
I suspect her EF has improved, will consider follow-up study. That could help decide whether we should consider Entresto, etc. Currently she is on spironolactone, carb fall and lisinopril
Currently she is IMU level.
Still receiving TPN. Defer to hospitalist regarding duration of TPN.
Mentation continues to improve.
Thus far no recurrence of atrial fibrillation which may have been PICC line related
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
Subjective
Date of Service: October 02, 2024:
Awake, alert, on pur�ed but eating poorly, nursing says difficulty with pills
Medications: Albuterol as needed, iron, aspirin 81 mg a day, insulin, levothyroxine 25 mcg a day, multivitamin, rosuvastatin 20 mg a day, vitamin D, lisinopril 10 twice daily, spironolactone 12.5 daily, carvedilol 12.5, TPN
155/77, pulse 97, respiratory rate 22, afebrile, 94%, smiling, appears frail, lungs relatively clear, regular rate and rhythm, no obvious murmurs, JVD okay not much edema
White count 12.5, hemoglobin 11.1, platelets are 149, BUN and creatinine are 33 and 0.8, potassium 3.9
Objective
Labs:
10/02/24 03:12
10/02/24 03:12
Labs
Hgb 11.1 g/dL (12.0-16.0) L 10/02/24 03:12
Hct 34.6 % (37.0-47.0) L 10/02/24 03:12
Plt Count 149 10^3/uL (130-400) 10/02/24 03:12
PT 13.5 Sec (11.4-14.6) 09/22/24 03:50
INR 1.00 09/22/24 03:50
APTT Cancelled 09/23/24 10:37
Sodium 145 mmol/L (135-145) 10/02/24 03:12
Potassium 3.9 mmol/L (3.5-5.1) 10/02/24 03:12
BUN 33 mg/dl (7-17) H 10/02/24 03:12
Creatinine 0.8 mg/dL (0.6-1.0) 10/02/24 03:12
Glucose 142 mg/dl (70-99) H 10/02/24 03:12
Vital Signs and I&O:
Vital Signs
Temp Pulse Resp BP Pulse Ox
37.1 C 97 22 155/77 94
10/02/24 07:39 10/02/24 06:00 10/02/24 06:00 10/02/24 06:00 10/02/24 06:00
Vital Signs
Temp Pulse Resp BP Pulse Ox
37.1 C 97 22 155/77 94
10/02/24 07:39 10/02/24 06:00 10/02/24 06:00 10/02/24 06:00 10/02/24 06:00
Intake & Output
09/30/24 10/01/24 10/02/24 10/03/24
07:59 07:59 07:59 07:59
Intake Total 1283.1 / 1283.1 1137
Output Total
Balance 1283.1 / 1283.1 1137
Physical Exam
Physical Exam
See above
--- NOTE | 2024-10-02 08:21 | PN.DE.MGMTRT ---
Insulin Management
- -
10/02/2024: Diabetes Management Follow up
79 year old female admitted with SOB-->Acute respiratory failure with hypoxia 2/2 Influenza A infection. PMH: HTN, Bipolar d/o. No hx of DM, A1C on admission was 6.0%-->pre-diabetes, Cr 0.8, eGFR >60.
Pt was noted for Hyperglycemia requiring initiation of glycemic protocol. She was transitioned off insulin infusion to low corrective insulin on 09/23.
Patient alert, eyes open, not answering questions and unable to discuss diabetes care plan. Dtr at bedside, all questions answered.
MITALI resolved, Cr 1.4-->1.1-->0.8, eGFR >60 today.
TPN per family request due to poor oral intake ordered pureed diet, intake poor.
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
Will cont moderate corrective insulin AC.
Will cont to follow.
Discussed with nurse.
09/24 Pt's denies any knowledge of being treated for DM. Review of chart shows no diabetes medicines prior to admission.
Diabetes History
- -
Type of Diabetes: 2 requiring insulin
Pre-Admission Diabetes Regimen
10/02/24
03:12
Creatinine 0.8
Lab Results
Hemoglobin A1c Cancelled 09/21/24 23:19
Insulin Pump Settings
IP Diabetes Regimen
10/01/24 10/01/24 10/02/24
13:25 17:29 03:12
Glucose 142 H
POC Glucose 235 H 153 H
Meal type: Dinner
Meal type: Lunch
Meal type: Breakfast
Amount consumed: 0
Amount consumed: 20%
Amount consumed: 10%
Patient Education
[2024-10-02] MEDS: SYNTHROID 25 MCG PO (08:42)
[2024-10-02] MEDS: VITAMIN D3 (cholecalciferol) 25 MCG PO (08:43)
[2024-10-02] MEDS: ZESTRIL 10 MG PO ×2 (08:43→20:21)
[2024-10-02] MEDS: NOVOLOG FLEXPEN-MODERATE RESISTANCE 1 UNITS SC ×2 (08:43→19:23)
[2024-10-02] MEDS: COREG 25 MG PO ×2 (08:43→20:21)
[2024-10-02] MEDS: CRESTOR 20 MG PO (08:44)
[2024-10-02] MEDS: ALDACTONE 12.5 MG PO (08:44)
[2024-10-02] MEDS: LOW STRENGTH ASPIRIN 81 MG PO (08:44)
[2024-10-02] MEDS: THERAGRAN 1 TABLET PO (08:44)
[2024-10-02 08:52] LABS: Glucose - Point of Care 154 mg/dl (70-99)
--- NOTE | 2024-10-02 10:31 | PTCARENOTE ---
patient was grossly incontinent of urine. Moisture barrier cream applied, some masd breakdown between buttocks noted.
[2024-10-02] MEDS: NOVOLOG FLEXPEN-MODERATE RESISTANCE 3 UNITS SC (13:01)
[2024-10-02 13:15] LABS: Glucose - Point of Care 200 mg/dl (70-99)
--- NOTE | 2024-10-02 15:39 | W.PN.HOSP.TC ---
Today's Communication/Plan
-
Monitor oral intake, calorie count ordered.
Continue TPN for another 24 to 48 hours.
Adjust antihypertensive/CHF regimen.
Agree with repeat echocardiogram to reassess LVEF.
Physical therapy assessment
Assessment / Plan
Assessment / Plan
Ms. Daniel is a 79-year-old female with a medical history of hypertension and bipolar disorder who presented with shortness of breath. She tested positive for influenza 2 days prior to arrival and was started on oseltamivir as an outpatient.
However she had progressively worsening dyspnea and productive cough for 24 hours prior to presenting to the emergency department. In the ED, she was found to be hypoxic with her pulse ox in the mid 80s on room air. She was started on supplemental
oxygen via nasal cannula at that time with improvement in her respiratory status and oxygenation. She was also given nebulizer treatments. She was admitted for further evaluation and management of acute respiratory failure with hypoxia in the
setting of influenza infection.
Impression:
Acute hypoxic respiratory failure.
� Intubated 09/21/2024
Sepsis secondary to influenza A/bacterial�community-acquired pneumonia, also suspected aspiration pneumonia given large hiatal hernia with intrathoracic stomach
Shock, multifactorial due to sepsis as well as cardiogenic.
Acute heart failure reduced EF secondary to stress�Takotsubo cardiomyopathy.
Type II MS/demand ischemia with troponin peak 14
Polymorphic ventricular tachycardia on monitoring 09/23/24
Prolonged QTc resolved
Episode of atrial fibrillation with PICC line placement
Acute kidney injury.
Hypovolemic hyponatremia
Hypernatremia while on diuresis
Acute anemia with no evidence of blood loss, suspect dilutional/acute illness.
Elevated transaminases
Prediabetes
Hypothyroidism on replacement
Bipolar disorder.
Plan
#Acute hypoxic respiratory failure
-multifactorial in the settings of influenza A/bacterial pneumonia as well as cardiogenic shock.
-Intubated on 09/21/24 and was ultimately extubated on 09/25/2024
-Respiratory culture positive for Streptococcus and nasal swab positive for influenza
-Unable to complete course of Tamiflu given lack of enteral access;
s/p IV antibiotics with Unasyn, CTX
-Received course of steroids however discontinued as associated with increased mortality during flu
-Follow-up chest x-ray on 09/27 with possible small right loculated pleural effusion.
-Currently with stable respiratory status with minimal O2 requirement, nightly BiPAP
-Continue aspiration cautions and TANK FILLER, PRN nebs
-SpO2 goal >90%
#Epistaxis
-Likely from nasal dryness with supplemental O2
-Hemoglobin stable on CBC
-Will start nasal spray for moisturizing
-Continue to trend CBC, humidify O2
#Toxic metabolic encephalopathy protracted secondary to acute illness
#Reported bipolar disorder of unknown significance.
#Acute delirium resolving
#Aspiration risk
-Off Precedex; holding preadmission psychiatric regimen
-Currently on TPN due to aspiration risk from encephalopathy and intubation
-Oral diet pur�ed, speech following
-Wean TPN as oral intake improves
#Dehydration with hypernatremia
-Developed while on IV diuresis; s/p replacement with D5W
-Sodium initially in the 150s, down to 147 149 now
-Monitor oral intake, encourage free water intake as swallowing improved
-Consider further hypotonic fluids as needed
-Follow BMP, normalized as of 09/30
#Acute HFrEF with cardiogenic shock
#Nonischemic cardiomyopathy
#Takotsubo cardiomyopathy
-Had type II MS with troponin peak of 14; ECG with diffuse ST changes in anterolateral leads
-Urgent right and left heart cath with LVEF 30 to 35%, patent coronaries, Takotsubo morphology, reduced cardiac index
-Status post milrinone infusion which was discontinued due to cardiac ectopy; s/p subsequent amiodarone drip
-Currently being diuresed with Bumex; was started on carvedilol, lisinopril, Aldactone
-Continue to titrate GDMT as hemodynamics allow
-Monitor volume status and BMP closely on Bumex
-Continue on telemetry
#NSVT
-Secondary to reduced LVEF and cardiomyopathy
-Status post course of amiodarone
-Continue to monitor on telemetry
-Electrolyte goals K >4, mag >2
Episode of atrial fibrillation related to PICC line position on 04/30 which has been addressed.
PICC line position adjusted
Converted and remains in sinus rhythm.
Monitor.
No anticoagulation indicated.
#Acute kidney injury
-Presumed prerenal in the context of cardiogenic shock
-Renal function normalized with normalization of volume status
-Home HCTZ was held
-Has since resolved
-Successful TOV on 09/28
#Acute normocytic anemia
-Noted fluctuation of hemoglobin 13�11.7 likely reflects volume state. No evidence for acute bleeding
-Urgent upper endoscopy with a large hiatal hernia and no evidence of bleeding
-Follow-up hemoglobin closely.
-Continue PPI prophylactic dose
#Large hiatal hernia with intrathoracic stomach.
-Remains with high aspiration risk.
-Continue PPI.
#Shock liver
-elevated transaminases suspect in the settings of hemodynamic instability.
-No gastrointestinal complaints upon presentation
-Follow LFTs
#Hypothyroidism
-Chronic, unclear etiology, home meds include levothyroxine 25 mcg
-No signs of thyroid dysfunction at this time
#Prediabetes
-Continue basal bolus protocol with serial Accu-Cheks
#Bipolar disorder.
-Continue preadmission regimen include Vraylar, clonazepam, lamotrigine, zaleplon.
-Monitor mental status and evaluate for any introduction.
#Malnutrition
-Initiated on pur�ed diet 09/28 with aspiration precautions
-Given interruption of oral intake and absence of nutrition over the last 7 days, will initiate short course of TPN
-Hopefully can wean TPN over upcoming days as swallowing capacity improves
DVT prophylaxis: Heparin
Diet: Pur�ed, TPN
CODE STATUS: Full code
Disposition: Downgrade to telemetry
Anticipated Discharge: > 48 hours
Subjective/Interval History
-
Date of Service: October 02, 2024
Objective Data
-
Labs:
Laboratory Results
10/02/24
03:12
Sodium 145
Potassium 3.9
Chloride 112 H
Carbon Dioxide 27
BUN 33 H
Creatinine 0.8
Glucose 142 H
Calcium 9.2
Vital Signs:
Vital Signs
Temp Pulse Resp BP Pulse Ox
98.8 F 81 21 125/76 94
10/02/24 07:39 10/02/24 14:00 10/02/24 14:00 10/02/24 14:00 10/02/24 14:00
I&O
10/01/24 10/02/24 10/03/24
06:59 06:59 06:59
Intake Total 1335.8 / 1335.8 1138 / 1174 252 / 252
Balance 1335.8 / 1335.8 1138 / 1174 252 / 252
Physical Exam
-
General: Well Developed, Well Nourished, No Apparent Distress, Appears Chronically Ill and Other (Frail and weak-appearing)
HEENT: Normocephalic, Atraumatic and Moist Mucous Membranes
Respiratory: Clear to Auscultation and Non Labored Respirations
Cardiac: Regular Rhythm and S1/S2; Negative Murmur, Rub, JVD or Gallop
GI: Soft, Nontender, Nondistended and Normal Bowel Sounds
Musculoskeletal: No Clubbing, No Cyanosis and No Edema
Skin: Warm, Dry and Normal Turgor; Negative Rash
Neuro: AO x 3 and Nonfocal/Grossly Intact
Psych: Calm
--- NOTE | 2024-10-02 16:24 | PTCARENOTE ---
Assumed care of pt at aprox 1300. Pt in bed, family at bedside. SR on monitor. Pt with no c/o pain at the time. Vitals remain stable. TPN running through R PICC line. Family requested pt to be up in chair since PT wasn't working with her today. Pt
hoyered to chair by 3 staff members. Pt will be transferring to IMU when bed avail.
[2024-10-02] MEDS: LOVENOX 40 MG SC (17:10)
--- NOTE | 2024-10-02 18:29 | PTCARENOTE ---
Pt tx from ICU AAOx2 with a cart of belongings. Pt smiling with a blank look on her face. at bedside
--- NOTE | 2024-10-02 18:36 | PTCARENOTE ---
Report given to Al LAM in IMU at aprox 1815 . Pt transferred in bed. All belongings home taken with her. at bedside.
--- NOTE | 2024-10-02 18:39 | PTCARENOTE ---
Report given to Al LAM in IMU at aprox 1815 . Pt transferred in bed. All belongings from room taken with her. at bedside.
[2024-10-02 19:23] LABS: Glucose - Point of Care 183 mg/dl (70-99)
[2024-10-02] MEDS: MELATONIN 10 MG PO (20:20)
[2024-10-02] MEDS: Parenteral Nutrition, Central 860 IV (20:27)
[2024-10-02 22:06] LABS: Glucose - Point of Care 171 mg/dl (70-99)
--- NOTE | 2024-10-02 23:00 | PTCARENOTE ---
Per pt request, respiratory therapist placed pt on bipap @ 21:28. At 22:30, pt requested that her bipap be removed. Respiratory therapist aware. Pt mildly tachypneic, RR 20-30s. SaO2 94% on RA. Pt resting comfortably in bed at this time. Call murillo
within reach. Care ongoing.
[2024-10-03] VITALS (16 sets, daily range): BP systolic 101–166; BP diastolic 59–99; PULSE 102; O2SAT 98; BMI 30.6
[2024-10-03 04:37] LABS: % Basophils 0.3 % (0-2); % Eosinophils 2.2 % (0-6); % Immature Granulocytes 0.5 % (0-0.5); % Lymphocytes 14.1 % (20.5-51.1); % Monocytes 8.8 % (1.7-9.3); % Neutrophils 74.1 % (42.2-75.2); Absolute Eosinophils 0.2 10^3/uL (0-0.7); Absolute Immature Granulocytes 0.1 10^3/uL (0-0.05); Absolute Lymphocytes 1.6 10^3/uL (1.2-3.4); Absolute Neutrophils 8.2 10^3/uL (1.4-6.5); Hematocrit 32.8 % (37.0-47.0); Hemoglobin 10.6 g/dL (12.0-16.0); Mean Corp Hgb Conc. 32.3 g/dL (33.0-37.0); Mean Corpuscular Hgb 30.5 pg (27.0-31.0); Mean Corpuscular Volume 94.3 fL (81.0-99.0); Mean Platelet Volume 12.2 fL (7.4-10.4); Nucleated Red Blood Cells % 0 %; Platelet Count 132 10^3/uL (130-400); Red Blood Cell Count 3.48 10^6/uL (4.20-5.40); Red Cell Dist. Width 14.3 % (11.5-14.5)
[2024-10-03 05:01] LABS: Blood Urea Nitrogen 32 mg/dl (7-17); Calcium 9.1 mg/dl (8.4-10.2); Carbon Dioxide 29 mmol/L (22-30); Chloride 110 mmol/L (98-107); Estimated Creatinine Clearance 68 ml/min; Glucose 166 mg/dl (70-99); Potassium 3.9 mmol/L (3.5-5.1); Sodium 142 mmol/L (135-145); eGFR > 60.00
[2024-10-03] MEDS: ROBITUSSIN DM 10 ML PO ×2 (05:15→20:05)
[2024-10-03] MEDS: SYNTHROID 25 MCG PO (05:15)
[2024-10-03 07:28] LABS: Glucose - Point of Care 173 mg/dl (70-99)
--- NOTE | 2024-10-03 08:45 | PN.DE.MGMTRT ---
Insulin Management
- -
10/03/2024: Diabetes Management Follow up
79 year old female admitted with SOB-->Acute respiratory failure with hypoxia 2/2 Influenza A infection. PMH: HTN, Bipolar d/o. No hx of DM, A1C on admission was 6.0%-->pre-diabetes, Cr 0.8, eGFR >60.
Pt was noted for Hyperglycemia requiring initiation of glycemic protocol. She was transitioned off insulin infusion to low corrective insulin on 09/23.
Patient is awake alert, OOB in chair. Taking po food, now on calorie count.
MITALI resolved, Cr 1.4-->1.1-->0.7, eGFR >60 today.
TPN per family request due to poor oral intake ordered pureed diet, intake improving.
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
Will cont moderate corrective insulin AC.
Will cont to follow.
Discussed with nurse.
09/24 Pt's denies any knowledge of being treated for DM. Review of chart shows no diabetes medicines prior to admission.
Diabetes History
- -
Type of Diabetes: 2
Pre-Admission Diabetes Regimen
10/03/24
04:21
Creatinine 0.7
Lab Results
Hemoglobin A1c Cancelled 09/21/24 23:19
Insulin Pump Settings
IP Diabetes Regimen
10/02/24 10/02/24 10/02/24
08:31 13:00 19:21
Glucose
POC Glucose 154 H 200 H 183 H
10/02/24 10/03/24 10/03/24
22:05 04:21 07:17
Glucose 166 H
POC Glucose 171 H 173 H
Patient Education
[2024-10-03] MEDS: NOVOLOG FLEXPEN-MODERATE RESISTANCE 1 UNITS SC ×3 (09:17→18:20)
[2024-10-03] MEDS: ALDACTONE 12.5 MG PO (09:19)
[2024-10-03] MEDS: THERAGRAN 1 TABLET PO (09:20)
[2024-10-03] MEDS: LOW STRENGTH ASPIRIN 81 MG PO (09:20)
[2024-10-03] MEDS: VITAMIN D3 (cholecalciferol) 25 MCG PO (09:20)
[2024-10-03] MEDS: ZESTRIL 10 MG PO ×2 (09:20→19:52)
[2024-10-03] MEDS: CRESTOR 20 MG PO (09:20)
[2024-10-03] MEDS: FARXIGA 10 MG PO (09:20)
[2024-10-03] MEDS: COREG 25 MG PO ×2 (09:21→19:51)
[2024-10-03] MEDS: MAGIC OR MIRACLE MOUTHWASH 10 ML PO ×2 (11:30→18:19)
--- NOTE | 2024-10-03 11:43 | PTCARENOTE ---
Patient is out of bed to chair, aspiration precautions enforced. 1:1 with oral intake. Patient complaining of sore mouth, tongue is red and cracked. Discussed with Dr. Ayala, Magic mouthwash ordered. Patient is smiling in chair stating that her
mouth is feeling much better after oral care completed.
--- NOTE | 2024-10-03 12:36 | W.PN.CARDCBS ---
Today's Communication / Plan
-
Continue GDMT
Farxiga added today
Follow BP
Follow fluid status which is difficult to assess
pro BNP in AM
Impression / Plan
-
.
Impression:
Takotsubo CM, peak trop 14
Multifactorial shock with MSOF
s/p NSVT
VDRF/influenza A, probable bacterial pneumonia acute
s/p catheter related AFib, no recurrence
Acute renal failure
Acute liver failure with transaminitis
Acute normocytic anemia
Hypothyroidism
Bipolar disorder on psychiatric meds as outpt
Hiatal hernia
Hyponatremia
Cath September 23 2024:
PCWP (a/v/x, mmHg): 37/39/35
Rudy
CI (L/min/m2): 2.03
Thermodilution
CI (L/min/m2):1.2
LVG: hyperdynamic ventricular basal function and akinesis of the mid ventricle to apex with ballooning of the LV apex EF 30-35%. There is no mitral regurgitation.
Left Main: Normal size, bifurcating vessel. There is no coronary artery disease.
LAD: Normal size vessel giving rise to 1 significant diagonal. There is no coronary artery disease.
Circumflex: Normal size, nondominant vessel that is essentially a single obtuse marginal. There is severe tortuosity but no coronary artery disease.
RCA: Large size, dominant vessel with a significant posterolateral arcade. There is no coronary artery disease. The distal RPDA severely tortuous.
Echo September 23 2024: Normal left ventricular size. Mild concentric left ventricular hypertrophy. Akinesis of the mid to apical inferoseptal, inferolateral and apical quintero.
LV ejection fraction is 40-45% by Allen's method of discs which may be overestimated. Normal right ventricular size and function. Mild to moderate tricuspid regurgitation.
Estimated pulmonary artery pressure of 15-20 mmHg assuming a right atrial pressure of 3 mmHg. Pulmonic valve is grossly normal but poorly visualized. Normal pericardium without effusion.
The IVC is dilated and does not collapse.
Echo 10/02/24 : Normal LV size and LVEF 54% with apical segmental wall motion abnl.
Plan:
Multifactorial shock with multisystem organ failure in the setting of influenza A
She is sitting in the chair today. It appears that she will be going to [facility] which will be a great choice.
She has Takotsubo syndrome with improved LVEF and HTN noted. Medications have been uptitrated. BP fair. HR improved.
Continue GDMT
Farxiga added today
Follow BP
Follow fluid status which is difficult to assess
pro BNP in AM
Follow BMP
Follow i/o's and daily weights
EKG abnl but stable.Tele stable.
Still receiving TPN. Defer to hospitalist regarding duration of TPN.
Mentation continues to improve. Increase activity as tolerates.
Thus far no recurrence of atrial fibrillation which may have been PICC line related
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
Subjective
Date of Service: October 03, 2024
She is tired and weak and denies chest pain and palpitations
Objective
Labs:
10/03/24 04:21
10/03/24 04:21
Labs
Hgb 10.6 g/dL (12.0-16.0) L 10/03/24 04:21
Hct 32.8 % (37.0-47.0) L 10/03/24 04:21
Plt Count 132 10^3/uL (130-400) 10/03/24 04:21
PT 13.5 Sec (11.4-14.6) 09/22/24 03:50
INR 1.00 09/22/24 03:50
APTT Cancelled 09/23/24 10:37
Sodium 142 mmol/L (135-145) 10/03/24 04:21
Potassium 3.9 mmol/L (3.5-5.1) 10/03/24 04:21
BUN 32 mg/dl (7-17) H 10/03/24 04:21
Creatinine 0.7 mg/dL (0.6-1.0) 10/03/24 04:21
Glucose 166 mg/dl (70-99) H 10/03/24 04:21
Vital Signs and I&O:
Vital Signs
Temp Pulse Resp BP Pulse Ox
97.9 F 91 23 147/92 93
10/03/24 11:11 10/03/24 10:00 10/03/24 10:00 10/03/24 10:00 10/03/24 10:33
Vital Signs
Temp Pulse Resp BP Pulse Ox
97.9 F 91 23 147/92 93
10/03/24 11:11 10/03/24 10:00 10/03/24 10:00 10/03/24 10:00 10/03/24 10:33
Intake & Output
10/01/24 10/02/24 10/03/24 10/04/24
06:59 06:59 06:59 06:59
Intake Total 1335.8 / 1335.8 1138 / 1174 820 / 820
Balance 1335.8 / 1335.8 1138 / 1174 820 / 820
Physical Exam
Physical Exam
General:frail women
Heart:regular and distant
Lungs:Coarse and decreased at the bases
Extremities: No clubbing, cyanosis or edema bilaterally.
Neuro: Grossly nonfocal, awake
[2024-10-03 12:45] LABS: Glucose - Point of Care 169 mg/dl (70-99)
--- NOTE | 2024-10-03 13:24 | PN.CDI ---
CDI
- -
CDI:
Physician Documentation Request
Admit Date: 09/21/24 16:32
Dear Doctor Jamie
Documentation includes the diagnosis of malnutrition in hospitalist progress notes.
To ensure the quality of the medical record, based on the above information and the recognized standards for malnutrition , could you please verify in your progress notes which of the following responses best reflects the patient's nutritional
status:
(Specify severity) Malnutrition is/was present and is a clinical diagnosis (please provide additional support in the medical record))
Malnutrition ruled out
Other
[place] Criteria ([facility] Hospitalist 2017)
2 or more criteria must be present for either
non severe or severe malnutrition
Note that the criteria differs related to the
presence of an acute or chronic illness
Acute Illness Chronic Illness
Energy Intake Non Severe: <75% for >7 days Non Severe: <75% for >1 month
Severe: <50% for >5 days Severe: <75% for >1 month
Weight Loss Non Severe: 1-2% over 1 week Non Severe: 5% over 1 month
5% over 1 month 7.5% over 3 months
7.5% over 3 months 10% over 6 months
1 year N/A 20% over 1 year
Severe: >2% over 1 week Severe: >5% over 1 month
>5% over 1 month >7.5% over 3 months
>7.5% over 3 months >10% over 6 months
1 year N/A >20% over 1 year
Body Fat Non Severe: Mild Decrease Non Severe: Mild Loss
Severe: Moderate Decrease Severe: Severe Loss
Muscle Mass Non Severe: Mild Decrease Non Severe: Mild Loss
Severe: Moderate Decrease Severe: Severe Loss
Fluid Accumulation Non Severe: Mild Accumulation Non Severe: Mild Accumulation
Severe: Moderate to severe Severe: Moderate to severe
accumulation accumulation
Reduced Fx Artist Strength Non Severe: N/A Non Severe: N/A
Severe: Measurably reduced Severe: Measurably reduced
Use of terms such as suspected, likely, concern for, or probable (associated with a specific diagnosis that is being evaluated, monitored, or treated as if it exists) are acceptable and can be coded in the inpatient setting, when documented at the
time of discharge.
Thank you,
Marisela Inman RN, BSN
CDI Specialist
tiger text
Please use your independent medical judgment in providing your response.
--- NOTE | 2024-10-03 14:17 | CM ---
assistant store manager operations reviewed patient's chart and patient with complex medical admission, including intubation and extubation. Per physical therapy recommendation is for acute rehab, referral sent to [facility] and physiatry consult placed.
Plan; Acute rehab at [facility], waiting on physiatry evaluation.
--- NOTE | 2024-10-03 16:13 | W.PN.HOSP.TC ---
Today's Communication/Plan
-
Monitor oral intake.
Continue TPN.
Continue physical therapy.
Physiatry consultation
Assessment / Plan
Assessment / Plan
Ms. Daniel is a 79-year-old female with a medical history of hypertension and bipolar disorder who presented with shortness of breath. She tested positive for influenza 2 days prior to arrival and was started on oseltamivir as an outpatient.
However she had progressively worsening dyspnea and productive cough for 24 hours prior to presenting to the emergency department. In the ED, she was found to be hypoxic with her pulse ox in the mid 80s on room air. She was started on supplemental
oxygen via nasal cannula at that time with improvement in her respiratory status and oxygenation. She was also given nebulizer treatments. She was admitted for further evaluation and management of acute respiratory failure with hypoxia in the
setting of influenza infection.
Impression:
Acute hypoxic respiratory failure.
� Intubated 09/21/2024
Sepsis secondary to influenza A/bacterial�community-acquired pneumonia, also suspected aspiration pneumonia given large hiatal hernia with intrathoracic stomach
Shock, multifactorial due to sepsis as well as cardiogenic.
Acute heart failure reduced EF secondary to stress�Takotsubo cardiomyopathy.
Type II NJ/demand ischemia with troponin peak 14
Polymorphic ventricular tachycardia on monitoring 09/23/24
Prolonged QTc resolved
Episode of atrial fibrillation with PICC line placement
Acute kidney injury.
Hypovolemic hyponatremia
Hypernatremia while on diuresis
Acute anemia with no evidence of blood loss, suspect dilutional/acute illness.
Elevated transaminases
Prediabetes
Hypothyroidism on replacement
Bipolar disorder.
Plan
#Acute hypoxic respiratory failure
-multifactorial in the settings of influenza A/bacterial pneumonia as well as cardiogenic shock.
-Intubated on 09/21/24 and was ultimately extubated on 09/25/2024
-Respiratory culture positive for Streptococcus and nasal swab positive for influenza
-Unable to complete course of Tamiflu given lack of enteral access;
s/p IV antibiotics with Unasyn, CTX
-Received course of steroids however discontinued as associated with increased mortality during flu
-Follow-up chest x-ray on 09/27 with possible small right loculated pleural effusion.
-Currently with stable respiratory status with minimal O2 requirement, nightly BiPAP
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
-SpO2 goal >90%
#Epistaxis
-Likely from nasal dryness with supplemental O2
-Hemoglobin stable on CBC
-Will start nasal spray for moisturizing
-Continue to trend CBC, humidify O2
#Toxic metabolic encephalopathy protracted secondary to acute illness
#Reported bipolar disorder of unknown significance.
#Acute delirium resolving
#Aspiration risk
-Off Precedex; holding preadmission psychiatric regimen
-Currently on TPN due to aspiration risk from encephalopathy and intubation
-Oral diet pur�ed, speech following
-Wean TPN as oral intake improves
#Dehydration with hypernatremia
-Developed while on IV diuresis; s/p replacement with D5W
-Sodium initially in the 150s, down to 147 149 now
-Monitor oral intake, encourage free water intake as swallowing improved
-Consider further hypotonic fluids as needed
-Follow BMP, normalized as of 09/30
#Acute HFrEF with cardiogenic shock
#Nonischemic cardiomyopathy
#Takotsubo cardiomyopathy
-Had type II NJ with troponin peak of 14; ECG with diffuse ST changes in anterolateral leads
-Urgent right and left heart cath with LVEF 30 to 35%, patent coronaries, Takotsubo morphology, reduced cardiac index
-Status post milrinone infusion which was discontinued due to cardiac ectopy; s/p subsequent amiodarone drip
-Has been off loop diuretic/Bumex
-Continue to titrate GDMT with introduction of Coreg, lisinopril, Farxiga, Aldactone. Currently not on loop diuretics
Follow-up ECG 10/02 with slightly improved LVEF
#NSVT
-Secondary to reduced LVEF and cardiomyopathy
-Status post course of amiodarone
-Continue to monitor on telemetry
-Electrolyte goals K >4, mag >2
Episode of atrial fibrillation related to PICC line position on 04/30 which has been addressed.
PICC line position adjusted
Converted and remains in sinus rhythm.
Monitor.
No anticoagulation indicated.
#Acute kidney injury
-Presumed prerenal in the context of cardiogenic shock
-Renal function normalized with normalization of volume status
-Home HCTZ was held
-Has since resolved
-Successful TOV on 09/28
#Acute normocytic anemia
-Noted fluctuation of hemoglobin 13�11.7 likely reflects volume state. No evidence for acute bleeding
-Urgent upper endoscopy with a large hiatal hernia and no evidence of bleeding
-Follow-up hemoglobin closely.
-Continue PPI prophylactic dose
#Large hiatal hernia with intrathoracic stomach.
-Remains with high aspiration risk.
-Continue PPI.
#Shock liver
-elevated transaminases suspect in the settings of hemodynamic instability.
-No gastrointestinal complaints upon presentation
-Follow LFTs
#Hypothyroidism
-Chronic, unclear etiology, home meds include levothyroxine 25 mcg
-No signs of thyroid dysfunction at this time
#Prediabetes
-Continue basal bolus protocol with serial Accu-Cheks
#Bipolar disorder.
-Continue preadmission regimen include Vraylar, clonazepam, lamotrigine, zaleplon.
-Monitor mental status and evaluate for any introduction.
#Malnutrition
-Initiated on pur�ed diet 09/28 with aspiration precautions
-Given interruption of oral intake and absence of nutrition over the last 7 days, will initiate short course of TPN
-Hopefully can wean TPN over upcoming days as swallowing capacity improves
DVT prophylaxis: Heparin
Diet: Pur�ed, TPN
CODE STATUS: Full code
Disposition: Downgrade to telemetry
Anticipated Discharge: 24 - 48 hours
Subjective/Interval History
-
Date of Service: October 03, 2024
Objective Data
-
Labs:
Laboratory Results
10/03/24
04:21
WBC 11.0 H
Hgb 10.6 L
Hct 32.8 L
Plt Count 132
Sodium 142
Potassium 3.9
Chloride 110 H
Carbon Dioxide 29
BUN 32 H
Creatinine 0.7
Glucose 166 H
Calcium 9.1
Vital Signs:
Vital Signs
Temp Pulse Resp BP Pulse Ox
97.9 F 80 22 123/69 95
10/03/24 15:30 10/03/24 14:00 10/03/24 14:00 10/03/24 14:00 10/03/24 14:00
I&O
10/02/24 10/03/24 10/04/24
06:59 06:59 06:59
Intake Total 1138 / 1174 820 / 820 100 / 100
Balance 1138 / 1174 820 / 820 100 / 100
Physical Exam
-
General: Well Developed, Well Nourished, No Apparent Distress, Appears Chronically Ill and Other (Frail and weak-appearing)
HEENT: Normocephalic, Atraumatic and Moist Mucous Membranes
Respiratory: Clear to Auscultation and Non Labored Respirations
Cardiac: Regular Rhythm and S1/S2; Negative Murmur, Rub, JVD or Gallop
GI: Soft, Nontender, Nondistended and Normal Bowel Sounds
Musculoskeletal: No Clubbing, No Cyanosis and No Edema
Skin: Warm, Dry and Normal Turgor; Negative Rash
Neuro: AO x 3 and Nonfocal/Grossly Intact
Psych: Calm
[2024-10-03] MEDS: LOVENOX 40 MG SC (17:53)
[2024-10-03 18:16] LABS: Glucose - Point of Care 153 mg/dl (70-99)
[2024-10-03] MEDS: MELATONIN 10 MG PO (19:52)
[2024-10-03 20:38] LABS: Glucose - Point of Care 201 mg/dl (70-99)
[2024-10-03] MEDS: Parenteral Nutrition, Central 860 IV (21:03)
[2024-10-03] MEDS: MAGIC OR MIRACLE MOUTHWASH PO (21:30)
--- NOTE | 2024-10-03 23:51 | PTCARENOTE ---
Pt received from previous RN. Pt awake and engaging in conversation, voice is very soft. at bedside. Pt ate 60% of dinner, calorie count maintained. oral care completed. Pt did refuse magic mouthwash tonight, Pt educated on use of
medication. TPN hung per orders via right midline. Assessment as documented. call light in reach.
[2024-10-04] VITALS (14 sets, daily range): BP systolic 109–179; BP diastolic 59–100; BMI 30.6
[2024-10-04 06:03] LABS: NT-proBNP 4240 pg/ml
[2024-10-04 06:43] LABS: % Basophils 0.2 % (0-2); % Eosinophils 2.1 % (0-6); % Immature Granulocytes 0.3 % (0-0.5); % Lymphocytes 14.4 % (20.5-51.1); % Monocytes 9.5 % (1.7-9.3); % Neutrophils 73.5 % (42.2-75.2); Absolute Eosinophils 0.2 10^3/uL (0-0.7); Absolute Lymphocytes 1.3 10^3/uL (1.2-3.4); Absolute Monocytes 0.9 10^3/uL (0.1-0.6); Absolute Neutrophils 6.7 10^3/uL (1.4-6.5); Hematocrit 31.7 % (37.0-47.0); Hemoglobin 10.5 g/dL (12.0-16.0); Mean Corp Hgb Conc. 33.1 g/dL (33.0-37.0); Mean Corpuscular Volume 93.5 fL (81.0-99.0); Mean Platelet Volume 12.6 fL (7.4-10.4); Nucleated Red Blood Cells % 0 %; Platelet Count 147 10^3/uL (130-400); Red Blood Cell Count 3.39 10^6/uL (4.20-5.40); Red Cell Dist. Width 14.3 % (11.5-14.5); White Blood Cell Count 9.2 10^3/uL (4.8-10.8)
[2024-10-04] MEDS: SYNTHROID 25 MCG PO (06:45)
[2024-10-04 07:32] LABS: Glucose - Point of Care 185 mg/dl (70-99)
[2024-10-04] MEDS: NOVOLOG FLEXPEN-MODERATE RESISTANCE 1 UNITS SC ×3 (08:40→17:27)
[2024-10-04] MEDS: VITAMIN D3 (cholecalciferol) 25 MCG PO (08:42)
[2024-10-04] MEDS: CRESTOR 20 MG PO (08:43)
[2024-10-04] MEDS: LOW STRENGTH ASPIRIN 81 MG PO (08:43)
[2024-10-04] MEDS: COREG 25 MG PO ×2 (08:44→19:48)
[2024-10-04] MEDS: THERAGRAN 1 TABLET PO (08:45)
[2024-10-04] MEDS: FARXIGA 10 MG PO (08:45)
[2024-10-04] MEDS: ZESTRIL 10 MG PO ×2 (08:46→19:48)
[2024-10-04] MEDS: MAGIC OR MIRACLE MOUTHWASH 10 ML PO ×4 (08:47→22:17)
[2024-10-04] MEDS: ALDACTONE 12.5 MG PO (08:47)
--- NOTE | 2024-10-04 09:13 | PN.DE.MGMTRT ---
Insulin Management
- -
10/04/2024: Diabetes Management Follow up
79 year old female admitted with SOB-->Acute respiratory failure with hypoxia 2/2 Influenza A infection. PMH: HTN, Bipolar d/o. No hx of DM, A1C on admission was 6.0%-->pre-diabetes, Cr 0.8, eGFR >60.
Pt was noted for Hyperglycemia requiring initiation of glycemic protocol. She was transitioned off insulin infusion to low corrective insulin on 09/23.
Patient is awake alert, OOB in chair. Taking po food, now on calorie count, consumed 60% of dinner.
MITALI resolved, Cr 1.4-->1.1-->0.7, eGFR >60 today.
TPN per family request due to poor oral intake ordered pureed diet, intake improving.
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
Will cont moderate corrective insulin AC.
Will cont to follow.
Discussed with nurse.
09/24 Pt's denies any knowledge of being treated for DM. Review of chart shows no diabetes medicines prior to admission.
Diabetes History
- -
Pre-Admission Diabetes Regimen
Lab Results
Hemoglobin A1c Cancelled 09/21/24 23:19
Insulin Pump Settings
IP Diabetes Regimen
10/03/24 10/03/24 10/03/24
12:44 18:14 20:37
POC Glucose 169 H 153 H 201 H
10/04/24
07:31
POC Glucose 185 H
Meal type: Lunch
Meal type: Breakfast
Amount consumed: 5%
Amount consumed: 25%
Patient Education
--- NOTE | 2024-10-04 11:00 | PTCARENOTE ---
Pt AAOx3 requested her hair be washed. Hair washed. Pt in chair very heavy assist of 2. Pt could not hold herself up or stand up straight, incont of bladder. Pt request a bedside commode, this nurse feels it not safe due to her lack of strength and
for her safety . Pt understood .
[2024-10-04 12:17] LABS: Glucose - Point of Care 188 mg/dl (70-99)
[2024-10-04] MEDS: MIRALAX 17 GRAMS PO (12:57)
--- NOTE | 2024-10-04 14:26 | W.PN.HOSP.TC ---
Today's Communication/Plan
-
Advance diet as tolerates.
Continue calorie count
TPN
Continue current cardiovascular regimen
Physiatry/physical therapy assessment with plan for rehab
Start bowel regimen with MiraLAX
Assessment / Plan
Assessment / Plan
Ms. Daniel is a 79-year-old female with a medical history of hypertension and bipolar disorder who presented with shortness of breath. She tested positive for influenza 2 days prior to arrival and was started on oseltamivir as an outpatient.
However she had progressively worsening dyspnea and productive cough for 24 hours prior to presenting to the emergency department. In the ED, she was found to be hypoxic with her pulse ox in the mid 80s on room air. She was started on supplemental
oxygen via nasal cannula at that time with improvement in her respiratory status and oxygenation. She was also given nebulizer treatments. She was admitted for further evaluation and management of acute respiratory failure with hypoxia in the
setting of influenza infection.
Impression:
Acute hypoxic respiratory failure.
� Intubated 09/21/2024
Sepsis secondary to influenza A/bacterial�community-acquired pneumonia, also suspected aspiration pneumonia given large hiatal hernia with intrathoracic stomach
Shock, multifactorial due to sepsis as well as cardiogenic.
Acute heart failure reduced EF secondary to stress�Takotsubo cardiomyopathy.
Type II DC/demand ischemia with troponin peak 14
Polymorphic ventricular tachycardia on monitoring 09/23/24
Prolonged QTc resolved
Episode of atrial fibrillation with PICC line placement
Acute kidney injury.
Hypovolemic hyponatremia
Hypernatremia while on diuresis
Acute anemia with no evidence of blood loss, suspect dilutional/acute illness.
Elevated transaminases
Prediabetes
Hypothyroidism on replacement
Bipolar disorder.
Plan
#Acute hypoxic respiratory failure
-multifactorial in the settings of influenza A/bacterial pneumonia as well as cardiogenic shock.
-Intubated on 09/21/24 and was ultimately extubated on 09/25/2024
-Respiratory culture positive for Streptococcus and nasal swab positive for influenza
-Unable to complete course of Tamiflu given lack of enteral access;
s/p IV antibiotics with Unasyn, CTX
-Received course of steroids however discontinued as associated with increased mortality during flu
-Follow-up chest x-ray on 09/27 with possible small right loculated pleural effusion.
-Currently with stable respiratory status with minimal O2 requirement, nightly BiPAP
-Continue aspiration cautions and [employer], PRN nebs
-SpO2 goal >90%
#Epistaxis
-Likely from nasal dryness with supplemental O2
-Hemoglobin stable on CBC
-Will start nasal spray for moisturizing
-Continue to trend CBC, humidify O2
#Toxic metabolic encephalopathy protracted secondary to acute illness
#Reported bipolar disorder of unknown significance.
#Acute delirium resolving
#Aspiration risk
-Off Precedex; holding preadmission psychiatric regimen
-Currently on TPN due to aspiration risk from encephalopathy and intubation
-Oral diet pur�ed, speech following
-Wean TPN as oral intake improves
#Dehydration with hypernatremia
-Developed while on IV diuresis; s/p replacement with D5W
-Sodium initially in the 150s, down to 147 149 now
-Monitor oral intake, encourage free water intake as swallowing improved
-Consider further hypotonic fluids as needed
-Follow BMP, normalized as of 09/30
Severe malnutrition secondary to acute illness
Remains on TPN per
Continue calorie count
Diet has been advanced with aspiration precautions
#Acute HFrEF with cardiogenic shock
#Nonischemic cardiomyopathy
#Takotsubo cardiomyopathy
-Had type II DC with troponin peak of 14; ECG with diffuse ST changes in anterolateral leads
-Urgent right and left heart cath with LVEF 30 to 35%, patent coronaries, Takotsubo morphology, reduced cardiac index
-Status post milrinone infusion which was discontinued due to cardiac ectopy; s/p subsequent amiodarone drip
-Has been off loop diuretic/Bumex
-Continue to titrate GDMT with introduction of Coreg, lisinopril, Farxiga, Aldactone. Currently not on loop diuretics
Follow-up ECG 10/02 with slightly improved LVEF
#NSVT
-Secondary to reduced LVEF and cardiomyopathy
-Status post course of amiodarone
-Continue to monitor on telemetry
-Electrolyte goals K >4, mag >2
Episode of atrial fibrillation related to PICC line position on 04/30 which has been addressed.
PICC line position adjusted
Converted and remains in sinus rhythm.
Monitor.
No anticoagulation indicated.
#Acute kidney injury
-Presumed prerenal in the context of cardiogenic shock
-Renal function normalized with normalization of volume status
-Home HCTZ was held
-Has since resolved
-Successful TOV on 09/28
#Acute normocytic anemia
-Noted fluctuation of hemoglobin 13�11.7 likely reflects volume state. No evidence for acute bleeding
-Urgent upper endoscopy with a large hiatal hernia and no evidence of bleeding
-Follow-up hemoglobin closely.
-Continue PPI prophylactic dose
#Large hiatal hernia with intrathoracic stomach.
-Remains with high aspiration risk.
-Continue PPI.
#Shock liver
-elevated transaminases suspect in the settings of hemodynamic instability.
-No gastrointestinal complaints upon presentation
-Follow LFTs
#Hypothyroidism
-Chronic, unclear etiology, home meds include levothyroxine 25 mcg
-No signs of thyroid dysfunction at this time
#Prediabetes
-Continue basal bolus protocol with serial Accu-Cheks
#Bipolar disorder.
-Continue preadmission regimen include Vraylar, clonazepam, lamotrigine, zaleplon.
-Monitor mental status and evaluate for any introduction.
DVT prophylaxis: Heparin
Diet: Pur�ed, TPN
CODE STATUS: Full code
Disposition: Downgrade to telemetry
Anticipated Discharge: 24 - 48 hours
Subjective/Interval History
-
Date of Service: October 04, 2024
Objective Data
-
Labs:
Laboratory Results
10/04/24 10/04/24
04:53 06:24
WBC Cancelled 9.2
Hgb Cancelled 10.5 L
Hct Cancelled 31.7 L
Plt Count Cancelled 147
Vital Signs:
Vital Signs
Temp Pulse Resp BP Pulse Ox
97.8 F 75 22 112/59 96
10/04/24 07:46 10/04/24 12:00 10/04/24 12:00 10/04/24 12:00 10/04/24 09:06
I&O
10/03/24 10/04/24 10/05/24
06:59 06:59 06:59
Intake Total 820 / 820 1064 / 1064
Balance 820 / 820 1064 / 1064
Physical Exam
-
General: Well Developed, Well Nourished, No Apparent Distress, Appears Chronically Ill and Other (Frail and weak-appearing)
HEENT: Normocephalic, Atraumatic and Moist Mucous Membranes
Respiratory: Clear to Auscultation and Non Labored Respirations
Cardiac: Regular Rhythm and S1/S2; Negative Murmur, Rub, JVD or Gallop
GI: Soft, Nontender, Nondistended and Normal Bowel Sounds
Musculoskeletal: No Clubbing, No Cyanosis and No Edema
Skin: Warm, Dry and Normal Turgor; Negative Rash
Neuro: AO x 3 and Nonfocal/Grossly Intact
Psych: Calm
--- NOTE | 2024-10-04 14:38 | PTCARENOTE ---
Pt sat OOB for 6.5 hrs, pt wants to go back to bed. Very heavy assist of 2. Pt drowsy. Poor appetite for lunch
[2024-10-04] MEDS: DULCOLAX 10 MG RECTAL (14:44)
--- NOTE | 2024-10-04 16:00 | W.PN.CARDCBS ---
Today's Communication / Plan
-
She continues to slowly improve.
Await rehab placement.
Fluid status has been difficult to assess. proBNP is elevated at 4240. Will give 1 dose of IV Lasix 20 mg 10/04/2024 and start 20 mg of oral Lasix daily and follow.
Follow labs.
Discussed with family at the bedside
Impression / Plan
-
.
Impression:
Takotsubo CM, peak trop 14
Multifactorial shock with MSOF
s/p NSVT
VDRF/influenza A, probable bacterial pneumonia acute
s/p catheter related AFib, no recurrence
Acute renal failure
Acute liver failure with transaminitis
Acute normocytic anemia
Hypothyroidism
Bipolar disorder on psychiatric meds as outpt
Hiatal hernia
Hyponatremia
Cath September 23 2024:
PCWP (a/v/x, mmHg): 37/39/35
Rudy
CI (L/min/m2): 2.03
Thermodilution
CI (L/min/m2):1.2
LVG: hyperdynamic ventricular basal function and akinesis of the mid ventricle to apex with ballooning of the LV apex EF 30-35%. There is no mitral regurgitation.
Left Main: Normal size, bifurcating vessel. There is no coronary artery disease.
LAD: Normal size vessel giving rise to 1 significant diagonal. There is no coronary artery disease.
Circumflex: Normal size, nondominant vessel that is essentially a single obtuse marginal. There is severe tortuosity but no coronary artery disease.
RCA: Large size, dominant vessel with a significant posterolateral arcade. There is no coronary artery disease. The distal RPDA severely tortuous.
Echo September 23 2024: Normal left ventricular size. Mild concentric left ventricular hypertrophy. Akinesis of the mid to apical inferoseptal, inferolateral and apical quintero.
LV ejection fraction is 40-45% by Allen's method of discs which may be overestimated. Normal right ventricular size and function. Mild to moderate tricuspid regurgitation.
Estimated pulmonary artery pressure of 15-20 mmHg assuming a right atrial pressure of 3 mmHg. Pulmonic valve is grossly normal but poorly visualized. Normal pericardium without effusion.
The IVC is dilated and does not collapse.
Echo 10/02/24 : Normal LV size and LVEF 54% with apical segmental wall motion abnl.
Plan:
She continues to be weak and deconditioned. She continues on TPN. She is starting to take oral intake. Rehab [facility].
Initial presentation with multifactorial shock with multisystem organ failure in the setting of influenza A
She is sitting in the chair today. Family at the bedside.
She has Takotsubo syndrome with improved LVEF (40 to 45% now 54%) and now now HTN noted. Medications have been uptitrated. BP fair. HR improved.
Continue GDMT uptitrated as able and tolerates
Farxiga added 10/03/2024
Follow BP
Fluid status has been difficult to assess. proBNP is elevated at 4240. Will give 1 dose of IV Lasix 20 mg and start 20 mg of oral Lasix daily and follow.
Follow BMP. Sodium improved.
Follow i/o's and daily weights
EKG abnl but stable.Tele stable.
Mentation continues to improve. Increase activity as tolerates.
Large hiatal hernia defer to primary service.
Thus far no recurrence of atrial fibrillation which may have been PICC line related
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
Subjective
Date of Service: October 04, 2024
Total Time Spent with Patient (in minutes): She denies chest pain and palpitations.
Objective
Labs:
10/04/24 06:24
10/03/24 04:21
Labs
Hgb 10.5 g/dL (12.0-16.0) L 10/04/24 06:24
Hct 31.7 % (37.0-47.0) L 10/04/24 06:24
Plt Count 147 10^3/uL (130-400) 10/04/24 06:24
PT 13.5 Sec (11.4-14.6) 09/22/24 03:50
INR 1.00 09/22/24 03:50
APTT Cancelled 09/23/24 10:37
Sodium 142 mmol/L (135-145) 10/03/24 04:21
Potassium 3.9 mmol/L (3.5-5.1) 10/03/24 04:21
BUN 32 mg/dl (7-17) H 10/03/24 04:21
Creatinine 0.7 mg/dL (0.6-1.0) 10/03/24 04:21
Glucose 166 mg/dl (70-99) H 10/03/24 04:21
Vital Signs and I&O:
Vital Signs
Temp Pulse Resp BP Pulse Ox
97.8 F 84 17 138/74 96
10/04/24 15:35 10/04/24 14:00 10/04/24 14:00 10/04/24 14:00 10/04/24 09:06
Vital Signs
Temp Pulse Resp BP Pulse Ox
97.8 F 84 17 138/74 96
10/04/24 15:35 10/04/24 14:00 10/04/24 14:00 10/04/24 14:00 10/04/24 09:06
Intake & Output
10/02/24 10/03/24 10/04/24 10/05/24
06:59 06:59 06:59 06:59
Intake Total 1138 / 1174 820 / 820 1064 / 1064
Balance 1138 / 1174 820 / 820 1064 / 1064
Physical Exam
Physical Exam
General: Frail woman
Heart: Distant heart sounds regular
Lungs: Decreased breath sounds at the bases with crackles
Extremities: No clubbing, cyanosis and trace edema bilaterally.
[2024-10-04] MEDS: LOVENOX 40 MG SC (17:25)
[2024-10-04] MEDS: LASIX 20 MG IV (17:26)
[2024-10-04 17:29] LABS: Glucose - Point of Care 173 mg/dl (70-99)
[2024-10-04] MEDS: ROBITUSSIN DM 10 ML PO (19:47)
[2024-10-04] MEDS: Parenteral Nutrition, Central 860 IV (21:18)
--- NOTE | 2024-10-04 21:43 | PTCARENOTE ---
Assumed care of Pt from previous RN. Pt AAOx3, resting in bed with at bedside. NSR on monitor. sats 96% on RA. HS oral care and mouth moisturizer applied by this RN. Pt inc of small BM and saturated with urine. Pt cleaned and barrier cream
applied. Pills crushed in apple sauce. Assessment as documented. Call light in reach.
[2024-10-04 21:50] LABS: Glucose - Point of Care 169 mg/dl (70-99)
[2024-10-04] MEDS: MELATONIN 10 MG PO (22:17)
[2024-10-05] VITALS (18 sets, daily range): BP systolic 98–152; BP diastolic 59–105; PULSE 2–89
[2024-10-05 04:22] LABS: Hematocrit 31.5 % (37.0-47.0); Hemoglobin 10.5 g/dL (12.0-16.0); Mean Corp Hgb Conc. 33.3 g/dL (33.0-37.0); Mean Corpuscular Hgb 31.1 pg (27.0-31.0); Mean Corpuscular Volume 93.2 fL (81.0-99.0); Mean Platelet Volume 12.7 fL (7.4-10.4); Platelet Count 159 10^3/uL (130-400); Red Blood Cell Count 3.38 10^6/uL (4.20-5.40); Red Cell Dist. Width 14.2 % (11.5-14.5); White Blood Cell Count 7.3 10^3/uL (4.8-10.8)
[2024-10-05 04:46] LABS: Blood Urea Nitrogen 34 mg/dl (7-17); Calcium 9.1 mg/dl (8.4-10.2); Carbon Dioxide 27 mmol/L (22-30); Chloride 111 mmol/L (98-107); Estimated Creatinine Clearance 60 ml/min; Glucose 159 mg/dl (70-99); Potassium 4.2 mmol/L (3.5-5.1); Sodium 142 mmol/L (135-145); eGFR > 60.00
[2024-10-05] MEDS: SYNTHROID 25 MCG PO (06:11)
[2024-10-05] MEDS: LASIX 20 MG IV (07:28)
[2024-10-05] MEDS: MIRALAX 17 GRAMS PO (07:28)
[2024-10-05] MEDS: FARXIGA 10 MG PO (07:29)
[2024-10-05] MEDS: CRESTOR 20 MG PO (07:29)
[2024-10-05] MEDS: LOW STRENGTH ASPIRIN 81 MG PO (07:29)
[2024-10-05] MEDS: ALDACTONE 12.5 MG PO (07:29)
[2024-10-05] MEDS: VITAMIN D3 (cholecalciferol) 25 MCG PO (07:29)
[2024-10-05] MEDS: THERAGRAN 1 TABLET PO (07:29)
[2024-10-05] MEDS: ZESTRIL 10 MG PO ×2 (07:30→21:04)
[2024-10-05] MEDS: COREG 25 MG PO ×2 (07:30→21:04)
[2024-10-05] MEDS: MAGIC OR MIRACLE MOUTHWASH 10 ML PO (07:30)
--- NOTE | 2024-10-05 07:40 | PTCARENOTE ---
on walking rounds pt AAOx3 pleasant watching TV given a sip of cold water
--- NOTE | 2024-10-05 07:55 | PN.DE.MGMTRT ---
Insulin Management
- -
10/05/2024: Diabetes Management Follow up
79 year old female admitted with SOB-->Acute respiratory failure with hypoxia 2/2 Influenza A infection. PMH: HTN, Bipolar d/o. No hx of DM, A1C on admission was 6.0%-->pre-diabetes, Cr 0.8, eGFR >60.
Pt was noted for Hyperglycemia requiring initiation of glycemic protocol. She was transitioned off insulin infusion to low corrective insulin on 09/23.
Patient is awake alert, OOB in chair. Remains on TPN per family request, though now tolerating po and food intake is improving.
Continued on calorie count, consumed 60% of dinner.
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
Will cont Fraxiga 10mg daily and moderate corrective insulin AC. Will cont to follow.
Discussed with nurse.
09/24 Pt's denies any knowledge of being treated for DM. Review of chart shows no diabetes medicines prior to admission.
Diabetes History
- -
Type of Diabetes: 2 requiring insulin
Pre-Admission Diabetes Regimen
10/05/24
04:00
Creatinine 0.8
Lab Results
Hemoglobin A1c Cancelled 09/21/24 23:19
Insulin Pump Settings
IP Diabetes Regimen
10/04/24 10/04/24 10/04/24
12:05 17:17 21:49
Glucose
POC Glucose 188 H 173 H 169 H
10/05/24
04:00
Glucose 159 H
POC Glucose
Patient Education
[2024-10-05 08:36] LABS: Glucose - Point of Care 170 mg/dl (70-99)
[2024-10-05] MEDS: NOVOLOG FLEXPEN-MODERATE RESISTANCE 1 UNITS SC ×3 (09:14→16:58)
[2024-10-05 09:34] LABS: Glucose - Point of Care 196 mg/dl (70-99)
--- NOTE | 2024-10-05 09:46 | PTCARENOTE ---
Pt was OOB to chair being seen by speech, bacame dizzy and diaphoretic shaking legs . Bp 99 back to bed heavy assist of 3 . bp now 129 DR Ayala TT no new orders.
--- NOTE | 2024-10-05 10:34 | W.PN.CARDCBS ---
Today's Communication / Plan
-
Transition to PO lasix and monitor volume status
Impression / Plan
-
Impression:
Takotsubo CM, peak trop 14
Multifactorial shock with MSOF
s/p NSVT
VDRF/influenza A, probable bacterial pneumonia acute
s/p catheter related AFib, no recurrence
Acute renal failure
Acute liver failure with transaminitis
Acute normocytic anemia
Hypothyroidism
Bipolar disorder on psychiatric meds as outpt
Hiatal hernia
Hyponatremia
Cath September 23 2024:
PCWP (a/v/x, mmHg): 37/39/35
Rudy
CI (L/min/m2): 2.03
Thermodilution
CI (L/min/m2):1.2
LVG: hyperdynamic ventricular basal function and akinesis of the mid ventricle to apex with ballooning of the LV apex EF 30-35%. There is no mitral regurgitation.
Left Main: Normal size, bifurcating vessel. There is no coronary artery disease.
LAD: Normal size vessel giving rise to 1 significant diagonal. There is no coronary artery disease.
Circumflex: Normal size, nondominant vessel that is essentially a single obtuse marginal. There is severe tortuosity but no coronary artery disease.
RCA: Large size, dominant vessel with a significant posterolateral arcade. There is no coronary artery disease. The distal RPDA severely tortuous.
Echo September 23 2024: Normal left ventricular size. Mild concentric left ventricular hypertrophy. Akinesis of the mid to apical inferoseptal, inferolateral and apical quintero.
LV ejection fraction is 40-45% by Allen's method of discs which may be overestimated. Normal right ventricular size and function. Mild to moderate tricuspid regurgitation.
Estimated pulmonary artery pressure of 15-20 mmHg assuming a right atrial pressure of 3 mmHg. Pulmonic valve is grossly normal but poorly visualized. Normal pericardium without effusion.
The IVC is dilated and does not collapse.
Echo 10/02/24 : Normal LV size and LVEF 54% with apical segmental wall motion abnl.
Plan:
Initial presentation with multifactorial shock with multisystem organ failure in the setting of influenza A
Continues to be weak and deconditioned and will need rehab
Takotsubo syndrome with improved LVEF (40 to 45% now 54%) Medications have been uptitrated. BP and HR are at goal.
Continue GDMT: Coreg, Lisinopril, Spironolactone, Farxiga
Fluid status has been difficult to assess. proBNP was elevated at 4240. Transition to PO 20mg daily lasix.
Thus far no recurrence of atrial fibrillation which may have been PICC line related
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
Subjective
Date of Service: October 05, 2024
NOAE. Resting comfortably in bed in the IMU.
Objective
Labs:
10/05/24 04:00
10/05/24 04:00
Labs
Hgb 10.5 g/dL (12.0-16.0) L 10/05/24 04:00
Hct 31.5 % (37.0-47.0) L 10/05/24 04:00
Plt Count 159 10^3/uL (130-400) 10/05/24 04:00
PT 13.5 Sec (11.4-14.6) 09/22/24 03:50
INR 1.00 09/22/24 03:50
APTT Cancelled 09/23/24 10:37
Sodium 142 mmol/L (135-145) 10/05/24 04:00
Potassium 4.2 mmol/L (3.5-5.1) 10/05/24 04:00
BUN 34 mg/dl (7-17) H 10/05/24 04:00
Creatinine 0.8 mg/dL (0.6-1.0) 10/05/24 04:00
Glucose 159 mg/dl (70-99) H 10/05/24 04:00
Vital Signs and I&O:
Vital Signs
Temp Pulse Resp BP Pulse Ox
99.3 F 74 25 126/73 95
10/05/24 07:17 10/05/24 09:37 10/05/24 09:37 10/05/24 09:37 10/05/24 08:00
Vital Signs
Temp Pulse Resp BP Pulse Ox
99.3 F 74 25 126/73 95
10/05/24 07:17 10/05/24 09:37 10/05/24 09:37 10/05/24 09:37 10/05/24 08:00
Intake & Output
10/03/24 10/04/24 10/05/24 10/06/24
06:59 06:59 06:59 06:59
Intake Total 820 / 820 1064 / 1064 240 / 240
Balance 820 / 820 1064 / 1064 240 / 240
Physical Exam
Physical Exam
Gen: NAD
HEENT: NC/AT, sclera anicteric
Neck: No JVD
CV: RRR, NL s1/s2
Lungs: No increase WOB on RA
Abd: S/ND
Ext: No LE edema
Skin: Warm, dry
Neuro: Non-focal
[2024-10-05] MEDS: NSS 500 IV (11:19)
--- NOTE | 2024-10-05 11:21 | PTCARENOTE ---
Pt lethargic, DR Ayala notified. Dr Ayala saw pt new orders. Daughter here very upset that i did not jeannie her that mother was not feeling well. While trying to tell her what occured she kept asking why i didn't call her then asking other
questions and not listening then became angry that she did not know what happened. Finally listened to me. Asked family not to give her anything by mouth while she is lethargic
--- NOTE | 2024-10-05 11:27 | PTCARENOTE ---
Daughter giving pt liquids states said she could
[2024-10-05 12:29] LABS: Glucose - Point of Care 172 mg/dl (70-99)
[2024-10-05] MEDS: MAGIC OR MIRACLE MOUTHWASH PO ×3 (12:50→21:32)
--- NOTE | 2024-10-05 12:59 | W.PN.HOSP.TC ---
Today's Communication/Plan
-
Noted to be hypotensive and lethargic shortly after course of physical therapy.
SBP reported at 90s standing and recovered at 112/59 laying in the bed.
Hold further Lasix
Restriction parameters on Coreg and lisinopril
Will give fluid back normal saline 500 mL bolus ordered
Continue calorie count and oral intake monitoring
Continue TPN for another 24 hours.
Assessment / Plan
Assessment / Plan
Ms. Daniel is a 79-year-old female with a medical history of hypertension and bipolar disorder who presented with shortness of breath. She tested positive for influenza 2 days prior to arrival and was started on oseltamivir as an outpatient.
However she had progressively worsening dyspnea and productive cough for 24 hours prior to presenting to the emergency department. In the ED, she was found to be hypoxic with her pulse ox in the mid 80s on room air. She was started on supplemental
oxygen via nasal cannula at that time with improvement in her respiratory status and oxygenation. She was also given nebulizer treatments. She was admitted for further evaluation and management of acute respiratory failure with hypoxia in the
setting of influenza infection.
Impression:
Acute hypoxic respiratory failure.
� Intubated 09/21/2024
Sepsis secondary to influenza A/bacterial�community-acquired pneumonia, also suspected aspiration pneumonia given large hiatal hernia with intrathoracic stomach
Shock, multifactorial due to sepsis as well as cardiogenic.
Acute heart failure reduced EF secondary to stress�Takotsubo cardiomyopathy.
Type II MO/demand ischemia with troponin peak 14
Polymorphic ventricular tachycardia on monitoring 09/23/24
Prolonged QTc resolved
Episode of atrial fibrillation with PICC line placement
Acute kidney injury.
Hypovolemic hyponatremia
Hypernatremia while on diuresis
Acute anemia with no evidence of blood loss, suspect dilutional/acute illness.
Elevated transaminases
Prediabetes
Hypothyroidism on replacement
Bipolar disorder.
Plan
#Acute hypoxic respiratory failure
-multifactorial in the settings of influenza A/bacterial pneumonia as well as cardiogenic shock.
-Intubated on 09/21/24 and was ultimately extubated on 09/25/2024
-Respiratory culture positive for Streptococcus and nasal swab positive for influenza
-Unable to complete course of Tamiflu given lack of enteral access;
s/p IV antibiotics with Unasyn, CTX
-Received course of steroids however discontinued as associated with increased mortality during flu
-Follow-up chest x-ray on 09/27 with possible small right loculated pleural effusion.
-Currently with stable respiratory status with minimal O2 requirement, nightly BiPAP
-Continue aspiration cautions and [employer] SU[employer], PRN nebs
-SpO2 goal >90%
#Epistaxis
-Likely from nasal dryness with supplemental O2
-Hemoglobin stable on CBC
-Will start nasal spray for moisturizing
-Continue to trend CBC, humidify O2
#Toxic metabolic encephalopathy protracted secondary to acute illness
#Reported bipolar disorder of unknown significance.
#Acute delirium resolving
#Aspiration risk
-Off Precedex; holding preadmission psychiatric regimen
-Currently on TPN due to aspiration risk from encephalopathy and intubation
-Oral diet pur�ed, speech following
-Wean TPN as oral intake improves
#Dehydration with hypernatremia
-Developed while on IV diuresis; s/p replacement with D5W
-Sodium initially in the 150s, down to 147 149 now
-Monitor oral intake, encourage free water intake as swallowing improved
Severe malnutrition secondary to acute illness
Remains on TPN per
Continue calorie count
Diet has been advanced with aspiration precautions
#Acute HFrEF with cardiogenic shock
#Nonischemic cardiomyopathy
#Takotsubo cardiomyopathy
-Had type II MO with troponin peak of 14; ECG with diffuse ST changes in anterolateral leads
-Urgent right and left heart cath with LVEF 30 to 35%, patent coronaries, Takotsubo morphology, reduced cardiac index
-Follow-up echocardiogram on 10/02 with improved LVEF at 45%.
-GDMT has been adjusted with initiation of Coreg, lisinopril, spironolactone, Lasix.
#NSVT
-Secondary to reduced LVEF and cardiomyopathy
-Status post course of amiodarone
-Continue to monitor on telemetry
-Electrolyte goals K >4, mag >2
Episode of atrial fibrillation related to PICC line position on 04/30 which has been addressed.
PICC line position adjusted
Converted and remains in sinus rhythm.
Monitor.
No anticoagulation indicated.
#Acute kidney injury
-Presumed prerenal in the context of cardiogenic shock
-Renal function normalized with normalization of volume status
-Home HCTZ was held
-Has since resolved
-Successful TOV on 09/28
#Acute normocytic anemia
-Noted fluctuation of hemoglobin 13�11.7 likely reflects volume state. No evidence for acute bleeding
-Urgent upper endoscopy with a large hiatal hernia and no evidence of bleeding
-Follow-up hemoglobin closely.
-Continue PPI prophylactic dose
#Large hiatal hernia with intrathoracic stomach.
-Remains with high aspiration risk.
-Continue PPI.
#Shock liver
-elevated transaminases suspect in the settings of hemodynamic instability.
-No gastrointestinal complaints upon presentation
-Follow LFTs
#Hypothyroidism
-Chronic, unclear etiology, home meds include levothyroxine 25 mcg
-No signs of thyroid dysfunction at this time
#Prediabetes
-Continue basal bolus protocol with serial Accu-Cheks
#Bipolar disorder.
-Continue preadmission regimen include Vraylar, clonazepam, lamotrigine, zaleplon.
-Monitor mental status and evaluate for any introduction.
DVT prophylaxis: Heparin
Diet: Pur�ed, TPN
CODE STATUS: Full code
Disposition: Downgrade to telemetry
Anticipated Discharge: > 48 hours
Subjective/Interval History
-
Date of Service: October 05, 2024
Objective Data
-
Labs:
Laboratory Results
10/05/24
04:00
WBC 7.3
Hgb 10.5 L
Hct 31.5 L
Plt Count 159
Sodium 142
Potassium 4.2
Chloride 111 H
Carbon Dioxide 27
BUN 34 H
Creatinine 0.8
Glucose 159 H
Calcium 9.1
Vital Signs:
Vital Signs
Temp Pulse Resp BP Pulse Ox
99.0 F 76 21 112/59 100
10/05/24 11:57 10/05/24 12:00 10/05/24 12:00 10/05/24 12:00 10/05/24 12:00
I&O
10/04/24 10/05/24 10/06/24
06:59 06:59 06:59
Intake Total 1064 / 1064 240 / 240 500 / 500
Balance 1064 / 1064 240 / 240 500 / 500
Physical Exam
-
General: Well Developed, Well Nourished, No Apparent Distress, Appears Chronically Ill and Other (Frail and weak-appearing)
HEENT: Normocephalic, Atraumatic and Moist Mucous Membranes
Respiratory: Clear to Auscultation and Non Labored Respirations
Cardiac: Regular Rhythm and S1/S2; Negative Murmur, Rub, JVD or Gallop
GI: Soft, Nontender, Nondistended and Normal Bowel Sounds
Musculoskeletal: No Clubbing, No Cyanosis and No Edema
Skin: Warm, Dry and Normal Turgor; Negative Rash
Neuro: AO x 3 and Nonfocal/Grossly Intact
Psych: Calm
--- NOTE | 2024-10-05 13:54 | PTCARENOTE ---
Pt sleeping family at bedside , upset I didn't call him when there was a problem, explained to i was taking care of pt awaiting Dr Ayala, daughter came and she called . wants to talk with , TT DR Ayala he
will be back later. aware
--- NOTE | 2024-10-05 14:15 | CON.MD ---
Consultation - Medical
-
Referring Provider:�Dr. Emerson Ayala
Chief Complaint:�Debility after acute respiratory failure and hypoxia with sepsis
�
History of Present Illness:�79-year-old female with PMH (as below) presented to [facility] on 09/13/2024 with shortness of breath after a 2-day history of influenza. She was started on Tamiflu but had progressive shortness of breath and
found to be hypoxic in the mid 80s in the emergency department. She was started on supplementary oxygen and bronchodilator treatment. She continues to have decompensation in her respiratory status and required intubation. Also with septic shock.
Echocardiogram 09/23/2024 with EF 40-45% and mild LVH. On 09/23 she was noted to have inferolateral and anterior ST elevations with terminal T wave inversions and sinus bradycardia and a troponin of 14.5. No coronary artery disease concerns, findings
consistent cardiomyopathy. She required milrinone which was eventually weaned off. She also required diuresis with Bumex and had hypernatremia with Bumex held. She was extubated on 09/25. Started on TPN. Developed new onset rapid A-fib and placed
on amiodarone drip with weight-based Lovenox and developed epistaxis. proBNP on 10/04/2024 at 4240 and transition to oral Lasix. On 10/05/2024 she was noted to be hypotensive and lethargic during therapy with improvement in blood pressure with lying
in bed. Lasix held with parameters for Coreg and lisinopril. Given back 500 mL bolus of fluid. Calorie count being monitored and continuing with TPN for 24 hours. On pur�e diet started secondary to concerns with aspiration from large hiatal
hernia with intrathoracic stomach and when she had encephalopathy and was intubated. Had a successful trial of void. Other possible concerns include shock liver and acute kidney injury. Patient seen by speech and difficulty with minced/mashed
banana with decreased mastication and lingual thrusting and noting is very hard to swallow, declining further p.o. trials.
Spoke with patient, daughter, and . Patient has been having difficulty with her mood over the last year or more. More recently she has been more depressed per family and not eating very much each day. She has not seen her psychiatrist for
about 6 months, does not recall last check of her Lamictal levels. She has been off her bipolar medications for approximately 2 weeks per her daughter. Daughter and are really concerned about her mental state and with her mood changes over
the last year or so. Patient is not able to sleep at night and is sleeping during the day but up for most of the night. Patient tries taking benzodiazepines or significant amount of alcohol at night to help her fall asleep with no real benefit.
She has been generally weak but has been able to do her own ADLs at home and is ambulating without device. Patient notes that it was related to swallowing specifically although she has had some difficulties swallowing particularly stuff like tuna
with history of Zarate's esophagus. She did have a fall with a fracture and apparently saw orthopedics for this. She was referred to see Dr. Burton of neurology although the specific reason is unclear. He suggested iron infusions to help with her
anemia which has been very helpful according to her and her family. Currently she is requiring a lift to get from bed to chair. She denies any numbness or tingling concerns, no focal weakness concerns but does feel generally overall weak.
Patient currently on TPN unclear as to why she is having such difficulty with swallowing. Has history of Zarate's esophagus but no other known neurologic concerns. She also now has a hoarse voice since intubation. She has not seen an ear nose
and throat doctor.
�
Past Medical History:�HTN, bipolar disorder, osteopenia, dysphagia, diverticula with torturous colon, nonrheumatic mitral regurgitation, HLD, aortic atherosclerosis, hypothyroidism, Zarate's esophagus, syncope
Procedure History:�Schatzki's ring dilatation
Family History:�CAD (Father + mother), Cancer (Sibling: Breast cancer), Diabetes (Father) and Other (Father: Pacemaker)
�
Social History:�
Functional Level Premorbidly:�Independent with all activities�
Functional Level Currently:�Dependent toileting, max assist upper extremity self-care, dependent lower extremity self-care, max assist rolling and supine to sit. Max assist transfers, max assist x 2 for transfer from a raised bed.
�
Tobacco:�Denies�
Alcohol:�Wine socially, has had bottles of alcohol in a day at times to try to help her sleep according to daughter.
Drug use:�Denies�
�
Lives with:�Spouse, daughter, grandchild
24-hour assistance available:�No
Number of floors:�2
# steps to enter:�0
# steps to second floor: Full flight
Potential First floor set up:�Yes
Driving:�Yes
Occupation:�Retired
�
�
Allergies:�
Allergy/AdvReac Type Severity Reaction Status Date / Time
Corticosteroids Allergy KERRY Verified 09/21/24 11:08
(Glucocorticoids)
iodine [Iodine] Allergy Rash Verified 09/21/24 11:08
NSAIDS (Non-Steroidal Allergy Unknown Verified 09/21/24 11:08
Anti-Inflamma
�
Review of Systems:�
Constitutional: (x) abNormal _fatigue
Eye: (x) Normal _
Ear/Nose/Throat: (x) abNormal _difficulty swallowing
Respiratory: (x) abNormal _breathing better
Cardiovascular: (x) abNormal _decreased blood pressure, recent A-fib
Gastrointestinal: (x) Normal _
Genitourinary: (x) Normal _
Musculoskeletal: (x) Normal _
Integumentary: (x) Normal _
Neurologic: (x) Normal _saw Dr. Burton from neurology but unclear reason possibly balance issues leading to fall. Has restless legs at night
Psychiatric: (x) abNormal _General Mood concerns, poor sleep, poor appetite, decreased energy
Endocrine: (x) Normal _
Hematologic/Lymphatic: (x) Normal _
Allergic/Immunologic: (x) Normal _
�
Medications:�
Active Current Visit Medication List
Category Date Time Status
Albuterol Nebs [Ventolin Nebules] Med 09/21/24 20:22 Active
1.25 mg INH R Q4HPRN PRN
Aspirin Chewable [Low Strength Aspirin] Med 09/29/24 08:00 Active
81 mg PO DAILY
Bacitracin/Polymyxin B [Polysporin Ointment] Med 09/29/24 20:11 Active
1 applic TOPICAL TIDPRN PRN
Bisacodyl [Dulcolax] Med 09/27/24 18:49 Active
10 mg RECTAL DAILYPRN PRN
Carvedilol [Coreg] Med 10/02/24 09:00 Active
25 mg PO BID
Cholecalciferol (Vitamin D3) [VITAMIN D3 ( Med 09/29/24 08:00 Active
cholecalciferol)]
25 mcg PO DAILY
Clonazepam [Klonopin] Med 09/21/24 19:31 Hold
0.5 mg PO DAILYPRN PRN
Dapagliflozin [Farxiga] Med 10/03/24 08:45 Active
10 mg PO DAILY
Dextrose 50%-Water [Dextrose 50% Syringe] Med 09/23/24 02:24 Active
12.5 grams IV Q03DVVH PRN
Docusate W/Senna [Senokot-S] Med 10/04/24 11:42 Active
1 tablet PO DAILYPRN PRN
Enoxaparin Sodium [Lovenox] Med 10/02/24 18:00 Active
40 mg SC QPM
Ferrous Sulfate [Feosol] Med 09/22/24 08:00 Hold
325 mg TUBE DAILY
Flush (0.9% Sodium Chloride) [Flush (Nss)] Med 09/21/24 20:00 Active
See Dose Instructions IV PER PROTOCOL
Glucagon [GlucaGen] Med 09/23/24 02:24 Active
1 mg IM PRN PRN
Guaifenesin/Dextromethorphan [Robitussin Dm] Med 09/30/24 20:30 Active
10 ml PO Q4HPRN PRN
Insulin Aspart Corrective Mod [Novolog Flexpen-Moderate Med 09/28/24 16:30 Active
Resistance]
See Protocol SC AC
Levothyroxine [Synthroid] Med 09/29/24 06:00 Active
25 mcg PO DAILY@0600
Lidocaine Visc/Maalox/Benadryl [Magic or Miracle Med 10/03/24 13:00 Active
Mouthwash]
10 ml PO QID
Lisinopril [Zestril] Med 09/30/24 20:00 Active
10 mg PO BID
Melatonin Med 09/30/24 22:00 Active
10 mg PO HS
Multivitamin [Theragran] Med 09/29/24 08:00 Active
1 tablet PO DAILY
Parenteral Nutrition, Adult [Parenteral Nutrition, Med 10/04/24 21:00 Active
Central]
860 ml in 860 ml IV ONCE@2100
Parenteral Nutrition, Adult [Parenteral Nutrition, Med 10/05/24 21:00 Active
Central]
860 ml in 860 ml IV ONCE@2100
Polyethylene Glycol Powder [Miralax] Med 10/04/24 12:00 Active
17 grams PO DAILY
Rosuvastatin Calcium [Crestor] Med 09/29/24 08:00 Active
20 mg PO DAILY
Sodium Chloride [Ebony, Saline Mist] Med 09/30/24 10:48 Active
See Dose Instructions NASAL QIDPRN PRN
Spironolactone [Aldactone] Med 09/30/24 09:00 Hold
12.5 mg PO DAILY
�
Vitals:�
Temp Pulse Resp BP Pulse Ox
99.0 F 92 21 120/77 97
10/05/24 11:57 10/05/24 14:02 10/05/24 14:02 10/05/24 14:02 10/05/24 14:02
Height 5 ft 4 in
Actual Weight 80.7 kg
Body Mass Index (BMI) 30.6
Physical Exam:�
General Appearance/Observation: Well-developed, well-nourished female in no apparent distress.� Has a generalized stare with little emotion in her face but able to answer questions appropriately
Pain/Comfort Assessment: Denies�
Mood/Affect: Flat, no range of motion.
�
Integumentary/Operative Site:�Central line for TPN
�� Pressure Ulcer Evaluation: Did not assess
�
Eyes: Conjunctiva/Lids: normal���� Pupils: pupils equal round and reactive to light�
Ears/Nose/Throat: oral mucosa dry,� throat clear.������������ Lips/Teeth/Gums: normal�
Cardiovascular: Heart: regular, no murmur�
Pulses: dorsalis pedis 2+ bilaterally�
Respiratory: Respiratory Effort/Chest Expansion: normal������� Auscultation: Clear to auscultation bilaterally�
Gastrointestinal: abdomen not tender, no distension, normal abdominal bowel sounds
Genitourinary: No Evans�
Extremities:�Edema: None�Cyanosis: None�Trophic�changes: None
�
Neurology Exam:
Orientation: Alert, Oriented to self, Time, Place�
Memory: Intact
Comprehension: Intact
Two step command: Impaired
Cognition: Slow processing, able remember all of her doctors names and reasons for seeing them.
Cranial Nerves:
�� CNII:�Pupillary light reflex: Intact����Visual Field: Intact
�� CN III, IV, : Extraocular muscles: Intact�
�� CN V:�Facial Sensation�at�Forehead: Intact,�Maxilla: Intact,�Mandible: Intact
�� CN VII:�Facial movement: Symmetric
�� CN VIII:�Hearing: Normal
�� CN IX/X:�Speech & swallow: Has hypophonia with forced air to get sound out at times. �Position of Uvula: Midline
�� CN XI:�Shoulder shrug: Symmetric
�� CN XII:�Tongue protrusion: Midline
Sensory:
�� Light touch: Intact in bilateral upper and lower extremities, no extinction to double simultaneous stimulation
�
Reflexes:
�� Biceps: 2+ bilaterally
�� Brachioradialis: 2+ bilaterally
�� Triceps: 2+ bilaterally
�� Patellar: 2+ bilaterally
�� Achilles: 0 bilaterally
�� Babinski: Down going bilaterally
�� Clonus: None
�� Radha: Negative bilaterally�
Cerebellar: Dysmetria/Ataxia: None�
Musculoskeletal: Motor: (Manual muscle scale 0-5)�limited sustained effort 2+/5 bilateral shoulder and bilateral hip flexors. Otherwise 4/5 bilateral upper and lower extremities
Tone: Normal in all extremities�
Range of Motion: Passively within normal limits in all extremities�
�
Lab Results
Laboratory Data
10/05/24 04:00
10/05/24 04:00
PT 13.5 Sec (11.4-14.6) 09/22/24 03:50
INR 1.00 09/22/24 03:50
APTT Cancelled 09/23/24 10:37
Total Bilirubin 1.1 mg/dl (0.2-1.3) 10/01/24 05:23
AST 50 U/L (14-36) H 10/01/24 05:23
ALT 67 U/L (0-35) H 10/01/24 05:23
Alkaline Phosphatase 70 U/L (38-126) 10/01/24 05:23
Total Protein 5.7 g/dl (6.3-8.2) L 10/01/24 05:23
Albumin 3.1 g/dl (3.5-5.0) L 10/01/24 05:23
�
Diagnostic Results:�as per HPI�
�
Assessment
79 y/o F PMH (HTN, bipolar disorder, osteopenia, dysphagia, diverticula with torturous colon, nonrheumatic mitral regurgitation, HLD, aortic atherosclerosis, hypothyroidism, Zarate's esophagus, syncope�) with acute hypoxic respiratory failure from
influenza septic shock requiring intubation. TPN to help with nutrition status with risk of aspiration from large hiatal hernia and intrathoracic stomach, new onset rapid A-fib, shock liver, acute kidney injury with ADL, ambulatory, and swallow
dysfunction.
�
Plan�
PM&R�PT/OT to increase independence with ADLs, improve balance, coordination, endurance, strength, mobility, community reintegration, decreased burden of care on others and family education.�
Acute hypoxic respiratory failure requiring intubation from influenza: Monitor pulmonary status, received Tamiflu. Guaifenesin, incentive spirometry
Dysphagia: History of Zarate's esophagus, speech evaluation, oral care protocol, chlorhexidine rinse after meals and HS, aspiration precautions.� Advance recently downgraded to pur�e diet diet with thin liquids as tolerated.�
-Has by history had worsening mood which sounds like depression with difficulty sleeping at night. Appears to have a flipped day night schedule.
-Unclear if there is a neurologic basis to her swallowing dysfunction in addition to history of Zarate's esophagus. Appears to be out of proportion to current medical diagnosis.
-Suggest video swallow study.
-Suggest GI consult for dysphagia, if patient unable to maintain caloric intake may need to consider PEG tube
-Consider neurology consult, CT head
Large hiatal hernia: Makes her at risk for aspiration. Unclear if it has anything to do with her lack of appetite.
Bipolar disorder: Patient's family describes depression for at least the last year or so. Had not been that way previously. Patient sees psychiatrist. Has significant difficulty with sleeping despite hard amounts of alcohol, benzodiazepines and
combinations of medications with alcohol. Wonder if there are some episodes of hypomania involved with this versus a flipped day night schedule or depression. Patient's family worried about her emotional/cognitive decline over the past year.
-Please consult psychiatry for further evaluation and potential change in medications. Family worried that patient was taking too many Medications at baseline and are open to having another psychiatrist evaluation. I do think it could really
benefit her current status and overall quality of life.
Hoarse voice: Consider ENT evaluation. If no obvious trauma from intubation consider neurologic evaluation with dysphagia and hoarse voice
Hypotension: Likely related to diuresis. Suggest teds, could consider midodrine if current adjustments in medications for hypertension and teds are not enough.
Cognitive dysfunction: Differential includes dementia versus psychiatric etiology. Has been happening prior to hospital stay according to family.
�
HTN: Recent hypotension after diuresis. Lasix and spironolactone held. Coreg and lisinopril with holding parameters. Continue medications, monitor closely�
HLD: Statin�
New onset atrial fibrillation with RVR:�Thought secondary to PICC line placement rate control with Coreg.�������������������������������������������
Acute CHF: EF 40�45%, beta leticia, monitor fluid status�
NSVT: Thought to be secondary to cardiomyopathy.
Hypothyroidism: levothyroxine�
Normocytic anemia: 10.5 from 11 range. Had some epistaxis. No active bleeding. Continue to monitor.�
�
Skin: monitor for pressure sores/rashes/lesions.�
Pain: acetaminophen as needed.�
Bowel: MiraLAX, PRN bisacodyl.�
Bladder: Time void, PVRs, PRN straight cath.�
DVT Prophylaxis: Mechanical and Lovenox
Pulmonary: Incentive spirometry�
Obesity: Continue to direct selling counselor patient about diet adjustments to control obesity. Body habitus and increased force to move body and extremities causes further difficulty with functional tasks.�
Safety: Continue to reinforce assistance with all transfers.�
Code Status:� Full code
Dispo�(date/plan/equipment needs): Home with family care.� Social history reviewed.�
Functional and Medical Goals:�Modified Independent with ADL�s, ambulation, transfers�
Discharge Destination:�Acute inpatient rehabilitation
A total of 90 minutes were spent with the patient preparing for the evaluation, obtaining history, performing examination and evaluation, counseling, data review, case management, care coordination, psychiatric orderly, and EMR documentation. Discussed
concerns with patient, , and daughter at length. Patient has been failing at home prior to coming in with influenza. Poor nutrition status and oral intake, mood concerns with possible depression, difficulty sleeping.
�
SUMMARY
Things that must be addressed in Hospital prior to discharge to acute inpatient rehabilitation:�
��� Must be off TPN for acute rehab and tolerating a diet that can maintain calories and hydration
Psychiatry consult for bipolar disorder management
Suggest ENT consult to evaluate for vocal cord dysfunction post intubation versus neurologic cause
Suggest video swallow study.
Suggest GI consult for dysphagia, if patient unable to maintain caloric intake may need to consider PEG tube
If no obvious etiology from video swallow, GI, ENT evaluations, consider neurology consult for possible neurologic etiology can consider CT of the head
Hypotension: Likely related to diuresis. Suggest teds, could consider midodrine if current adjustments in medications for hypertension and teds are not enough.
Patient's current functional status is significantly below what would be expected from a pneumonia course with intubation. Premorbid concerns with debility from sepsis and intubation likely the cause of the significant limitation in addition to
psychiatric concerns currently off medication.
�
Thank you for allowing me to care for your patient. Please contact me with any questions or concerns.
--- NOTE | 2024-10-05 16:47 | CM ---
Patient with Hx bipolar disorder with Dx Acute hypoxic respiratory failure. Room air. Receiving TPN. PT/OT recommends acute rehab. Per nurse; forgetful. Physiatry Consult pending.
Spoke with [facility]; they currently have no available beds. She is aware patient is still receiving TPN (he cannot be accepted while on TPN). Dr Ponce will evaluate him for AR.
Plan follow up after seen by Physiatry.
[2024-10-05] MEDS: LOVENOX 40 MG SC (17:00)
[2024-10-05 17:13] LABS: Glucose - Point of Care 182 mg/dl (70-99)
[2024-10-05] MEDS: Parenteral Nutrition, Central 860 IV (21:05)
[2024-10-05 21:19] LABS: Glucose - Point of Care 133 mg/dl (70-99)
[2024-10-05] MEDS: MELATONIN 10 MG PO (21:32)
[2024-10-05] MEDS: ROBITUSSIN DM 10 ML PO (23:49)
[2024-10-06] VITALS (13 sets, daily range): BP systolic 96–145; BP diastolic 50–92; BMI 30.1
[2024-10-06] MEDS: KLONOPIN 0.5 MG PO (01:14)
--- NOTE | 2024-10-06 02:31 | PTCARENOTE ---
Addendum entered by Jewell Nicholas RN 10/06/24 06:05:
Pt appears to have relief with the Klonopin. Pt sleeping respiration even unlabored spo2 97% 2L.
Original Note:
Pt appearing to be in a pleasant mood. Pt on RA and BiPAP at HS. Pt removing BiPAP around 2340 saying she 'can not stand it'. Mouth care done, cold water given. Pt making RN aware she is feeling anxious. Emotional support given and plan talked
about. Pt would like something for anxiety, [facility] made aware. One time order for Klonopin given. Call murillo with in reach. Vitals stable at this time.
[2024-10-06] MEDS: SYNTHROID 25 MCG PO (04:57)
[2024-10-06 05:21] LABS: Blood Urea Nitrogen 42 mg/dl (7-17); Calcium 8.9 mg/dl (8.4-10.2); Carbon Dioxide 23 mmol/L (22-30); Chloride 112 mmol/L (98-107); Estimated Creatinine Clearance 60 ml/min; Glucose 152 mg/dl (70-99); Potassium 4.2 mmol/L (3.5-5.1); Sodium 141 mmol/L (135-145); eGFR > 60.00
--- NOTE | 2024-10-06 07:55 | W.PN.HOSP.TC ---
Addendum entered and electronically signed by June Marcos MD 10/06/24 08:24:
updated on the phone
Original Note:
Today's Communication/Plan
-
see A/P
Assessment / Plan
Assessment / Plan
Ms. Daniel is a 79-year-old female with a medical history of hypertension and bipolar disorder who presented with shortness of breath. She tested positive for influenza 2 days prior to arrival and was started on oseltamivir as an outpatient.
However she had progressively worsening dyspnea and productive cough for 24 hours prior to presenting to the emergency department.
In the ED, she was found to be hypoxic with her pulse ox in the mid 80s on room air. She was started on supplemental oxygen via nasal cannula at that time with improvement in her respiratory status and oxygenation. She was also given nebulizer
treatments. She was admitted for further evaluation and management of acute respiratory failure with hypoxia in the setting of influenza infection.
Impression:
Acute hypoxic respiratory failure.
� Intubated 09/21/2024
Sepsis secondary to influenza A/bacterial�community-acquired pneumonia, also suspected aspiration pneumonia given large hiatal hernia with intrathoracic stomach
Shock, multifactorial due to sepsis as well as cardiogenic.
Acute heart failure reduced EF secondary to stress�Takotsubo cardiomyopathy.
Type II TX/demand ischemia with troponin peak 14
Polymorphic ventricular tachycardia on monitoring 09/23/24
Prolonged QTc resolved
Episode of atrial fibrillation with PICC line placement
Acute kidney injury.
Hypovolemic hyponatremia
Hypernatremia while on diuresis
Acute anemia with no evidence of blood loss, suspect dilutional/acute illness.
Elevated transaminases
Prediabetes
Hypothyroidism on replacement
Bipolar disorder.
Plan
#Acute hypoxic respiratory failure
-multifactorial in the settings of influenza A/bacterial pneumonia as well as cardiogenic shock.
-Intubated on 09/21/24 and was ultimately extubated on 09/25/2024
-Respiratory culture positive for Streptococcus and nasal swab positive for influenza
-Unable to complete course of Tamiflu given lack of enteral access;
s/p IV antibiotics with Unasyn, CTX
-Received course of steroids however discontinued as associated with increased mortality during flu
-Follow-up chest x-ray on 09/27 with possible small right loculated pleural effusion.
-Currently with stable respiratory status with minimal O2 requirement, nightly BiPAP
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
-SpO2 goal >90%
#Epistaxis, resolved
-Likely from nasal dryness with supplemental O2
-Hemoglobin stable on CBC
-started nasal spray for moisturizing
-Continue to trend CBC, humidify O2
#Toxic metabolic encephalopathy protracted secondary to acute illness
#Reported bipolar disorder of unknown significance.
#Acute delirium resolving
#Aspiration risk
-Off Precedex; holding preadmission psychiatric regimen
-Currently on TPN due to aspiration risk from encephalopathy and intubation
-Oral diet pur�ed, speech following
-Wean TPN as oral intake improves
-VSE ordered per PMR request prior to accepting pt
#Dehydration with hypernatremia- resolved
-Developed while on IV diuresis; s/p replacement with D5W
-Sodium initially in the 150s, down to 141 now
-Monitor oral intake, encourage free water intake as swallowing improved
# Severe malnutrition secondary to acute illness
Remains on TPN
Continue calorie count
Diet has been advanced with aspiration precautions
#Acute HFrEF with cardiogenic shock
#Nonischemic cardiomyopathy
#Takotsubo cardiomyopathy
-Had type II TX with troponin peak of 14; ECG with diffuse ST changes in anterolateral leads
-Urgent right and left heart cath with LVEF 30 to 35%, patent coronaries, Takotsubo morphology, reduced cardiac index
-Follow-up echocardiogram on 10/02 with improved LVEF at 45%.
-GDMT has been adjusted with initiation of Coreg, lisinopril, spironolactone, Lasix.
#NSVT, Secondary to reduced LVEF and cardiomyopathy
-Status post course of amiodarone
-Continue to monitor on telemetry
-Electrolyte goals K >4, mag >2
# Episode of atrial fibrillation related to PICC line position on 04/30 which has been addressed.
PICC line position adjusted
Converted and remains in sinus rhythm.
Monitor.
No anticoagulation indicated.
#Acute kidney injury
-Presumed prerenal in the context of cardiogenic shock
-Renal function normalized with normalization of volume status. Cr at 0.8 today
-Home HCTZ was held
-Has since resolved
-Successful TOV on 09/28
#Acute normocytic anemia
-Noted fluctuation of hemoglobin 13�11.7 likely reflects volume state. No evidence for acute bleeding
-Urgent upper endoscopy with a large hiatal hernia and no evidence of bleeding
-Follow-up hemoglobin closely.
-Continue PPI prophylactic dose
#Large hiatal hernia with intrathoracic stomach.
-Remains with high aspiration risk.
-Continue PPI.
#Shock liver
-elevated transaminases suspect in the settings of hemodynamic instability.
-No gastrointestinal complaints upon presentation
-Follow LFTs
#Hypothyroidism
-Chronic, unclear etiology, home meds include levothyroxine 25 mcg
-No signs of thyroid dysfunction at this time
#Prediabetes
-Continue basal bolus protocol with serial Accu-Cheks
#Bipolar disorder.
-Continue preadmission regimen include Vraylar, clonazepam, lamotrigine, zaleplon.
-Monitor mental status and evaluate for any introduction.
-Psych eval per PMR request
DVT prophylaxis: Lovenox SQ
Diet: Pur�ed, TPN
CODE STATUS: Full code
Disposition: Acute rehab per PT OT.
attempted to update family, calls now answered
total time spent 51 min
Anticipated Discharge: > 48 hours
Subjective/Interval History
-
Date of Service: October 06, 2024
Objective Data
-
Labs:
Laboratory Results
10/06/24
04:53
Sodium 141
Potassium 4.2
Chloride 112 H
Carbon Dioxide 23
BUN 42 H
Creatinine 0.8
Glucose 152 H
Calcium 8.9
Vital Signs:
Vital Signs
Temp Pulse Resp BP Pulse Ox
36.6 C 80 19 105/53 99
10/06/24 03:08 10/06/24 06:02 10/06/24 06:02 10/06/24 06:02 10/06/24 06:02
I&O
10/05/24 10/06/24 10/07/24
06:59 06:59 06:59
Intake Total 240 / 240 1592 / 1592
Balance 240 / 240 1592 / 1592
Review of Systems
-
History Source: Patient
All other systems: Reviewed and negative
Physical Exam
-
General: Well Developed, Well Nourished, Respiratory Distress (mild), Appears Chronically Ill and Other (Frail and weak-appearing)
HEENT: Normocephalic, Atraumatic, Moist Mucous Membranes and Oxygen (2L NC)
Respiratory: Clear to Auscultation and Non Labored Respirations
Cardiac: Regular Rhythm and S1/S2; Negative Murmur, Rub, JVD or Gallop
GI: Soft, Nontender, Nondistended and Normal Bowel Sounds
Musculoskeletal: No Clubbing, No Cyanosis and No Edema
Skin: Warm and Dry; Negative Rash
Neuro: Awake and Alert
Psych: Calm and Intact Judgement/Insight (somewhat)
Data Reviewed
-
Labs: Labs Reviewed by me
[2024-10-06] MEDS: NOVOLOG FLEXPEN-MODERATE RESISTANCE SC ×2 (08:24→15:37)
[2024-10-06] MEDS: MAGIC OR MIRACLE MOUTHWASH PO ×4 (08:25→22:30)
[2024-10-06] MEDS: ZESTRIL PO ×2 (08:25→08:42)
[2024-10-06] MEDS: FARXIGA PO ×2 (08:25→08:40)
[2024-10-06] MEDS: MIRALAX PO (08:25)
[2024-10-06] MEDS: COREG PO ×2 (08:25→08:40)
[2024-10-06] MEDS: VITAMIN D3 (cholecalciferol) PO ×2 (08:25→08:41)
[2024-10-06] MEDS: LOW STRENGTH ASPIRIN PO ×2 (08:26→08:40)
[2024-10-06] MEDS: THERAGRAN PO ×2 (08:26→08:40)
[2024-10-06] MEDS: CRESTOR PO ×2 (08:26→08:40)
[2024-10-06 08:34] LABS: Glucose - Point of Care 148 mg/dl (70-99)
--- NOTE | 2024-10-06 08:43 | PTCARENOTE ---
all am meds crushed and placed in applesauce. pt refusing meds as she feels like she cant swallow. breakfast tray removed until discussed with speech
[2024-10-06] MEDS: FARXIGA 10 MG PO (11:29)
[2024-10-06] MEDS: ZESTRIL 10 MG PO (11:29)
[2024-10-06] MEDS: LOW STRENGTH ASPIRIN 81 MG PO (11:30)
[2024-10-06] MEDS: COREG 25 MG PO (11:30)
--- NOTE | 2024-10-06 11:37 | CS.PSYCHR ---
Consult Summary - Psychiatry
-
Psychiatry consult for bipolar disorder history and plan for transfer to [facility]. 79 yo female with history of bipolar disorder admitted 09/21 and now recommendation is for physical rehab. Given mental health history, psych consult requested by PM&R.
Patient admits to a history of bipolar disorder over 10 years and receiving outpatient psychiatric care with the medications listed below. She admits to a prior manic episode as well as periods of depression. She reports sleep issues in childhood
but denies ever having sleep studies. She admits that despite her extensive regimen of sedative hypnotics she still struggled with insomnia. She states she has actually been sleeping in the hospital with melatonin despite not having her other
medications. She denies manic depressive or psychotic symptoms at this time.
Her daughter is present and expresses concern over medication regimen and risks of polypharmacy. She states patient had one manic episode 10 years ago which she associates with stress at home and keeping her feelings inside. She would like to see
her mom remain on a simplified regimen under the care of a new psychiatrist.
MSE- good eye contact. non spontaneous, impoverished speech. goal directed. denies feeling depressed currently. denies SI/HI/AVH. no delusions. oriented to person, place, year, month, date, upcoming holiday, president
Past psych- medications at home prescribed by outpatient psychiatrist Dr Lisbet Sr include lamictal 200mg HS, klonopin 0.5mg PRN anxiety, trazodone 150mg HS, vraylar 3mg every other day, zaleplon 20mg HS, Ambien CR 12.5mg HS (not to me combined
with Sonata)
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
Social- Lives with spouse, daughter, grandchild
D&A- socially drinks wine; per chart, daughter reports excess drinking at times to help her sleep
Family history- daughter depression and ADHD
A/P- 79 yo female with bipolar disorder history, currently stable. Psychiatric medications other than melatonin 10mg HS have been held this admission. This break from an extensive psychiatric medication regimen concerning for polypharmacy and
significant risks in the elderly has been positive during this admission. I would recommend restarting Lamictal for bipolar depression which needs to be titrated from a starting dose of 25mg daily and increased every two weeks with monitoring. I
would not restart any other medications in her home regimen at this time. Continue melatonin. Consider outpatient sleep studies. Continued medication management should be done as an outpatient once medically stable and daughter states she will be
scheduling her with a new psychiatrist Dr Arce whom her family knows. No psychiatric reason at this time that would preclude her from being appropriate in the physical rehab setting. Psychiatry will follow while she is here at request of family.
[2024-10-06 12:54] LABS: Glucose - Point of Care 229 mg/dl (70-99)
--- NOTE | 2024-10-06 13:09 | PTCARENOTE ---
pt seem by speech and pt agrred to try meds in applesauce. pt able to swallow the applesauce with no apparent difficulty. per speech ok to continue puree with thin liquids. pt does not feel that she can handle diet advance at this time. tpn
infusing.
--- NOTE | 2024-10-06 13:47 | W.PN.CARDCBS ---
Today's Communication / Plan
-
Given low blood pressure yesterday Lasix was held and spironolactone was held.
Decrease carvedilol to 12.5 mg twice daily
Decrease lisinopril to 10 mg in the morning and 5 mg in the p.m.
Parameters placed for medications which she is on for GDMT for Takotsubo cardiomyopathy in the setting of sepsis and influenza
Continue to monitor blood pressure
Await VSE
Impression / Plan
-
Impression:
Takotsubo CM, peak trop 14
Multifactorial shock with MSOF
s/p NSVT
VDRF/influenza A, probable bacterial pneumonia acute
s/p catheter related AFib, no recurrence
Acute renal failure
Acute liver failure with transaminitis
Acute normocytic anemia
Hypothyroidism
Bipolar disorder on psychiatric meds as outpt
Hiatal hernia
Hyponatremia
Fatigue and weakness
Cath September 23 2024:
PCWP (a/v/x, mmHg): 37/39/35
Rudy
CI (L/min/m2): 2.03
Thermodilution
CI (L/min/m2):1.2
LVG: hyperdynamic ventricular basal function and akinesis of the mid ventricle to apex with ballooning of the LV apex EF 30-35%. There is no mitral regurgitation.
Left Main: Normal size, bifurcating vessel. There is no coronary artery disease.
LAD: Normal size vessel giving rise to 1 significant diagonal. There is no coronary artery disease.
Circumflex: Normal size, nondominant vessel that is essentially a single obtuse marginal. There is severe tortuosity but no coronary artery disease.
RCA: Large size, dominant vessel with a significant posterolateral arcade. There is no coronary artery disease. The distal RPDA severely tortuous.
Echo September 23 2024: Normal left ventricular size. Mild concentric left ventricular hypertrophy. Akinesis of the mid to apical inferoseptal, inferolateral and apical quintero.
LV ejection fraction is 40-45% by Allen's method of discs which may be overestimated. Normal right ventricular size and function. Mild to moderate tricuspid regurgitation.
Estimated pulmonary artery pressure of 15-20 mmHg assuming a right atrial pressure of 3 mmHg. Pulmonic valve is grossly normal but poorly visualized. Normal pericardium without effusion.
The IVC is dilated and does not collapse.
Echo 10/02/24 : Normal LV size and LVEF 54% with apical segmental wall motion abnl.
Plan:
Initial presentation with multifactorial shock with multisystem organ failure in the setting of influenza A
Continues to be weak and deconditioned and will need rehab. Episode of extreme fatigue yesterday with blood pressure in the 90s. Lasix held. Spironolactone held. Fatigued today but blood pressure looks appropriate. Appreciate physiatry's
recommendations. Patient was having problems swallowing pills and it appears she is going to undergo video swallow and continued speech/PT evaluation.
Takotsubo syndrome with improved LVEF (40 to 45% now 54%) previously medications have been uptitrated. Previously blood pressure was elevated but started to decrease yesterday.
Agree with discontinuation of Lasix and following volume status clinically
Continue GDMT as tolerates: Coreg (I decreased to 12.5 twice daily), Lisinopril (I decreased to 10 mg in the morning and 5 mg in the p.m.), Spironolactone (on hold), Farxiga
-I have placed parameters to hold for blood pressure less than 110 mmHg.
Fluid status has been difficult to assess. On 10/04/2024 proBNP was elevated at 4240. 20 mg of Lasix started. Now held.
Telemetry stable.
Thus far no recurrence of atrial fibrillation which may have been PICC line related
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
Subjective
Date of Service: October 06, 2024
She is fatigued but without complaint.
Objective
Labs:
10/05/24 04:00
10/06/24 04:53
Labs
Hgb 10.5 g/dL (12.0-16.0) L 10/05/24 04:00
Hct 31.5 % (37.0-47.0) L 10/05/24 04:00
Plt Count 159 10^3/uL (130-400) 10/05/24 04:00
PT 13.5 Sec (11.4-14.6) 09/22/24 03:50
INR 1.00 09/22/24 03:50
APTT Cancelled 09/23/24 10:37
Sodium 141 mmol/L (135-145) 10/06/24 04:53
Potassium 4.2 mmol/L (3.5-5.1) 10/06/24 04:53
BUN 42 mg/dl (7-17) H 10/06/24 04:53
Creatinine 0.8 mg/dL (0.6-1.0) 10/06/24 04:53
Glucose 152 mg/dl (70-99) H 10/06/24 04:53
Vital Signs and I&O:
Vital Signs
Temp Pulse Resp BP Pulse Ox
97.5 F 80 19 105/53 99
10/06/24 11:19 10/06/24 06:02 10/06/24 06:02 10/06/24 06:02 10/06/24 06:02
Vital Signs
Temp Pulse Resp BP Pulse Ox
97.5 F 80 19 105/53 99
10/06/24 11:19 10/06/24 06:02 10/06/24 06:02 10/06/24 06:02 10/06/24 06:02
Intake & Output
10/04/24 10/05/24 10/06/24 10/07/24
06:59 06:59 06:59 06:59
Intake Total 1064 / 1064 240 / 240 1592 / 1592
Balance 1064 / 1064 240 / 240 1592 / 1592
Physical Exam
Physical Exam
General: Frail woman
Heart: Distant heart sounds regular
Lungs: Coarse anterior breath sounds
Extremities: No clubbing, cyanosis and trace edema bilaterally.
Neuro: Tired
[2024-10-06 17:08] LABS: Glucose - Point of Care 160 mg/dl (70-99)
[2024-10-06] MEDS: LOVENOX 40 MG SC (18:17)
[2024-10-06] MEDS: NOVOLOG FLEXPEN-MODERATE RESISTANCE 1 UNITS SC (18:17)
[2024-10-06 21:25] LABS: Glucose - Point of Care 136 mg/dl (70-99)
[2024-10-06] MEDS: ZESTRIL 5 MG PO (21:29)
[2024-10-06] MEDS: MELATONIN 10 MG PO (21:30)
[2024-10-06] MEDS: COREG 12.5 MG PO (21:30)
[2024-10-06] MEDS: Parenteral Nutrition, Central 860 IV (21:36)
[2024-10-06] MEDS: VENTOLIN NEBULES 1.25 MG INH (22:37)
--- NOTE | 2024-10-06 22:50 | PTCARENOTE ---
Pt having complaint of feeling like it is hard to take a breath. Pt stating it 'feels like anxiety'. Pt spo2 99% on 2L nc. Lungs sounds coarse in bases, diminished with a wheezes in middle right lobe. RT to bed side to give neb. Cough medicine
given. HAIRPIECE STYLIST made aware. Per Psych 'I would not restart any other medications in her home regimen at this time'. Emotional support given, therapeutic techniques attempted.
[2024-10-06] MEDS: ROBITUSSIN DM 10 ML PO (23:00)
[2024-10-07] VITALS (17 sets, daily range): BP systolic 102–147; BP diastolic 64–104; PULSE 85; O2SAT 94; BMI 30.5
[2024-10-07] MEDS: MYLICON 80 MG PO (02:37)
--- NOTE | 2024-10-07 05:44 | PTCARENOTE ---
Pt having complaint of gas pain, warm blanket applied to belly. Night OIL AND GAS SPECIALIST made aware, order placed for simethicone with positive results.
[2024-10-07] MEDS: SYNTHROID 25 MCG PO (06:01)
[2024-10-07 06:06] LABS: Blood Urea Nitrogen 34 mg/dl (7-17); Carbon Dioxide 24 mmol/L (22-30); Chloride 107 mmol/L (98-107); Estimated Creatinine Clearance 68 ml/min; Glucose 150 mg/dl (70-99); Potassium 4.1 mmol/L (3.5-5.1); Sodium 138 mmol/L (135-145); eGFR > 60.00
[2024-10-07 07:38] LABS: Glucose - Point of Care 158 mg/dl (70-99)
--- NOTE | 2024-10-07 08:08 | W.PN.HOSP.TC ---
Today's Communication/Plan
-
see A/P
Assessment / Plan
Assessment / Plan
Ms. Daniel is a 79-year-old female with a medical history of hypertension and bipolar disorder who presented with shortness of breath. She tested positive for influenza 2 days prior to arrival and was started on oseltamivir as an outpatient.
However she had progressively worsening dyspnea and productive cough for 24 hours prior to presenting to the emergency department.
In the ED, she was found to be hypoxic with her pulse ox in the mid 80s on room air. She was started on supplemental oxygen via nasal cannula at that time with improvement in her respiratory status and oxygenation. She was also given nebulizer
treatments. She was admitted for further evaluation and management of acute respiratory failure with hypoxia in the setting of influenza infection.
Impression:
Acute hypoxic respiratory failure.
� Intubated 09/21/2024
Sepsis secondary to influenza A/bacterial�community-acquired pneumonia, also suspected aspiration pneumonia given large hiatal hernia with intrathoracic stomach
Shock, multifactorial due to sepsis as well as cardiogenic.
Acute heart failure reduced EF secondary to stress�Takotsubo cardiomyopathy.
Type II CT/demand ischemia with troponin peak 14
Polymorphic ventricular tachycardia on monitoring 09/23/24
Prolonged QTc resolved
Episode of atrial fibrillation with PICC line placement
Acute kidney injury.
Hypovolemic hyponatremia
Hypernatremia while on diuresis
Acute anemia with no evidence of blood loss, suspect dilutional/acute illness.
Elevated transaminases
Prediabetes
Hypothyroidism on replacement
Bipolar disorder.
Plan
#Acute hypoxic respiratory failure
-multifactorial in the settings of influenza A/bacterial pneumonia as well as cardiogenic shock.
-Intubated on 09/21/24 and was ultimately extubated on 09/25/2024
-Respiratory culture positive for Streptococcus and nasal swab positive for influenza
-Unable to complete course of Tamiflu given lack of enteral access;
s/p IV antibiotics with Unasyn, CTX
-Received course of steroids however discontinued as associated with increased mortality during flu
-Follow-up chest x-ray on 09/27 with possible small right loculated pleural effusion.
-Currently with stable respiratory status with minimal O2 requirement, nightly BiPAP
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
-SpO2 goal >90%
#Epistaxis, resolved
-Likely from nasal dryness with supplemental O2
-Hemoglobin stable on CBC
-started nasal spray for moisturizing
-Continue to trend CBC, humidify O2
#Toxic metabolic encephalopathy protracted secondary to acute illness
#Reported bipolar disorder of unknown significance.
#Acute delirium resolving
#Aspiration risk
-Off Precedex; holding preadmission psychiatric regimen
-Currently on TPN due to aspiration risk from encephalopathy and intubation
-Oral diet pur�ed, speech following
-Wean TPN as oral intake improves
-VSE ordered per PMR request prior to accepting pt
#Dehydration with hypernatremia- resolved
-Developed while on IV diuresis; s/p replacement with D5W
-Sodium initially in the 150s, down to 141 now
-Monitor oral intake, encourage free water intake as swallowing improved
# Severe malnutrition secondary to acute illness
Diet has been advanced with aspiration precautions
TPN was initiated, hold starting 10/07 as TPN prevents dispo to [facility]
Continue calorie count
#Acute HFrEF with cardiogenic shock
#Nonischemic cardiomyopathy
#Takotsubo cardiomyopathy
-Had type II CT with troponin peak of 14; ECG with diffuse ST changes in anterolateral leads
-Urgent right and left heart cath with LVEF 30 to 35%, patent coronaries, Takotsubo morphology, reduced cardiac index
-Follow-up echocardiogram on 10/02 with improved LVEF at 45%.
-GDMT has been adjusted with initiation of Coreg, lisinopril, spironolactone, Lasix.
Given low blood pressure, Lasix was held, spironolactone was held, Decreased carvedilol to 12.5 mg twice daily, decreased lisinopril to 10 mg in the morning and 5 mg in the p.m.
#NSVT, Secondary to reduced LVEF and cardiomyopathy
-Status post course of amiodarone
-Continue to monitor on telemetry
-Electrolyte goals K >4, mag >2
# Episode of atrial fibrillation related to PICC line position on 04/30 which has been addressed.
PICC line position adjusted
Converted and remains in sinus rhythm.
Monitor.
No anticoagulation indicated.
#Acute kidney injury
-Presumed prerenal in the context of cardiogenic shock
-Renal function normalized with normalization of volume status.
-Home HCTZ was held
-Has since resolved
-Successful TOV on 09/28
#Acute normocytic anemia
-Noted fluctuation of hemoglobin 13�11.7 likely reflects volume state. No evidence for acute bleeding
-Urgent upper endoscopy with a large hiatal hernia and no evidence of bleeding
-Follow-up hemoglobin closely.
-Continue PPI prophylactic dose
#Large hiatal hernia with intrathoracic stomach.
-Remains with high aspiration risk.
-Continue PPI.
#Shock liver
-elevated transaminases suspect in the settings of hemodynamic instability.
-No gastrointestinal complaints upon presentation
-Follow LFTs
#Hypothyroidism
-Chronic, unclear etiology, home meds include levothyroxine 25 mcg
-No signs of thyroid dysfunction at this time
#Prediabetes
-Continue basal bolus protocol with serial Accu-Cheks
#Bipolar disorder.
-Continue preadmission regimen include Vraylar, clonazepam, lamotrigine, zaleplon.
-Monitor mental status and evaluate for any introduction.
-Psych on board per PMR request
DVT prophylaxis: Lovenox SQ
Diet: Pur�ed
CODE STATUS: Full code
Disposition: Acute rehab per PT OT.
DW RN
total time spent 51 min
Anticipated Discharge: 24 - 48 hours
Subjective/Interval History
-
Date of Service: October 07, 2024
Objective Data
-
Labs:
Laboratory Results
10/07/24
05:37
Sodium 138
Potassium 4.1
Chloride 107
Carbon Dioxide 24
BUN 34 H
Creatinine 0.7
Glucose 150 H
Calcium 9.0
Vital Signs:
Vital Signs
Temp Pulse Resp BP Pulse Ox
36.3 C 85 19 133/71 98
10/07/24 07:29 10/07/24 04:00 10/07/24 04:00 10/07/24 04:00 10/07/24 04:00
I&O
10/06/24 10/07/24 10/08/24
06:59 06:59 06:59
Intake Total 1592 / 1592 1152 / 1152
Balance 1592 / 1592 1152 / 1152
Review of Systems
-
History Source: Patient
All other systems: Reviewed and negative
Physical Exam
-
General: Well Developed, Well Nourished, Respiratory Distress (mild), Appears Chronically Ill and Other (Frail and weak-appearing)
HEENT: Normocephalic, Atraumatic, Moist Mucous Membranes and Oxygen (2L NC)
Respiratory: Clear to Auscultation and Non Labored Respirations
Cardiac: Regular Rhythm and S1/S2; Negative Murmur, Rub, JVD or Gallop
GI: Soft, Nontender, Nondistended and Normal Bowel Sounds
Musculoskeletal: No Clubbing, No Cyanosis and No Edema
Skin: Warm and Dry; Negative Rash
Neuro: Awake and Alert
Psych: Calm and Intact Judgement/Insight (somewhat)
Data Reviewed
-
Labs: Labs Reviewed by me
[2024-10-07] MEDS: NOVOLOG FLEXPEN-MODERATE RESISTANCE 1 UNITS SC ×2 (08:35→17:34)
[2024-10-07] MEDS: ZESTRIL 10 MG PO (08:36)
[2024-10-07] MEDS: FARXIGA 10 MG PO (08:36)
[2024-10-07] MEDS: MIRALAX PO (08:36)
[2024-10-07] MEDS: LAMICTAL 25 MG PO (08:37)
[2024-10-07] MEDS: THERAGRAN 1 TABLET PO (08:37)
[2024-10-07] MEDS: CRESTOR 20 MG PO (08:37)
[2024-10-07] MEDS: VITAMIN D3 (cholecalciferol) 25 MCG PO (08:37)
[2024-10-07] MEDS: COREG 12.5 MG PO ×2 (08:37→21:38)
[2024-10-07] MEDS: LOW STRENGTH ASPIRIN 81 MG PO (08:37)
[2024-10-07] MEDS: MAGIC OR MIRACLE MOUTHWASH 10 ML PO (08:40)
[2024-10-07] MEDS: ROBITUSSIN DM 10 ML PO ×2 (08:57→17:37)
[2024-10-07 11:28] LABS: Glucose - Point of Care 221 mg/dl (70-99)
[2024-10-07] MEDS: NOVOLOG FLEXPEN-MODERATE RESISTANCE 3 UNITS SC (11:41)
--- NOTE | 2024-10-07 13:11 | W.PN.CARDCBS ---
Today's Communication / Plan
-
Blood pressure stable today but waxes and wanes
If stable start low-dose spironolactone back tomorrow given heart failure with improved ejection fraction
Follow volume status clinically
Continue to work on nutrition
Video swallow ordered by primary service
Impression / Plan
-
Impression:
Takotsubo CM, peak trop 14
Multifactorial shock with MSOF
s/p NSVT
VDRF/influenza A, probable bacterial pneumonia acute
s/p catheter related AFib, no recurrence
Acute renal failure
Acute liver failure with transaminitis
Acute normocytic anemia
Hypothyroidism
Bipolar disorder on psychiatric meds as outpt
Hiatal hernia
Hyponatremia
Fatigue and weakness
Cath September 23 2024:
PCWP (a/v/x, mmHg): 37/39/35
Rudy
CI (L/min/m2): 2.03
Thermodilution
CI (L/min/m2):1.2
LVG: hyperdynamic ventricular basal function and akinesis of the mid ventricle to apex with ballooning of the LV apex EF 30-35%. There is no mitral regurgitation.
Left Main: Normal size, bifurcating vessel. There is no coronary artery disease.
LAD: Normal size vessel giving rise to 1 significant diagonal. There is no coronary artery disease.
Circumflex: Normal size, nondominant vessel that is essentially a single obtuse marginal. There is severe tortuosity but no coronary artery disease.
RCA: Large size, dominant vessel with a significant posterolateral arcade. There is no coronary artery disease. The distal RPDA severely tortuous.
Echo September 23 2024: Normal left ventricular size. Mild concentric left ventricular hypertrophy. Akinesis of the mid to apical inferoseptal, inferolateral and apical quintero.
LV ejection fraction is 40-45% by Allen's method of discs which may be overestimated. Normal right ventricular size and function. Mild to moderate tricuspid regurgitation.
Estimated pulmonary artery pressure of 15-20 mmHg assuming a right atrial pressure of 3 mmHg. Pulmonic valve is grossly normal but poorly visualized. Normal pericardium without effusion.
The IVC is dilated and does not collapse.
Echo 10/02/24 : Normal LV size and LVEF 54% with apical segmental wall motion abnl.
Plan:
Initial presentation with multifactorial shock with multisystem organ failure in the setting of influenza A
Continues to be weak and deconditioned and will need rehab. Still requiring TPN and slowly increasing oral nutrition. Waxing and waning blood pressures, low yesterday but stable today. On 10/06/2024 Lasix held and spironolactone held. Patient
was having problems swallowing pills and it appears she is going to undergo video swallow and continued speech/PT evaluation.
Cardiac status stable today.
Takotsubo syndrome with improved LVEF (40 to 45% now 54%) previously medications have been uptitrated. Previously blood pressure was elevated but started to decrease yesterday.
She continues off of Lasix and following volume status clinically. Fluid status has been difficult to assess. On 10/04/2024 proBNP was elevated at 4240. 20 mg of Lasix previously started. Held on 10/06/2024 secondary to low blood pressure.
Continue GDMT as tolerates: Coreg (I decreased to 12.5 twice daily, 10/06/2024), Lisinopril (I decreased to 10 mg in the morning and 5 mg in the p.m., 10/06/2024), Spironolactone (on hold), Farxiga
-I have placed parameters to hold for blood pressure less than 110 mmHg.
-Would resume low-dose spironolactone tomorrow if blood pressure is stable.
Telemetry stable.
Thus far no recurrence of atrial fibrillation which may have been PICC line related
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
Subjective
Date of Service: October 07, 2024
She denies chest pain and palpitations she is working on nutrition.
Objective
Labs:
10/05/24 04:00
10/07/24 05:37
Labs
Hgb 10.5 g/dL (12.0-16.0) L 10/05/24 04:00
Hct 31.5 % (37.0-47.0) L 10/05/24 04:00
Plt Count 159 10^3/uL (130-400) 10/05/24 04:00
PT 13.5 Sec (11.4-14.6) 09/22/24 03:50
INR 1.00 09/22/24 03:50
APTT Cancelled 09/23/24 10:37
Sodium 138 mmol/L (135-145) 10/07/24 05:37
Potassium 4.1 mmol/L (3.5-5.1) 10/07/24 05:37
BUN 34 mg/dl (7-17) H 10/07/24 05:37
Creatinine 0.7 mg/dL (0.6-1.0) 10/07/24 05:37
Glucose 150 mg/dl (70-99) H 10/07/24 05:37
Vital Signs and I&O:
Vital Signs
Temp Pulse Resp BP Pulse Ox
97.9 F 95 23 147/81 96
10/07/24 11:06 10/07/24 08:39 10/07/24 08:39 10/07/24 08:39 10/07/24 08:39
Vital Signs
Temp Pulse Resp BP Pulse Ox
97.9 F 95 23 147/81 96
10/07/24 11:06 10/07/24 08:39 10/07/24 08:39 10/07/24 08:39 10/07/24 08:39
Intake & Output
10/05/24 10/06/24 10/07/24 10/08/24
06:59 06:59 06:59 06:59
Intake Total 240 / 240 1592 / 1592 1152 / 1152
Balance 240 / 240 1592 / 1592 1152 / 1152
Physical Exam
Physical Exam
General: Frail woman
Heart: RRR, no murmurs, No S3, S4, no rubs.
Lungs: Coarse anterior breath sounds
Extremities: No clubbing, cyanosis and trace edema bilaterally.
Neuro: Awake and pleasant
[2024-10-07] MEDS: MAGIC OR MIRACLE MOUTHWASH PO ×3 (14:23→21:42)
[2024-10-07] MEDS: LOVENOX 40 MG SC (17:34)
[2024-10-07 17:44] LABS: Glucose - Point of Care 157 mg/dl (70-99)
[2024-10-07] MEDS: ZESTRIL 5 MG PO (21:38)
[2024-10-07] MEDS: MELATONIN 10 MG PO (21:38)
[2024-10-07 22:15] LABS: Glucose - Point of Care 134 mg/dl (70-99)
[2024-10-08] VITALS (20 sets, daily range): BP systolic 91–146; BP diastolic 55–85; PULSE 78–82; O2SAT 95; BMI 30.5
--- NOTE | 2024-10-08 02:37 | PTCARENOTE ---
Pt appearing to be in better spirits. TPN finished and d/c. Pt appearing to get sleep during the night. SPO2 94% RA, respiration even unlabored. Pt had no complaints of pain or anxiety at this time. Call murillo within each. Assessment care and vitals
as charted.
[2024-10-08] MEDS: SYNTHROID 25 MCG PO (03:59)
[2024-10-08 04:49] LABS: ALT (SGPT) 49 U/L (0-35); AST (SGOT) 25 U/L (14-36); Albumin 2.8 g/dl (3.5-5.0); Alkaline Phosphatase 75 U/L (38-126); Blood Urea Nitrogen 37 mg/dl (7-17); Calcium 8.8 mg/dl (8.4-10.2); Carbon Dioxide 21 mmol/L (22-30); Chloride 108 mmol/L (98-107); Estimated Creatinine Clearance 68 ml/min; Glucose 122 mg/dl (70-99); Magnesium 1.9 mg/dl (1.6-2.3); Phosphorus 3.6 mg/dl (2.5-4.5); Potassium 4.1 mmol/L (3.5-5.1); Sodium 139 mmol/L (135-145); Total Bilirubin 0.7 mg/dl (0.2-1.3); Total Protein 5.3 g/dl (6.3-8.2); Triglycerides 104 mg/dl (10-149); eGFR > 60.00
[2024-10-08 07:46] LABS: Glucose - Point of Care 110 mg/dl (70-99)
[2024-10-08] MEDS: NOVOLOG FLEXPEN-MODERATE RESISTANCE SC ×3 (07:56→17:19)
--- NOTE | 2024-10-08 08:41 | PN.DE.MGMTRT ---
Insulin Management
- -
10/08/2024: Diabetes Management Follow up
79 year old female admitted with SOB-->Acute respiratory failure with hypoxia 2/2 Influenza A infection. PMH: HTN, Bipolar d/o. No hx of DM, A1C on admission was 6.0%-->pre-diabetes, Cr 0.8, eGFR >60.
Pt was noted for Hyperglycemia requiring initiation of glycemic protocol. She was transitioned off insulin infusion to low corrective insulin on 09/23.
Patient is awake alert, OOB in chair. Remains on TPN per family request, though now tolerating po and food intake is improving.
Continued on calorie count. 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
Will cont Farxiga 10mg daily and moderate corrective insulin AC. Will cont to follow.
09/24 Pt's denies any knowledge of being treated for DM. Review of chart shows no diabetes medicines prior to admission.
Diabetes History
- -
Type of Diabetes: 2 requiring insulin
Pre-Admission Diabetes Regimen
10/08/24
03:56
Creatinine 0.7
Lab Results
Hemoglobin A1c Cancelled 09/21/24 23:19
Insulin Pump Settings
IP Diabetes Regimen
10/07/24 10/07/24 10/07/24
11:16 17:32 22:04
Glucose
POC Glucose 221 H 157 H 134 H
10/08/24 10/08/24
03:56 07:35
Glucose 122 H
POC Glucose 110 H
Meal type: Breakfast
Amount consumed: Patient refused
Patient Education
[2024-10-08] MEDS: CRESTOR 20 MG PO (08:42)
[2024-10-08] MEDS: FARXIGA 10 MG PO (08:42)
[2024-10-08] MEDS: LAMICTAL 25 MG PO (08:42)
[2024-10-08] MEDS: ROBITUSSIN DM 10 ML PO (08:42)
[2024-10-08] MEDS: POLYSPORIN OINTMENT 1 APPLIC TOPICAL (08:42)
[2024-10-08] MEDS: VITAMIN D3 (cholecalciferol) 25 MCG PO (08:42)
[2024-10-08] MEDS: COREG 12.5 MG PO ×2 (08:43→19:31)
[2024-10-08] MEDS: MAGIC OR MIRACLE MOUTHWASH 10 ML PO (08:43)
[2024-10-08] MEDS: LOW STRENGTH ASPIRIN 81 MG PO (08:43)
[2024-10-08] MEDS: THERAGRAN 1 TABLET PO (08:43)
[2024-10-08] MEDS: MIRALAX PO (08:43)
[2024-10-08] MEDS: ZESTRIL 10 MG PO (08:44)
--- NOTE | 2024-10-08 11:04 | W.PN.CARDCBS ---
Today's Communication / Plan
-
Decrease lisinopril to 5 mg daily from 10 mg and 5 mg
Check EKG and proBNP
Daughter requested iron/iron-binding, I ordered
Impression / Plan
-
Impression:
Takotsubo CM, peak trop 14
Multifactorial shock with MSOF
s/p NSVT
VDRF/influenza A, probable bacterial pneumonia acute
s/p catheter related AFib, no recurrence
Acute renal failure
Acute liver failure with transaminitis
Acute normocytic anemia
Hypothyroidism
Bipolar disorder on psychiatric meds as outpt
Hiatal hernia
Hyponatremia
Fatigue and weakness
Cath September 23 2024:
PCWP (a/v/x, mmHg): 37/39/35
Rudy
CI (L/min/m2): 2.03
Thermodilution
CI (L/min/m2):1.2
LVG: hyperdynamic ventricular basal function and akinesis of the mid ventricle to apex with ballooning of the LV apex EF 30-35%. There is no mitral regurgitation.
Left Main: Normal size, bifurcating vessel. There is no coronary artery disease.
LAD: Normal size vessel giving rise to 1 significant diagonal. There is no coronary artery disease.
Circumflex: Normal size, nondominant vessel that is essentially a single obtuse marginal. There is severe tortuosity but no coronary artery disease.
RCA: Large size, dominant vessel with a significant posterolateral arcade. There is no coronary artery disease. The distal RPDA severely tortuous.
Echo September 23 2024: Normal left ventricular size. Mild concentric left ventricular hypertrophy. Akinesis of the mid to apical inferoseptal, inferolateral and apical quintero.
LV ejection fraction is 40-45% by Allen's method of discs which may be overestimated. Normal right ventricular size and function. Mild to moderate tricuspid regurgitation.
Estimated pulmonary artery pressure of 15-20 mmHg assuming a right atrial pressure of 3 mmHg. Pulmonic valve is grossly normal but poorly visualized. Normal pericardium without effusion.
The IVC is dilated and does not collapse.
Echo 10/02/24 : Normal LV size and LVEF 54% with apical segmental wall motion abnl.
Plan:
She continues to recover from what we presume is Takotsubo cardiomyopathy related to Inf A associated with multisystem organ failure.
She complains of lightheadedness, blood pressure is around 110 systolic. We will cut lisinopril to 5 mg daily. Early in hospital stay she had been very hypertensive. Meds have been de-escalated, and we may need to de-escalate
antihypertensive/cardiomyopathy regimen further.
Will recheck proBNP, was initially 13,000 and then 4240 on the . Currently she is not on furosemide, and became hypotensive when we added furosemide.
Otherwise, she has progressed considerably since her initial presentation. Continue supportive care.
Daughter requested that iron studies to be drawn.
No further atrial fibrillation since PICC line was placed.
TPN has been discontinued, she is eating but apparently with some difficulty.
From our standpoint okay to begin discharge planning. Presumably she will need rehab.
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
Subjective
Date of Service: October 08, 2024:
Medications: Albuterol, iron, aspirin 81 mg a day, levothyroxine 5 mcg daily, vitamin, rosuvastatin 20 mg a day, spironolactone 12.5 mg daily, enoxaparin 40 mg a day, dapagliflozin 10 mg a day, lisinopril 10 mg a.m. and 5 mg p.m., Lamictal 25 daily
and carvedilol 12.5 daily, not on furosemide, TPN has been stopped
111/60, pulse 79, respiratory 17, afebrile, sats 98%, weight is 80.6 kg, which is stable, pleasant, answers questions, daughter Ladi at bedside. Lungs with rhonchi but no obvious rales JVD okay regular rate and rhythm, no obvious murmurs, abdomen
benign, not much edema,
BUN and creatinine are 37 and 0.7, pulse is 4.1, sodium is 139, ALT is 49, hemoglobin was 10.5 on October 05, proBNP was 4240 on the and was 13,300 on the
Objective
Labs:
10/05/24 04:00
10/08/24 03:56
Labs
Hgb 10.5 g/dL (12.0-16.0) L 10/05/24 04:00
Hct 31.5 % (37.0-47.0) L 10/05/24 04:00
Plt Count 159 10^3/uL (130-400) 10/05/24 04:00
PT 13.5 Sec (11.4-14.6) 09/22/24 03:50
INR 1.00 09/22/24 03:50
APTT Cancelled 09/23/24 10:37
Sodium 139 mmol/L (135-145) 10/08/24 03:56
Potassium 4.1 mmol/L (3.5-5.1) 10/08/24 03:56
BUN 37 mg/dl (7-17) H 10/08/24 03:56
Creatinine 0.7 mg/dL (0.6-1.0) 10/08/24 03:56
Glucose 122 mg/dl (70-99) H 10/08/24 03:56
Vital Signs and I&O:
Vital Signs
Temp Pulse Resp BP Pulse Ox
36.6 C 79 17 111/60 98
10/08/24 07:12 10/08/24 08:43 10/08/24 06:00 10/08/24 08:43 10/08/24 06:00
Vital Signs
Temp Pulse Resp BP Pulse Ox
36.6 C 79 17 111/60 98
10/08/24 07:12 10/08/24 08:43 10/08/24 06:00 10/08/24 08:43 10/08/24 06:00
Intake & Output
10/06/24 10/07/24 10/08/24 10/09/24
07:59 07:59 07:59 07:59
Intake Total 1592 / 1592 1152 / 1152 672 / 672
Balance 1592 / 1592 1152 / 1152 672 / 672
Physical Exam
Physical Exam
See above
--- NOTE | 2024-10-08 11:33 | W.PN.UPDATE ---
Update Note
Progress Note Update
Pt seen with dtr present. Pt sitting up in chair, awake, slowed, nodding off at times. Pt c/o feeling 'weak'. No signs of arcenio. Dtr reports pt has had poor po intake, feels pt has been depressed. Pt endorsed feeling down. Dtr states TPN was
stopped and pt is not taking in enough calories. Reviewed pt's history, diagnosed with Bipolar d/o in 2021 (at age 76?), reportedly had arcenio but was not hospitalized, has been treated with sedating medications, combination of Ambgilles, Meghna,
Trazodone and daytime dose of Klonopin- all being held here. Dtr requested a trial of antidepressant, reports she has done well on Lamictal and Pristiq.
Imp: hx of Bipolar d/o with arcenio, stable. R/o depression, with poor po intake
Rec: continue Lamictal titration; trial of Pristiq- start at low dose
will follow
[2024-10-08] MEDS: PRISTIQ 25 MG PO (12:21)
[2024-10-08 12:53] LABS: Iron 39 ug/dl (37-170)
[2024-10-08] MEDS: MAGIC OR MIRACLE MOUTHWASH PO ×3 (12:57→21:06)
[2024-10-08 13:02] LABS: Percent Saturation 14 % (20-50); Total Iron Binding Capacity 275 ug/dl (265-497)
--- NOTE | 2024-10-08 15:40 | W.PN.HOSP.TC ---
Today's Communication/Plan
-
Monitor oral intake
Physical therapy.
Monitor for recurrent hypotension.
Cardiovascular regimen has been adjusted.
Assessment / Plan
Assessment / Plan
Ms. Daniel is a 79-year-old female with a medical history of hypertension and bipolar disorder who presented with shortness of breath. She tested positive for influenza 2 days prior to arrival and was started on oseltamivir as an outpatient.
However she had progressively worsening dyspnea and productive cough for 24 hours prior to presenting to the emergency department.
In the ED, she was found to be hypoxic with her pulse ox in the mid 80s on room air. She was started on supplemental oxygen via nasal cannula at that time with improvement in her respiratory status and oxygenation. She was also given nebulizer
treatments. She was admitted for further evaluation and management of acute respiratory failure with hypoxia in the setting of influenza infection.
Impression:
Acute hypoxic respiratory failure.
� Intubated 09/21/2024
Sepsis secondary to influenza A/bacterial�community-acquired pneumonia, also suspected aspiration pneumonia given large hiatal hernia with intrathoracic stomach
Shock, multifactorial due to sepsis as well as cardiogenic.
Acute heart failure reduced EF secondary to stress�Takotsubo cardiomyopathy.
Type II AL/demand ischemia with troponin peak 14
Polymorphic ventricular tachycardia on monitoring 09/23/24
Prolonged QTc resolved
Episode of atrial fibrillation with PICC line placement
Acute kidney injury.
Hypovolemic hyponatremia
Hypernatremia while on diuresis
Acute anemia with no evidence of blood loss, suspect dilutional/acute illness.
Elevated transaminases
Prediabetes
Hypothyroidism on replacement
Bipolar disorder.
Plan
#Acute hypoxic respiratory failure
-multifactorial in the settings of influenza A/bacterial pneumonia as well as cardiogenic shock.
-Intubated on 09/21/24 and was ultimately extubated on 09/25/2024
-Respiratory culture positive for Streptococcus and nasal swab positive for influenza
-Unable to complete course of Tamiflu given lack of enteral access;
s/p IV antibiotics with Unasyn, CTX
-Received course of steroids however discontinued as associated with increased mortality during flu
-Follow-up chest x-ray on 09/27 with possible small right loculated pleural effusion.
-Currently with stable respiratory status with minimal O2 requirement, nightly BiPAP
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
-SpO2 goal >90%
#Epistaxis, resolved
-Likely from nasal dryness with supplemental O2
-Hemoglobin stable on CBC
-started nasal spray for moisturizing
-Continue to trend CBC, humidify O2
#Toxic metabolic encephalopathy protracted secondary to acute illness
#Reported bipolar disorder of unknown significance.
#Acute delirium resolving
#Aspiration risk
-Off Precedex; holding preadmission psychiatric regimen
-Currently on TPN due to aspiration risk from encephalopathy and intubation
-Oral diet pur�ed, speech following. VSE performed and reviewed. Diet adjusted accordingly.
-Wean TPN as oral intake improves
#Dehydration with hypernatremia- resolved
-Developed while on IV diuresis; s/p replacement with D5W
-Sodium initially in the 150s, down to 141 now
-Monitor oral intake, encourage free water intake as swallowing improved
# Severe malnutrition secondary to acute illness
Diet has been advanced with aspiration precautions
TPN was initiated, hold starting 10/07 as TPN prevents dispo to [facility]
Continue calorie count
#Acute HFrEF with cardiogenic shock
#Nonischemic cardiomyopathy
#Takotsubo cardiomyopathy
-Had type II AL with troponin peak of 14; ECG with diffuse ST changes in anterolateral leads
-Urgent right and left heart cath with LVEF 30 to 35%, patent coronaries, Takotsubo morphology, reduced cardiac index
-Follow-up echocardiogram on 10/02 with improved LVEF at 45%.
-Transient hypotension responded to IV fluid bolus.
-Cardiovascular regimen has been adjusted with reduction dose of Coreg, lisinopril. Aldactone has been reintroduced. Hold Lasix. Monitor oral intake.
#NSVT, Secondary to reduced LVEF and cardiomyopathy
-Status post course of amiodarone
-Continue to monitor on telemetry
-Electrolyte goals K >4, mag >2
# Episode of atrial fibrillation related to PICC line position on 04/30 which has been addressed.
PICC line position adjusted
Converted and remains in sinus rhythm.
Monitor.
No anticoagulation indicated.
#Acute kidney injury
-Presumed prerenal in the context of cardiogenic shock
-Renal function normalized with normalization of volume status.
-Home HCTZ was held
-Has since resolved
-Successful TOV on 09/28
#Acute normocytic anemia
-Noted fluctuation of hemoglobin 13�11.7 likely reflects volume state. No evidence for acute bleeding
-Urgent upper endoscopy with a large hiatal hernia and no evidence of bleeding
-Follow-up hemoglobin closely.
-Continue PPI prophylactic dose
#Large hiatal hernia with intrathoracic stomach.
-Remains with high aspiration risk.
-Continue PPI.
#Shock liver
-elevated transaminases suspect in the settings of hemodynamic instability.
-No gastrointestinal complaints upon presentation
-Follow LFTs
#Hypothyroidism
-Chronic, unclear etiology, home meds include levothyroxine 25 mcg
-No signs of thyroid dysfunction at this time
#Prediabetes
-Continue basal bolus protocol with serial Accu-Cheks
#Bipolar disorder.
-Preadmission regimen include Vraylar, clonazepam, lamotrigine, zaleplon.
-Psychiatry but appreciated.
� Reintroduce to Lamictal 25 mg daily. Continue monitoring.
DVT prophylaxis: Lovenox SQ
Diet: Pur�ed
CODE STATUS: Full code
Disposition: Acute rehab per PT OT.
DW RN
total time spent 51 min
Anticipated Discharge: 24 - 48 hours
Subjective/Interval History
-
Date of Service: October 08, 2024
Objective Data
-
Labs:
Laboratory Results
10/08/24
03:56
Sodium 139
Potassium 4.1
Chloride 108 H
Carbon Dioxide 21 L
BUN 37 H
Creatinine 0.7
Glucose 122 H
Calcium 8.8
Total Bilirubin 0.7
AST 25
ALT 49 H
Alkaline Phosphatase 75
Vital Signs:
Vital Signs
Temp Pulse Resp BP Pulse Ox
97.7 F 76 20 106/56 94
10/08/24 11:12 10/08/24 14:00 10/08/24 14:00 10/08/24 14:00 10/08/24 14:00
I&O
10/07/24 10/08/24 10/09/24
06:59 06:59 06:59
Intake Total 1152 / 1152 672 / 672
Balance 1152 / 1152 672 / 672
Physical Exam
-
General: Well Developed, Well Nourished, Respiratory Distress (mild), Appears Chronically Ill and Other (Frail and weak-appearing)
HEENT: Normocephalic, Atraumatic, Moist Mucous Membranes and Oxygen (2L NC)
Respiratory: Clear to Auscultation and Non Labored Respirations
Cardiac: Regular Rhythm and S1/S2; Negative Murmur, Rub, JVD or Gallop
GI: Soft, Nontender, Nondistended and Normal Bowel Sounds
Musculoskeletal: No Clubbing, No Cyanosis and No Edema
Skin: Warm and Dry; Negative Rash
Neuro: Awake and Alert
Psych: Calm and Intact Judgement/Insight (somewhat)
--- NOTE | 2024-10-08 17:10 | PTCARENOTE ---
Patient AAOx3, been up in chair most of day. Patient making needs known. No longer incontinent. VSS. Encouraging more PO intake. Family at bedside. Will continue to closely monitor.
[2024-10-08 17:19] LABS: Glucose - Point of Care 115 mg/dl (70-99)
[2024-10-08] MEDS: LOVENOX 40 MG SC (18:37)
[2024-10-08] MEDS: ZESTRIL 5 MG PO (19:31)
[2024-10-08] MEDS: MELATONIN 10 MG PO (21:10)
[2024-10-09] VITALS (12 sets, daily range): BP systolic 93–139; BP diastolic 60–95; BMI 30.4
--- NOTE | 2024-10-09 03:33 | VATNOTE ---
Paged by PCN - states unable to get a blood return from both lumens of PICC. PICC assessed and does not have a blood return from either lumen. Spoke with PCN about potentially administering cathflo and she states that the patient may no longer
need the PICC. She will have the dayshift nurse check this morning and if they decide to keep the PICC in they will let VAT know that the PICC will need cathflo.
[2024-10-09] MEDS: SYNTHROID 25 MCG PO (05:45)
--- NOTE | 2024-10-09 05:56 | PTCARENOTE ---
Pt AAOx3, pleasant and cooperative. Pt remains SR on CM, RA 95%, refused to wear BiPAP HS. Pt with moist occasional cough, which produced martinez mucous. Pt denies PRN cough med at this time. Meds given crushed in applesauce without complication. Pt
usually able to ring for BP, but was incontinent saturated once. Dual lumen PICC without blood return, however pt is not scheduled any IV medications. This RN will consult oncoming shift about necessity of central line. Pt refuses magic mouthwash.
Call murillo within reach.
[2024-10-09 06:38] LABS: NT-proBNP 1240 pg/ml
[2024-10-09 07:54] LABS: Glucose - Point of Care 111 mg/dl (70-99)
[2024-10-09] MEDS: NOVOLOG FLEXPEN-MODERATE RESISTANCE SC ×2 (08:11→18:14)
[2024-10-09] MEDS: FARXIGA 10 MG PO (08:19)
[2024-10-09] MEDS: LAMICTAL 25 MG PO (08:19)
[2024-10-09] MEDS: CRESTOR 20 MG PO (08:19)
[2024-10-09] MEDS: PRISTIQ PO ×2 (08:19→08:48)
[2024-10-09] MEDS: VITAMIN D3 (cholecalciferol) 25 MCG PO (08:19)
[2024-10-09] MEDS: LOW STRENGTH ASPIRIN 81 MG PO (08:20)
[2024-10-09] MEDS: THERAGRAN 1 TABLET PO (08:20)
[2024-10-09] MEDS: MAGIC OR MIRACLE MOUTHWASH PO ×4 (08:22→21:22)
[2024-10-09] MEDS: COREG 12.5 MG PO ×2 (08:22→19:53)
[2024-10-09] MEDS: MIRALAX PO ×2 (08:22→08:53)
--- NOTE | 2024-10-09 08:47 | W.PN.CARDCBS ---
Today's Communication / Plan
-
Seems brighter day by day
Okay for discharge planning from cardiac standpoint
Observe BP on continue current regimen, possibly de-escalate further
Impression / Plan
-
Impression:
Takotsubo CM, peak trop 14
Multifactorial shock with MSOF
s/p NSVT
VDRF/influenza A, probable bacterial pneumonia acute
s/p catheter related AFib, no recurrence
Acute renal failure
Acute liver failure with transaminitis
Acute normocytic anemia
Hypothyroidism
Bipolar disorder on psychiatric meds as outpt
Hiatal hernia
Hyponatremia
Fatigue and weakness
Cath September 23 2024:
PCWP (a/v/x, mmHg): 37/39/35
Rudy
CI (L/min/m2): 2.03
Thermodilution
CI (L/min/m2):1.2
LVG: hyperdynamic ventricular basal function and akinesis of the mid ventricle to apex with ballooning of the LV apex EF 30-35%. There is no mitral regurgitation.
Left Main: Normal size, bifurcating vessel. There is no coronary artery disease.
LAD: Normal size vessel giving rise to 1 significant diagonal. There is no coronary artery disease.
Circumflex: Normal size, nondominant vessel that is essentially a single obtuse marginal. There is severe tortuosity but no coronary artery disease.
RCA: Large size, dominant vessel with a significant posterolateral arcade. There is no coronary artery disease. The distal RPDA severely tortuous.
Echo September 23 2024: Normal left ventricular size. Mild concentric left ventricular hypertrophy. Akinesis of the mid to apical inferoseptal, inferolateral and apical quintero.
LV ejection fraction is 40-45% by Allen's method of discs which may be overestimated. Normal right ventricular size and function. Mild to moderate tricuspid regurgitation.
Estimated pulmonary artery pressure of 15-20 mmHg assuming a right atrial pressure of 3 mmHg. Pulmonic valve is grossly normal but poorly visualized. Normal pericardium without effusion.
The IVC is dilated and does not collapse.
Echo 10/02/24 : Normal LV size and LVEF 54% with apical segmental wall motion abnl.
Plan:
She continues to improve on a daily basis after multisystem organ failure in the setting of influenza A with Takotsubo syndrome.
Yesterday, she was lightheaded with marginal blood pressure. Lisinopril was decreased from 15 mg a day to 5 mg a day. Blood pressure is better but still occasionally low, though symptoms of lightheadedness have resolved. Continue to observe on
current regimen and will de-escalate meds further if needed.
Initially, proBNP had been greater than 3000, then greater than 4000, and today is 1240. There is no evidence of heart failure on exam today. Continue current cardiac regimen for LV dysfunction.
Iron saturation is slightly low, patient is on oral iron.
No evidence of atrial fibrillation.
She is now eating, TPN has been stopped.
From cardiac standpoint okay to proceed with discharge planning.
Progress Note - Teacher Associate
Subjective
Date of Service: October 09, 2024:
No lightheadedness, only complaint is constipation she is pleasant and communicative
Medications: Albuterol, iron, aspirin 81 mg a day, levothyroxine 25 mcg daily, multivitamin, rosuvastatin 20 mg a day, vitamin D3, spironolactone 12.5 mg daily, Lovenox 40 mg daily, Farxiga 10 mg a day, lisinopril 5 mg a day, Lamictal 25 mg a day,
carvedilol 12.5 mg daily Pristiq, 25 mg daily
133/95, pulse 83, respiratory 21, afebrile, weight is 80.3 kg, which is stable, blood pressure had been 94/65 last night in general blood pressure has been little higher, pleasant, communicative, head neck exam unremarkable, lungs are clear, JVD is
okay, abdomen benign, extremities without much edema, no obvious murmurs, regular rate and rhythm
proBNP is 1240, had been 4240 and 13,300, no other labs today BUN and creatinine had been 37 and 0.7 on the with a potassium of 4.1
EKG: Sinus rhythm, PVCs, still with prolonged QT and anterolateral T wave inversions which show typical serial changes
Telemetry: Rare PVCs
Objective
Labs:
10/05/24 04:00
10/08/24 03:56
Labs
Hgb 10.5 g/dL (12.0-16.0) L 10/05/24 04:00
Hct 31.5 % (37.0-47.0) L 10/05/24 04:00
Plt Count 159 10^3/uL (130-400) 10/05/24 04:00
PT 13.5 Sec (11.4-14.6) 09/22/24 03:50
INR 1.00 09/22/24 03:50
APTT Cancelled 09/23/24 10:37
Sodium 139 mmol/L (135-145) 10/08/24 03:56
Potassium 4.1 mmol/L (3.5-5.1) 10/08/24 03:56
BUN 37 mg/dl (7-17) H 10/08/24 03:56
Creatinine 0.7 mg/dL (0.6-1.0) 10/08/24 03:56
Glucose 122 mg/dl (70-99) H 10/08/24 03:56
Vital Signs and I&O:
Vital Signs
Temp Pulse Resp BP Pulse Ox
36.6 C 83 21 133/95 95
10/09/24 03:06 10/09/24 06:00 10/09/24 06:00 10/09/24 06:00 10/09/24 06:00
Vital Signs
Temp Pulse Resp BP Pulse Ox
36.6 C 83 21 133/95 95
10/09/24 03:06 10/09/24 06:00 10/09/24 06:00 10/09/24 06:00 10/09/24 06:00
Intake & Output
10/07/24 10/08/24 10/09/24 10/10/24
07:59 07:59 07:59 07:59
Intake Total 1152 / 1152 672 / 672 240 / 240
Balance 1152 / 1152 672 / 672 240 / 240
Physical Exam
Physical Exam
See above
--- NOTE | 2024-10-09 09:29 | PN.DE.MGMTRT ---
Insulin Management
- -
:
10/09/2024: Diabetes Management Follow up
79 year old female admitted with SOB-->Acute respiratory failure with hypoxia 2/2 Influenza A infection. PMH: HTN, Bipolar d/o. No hx of DM, A1C on admission was 6.0%-->pre-diabetes, Cr 0.8, eGFR >60.
Pt was noted for Hyperglycemia requiring initiation of glycemic protocol. She was transitioned off insulin infusion to low corrective insulin on 09/23.
Patient is awake alert, OOB in chair. tolerating po and food intake is improving.
Continued on calorie count. 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
Will cont Farxiga 10mg daily and moderate corrective insulin AC. Will cont to follow.
09/24 Pt's denies any knowledge of being treated for DM. Review of chart shows no diabetes medicines prior to admission.
Diabetes History
- -
Pre-Admission Diabetes Regimen
Lab Results
Hemoglobin A1c Cancelled 09/21/24 23:19
Insulin Pump Settings
IP Diabetes Regimen
10/08/24 10/09/24
17:07 07:43
POC Glucose 115 H 111 H
Patient Education
[2024-10-09] MEDS: DULCOLAX 10 MG RECTAL (10:24)
[2024-10-09 12:18] LABS: Glucose - Point of Care 173 mg/dl (70-99)
[2024-10-09] MEDS: NOVOLOG FLEXPEN-MODERATE RESISTANCE 1 UNITS SC (12:30)
--- NOTE | 2024-10-09 13:27 | CM ---
Patient with Hx bipolar disorder with Dx Acute hypoxic respiratory failure. Room air. Seen by Psych - Receiving Lamictal. Calorie count continued due to poor PO intake. Seen by civil engineering technician. PT/OT recommend acute rehab.
Spoke with Dr Ayala; patient is medically ready for discharge to acute rehab.
Spoke with [facility]; they do not have an available bed today for this patient.
Dr Ponce indicated concern re; patient's poor PO intake in his eval- she is aware calorie count is in progress and patient has been seen by civil engineering technician.
Met with patient & daughter Ladi & left message for Viet on voicemail; they are aware that patient is accepted by [facility] however no bed is available. Daughter declines to choose an alternate acute rehab facility.
Plan [facility] when bed available.
--- NOTE | 2024-10-09 16:02 | W.PN.UPDATE ---
Update Note
Progress Note Update
Pt seen with dtr; had a lot of visitors today, room is full of kessler and cards. Pt more awake and smiling today. The chart notes Pristiq not given because it cannot be crushed, but dtr states the pt was able to take the whole tab in apple sauce
with no problems. Pt offers no complaints today, denies side effects after 2 doses of Pristiq.
Imp: hx of Bipolar d/o with arcenio, stable. R/o depression, with poor po intake
Rec: continue Lamictal titration; continue trial of Pristiq- at low dose (25 mg daily)
will follow
--- NOTE | 2024-10-09 16:31 | W.PN.HOSP.TC ---
Today's Communication/Plan
-
Monitor oral intake
Continue current psychiatric regimen
Continue current cardiovascular regimen
Physical therapy/physiatry assessment.
Assessment / Plan
Assessment / Plan
Ms. Daniel is a 79-year-old female with a medical history of hypertension and bipolar disorder who presented with shortness of breath. She tested positive for influenza 2 days prior to arrival and was started on oseltamivir as an outpatient.
However she had progressively worsening dyspnea and productive cough for 24 hours prior to presenting to the emergency department.
In the ED, she was found to be hypoxic with her pulse ox in the mid 80s on room air. She was started on supplemental oxygen via nasal cannula at that time with improvement in her respiratory status and oxygenation. She was also given nebulizer
treatments. She was admitted for further evaluation and management of acute respiratory failure with hypoxia in the setting of influenza infection.
Impression:
Acute hypoxic respiratory failure.
� Intubated 09/21/2024
Sepsis secondary to influenza A/bacterial�community-acquired pneumonia, also suspected aspiration pneumonia given large hiatal hernia with intrathoracic stomach
Shock, multifactorial due to sepsis as well as cardiogenic.
Acute heart failure reduced EF secondary to stress�Takotsubo cardiomyopathy.
Type II WV/demand ischemia with troponin peak 14
Polymorphic ventricular tachycardia on monitoring 09/23/24
Prolonged QTc resolved
Episode of atrial fibrillation with PICC line placement
Acute kidney injury.
Hypovolemic hyponatremia
Hypernatremia while on diuresis
Acute anemia with no evidence of blood loss, suspect dilutional/acute illness.
Elevated transaminases
Prediabetes
Hypothyroidism on replacement
Bipolar disorder.
Plan
#Acute hypoxic respiratory failure
-multifactorial in the settings of influenza A/bacterial pneumonia as well as cardiogenic shock.
-Intubated on 09/21/24 and was ultimately extubated on 09/25/2024
-Respiratory culture positive for Streptococcus and nasal swab positive for influenza
-Unable to complete course of Tamiflu given lack of enteral access;
s/p IV antibiotics with Unasyn, CTX
-Received course of steroids however discontinued as associated with increased mortality during flu
-Follow-up chest x-ray on 09/27 with possible small right loculated pleural effusion.
-Currently with stable respiratory status with minimal O2 requirement, nightly BiPAP
-Continue aspiration cautions and EAP SPECIALIST, PRN nebs
-SpO2 goal >90%
#Epistaxis, resolved
-Likely from nasal dryness with supplemental O2
-Hemoglobin stable on CBC
-started nasal spray for moisturizing
-Continue to trend CBC, humidify O2
#Toxic metabolic encephalopathy protracted secondary to acute illness
#Reported bipolar disorder of unknown significance.
#Acute delirium resolving
#Aspiration risk
-Off Precedex; holding preadmission psychiatric regimen
-Currently on TPN due to aspiration risk from encephalopathy and intubation
-Oral diet pur�ed, speech following. VSE performed and reviewed. Diet adjusted accordingly.
-Wean TPN as oral intake improves
#Dehydration with hypernatremia- resolved
-Developed while on IV diuresis; s/p replacement with D5W
-Sodium initially in the 150s, down to 141 now
-Monitor oral intake, encourage free water intake as swallowing improved
# Severe malnutrition secondary to acute illness
Diet has been advanced with aspiration precautions
TPN was initiated, hold starting 10/07 as TPN prevents dispo to [facility]
Continue calorie count
#Acute HFrEF with cardiogenic shock
#Nonischemic cardiomyopathy
#Takotsubo cardiomyopathy
-Had type II WV with troponin peak of 14; ECG with diffuse ST changes in anterolateral leads
-Urgent right and left heart cath with LVEF 30 to 35%, patent coronaries, Takotsubo morphology, reduced cardiac index
-Follow-up echocardiogram on 10/02 with improved LVEF at 45%.
-Transient hypotension responded to IV fluid bolus.
-Cardiovascular regimen has been adjusted with reduction dose of Coreg, lisinopril. Aldactone has been reintroduced. Hold Lasix. Monitor oral intake.
#NSVT, Secondary to reduced LVEF and cardiomyopathy
-Status post course of amiodarone
-Continue to monitor on telemetry
-Electrolyte goals K >4, mag >2
# Episode of atrial fibrillation related to PICC line position on 04/30 which has been addressed.
PICC line position adjusted
Converted and remains in sinus rhythm.
Monitor.
No anticoagulation indicated.
#Acute kidney injury
-Presumed prerenal in the context of cardiogenic shock
-Renal function normalized with normalization of volume status.
-Home HCTZ was held
-Has since resolved
-Successful TOV on 09/28
#Acute normocytic anemia
-Noted fluctuation of hemoglobin 13�11.7 likely reflects volume state. No evidence for acute bleeding
-Urgent upper endoscopy with a large hiatal hernia and no evidence of bleeding
-Follow-up hemoglobin closely.
-Continue PPI prophylactic dose
#Large hiatal hernia with intrathoracic stomach.
-Remains with high aspiration risk.
-Continue PPI.
#Shock liver
-elevated transaminases suspect in the settings of hemodynamic instability.
-No gastrointestinal complaints upon presentation
-Follow LFTs
#Hypothyroidism
-Chronic, unclear etiology, home meds include levothyroxine 25 mcg
-No signs of thyroid dysfunction at this time
#Prediabetes
-Continue basal bolus protocol with serial Accu-Cheks
#Bipolar disorder.
-Preadmission regimen include Vraylar, clonazepam, lamotrigine, zaleplon.
-Psychiatry input appreciated
� Reinstated Lamictal titrating dose. Initiated on Pristiq on 10/08.
DVT prophylaxis: Lovenox SQ
Diet: Pur�ed
CODE STATUS: Full code
Disposition: Acute rehab per PT OT.
DW RN
total time spent 51 min
Anticipated Discharge: 24 - 48 hours
Subjective/Interval History
-
Date of Service: October 09, 2024
Objective Data
-
Vital Signs:
Vital Signs
Temp Pulse Resp BP Pulse Ox
97.5 F 74 20 103/62 95
10/09/24 11:17 10/09/24 14:53 10/09/24 14:53 10/09/24 12:46 10/09/24 15:46
I&O
10/08/24 10/09/24 10/10/24
06:59 06:59 06:59
Intake Total 672 / 672 240 / 240
Balance 672 / 672 240 / 240
Physical Exam
-
General: Well Developed, Well Nourished, Respiratory Distress (mild), Appears Chronically Ill and Other (Frail and weak-appearing)
HEENT: Normocephalic, Atraumatic, Moist Mucous Membranes and Oxygen (2L NC)
Respiratory: Clear to Auscultation and Non Labored Respirations
Cardiac: Regular Rhythm and S1/S2; Negative Murmur, Rub, JVD or Gallop
GI: Soft, Nontender, Nondistended and Normal Bowel Sounds
Musculoskeletal: No Clubbing, No Cyanosis and No Edema
Skin: Warm and Dry; Negative Rash
Neuro: Awake and Alert
Psych: Calm and Intact Judgement/Insight (somewhat)
[2024-10-09 17:35] LABS: Glucose - Point of Care 125 mg/dl (70-99)
[2024-10-09] MEDS: LOVENOX 40 MG SC (18:14)
--- NOTE | 2024-10-09 18:31 | PTCARENOTE ---
see nursing worklist and assessment. vitals stable. pt able to stand to get up in chair with mod assist, demario lift not needed. pt is has had several protein shakes from home along with some puddings, yogurt. pt has been continent of bowel and
bladder. large bm on bedside commode after dulcolax supp. right picc line removeed.
[2024-10-09] MEDS: ZESTRIL 5 MG PO (19:53)
[2024-10-09] MEDS: MELATONIN 10 MG PO (21:26)
[2024-10-09 21:34] LABS: Glucose - Point of Care 112 mg/dl (70-99)
--- NOTE | 2024-10-09 22:19 | PTCARENOTE ---
Pt oriented, able to make needs known. Ringing call murillo appropriately. VSS. Assessment as documented. Continues with meds crushed in applesauce without complication. Care ongoing.
[2024-10-10] VITALS (14 sets, daily range): BP systolic 106–157; BP diastolic 54–92; BMI 31.2
--- NOTE | 2024-10-10 04:49 | DOWNTIME ---
There was a [employer] Downtime on 10/10/2024 from 0100 to 10/11/2023 at 0420 . Downtime documentation of patient's care, including medication administrations, has been reconciled in the electronic record per guidelines. Refer to the
patient's paper chart under the miscellaneous tab to see printed paper medication records and downtime forms.
[2024-10-10 05:29] LABS: Blood Urea Nitrogen 25 mg/dl (7-17); Carbon Dioxide 25 mmol/L (22-30); Chloride 105 mmol/L (98-107); Estimated Creatinine Clearance 69 ml/min; Glucose 113 mg/dl (70-99); Potassium 3.8 mmol/L (3.5-5.1); Sodium 137 mmol/L (135-145); eGFR > 60.00
[2024-10-10 05:36] LABS: % Basophils 0.8 % (0-2); % Eosinophils 5.6 % (0-6); % Immature Granulocytes 0.2 % (0-0.5); % Lymphocytes 28.5 % (20.5-51.1); % Monocytes 11.6 % (1.7-9.3); % Neutrophils 53.3 % (42.2-75.2); Absolute Eosinophils 0.3 10^3/uL (0-0.7); Absolute Lymphocytes 1.4 10^3/uL (1.2-3.4); Absolute Monocytes 0.6 10^3/uL (0.1-0.6); Absolute Neutrophils 2.7 10^3/uL (1.4-6.5); Hematocrit 25.9 % (37.0-47.0); Hemoglobin 8.9 g/dL (12.0-16.0); Mean Corp Hgb Conc. 34.4 g/dL (33.0-37.0); Mean Corpuscular Hgb 30.9 pg (27.0-31.0); Mean Corpuscular Volume 89.9 fL (81.0-99.0); Mean Platelet Volume 12.5 fL (7.4-10.4); Nucleated Red Blood Cells % 0 %; Platelet Count 212 10^3/uL (130-400); Red Blood Cell Count 2.88 10^6/uL (4.20-5.40); Red Cell Dist. Width 13.9 % (11.5-14.5)
[2024-10-10] MEDS: SYNTHROID 25 MCG PO (06:25)
[2024-10-10] MEDS: ROBITUSSIN DM 10 ML PO (06:25)
[2024-10-10] MEDS: NOVOLOG FLEXPEN-MODERATE RESISTANCE SC ×3 (08:38→16:29)
[2024-10-10 08:41] LABS: Glucose - Point of Care 113 mg/dl (70-99)
--- NOTE | 2024-10-10 09:38 | PN.DE.MGMTRT ---
Insulin Management
- -
:
10/10/2024: Diabetes Management Follow up
79 year old female admitted with SOB-->Acute respiratory failure with hypoxia 2/2 Influenza A infection. PMH: HTN, Bipolar d/o. No hx of DM, A1C on admission was 6.0%-->pre-diabetes, Cr 0.8, eGFR >60.
Pt was noted for Hyperglycemia requiring initiation of glycemic protocol. She was transitioned off insulin infusion to low corrective insulin on 09/23.
Patient is awake alert, OOB in chair. Daughter at bedside. Tolerating po food, intake is improving.
Continued on calorie count. 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
Will cont Farxiga 10mg daily and moderate corrective insulin AC. Will cont to follow.
09/24 Pt's denies any knowledge of being treated for DM. Review of chart shows no diabetes medicines prior to admission.
Diabetes History
- -
Pre-Admission Diabetes Regimen
10/10/24
04:36
Creatinine 0.7
Lab Results
Hemoglobin A1c Cancelled 09/21/24 23:19
Insulin Pump Settings
IP Diabetes Regimen
10/09/24 10/09/24 10/09/24
12:07 17:24 21:23
Glucose
POC Glucose 173 H 125 H 112 H
10/10/24 10/10/24
04:36 08:30
Glucose 113 H
POC Glucose 113 H
Meal type: Lunch
Meal type: Breakfast
Amount consumed: 50%
Amount consumed: 100%
Patient Education
[2024-10-10] MEDS: CRESTOR PO (09:52)
[2024-10-10] MEDS: COREG PO (09:52)
[2024-10-10] MEDS: FARXIGA PO (09:53)
[2024-10-10] MEDS: PRISTIQ PO (09:53)
[2024-10-10] MEDS: MIRALAX PO (09:53)
[2024-10-10] MEDS: MAGIC OR MIRACLE MOUTHWASH PO ×4 (09:53→21:38)
[2024-10-10] MEDS: LOW STRENGTH ASPIRIN PO (09:53)
[2024-10-10] MEDS: LAMICTAL PO (09:53)
[2024-10-10] MEDS: THERAGRAN PO (09:54)
[2024-10-10] MEDS: VITAMIN D3 (cholecalciferol) PO (09:54)
--- NOTE | 2024-10-10 10:05 | W.PN.CARDCBS ---
Today's Communication / Plan
-
She has recovered nicely from her Takotsubo's. Will continue medical therapy.
Blood pressure is improved on lower dose of lisinopril.
Continue Coreg 12.5 mg p.o. twice daily, lisinopril 5 mg daily, and Farxiga 10 mg daily.
With low blood pressure would hold off on discharge on spironolactone
Continue aspirin and Crestor.
Hemoglobin down to 8.9.
Impression / Plan
-
Impression:
Takotsubo CM, peak trop 14
Multifactorial shock with MSOF
s/p NSVT
VDRF/influenza A, probable bacterial pneumonia acute
s/p catheter related AFib, no recurrence
Acute renal failure
Acute liver failure with transaminitis
Acute normocytic anemia
Hypothyroidism
Bipolar disorder on psychiatric meds as outpt
Hiatal hernia
Hyponatremia
Fatigue and weakness
Cath September 23 2024:
PCWP (a/v/x, mmHg): 37/39/35
Rudy
CI (L/min/m2): 2.03
Thermodilution
CI (L/min/m2):1.2
LVG: hyperdynamic ventricular basal function and akinesis of the mid ventricle to apex with ballooning of the LV apex EF 30-35%. There is no mitral regurgitation.
Left Main: Normal size, bifurcating vessel. There is no coronary artery disease.
LAD: Normal size vessel giving rise to 1 significant diagonal. There is no coronary artery disease.
Circumflex: Normal size, nondominant vessel that is essentially a single obtuse marginal. There is severe tortuosity but no coronary artery disease.
RCA: Large size, dominant vessel with a significant posterolateral arcade. There is no coronary artery disease. The distal RPDA severely tortuous.
Echo September 23 2024: Normal left ventricular size. Mild concentric left ventricular hypertrophy. Akinesis of the mid to apical inferoseptal, inferolateral and apical quintero.
LV ejection fraction is 40-45% by Allen's method of discs which may be overestimated. Normal right ventricular size and function. Mild to moderate tricuspid regurgitation.
Estimated pulmonary artery pressure of 15-20 mmHg assuming a right atrial pressure of 3 mmHg. Pulmonic valve is grossly normal but poorly visualized. Normal pericardium without effusion.
The IVC is dilated and does not collapse.
Echo 10/02/24 : Normal LV size and LVEF 54% with apical segmental wall motion abnl.
Plan:
She continues to improve on a daily basis after multisystem organ failure in the setting of influenza A with Takotsubo syndrome.
Blood pressure overall improved today. Continue Coreg, lisinopril, and Farxiga. Hold Aldactone with low BP
Initially, proBNP had been greater than 3000, then greater than 4000, and today is 1240. There is no evidence of heart failure on exam today. Continue current cardiac regimen for LV dysfunction.
Hemoglobin down to 8.9. No clear signs of bleeding. Family was asking for IV iron. Will discuss with primary team.
No evidence of atrial fibrillation.
She is now eating, TPN has been stopped.
From cardiac standpoint okay to proceed with discharge planning.
Will sign off. Please call with questions.
Progress Note - Operation Research Analyst
Subjective
Date of Service: October 10, 2024
Having some mild abdominal pain. No clear bleeding. No chest pain or dizziness.
Objective
Labs:
10/10/24 04:36
10/10/24 04:36
Labs
Hgb 8.9 g/dL (12.0-16.0) L 10/10/24 04:36
Hct 25.9 % (37.0-47.0) L 10/10/24 04:36
Plt Count 212 10^3/uL (130-400) D 10/10/24 04:36
PT 13.5 Sec (11.4-14.6) 09/22/24 03:50
INR 1.00 09/22/24 03:50
APTT Cancelled 09/23/24 10:37
Sodium 137 mmol/L (135-145) 10/10/24 04:36
Potassium 3.8 mmol/L (3.5-5.1) 10/10/24 04:36
BUN 25 mg/dl (7-17) H 10/10/24 04:36
Creatinine 0.7 mg/dL (0.6-1.0) 10/10/24 04:36
Glucose 113 mg/dl (70-99) H 10/10/24 04:36
Vital Signs and I&O:
Vital Signs
Temp Pulse Resp BP Pulse Ox
98.5 F 85 16 133/88 93
10/10/24 06:36 10/10/24 06:00 10/10/24 06:00 10/10/24 06:00 10/10/24 06:00
Vital Signs
Temp Pulse Resp BP Pulse Ox
98.5 F 85 16 133/88 93
10/10/24 06:36 10/10/24 06:00 10/10/24 06:00 10/10/24 06:00 10/10/24 06:00
Intake & Output
10/08/24 10/09/24 10/10/24 10/11/24
06:59 06:59 06:59 06:59
Intake Total 672 / 672 240 / 240 240 / 240
Balance 672 / 672 240 / 240 240 / 240
Physical Exam
Physical Exam
GEN: No distress, awake, Ox3
HEENT: supple, anicteric, mmm
LUNGS: CTA, no wheezes/rales
CV: Reg, S1/S2, 1/6 syst LSB, no gallop
ABD: soft, BS+, mild tenderness
EXT: No edema
NEURO: Gross non-focal
SKIN: No rash
--- NOTE | 2024-10-10 10:45 | PTCARENOTE ---
pt c/o feling weaker today. hiatal hernia is bothering her but she was able to drink a chocolate ensure. family reports increased restless leg symptoms and that pt recieved iron infusions in past. no oral meds given this am as pt feels that they
would make her feel worse right now. resting with daughter at bedside.
[2024-10-10 13:10] LABS: Vitamin B12 952 pg/ml (239-931)
[2024-10-10] MEDS: CRESTOR 20 MG PO ×2 (13:34→13:38)
[2024-10-10] MEDS: PRISTIQ 25 MG PO (13:39)
[2024-10-10] MEDS: VITAMIN D3 (cholecalciferol) 25 MCG PO (13:39)
[2024-10-10] MEDS: THERAGRAN 1 TABLET PO (13:39)
[2024-10-10] MEDS: LAMICTAL 25 MG PO (13:39)
[2024-10-10] MEDS: LOW STRENGTH ASPIRIN 81 MG PO (13:39)
--- NOTE | 2024-10-10 13:54 | W.PN.HOSP.TC ---
Today's Communication/Plan
-
Continue calorie count
Continue physical therapy.
Check iron levels
Follow hemoglobin
Hemodynamically stable with stable respiratory status on current cardiovascular regimen.
Assessment / Plan
Assessment / Plan
Ms. Daniel is a 79-year-old female with a medical history of hypertension and bipolar disorder who presented with shortness of breath. She tested positive for influenza 2 days prior to arrival and was started on oseltamivir as an outpatient.
However she had progressively worsening dyspnea and productive cough for 24 hours prior to presenting to the emergency department.
In the ED, she was found to be hypoxic with her pulse ox in the mid 80s on room air. She was started on supplemental oxygen via nasal cannula at that time with improvement in her respiratory status and oxygenation. She was also given nebulizer
treatments. She was admitted for further evaluation and management of acute respiratory failure with hypoxia in the setting of influenza infection.
Impression:
Acute hypoxic respiratory failure.
� Intubated 09/21/2024
Sepsis secondary to influenza A/bacterial�community-acquired pneumonia, also suspected aspiration pneumonia given large hiatal hernia with intrathoracic stomach
Shock, multifactorial due to sepsis as well as cardiogenic.
Acute heart failure reduced EF secondary to stress�Takotsubo cardiomyopathy.
Type II [place]/demand ischemia with troponin peak 14
Polymorphic ventricular tachycardia on monitoring 09/23/24
Prolonged QTc resolved
Episode of atrial fibrillation with PICC line placement
Acute kidney injury.
Hypovolemic hyponatremia
Hypernatremia while on diuresis
Acute anemia with no evidence of blood loss, suspect dilutional/acute illness.
Elevated transaminases
Prediabetes
Hypothyroidism on replacement
Bipolar disorder.
Plan
#Acute hypoxic respiratory failure
-multifactorial in the settings of influenza A/bacterial pneumonia as well as cardiogenic shock.
-Intubated on 09/21/24 and was ultimately extubated on 09/25/2024
-Respiratory culture positive for Streptococcus and nasal swab positive for influenza
-Unable to complete course of Tamiflu given lack of enteral access;
s/p IV antibiotics with Unasyn, CTX
-Received course of steroids however discontinued as associated with increased mortality during flu
-Follow-up chest x-ray on 09/27 with possible small right loculated pleural effusion.
-Currently with stable respiratory status with minimal O2 requirement, nightly BiPAP
-Continue aspiration cautions and FERRYBOAT DECKHAND, PRN nebs
-SpO2 goal >90%
#Epistaxis, resolved
-Likely from nasal dryness with supplemental O2
-Hemoglobin stable on CBC
-started nasal spray for moisturizing
-Continue to trend CBC, humidify O2
#Toxic metabolic encephalopathy protracted secondary to acute illness
Re resolved
Bipolar disorder.
-Preadmission regimen include Vraylar, clonazepam, lamotrigine, zaleplon.
-Psychiatry input appreciated
� Reinstated Lamictal titrating dose. Initiated on Pristiq on 10/08
#Dehydration with hypernatremia- resolved
-Developed while on IV diuresis; s/p replacement with D5W
-Sodium initially in the 150s, down to 141 now
-Monitor oral intake, encourage free water intake as swallowing improved
# Severe malnutrition secondary to acute illness
Diet has been advanced with aspiration precautions
Has been on TPN, discontinued with improving oral intake.
Continue calorie count
#Acute HFrEF with cardiogenic shock
#Nonischemic cardiomyopathy
#Takotsubo cardiomyopathy
-Had type II IN with troponin peak of 14; ECG with diffuse ST changes in anterolateral leads
-Urgent right and left heart cath with LVEF 30 to 35%, patent coronaries, Takotsubo morphology, reduced cardiac index
-Follow-up echocardiogram on 10/02 with improved LVEF at 45%.
-Transient hypotension responded to IV fluid bolus.
-Cardiovascular regimen has been adjusted with reduction dose of Coreg, lisinopril. Aldactone has been reintroduced. Hold Lasix. Monitor oral intake.
#NSVT, Secondary to reduced LVEF and cardiomyopathy
-Status post course of amiodarone
-Continue to monitor on telemetry
-Electrolyte goals K >4, mag >2
# Episode of atrial fibrillation related to PICC line position on 04/30 which has been addressed.
PICC line position adjusted
Converted and remains in sinus rhythm.
Monitor.
No anticoagulation indicated.
#Acute kidney injury
-Presumed prerenal in the context of cardiogenic shock
-Renal function normalized with normalization of volume status.
-Home HCTZ was held
-Has since resolved
-Successful TOV on 09/28
#Acute normocytic anemia
-Noted fluctuation of hemoglobin 13�11.7 likely reflects volume state. No evidence for acute bleeding
-Urgent upper endoscopy with a large hiatal hernia and no evidence of bleeding
-Hemoglobin drifted down to 8.9 with no evidence of acute blood loss
-Continue PPI prophylactic dose
-Recheck iron levels and B12
#Large hiatal hernia with intrathoracic stomach.
-Remains with high aspiration risk.
-Continue PPI.
#Shock liver
-elevated transaminases suspect in the settings of hemodynamic instability.
-No gastrointestinal complaints upon presentation
-Follow LFTs
#Hypothyroidism
-Chronic, unclear etiology, home meds include levothyroxine 25 mcg
-No signs of thyroid dysfunction at this time
#Prediabetes
-Continue basal bolus protocol with serial Accu-Cheks
DVT prophylaxis: Lovenox SQ
Diet: Pur�ed
CODE STATUS: Full code
Disposition: Acute rehab per PT OT.
DW RN
total time spent 51 min
Anticipated Discharge: 24 - 48 hours
Subjective/Interval History
-
Date of Service: October 10, 2024
Objective Data
-
Labs:
Laboratory Results
10/10/24
04:36
WBC 5.0
Hgb 8.9 L
Hct 25.9 L
Plt Count 212 D
Sodium 137
Potassium 3.8
Chloride 105
Carbon Dioxide 25
BUN 25 H
Creatinine 0.7
Glucose 113 H
Calcium 9.0
Vital Signs:
Vital Signs
Temp Pulse Resp BP Pulse Ox
98.5 F 92 21 106/54 95
10/10/24 06:36 10/10/24 10:00 10/10/24 10:00 10/10/24 10:00 10/10/24 10:00
I&O
10/09/24 10/10/24 10/11/24
06:59 06:59 06:59
Intake Total 240 / 240 240 / 240
Balance 240 / 240 240 / 240
Physical Exam
-
General: Well Developed, Well Nourished, Respiratory Distress (mild), Appears Chronically Ill and Other (Frail and weak-appearing)
HEENT: Normocephalic, Atraumatic, Moist Mucous Membranes and Oxygen (2L NC)
Respiratory: Clear to Auscultation and Non Labored Respirations
Cardiac: Regular Rhythm and S1/S2; Negative Murmur, Rub, JVD or Gallop
GI: Soft, Nontender, Nondistended and Normal Bowel Sounds
Musculoskeletal: No Clubbing, No Cyanosis and No Edema
Skin: Warm and Dry; Negative Rash
Neuro: Awake and Alert
Psych: Calm and Intact Judgement/Insight (somewhat)
--- NOTE | 2024-10-10 14:11 | W.PN.UPDATE ---
Update Note
Progress Note Update
patient seen chart reviewed. d at bedside. the patient is a 79 year old woman admitted w acute respiratory failure secondary to flu and bacterial pneumonia. she has had a complicated hospital course with takotsubo's, septic shock transaminitis,
valente, a fib and required intubation. she was extubated 3/4. she has had issues w swallowing and currently has a picc line for tpn. the patient has psych hx reportedly (?) bipolar and was on a number of medications which were dc'ed at admit. d
and patient expressed some concerns re overmedication. at this point she is taking only melatonin 10 mg q hs pristiq 25 mg daily and lamictal has been restarted at 25 mg dose. she feels yesterday was a very good day. she had many visitors . her
room is full of kessler cards and gifts. today she is somewhat tired and drawn. she appears frustrated that her recovery is taking so long and feels weak and tired but was able to be very quietly pleasant and engaged this afternoon. she told me
about her family. two d's and three grandkids . one d and grandson live with her. 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 she is trying to eat more to gain strength and finds it very hard. we discussed ways to perhaps make
consuming calories easier. sandip is clearly very devoted to helping mom in any way . would check tsh and folate. no changes made in meds. will follow
[2024-10-10 15:23] LABS: Iron 73 ug/dl (37-170)
[2024-10-10 15:33] LABS: Percent Saturation 25 % (20-50); Total Iron Binding Capacity 282 ug/dl (265-497)
[2024-10-10 16:20] LABS: Glucose - Point of Care 121 mg/dl (70-99)
[2024-10-10] MEDS: LOVENOX 40 MG SC (17:42)
--- NOTE | 2024-10-10 19:28 | PTCARENOTE ---
pt oob in chair currently. reports total calorie intake of 1150 calories so far today.
[2024-10-10] MEDS: ZESTRIL 5 MG PO (19:40)
[2024-10-10] MEDS: COREG 12.5 MG PO (19:41)
[2024-10-10] MEDS: MYLICON 80 MG PO (19:41)
--- NOTE | 2024-10-10 21:38 | PTCARENOTE ---
Rec'd pt OOB to chair. Upon rounds, pt asked to get back to bed, c/o severe gas pain/indigestion. ESCALATION ENGINEER contacted via TT. Medication given per SEP. Pt stand/pivot back to bed with assistx2. Reports feeling much more comfortable once back to bed. Call
murillo within reach.
[2024-10-10] MEDS: MELATONIN 10 MG PO (21:49)
[2024-10-10 22:05] LABS: Glucose - Point of Care 121 mg/dl (70-99)
[2024-10-11] VITALS (30 sets, daily range): BP systolic 67–165; BP diastolic 39–95; PULSE 95–107; O2SAT 96–97; BMI 28.5
[2024-10-11 06:18] LABS: % Basophils 0.6 % (0-2); % Eosinophils 4.8 % (0-6); % Immature Granulocytes 0.4 % (0-0.5); % Lymphocytes 30.6 % (20.5-51.1); % Monocytes 8.9 % (1.7-9.3); % Neutrophils 54.7 % (42.2-75.2); Absolute Eosinophils 0.2 10^3/uL (0-0.7); Absolute Lymphocytes 1.5 10^3/uL (1.2-3.4); Absolute Monocytes 0.5 10^3/uL (0.1-0.6); Absolute Neutrophils 2.8 10^3/uL (1.4-6.5); Hematocrit 24.4 % (37.0-47.0); Hemoglobin 8.2 g/dL (12.0-16.0); Mean Corp Hgb Conc. 33.6 g/dL (33.0-37.0); Mean Corpuscular Hgb 30.8 pg (27.0-31.0); Mean Corpuscular Volume 91.7 fL (81.0-99.0); Mean Platelet Volume 12.4 fL (7.4-10.4); Nucleated Red Blood Cells % 0 %; Platelet Count 242 10^3/uL (130-400); Red Blood Cell Count 2.66 10^6/uL (4.20-5.40); Red Cell Dist. Width 14.2 % (11.5-14.5)
[2024-10-11 07:12] LABS: TSH Reflex To Free T4 4.58 uIU/ml (0.47-4.68)
[2024-10-11 07:44] LABS: Glucose - Point of Care 136 mg/dl (70-99)
--- NOTE | 2024-10-11 08:20 | PN.DE.MGMTRT ---
Insulin Management
- -
10/11/2024: Diabetes Management Follow up
79 year old female admitted with SOB-->Acute respiratory failure with hypoxia 2/2 Influenza A infection. PMH: HTN, Bipolar d/o. No hx of DM, A1C on admission was 6.0%-->pre-diabetes, Cr 0.8, eGFR >60. No diabetes medications prior to admission.
Pt was noted for Hyperglycemia requiring initiation of glycemic protocol. She was transitioned off insulin infusion to low corrective insulin on 09/23.
Patient is awake, c/o feeling weak. Had episode of low blood pressure. Now receiving fluid bolus. Daughter at bedside. Tolerating po food, intake is improving.
Continued on calorie count. Current glucose range 113 to 121, requiring no corrective insulin.
Will cont Farxiga 10mg daily and moderate corrective insulin AC. Will cont to follow.
09/24 Pt's denies any knowledge of being treated for DM. Review of chart shows no diabetes medicines prior to admission.
Diabetes History
- -
Pre-Admission Diabetes Regimen
Lab Results
Hemoglobin A1c Cancelled 09/21/24 23:19
Insulin Pump Settings
IP Diabetes Regimen
10/10/24 10/10/24 10/10/24
08:30 16:09 21:52
POC Glucose 113 H 121 H 121 H
10/11/24
07:30
POC Glucose 136 H
Patient Education
[2024-10-11] MEDS: LAMICTAL 25 MG PO (08:45)
[2024-10-11] MEDS: SYNTHROID 25 MCG PO (08:45)
[2024-10-11] MEDS: FARXIGA 10 MG PO (08:45)
[2024-10-11] MEDS: VITAMIN D3 (cholecalciferol) 25 MCG PO (08:45)
[2024-10-11] MEDS: COREG 12.5 MG PO ×2 (08:46→20:25)
[2024-10-11] MEDS: LOW STRENGTH ASPIRIN 81 MG PO (08:46)
[2024-10-11] MEDS: MAGIC OR MIRACLE MOUTHWASH PO ×3 (08:47→18:39)
[2024-10-11] MEDS: MIRALAX PO (08:47)
[2024-10-11] MEDS: THERAGRAN 1 TABLET PO (08:47)
[2024-10-11] MEDS: NOVOLOG FLEXPEN-MODERATE RESISTANCE SC ×3 (08:47→17:09)
[2024-10-11 09:09] LABS: Folate 17.4 ng/ml (2.76-20)
[2024-10-11] MEDS: NSS 250 IV (10:01)
[2024-10-11] MEDS: PRISTIQ PO (10:07)
--- NOTE | 2024-10-11 10:08 | PTCARENOTE ---
PT alerted this RN that pt sat at EOB; became hypotensive in the 60's and with blank stare. This RN at bedside. Pt laid back in bed and recovered to low 100's; alert and oriented. Dr. Ayala notified via TT. Order received for IVF bolus; hung as
ordered. Pt's BP low again shortly after. Pt'd daughter taking photos of vital signs. Daughter upset and demanding to speak with MD. Dr. Ayala to bedside. Clinical merchandise presentation manager and Director made aware.
[2024-10-11] MEDS: PROTONIX IV 40 MG IV (12:05)
[2024-10-11] MEDS: NSS (PRESERVATIVE FREE) 10 ML IV (12:05)
[2024-10-11 12:25] LABS: Glucose - Point of Care 142 mg/dl (70-99)
--- NOTE | 2024-10-11 12:29 | W.PN.UPDATE ---
Update Note
Progress Note Update
patient seen chart reviewed. spoke with nursing and dr ambriz. d at bedside. the patient remains very very weak. she was not able to converse much and seemed to be in some discomfort. d expresses concern that try as she has she cannot get mom
to consume sufficient calories. we brainstormed some ideas to help increase her calorie intake. room was quite cold and nursing agreed to move patient later today as a bed becomes available. dr ambriz mentioned that there have been reports of
takotsubo's w pristiq. the cmp occurred prior to starting pristiq but there is an issue with getting the pristiq into her given that it really should not be crushed and is not easy to swallow. discussed w dr ambriz dc of pristiq for now and
monitor. in my opinion the bulk of her weakness is not depression but rather physical debility and that an antidepressant in my opinion is unlikely to work a miracle in the short term. suggested to d that she try to engage mom in some activity for
short periods. will bring up coloring book/markers and get some word searches. a deck of cards/ checker dump grounds etc could keep her awake and alert for short periods as well. will follow and offer support.
--- NOTE | 2024-10-11 13:40 | W.PN.HOSP.TC ---
Today's Communication/Plan
-
Orthostatic.
Give fluid bolus.
Hold Aldactone.
Holding parameters for hypotension on Coreg and lisinopril.
Monitor hemoglobin closely.
Discussed with GI, with no evidence of brisk blood loss yield for repeat EGD would be low.
Transfuse to keep hemoglobin above 9.
Bladder scan, if recurrent retention will need Evans catheter.
Check urinalysis and reflex to culture.
Continue physical therapy assessments
Assessment / Plan
Assessment / Plan
Ms. Daniel is a 79-year-old female with a medical history of hypertension and bipolar disorder who presented with shortness of breath. She tested positive for influenza 2 days prior to arrival and was started on oseltamivir as an outpatient.
However she had progressively worsening dyspnea and productive cough for 24 hours prior to presenting to the emergency department.
In the ED, she was found to be hypoxic with her pulse ox in the mid 80s on room air. She was started on supplemental oxygen via nasal cannula at that time with improvement in her respiratory status and oxygenation. She was also given nebulizer
treatments. She was admitted for further evaluation and management of acute respiratory failure with hypoxia in the setting of influenza infection.
Impression:
Acute hypoxic respiratory failure.
� Intubated 09/21/2024
Sepsis secondary to influenza A/bacterial�community-acquired pneumonia, also suspected aspiration pneumonia given large hiatal hernia with intrathoracic stomach
Shock, multifactorial due to sepsis as well as cardiogenic.
Acute heart failure reduced EF secondary to stress�Takotsubo cardiomyopathy.
Type II NV/demand ischemia with troponin peak 14
Polymorphic ventricular tachycardia on monitoring 09/23/24
Prolonged QTc resolved
Episode of atrial fibrillation with PICC line placement
Acute kidney injury.
Hypovolemic hyponatremia
Hypernatremia while on diuresis
Acute anemia with no evidence of blood loss, suspect dilutional/acute illness.
Elevated transaminases
Prediabetes
Hypothyroidism on replacement
Bipolar disorder.
Plan
#Acute hypoxic respiratory failure
-multifactorial in the settings of influenza A/bacterial pneumonia as well as cardiogenic shock.
-Intubated on 09/21/24 and was ultimately extubated on 09/25/2024
-Respiratory culture positive for Streptococcus and nasal swab positive for influenza
-Unable to complete course of Tamiflu given lack of enteral access;
s/p IV antibiotics with Unasyn, CTX
-Received course of steroids however discontinued as associated with increased mortality during flu
-Follow-up chest x-ray on 09/27 with possible small right loculated pleural effusion.
-Currently with stable respiratory status with minimal O2 requirement, nightly BiPAP
-Continue aspiration cautions and PRE K TEACHER, PRN nebs
-SpO2 goal >90%
#Epistaxis, resolved
-Likely from nasal dryness with supplemental O2
-Hemoglobin stable on CBC
-started nasal spray for moisturizing
-Continue to trend CBC, humidify O2
#Acute normocytic anemia
-Noted fluctuation of hemoglobin 13�11.7 likely reflects volume state. No evidence for acute bleeding
-Urgent upper endoscopy with a large hiatal hernia and no evidence of bleeding
-Hemoglobin slowly trending down to 8s . No clinical evidence for brisk blood loss. Patient with liquid brown stool as of 10/11
-Iron stores improved with recent repletion
-Monitor hemoglobin closely
-Change PPI to IV twice daily
-Transfuse to keep hemoglobin above 9
#Toxic metabolic encephalopathy protracted secondary to acute illness
Re resolved
Bipolar disorder.
-Preadmission regimen include Vraylar, clonazepam, lamotrigine, zaleplon.
-Psychiatry input appreciated
� Reinstated Lamictal titrating dose. Initiated on Pristiq on 10/08. Hold Pristiq for now (one of the reasons who side effect is a stress cardiomyopathy)
#Dehydration with hypernatremia- resolved
-Developed while on IV diuresis; s/p replacement with D5W
-Sodium initially in the 150s, down to 141 now
-Monitor oral intake, encourage free water intake as swallowing improved
# Severe malnutrition secondary to acute illness
Diet has been advanced with aspiration precautions
Has been on TPN, discontinued with improving oral intake.
Continue calorie count
#Acute HFrEF with cardiogenic shock
#Nonischemic cardiomyopathy
#Takotsubo cardiomyopathy
-Had type II NV with troponin peak of 14; ECG with diffuse ST changes in anterolateral leads
-Urgent right and left heart cath with LVEF 30 to 35%, patent coronaries, Takotsubo morphology, reduced cardiac index
-Follow-up echocardiogram on 10/02 with improved LVEF at 45%.
-Transient hypotension responded to IV fluid bolus.
-Cardiovascular regimen has been adjusted with reduction dose of Coreg, lisinopril. Aldactone has been reintroduced. Hold Lasix. Monitor oral intake.
#NSVT, Secondary to reduced LVEF and cardiomyopathy
-Status post course of amiodarone
-Continue to monitor on telemetry
-Electrolyte goals K >4, mag >2
# Episode of atrial fibrillation related to PICC line position on 04/30 which has been addressed.
PICC line position adjusted
Converted and remains in sinus rhythm.
Monitor.
No anticoagulation indicated.
#Acute kidney injury
-Presumed prerenal in the context of cardiogenic shock
-Renal function normalized with normalization of volume status.
-Home HCTZ was held
-Has since resolved
-Successful TOV on 09/28
Acute urinary retention
PVR over 600 on 10/11
Continue bladder scan, if recurrent may require Evans catheter.
Check urinalysis and reflex to culture
#Large hiatal hernia with intrathoracic stomach.
-Remains with high aspiration risk.
-Continue PPI.
#Shock liver
-elevated transaminases suspect in the settings of hemodynamic instability.
-No gastrointestinal complaints upon presentation
-Follow LFTs
#Hypothyroidism
-Chronic, unclear etiology, home meds include levothyroxine 25 mcg
-No signs of thyroid dysfunction at this time
#Prediabetes
-Continue basal bolus protocol with serial Accu-Cheks
DVT prophylaxis: Lovenox SQ
Diet: Pur�ed
CODE STATUS: Full code
Disposition: Acute rehab per PT OT.
DW RN
total time spent 51 min
Anticipated Discharge: > 48 hours
Subjective/Interval History
-
Date of Service: October 11, 2024
Objective Data
-
Labs:
Laboratory Results
10/11/24
05:43
WBC 5.0
Hgb 8.2 L
Hct 24.4 L
Plt Count 242
Vital Signs:
Vital Signs
Temp Pulse Resp BP Pulse Ox
98.2 F 84 21 111/56 94
10/11/24 11:00 10/11/24 12:00 10/11/24 12:00 10/11/24 12:00 10/11/24 12:42
I&O
10/10/24 10/11/24 10/12/24
06:59 06:59 06:59
Intake Total 240 / 240
Output Total 650 / 650
Balance 240 / 240 -650 / -650
Physical Exam
-
General: Well Developed, Well Nourished, Respiratory Distress (mild), Appears Chronically Ill and Other (Frail and weak-appearing)
HEENT: Normocephalic, Atraumatic, Moist Mucous Membranes and Oxygen (2L NC)
Respiratory: Clear to Auscultation and Non Labored Respirations
Cardiac: Regular Rhythm and S1/S2; Negative Murmur, Rub, JVD or Gallop
GI: Soft, Nontender, Nondistended and Normal Bowel Sounds
Musculoskeletal: No Clubbing, No Cyanosis and No Edema
Skin: Warm and Dry; Negative Rash
Neuro: Awake and Alert
Psych: Calm and Intact Judgement/Insight (somewhat)
[2024-10-11] MEDS: DULCOLAX RECTAL (13:58)
--- NOTE | 2024-10-11 14:46 | W.PN.UPDATE ---
Update Note
Progress Note Update
Reported melanotic stool.
Currently hemodynamically stable and responded to IV fluid bolus.
Discussed with gastroenterology to reevaluate.
Red blood cells being transfused with repeat hemoglobin pending after.
Continue IV PPI changing to Protonix drip.
N.p.o.
Keep holding parameters on antihypertensive medications
Lovenox prophylactic dose and aspirin placed on hold
--- NOTE | 2024-10-11 14:51 | CON.GI ---
Addendum entered and electronically signed by Benedicto Mccarthy MD 10/11/24 16:49:
Patient seen and examined, agree with nurse practitioner. Patient is a 79-year-old female with prolonged admission, initially admitted with influenza, and has had prolonged hospital course with pneumonia, cardiogenic shock with prolonged
intubation, A-fib, MITALI, electrolyte imbalance. We are consulted for acute blood loss anemia, with drop in hemoglobin and burgundy stool this morning. She did have an endoscopy earlier this hospitalization almost 3 weeks ago when there was
difficulty passing an OG tube. At that point he was noted to have a large hiatal hernia which she has known about in the past, and bilious fluid without any obvious ulcer. She has had multiple endoscopies for surveillance of Correa's esophagus,
Schatzki's ring with known large hiatal hernia. Her hemoglobin has been slowly drifting down, initially was 13.6 on admission, slowly drifting down though went from 10-8.2 again with 1 episode of burgundy stool. She was having some crampy
epigastric pain and discomfort yesterday. She was tachycardic though did respond appropriately to fluids and blood transfusion. Currently she denies any chest pain or shortness of breath. On exam she has some mild epigastric tenderness.
1. Acute blood loss anemia: Likely upper source, possibly stress ulcer given her prolonged intubation and hospital stay, previous endoscopy several weeks ago was unremarkable. At this point she is hemodynamically stable, without brisk active
bleeding now. Will continue supportive care, PPI, monitor hemoglobin. Plan EGD tomorrow.
Original Note:
Consultation
-
Date/Time Consultation Requested: 10/11/24 1415
Date/Time Consultation Performed: 10/11/24 1515
Requesting Provider: Emerson Ayala MD
Performing Provider: NANDINI Jaramillo, Satihsh Mccarthy MD
Reason for Consultation: GI bleed
Medical History
Chief Complaint / HPI
Chief Complaint: burgundy stools
History of Present Illness:
Pt is a 79yo with hx HTN, bipolar, large HH with intrathoracic stomach, Schatzki ring with prior dilation, correa's, anemia with prior iron infusion, prior work up for anemia with hbg down to 4 in 2017 with neg work up including neg capsule,
restless leg syndrome, NIDDM, with admission 09/21/24 with hypoxemia with concern for PNA, flu and cardiogenic shock- takotsubo with prolonged admission requiring intubation. She was noted with VT, prolong QT, episode of afib, MITALI, electrolyte
imbalance, elevated LFT's with hx chronic elevation. She was seen by GI early in admission for assist with NGT with EGD completed 09/23 with tortuous esophagus, large HH, bilious gastric fluid and unsuccessful placement of OGT. She has slowly
improved and has been on pureed diet with speech therapy following. There was question of epistaxis but now noted with onset of right sided pain yesterday then crampy abdominal pain overnight with drop in hbg. Initial admission hbg 13.6 on
09/21 then running around 10-11 range and now down to 8.2 today with passing of burgundy stool.
She admits to some chronic dysphagia. Per family she was on Vrylar which can cause her symptoms but was able to tolerate diet at home with some precautions with dry food. She now in on pureed diet per speech recommendations. She has hx GERD
but on chronic Prilosec with hx correa's. She denies nausea, vomiting, and constipation years ago. Last scopes recent EGD 09/23 with attempt OGT, EGD 2019 + correa's large HH, colonoscopy 04/2017 diverticulosis, non bleeding hemorrhoids, tort
colon stool in colon.
Past Medical History
Past Medical History: Arrhythmias (polymorphic V Tach, prolong QTc, afib ), HTN, Hypothyroidism, NIDDM, Renal Failure (MITALI), Valvular Disease (MR), Psychiatric (bipolar disorder ) and Other (chronic dysphagia, osteopenia, intestinal metaplasia,
schatzki's ring with prior dilation, javier ulcer, lg hiatal hernia, prior indeterminate hep C neg RNA neg, diverticulosis, hypoxemia with + flu/ PNA on admission, anemia with prior iron deficiency with restless leg syndrome, elevated transamines)
Past Surgical History: Gynecological (tubal ), Tonsilectomy and Other (breast biopsy, cataracts )
Social History
Tobacco: Non-Smoker
Alcohol: Daily (1 glass wine daily)
Drug: None
Personal:
Living: With Family
Employment: Retired
Family History
Family History: Other (father CAD, mother CAD )
Allergies / Home Medications
Allergy/AdvReac Type Severity Reaction Status Date / Time
Corticosteroids Allergy KERRY Verified 09/21/24 11:08
(Glucocorticoids)
iodine [Iodine] Allergy Rash Verified 09/21/24 11:08
NSAIDS (Non-Steroidal Allergy Unknown Verified 09/21/24 11:08
Anti-Inflamma
�Medication �Instructions �Recorded
levothyroxine 25 mcg tablet 25 mcg PO DAILY Thyroid 07/28/10
(Synthroid)
rosuvastatin 20 mg tablet 20 mg PO DAILY High Cholesterol 01/05/23
therapeutic multivitamin 1 tab PO DAILY Supplement 01/05/23
zaleplon 10 mg capsule 20 mg PO HS Sleep 01/05/23
zinc 50 mg capsule 50 mg PO DAILY Supplement 01/05/23
aspirin 81 mg capsule 81 mg PO DAILY Blood Clot 07/01/23
Prevention/Tx
hydrochlorothiazide 25 mg tablet 25 mg PO DAILY Blood Pressure 07/01/23
valacyclovir 1 gram tablet 1,000 mg PO DAILYPRN PRN outbreak 07/01/23
(Valtrex)
albuterol sulfate 90 mcg/actuation 1 puff inhalation R Q6HPRN PRN 09/21/24
aerosol inhaler sob/wheezing
cariprazine 3 mg capsule (Vraylar) 3 mg PO Q48H Mental Health/Anxiety 09/21/24
cholecalciferol (vitamin D3) 25 25 mcg PO DAILY Supplement 09/21/24
mcg (1,000 unit) tablet
clonazepam 0.5 mg tablet 0.5 mg PO DAILYPRN PRN severe 09/21/24
anxiety
ferrous sulfate 325 mg (65 mg 325 mg PO DAILY Supplement 09/21/24
iron) tablet
guaifenesin 600 mg tablet, 600 mg PO [id number] PRN congestion 09/21/24
extended release 12 hr (Mucinex)
lamotrigine 200 mg tablet 200 mg PO HS Mental Health/Anxiety 09/21/24
oseltamivir 75 mg capsule (Tamiflu) 75 mg PO BID Infection 09/21/24
trazodone 100 mg tablet 150 mg PO HS Mental Health/Anxiety 09/21/24
Review of Systems
-
History Source: Patient and Family
Constitutional: Reports Weight Loss (few lbs since admission)
EENT: Reports No Symptoms
Respiratory: Reports Cough
Cardiac: Reports No Symptoms
Abdomen/GI: Reports Abdominal Pain and Bloody Stools
: Reports Difficulty Voiding (required st cath )
Musculoskeletal: Reports No Symptoms
Skin: Reports No Symptoms
Neurological: Reports Weakness
Endocrine: Reports No Symptoms
Hematologic/Lymphatic: Reports Bleeding
Vital Signs
Temp Pulse Resp BP Pulse Ox
97.7 F 91 27 122/54 94
10/11/24 14:05 10/11/24 14:05 10/11/24 14:05 10/11/24 14:05 10/11/24 12:42
Physical Exam
Exam
General: Well Developed and Other (pale, e)
HEENT: Normocephalic
Respiratory: Clear
Cardiac: Regular Rhythm
GI: Soft, Non Distended and Tender (periumbilical and lower abdominal pain)
Musculoskeletal: No Clubbing and No Cyanosis
Skin: Other (cool extremities with good color )
Neuro: Awake, Alert and AO x 3
Psych: Calm
Results
WBC 5.0 10^3/uL (4.8-10.8) 10/11/24 05:43
Hgb 8.2 g/dL (12.0-16.0) L 10/11/24 05:43
Hct 24.4 % (37.0-47.0) L 10/11/24 05:43
MCV 91.7 fL (81.0-99.0) 10/11/24 05:43
Plt Count 242 10^3/uL (130-400) 10/11/24 05:43
Absolute Neuts (auto) 2.8 10^3/uL (1.4-6.5) 10/11/24 05:43
PT 13.5 Sec (11.4-14.6) 09/22/24 03:50
INR 1.00 09/22/24 03:50
APTT Cancelled 09/23/24 10:37
Sodium 137 mmol/L (135-145) 10/10/24 04:36
Potassium 3.8 mmol/L (3.5-5.1) 10/10/24 04:36
Chloride 105 mmol/L (98-107) 10/10/24 04:36
Carbon Dioxide 25 mmol/L (22-30) 10/10/24 04:36
BUN 25 mg/dl (7-17) H 10/10/24 04:36
Creatinine 0.7 mg/dL (0.6-1.0) 10/10/24 04:36
Calcium 9.0 mg/dl (8.4-10.2) 10/10/24 04:36
Total Bilirubin 0.7 mg/dl (0.2-1.3) 10/08/24 03:56
AST 25 U/L (14-36) 10/08/24 03:56
ALT 49 U/L (0-35) H 10/08/24 03:56
Alkaline Phosphatase 75 U/L (38-126) 10/08/24 03:56
Diagnostic Image Results:
Prior GI Procedures:
EGD: 09/23/24 chandasavan - Tortuous esophagus.
- Large hiatal hernia.
- Bilious gastric fluid.
- Normal examined duodenum.
- No specimens collected.
unable to place OGT
EGD 04/30/2020 - Tortuous esophagus.
- Z-line irregular, 34 cm from the incisors. Biopsied.
- Large hiatal hernia.
- Normal examined duodenum
bx + correa's neg dysplasia
Colonoscopy: 04/2017 [place] - The examined portion of the ileum was normal.
- Diverticulosis in the sigmoid colon.
- Diverticulosis in the descending colon, in the
transverse colon and in the distal ascending colon.
- Non-bleeding external hemorrhoids.
- Tortuous colon.
- Stool in the descending colon, in the transverse
colon, in the ascending colon and in the cecum.
- No specimens collected.
Assessment / Plan
-
Pt is a 79yo with hx HTN, bipolar, large HH with intrathoracic stomach, Schatzki ring with prior dilation, correa's, anemia with prior iron infusion, prior work up for anemia with hbg down to 4 in 2016 with neg work up including neg capsule,
restless leg syndrome, NIDDM, with admission 09/21/24 with hypoxemia with concern for PNA, flu and cardiogenic shock-takotsubo with prolonged admission requiring intubation. She was noted with VT, prolong QT, episode of afib, MITALI, electrolyte
imbalance, elevated LFT's with hx chronic elevation. She was seen by GI early in admission for assist with NGT with EGD completed 09/23 with tortuous esophagus, large HH, bilious gastric fluid and unsuccessful placement of OGT. She has slowly
improved and has been on pureed diet with speech therapy following. There was question of epistaxis but now noted with onset of right sided pain yesterday then crampy abdominal pain overnight with drop in hbg. Initial admission hbg 13.6 on
09/21 then running around 10-11 range and now down to 8.2 today with passing of burgundy stool. Last scopes recent EGD 09/23 with attempt OGT, EGD 2019 + correa's large HH, colonoscopy 04/2017 diverticulosis, non bleeding hemorrhoids, tort colon
stool in colon.
-burgundy stool
-abdominal pain
-anemia drop in hbg
-reported Epistaxis
-known large HH with intrathoracic stomach
-hx hypoxemia/sepsis/PNA/cardiogenic shock- takotusubo admission
- VT, prolong QT, episode of afib
- elevated LFT's with hx chronic elevation
-urinary retention
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
-hx schatzki's ring with prior dilation
-chronic dysphagia
PLAN:
etiology of burgundy stool and drop in hbg related PUD with ASA use, sidra lesion with large HH, ectasia, use vs other
s/p transfusion
trend hbg
PPI gtt
NPO
Lovenox held and compression stocking added
plan for EGD in AM
NSAID avoidance- ASA on hold
updated family at bedside
monitor for continued abdominal pain
-
-
-
Thank you for consultation and allowing me to participate in the patient's care. Please call the head strength and conditioning coach GI physician during the after hours with any questions or concerns.
--- NOTE | 2024-10-11 14:54 | PTCARENOTE ---
Unit of blood transfusing, pt tolerating well. Pt with loose burgundy bowel movement. Heme positive. Dr. Ayala notified via TT. Complete bed bath given. Daughter updated by this RN and MD.
[2024-10-11] MEDS: PROTONIX IV 80 MG IV (15:06)
[2024-10-11] MEDS: NSS (PRESERVATIVE FREE) 20 ML IV (15:06)
[2024-10-11] MEDS: PROTONIX 100 IV ×2 (15:15→23:08)
--- NOTE | 2024-10-11 15:42 | PTCARENOTE ---
Pt and family informed pt is to be strict NPO.
--- NOTE | 2024-10-11 16:01 | PTCARENOTE ---
During nikolas care, pt's daughter observed taking photos of skin in pt's groin area. room manager and mold yard supervisor aware.
--- NOTE | 2024-10-11 16:40 | CM ---
Patient with Hx bipolar disorder with Dx Acute hypoxic respiratory failure. Room air. Transfusion today for melanotic stool/decreased H/H. NPO/IVF bolus. Receiving Protonix gtt. Seen by GI with plan for EGD tomorrow. Seen by Psych - Receiving
Lamictal. Physiatry Consult 10/05 recommends acute rehab. PT/OT 10/11 recommend acute rehab.
CM continuing to follow.
Provided update to Adm Dilips Liagarcía Andrews, that patient is not medically ready for d/c.
Plan [facility] when medically ready and bed available.
[2024-10-11 17:45] LABS: Urine Albumin Negative (Neg - Trace); Urine Bilirubin Negative (Negative); Urine Character Clear (Clear); Urine Color Yellow; Urine Glucose 4+ (Negative); Urine Ketone Negative (Negative); Urine Leukocyte 2+ (Negative); Urine Nitrite Negative (Negative); Urine Occult Blood Negative (Negative); Urine Urobilinogen Negative (Neg - 1+)
--- NOTE | 2024-10-11 17:50 | PTCARENOTE ---
Pt with bladder scan of 701. St cath for 700ml output, urine specimen collected and sent to lab.
[2024-10-11 18:17] LABS: Urine Red Blood Cell 0-2 /HPF (0-2); Urine Squamous Cell 0-2 /LPF (Few)
[2024-10-11 18:18] LABS: Urine Bacteria Few (Negative); Urine Yeast Many (Negative)
[2024-10-11 18:47] LABS: Hemoglobin 8.7 g/dL (12.0-16.0)
[2024-10-11 18:48] LABS: Glucose - Point of Care 105 mg/dl (70-99)
[2024-10-11] MEDS: MELATONIN 10 MG PO (20:24)
[2024-10-11] MEDS: ZESTRIL 5 MG PO (20:25)
[2024-10-11] MEDS: DESENEX/MITRAZOL/ZEASORB 1 APPLIC TOPICAL (20:26)
[2024-10-11] MEDS: NSS (PRESERVATIVE FREE) IV (20:28)
[2024-10-11] MEDS: KLONOPIN 0.25 MG PO (21:00)
[2024-10-11] MEDS: MAGIC OR MIRACLE MOUTHWASH 10 ML PO (21:05)
--- NOTE | 2024-10-11 22:04 | PTCARENOTE ---
Received patient at change of shift. Patient aaox3, affect pleasant. Denies pain at start of shift. Verbalizes feeling anxious shortly into shift, RN contacted Anitra DELATORRE who placed order for klonopin stat dose. Patient currently resting
in bed with observed and verbalized comfort. 1u PRBC currently running. No effects noted, patient tolerating well. Will continue to monitor.
[2024-10-12] VITALS (19 sets, daily range): BP systolic 16–136; BP diastolic 45–99; BMI 29.9
--- NOTE | 2024-10-12 00:45 | PTCARENOTE ---
Addendum entered by Lorena Arroyo RN 10/12/24 00:46:
PRBCs completed at this time as well. Patient tolerated well.
Original Note:
Patient without urinary output thus far this shift. Bladder scanned for 286ml. Will continue to monitor for UO and bladder scan as needed. Patient denied abdominal discomfort at this time.
[2024-10-12 00:49] LABS: Glucose - Point of Care 101 mg/dl (70-99)
[2024-10-12 05:01] LABS: % Basophils 0.5 % (0-2); % Eosinophils 2.6 % (0-6); % Immature Granulocytes 0.4 % (0-0.5); % Lymphocytes 21.5 % (20.5-51.1); % Monocytes 10.1 % (1.7-9.3); % Neutrophils 64.9 % (42.2-75.2); Absolute Eosinophils 0.2 10^3/uL (0-0.7); Absolute Lymphocytes 1.7 10^3/uL (1.2-3.4); Absolute Monocytes 0.8 10^3/uL (0.1-0.6); Absolute Neutrophils 5.3 10^3/uL (1.4-6.5); Hematocrit 26.9 % (37.0-47.0); Hemoglobin 9.2 g/dL (12.0-16.0); Mean Corp Hgb Conc. 34.2 g/dL (33.0-37.0); Mean Corpuscular Volume 87.6 fL (81.0-99.0); Mean Platelet Volume 11.7 fL (7.4-10.4); Nucleated Red Blood Cells % 0 %; Platelet Count 183 10^3/uL (130-400); Red Blood Cell Count 3.07 10^6/uL (4.20-5.40); Reticulocyte Count 3.7 % (0.4-2.8); White Blood Cell Count 8.1 10^3/uL (4.8-10.8)
[2024-10-12 05:33] LABS: Blood Urea Nitrogen 29 mg/dl (7-17); Calcium 8.5 mg/dl (8.4-10.2); Carbon Dioxide 22 mmol/L (22-30); Chloride 109 mmol/L (98-107); Estimated Creatinine Clearance 67 ml/min; Glucose 104 mg/dl (70-99); Sodium 137 mmol/L (135-145); eGFR > 60.00
[2024-10-12] MEDS: SYNTHROID PO (05:38)
--- NOTE | 2024-10-12 05:44 | PTCARENOTE ---
Spouse called early this am. RN returned call and updated spouse with patient status and night. RN bladder scanned x2 earlier, both < than 400, current bladder scan >500ml. Patient currently on bed maurer attempting to void. Will continue to monitor.
[2024-10-12 05:45] LABS: Glucose - Point of Care 121 mg/dl (70-99)
--- NOTE | 2024-10-12 08:19 | PN.DE.MGMTRT ---
Insulin Management
- -
10/12/2024: Diabetes Management Follow up
79 year old female admitted with SOB-->Acute respiratory failure with hypoxia 2/2 Influenza A infection. PMH: HTN, Bipolar d/o. No hx of DM, A1C on admission was 6.0%-->pre-diabetes, Cr 0.8, eGFR >60. No diabetes medications prior to admission.
Pt was noted for Hyperglycemia requiring initiation of glycemic protocol. She was transitioned off insulin infusion to low corrective insulin on 09/23.
Patient is awake, OOB in chair, offers no complaints, Family- and Dtr at bedside
Pt is tolerating PO, food intake is improving. She is continued on calorie count.
Current glucose range 105 to 142, requiring no corrective insulin.
Will cont Farxiga 10mg daily and moderate corrective insulin AC. Will cont to follow.
09/24 Pt's denies any knowledge of being treated for DM. Review of chart shows no diabetes medicines prior to admission.
No indication for diabetes meds at discharge, Farxiga 10mg daily was started 10/03 by Cardiology.
Diabetes team will sign off at this time. Thank you for allowing us to participate in the care of this patient. Please Reconsult if needed again.
Diabetes History
- -
Pre-Admission Diabetes Regimen
10/12/24
04:28
Creatinine 0.7
Lab Results
Hemoglobin A1c Cancelled 09/21/24 23:19
Insulin Pump Settings
IP Diabetes Regimen
10/11/24 10/11/24 10/12/24
12:13 18:36 00:37
Glucose
POC Glucose 142 H 105 H 101 H
10/12/24 10/12/24
04:28 05:34
Glucose 104 H
POC Glucose 121 H
Meal type: Breakfast
Patient Education
[2024-10-12] MEDS: LAMICTAL 25 MG PO (08:31)
[2024-10-12] MEDS: COREG PO ×2 (08:31→20:07)
[2024-10-12] MEDS: FARXIGA 10 MG PO (08:31)
[2024-10-12] MEDS: MIRALAX 17 GRAMS PO (08:32)
[2024-10-12] MEDS: CRESTOR 20 MG PO (08:32)
[2024-10-12] MEDS: VITAMIN D3 (cholecalciferol) 25 MCG PO (08:32)
[2024-10-12] MEDS: DESENEX/MITRAZOL/ZEASORB 1 APPLIC TOPICAL ×2 (08:32→20:08)
[2024-10-12] MEDS: THERAGRAN 1 TABLET PO (08:33)
[2024-10-12] MEDS: NSS (PRESERVATIVE FREE) IV ×2 (08:33→20:08)
[2024-10-12] MEDS: MAGIC OR MIRACLE MOUTHWASH PO ×4 (08:39→20:09)
[2024-10-12] MEDS: PROTONIX 100 IV ×2 (10:43→19:23)
[2024-10-12 12:14] LABS: Glucose - Point of Care 88 mg/dl (70-99)
--- NOTE | 2024-10-12 13:01 | W.PN.HOSP.TC ---
Today's Communication/Plan
-
EGD
IV PPI
Monitor hemoglobin
Continue Coreg and lisinopril with caution and with holding parameters for hypotension.
With urinary retention again. Replace Evans catheter.
Assessment / Plan
Assessment / Plan
Ms. Daniel is a 79-year-old female with a medical history of hypertension and bipolar disorder who presented with shortness of breath. She tested positive for influenza 2 days prior to arrival and was started on oseltamivir as an outpatient.
However she had progressively worsening dyspnea and productive cough for 24 hours prior to presenting to the emergency department.
In the ED, she was found to be hypoxic with her pulse ox in the mid 80s on room air. She was started on supplemental oxygen via nasal cannula at that time with improvement in her respiratory status and oxygenation. She was also given nebulizer
treatments. She was admitted for further evaluation and management of acute respiratory failure with hypoxia in the setting of influenza infection.
Impression:
Acute hypoxic respiratory failure.
� Intubated 09/21/2024
Sepsis secondary to influenza A/bacterial�community-acquired pneumonia, also suspected aspiration pneumonia given large hiatal hernia with intrathoracic stomach
Shock, multifactorial due to sepsis as well as cardiogenic.
Acute heart failure reduced EF secondary to stress�Takotsubo cardiomyopathy.
Type II NE/demand ischemia with troponin peak 14
Polymorphic ventricular tachycardia on monitoring 09/23/24
Prolonged QTc resolved
Episode of atrial fibrillation with PICC line placement
Acute kidney injury.
Hypovolemic hyponatremia
Hypernatremia while on diuresis
Acute anemia with no evidence of blood loss, suspect dilutional/acute illness.
Elevated transaminases
Prediabetes
Hypothyroidism on replacement
Bipolar disorder.
Plan
#Acute hypoxic respiratory failure
-multifactorial in the settings of influenza A/bacterial pneumonia as well as cardiogenic shock.
-Intubated on 09/21/24 and was ultimately extubated on 09/25/2024
-Respiratory culture positive for Streptococcus and nasal swab positive for influenza
-Unable to complete course of Tamiflu given lack of enteral access;
s/p IV antibiotics with Unasyn, CTX
-Received course of steroids however discontinued as associated with increased mortality during flu
-Follow-up chest x-ray on 09/27 with possible small right loculated pleural effusion.
-Currently with stable respiratory status with minimal O2 requirement, nightly BiPAP
-Continue aspiration cautions and BELLOWS FILLER, PRN nebs
-SpO2 goal >90%
Gastrointestinal hemorrhage
Acute blood loss anemia with iron deficiency. Noted with slowly trending down hemoglobin lowest at the 8.2
Had epigastric discomfort and developed melena on 10/11
Suspect upper GI source possibly stress ulcer, gastritis, duodenal ulcer
EGD performed on 09/23 after episode of hematemesis showed torturous esophagus, large hiatal hernia, normal duodenum with no source of bleeding.
PPI changed to Protonix drip
Remains n.p.o.
Transfused 2 units of packed red blood cells on 10/11 with appropriate response
Pending repeated EGD 10/12
Updated with sufficient iron stores
#Epistaxis, resolved
-Likely from nasal dryness with supplemental O2
-Hemoglobin stable on CBC
-started nasal spray for moisturizing
-Continue to trend CBC, humidify O2
#Acute kidney injury
-Presumed prerenal in the context of cardiogenic shock
-Renal function normalized with normalization of volume status.
-Home HCTZ was held
Acute urinary retention
Improved with Evans catheter removed, although remains with high PVR over the last [address] Evans catheter for acute retention on 10/12
#Toxic metabolic encephalopathy protracted secondary to acute illness
Re resolved
Bipolar disorder.
-Preadmission regimen include Vraylar, clonazepam, lamotrigine, zaleplon.
-Psychiatry input appreciated
� Reinstated Lamictal titrating dose. Initiated on Pristiq on 10/08. Hold Pristiq for now (one of the reasons who side effect is a stress cardiomyopathy)
#Dehydration with hypernatremia- resolved
-Developed while on IV diuresis; s/p replacement with D5W
-Sodium initially in the 150s, down to 141 now
-Monitor oral intake, encourage free water intake as swallowing improved
# Severe malnutrition secondary to acute illness
Diet has been advanced with aspiration precautions
Has been on TPN, discontinued with improving oral intake.
Continue calorie count
#Acute HFrEF with cardiogenic shock
#Nonischemic cardiomyopathy
#Takotsubo cardiomyopathy
-Had type II NE with troponin peak of 14; ECG with diffuse ST changes in anterolateral leads
-Urgent right and left heart cath with LVEF 30 to 35%, patent coronaries, Takotsubo morphology, reduced cardiac index
-Follow-up echocardiogram on 10/02 with improved LVEF at 45%.
-Transient hypotension responded to IV fluid bolus.
-Cardiovascular regimen has been adjusted with reduction dose of Coreg, lisinopril. Holding parameters on antihypertensives. Hold Aldactone acutely given ongoing gastrointestinal issues and risk for hypotension.
#NSVT, Secondary to reduced LVEF and cardiomyopathy
-Status post course of amiodarone
-Continue to monitor on telemetry
-Electrolyte goals K >4, mag >2
# Episode of atrial fibrillation related to PICC line position on 04/30 which has been addressed.
PICC line position adjusted
Converted and remains in sinus rhythm.
Monitor.
No anticoagulation indicated.
#Shock liver
-elevated transaminases suspect in the settings of hemodynamic instability.
-No gastrointestinal complaints upon presentation
-Follow LFTs
#Hypothyroidism
-Chronic, unclear etiology, home meds include levothyroxine 25 mcg
-No signs of thyroid dysfunction at this time
#Prediabetes
-Continue basal bolus protocol with serial Accu-Cheks
Anticipated Discharge: > 48 hours
Subjective/Interval History
-
Date of Service: October 12, 2024
Objective Data
-
Labs:
Laboratory Results
10/12/24
04:28
WBC 8.1
Hgb 9.2 L
Hct 26.9 L
Plt Count 183 D
Sodium 137
Potassium 4.0
Chloride 109 H
Carbon Dioxide 22
BUN 29 H
Creatinine 0.7
Glucose 104 H
Calcium 8.5
Vital Signs:
Vital Signs
Temp Pulse Resp BP Pulse Ox
97.8 F 92 16 110/71 94
10/12/24 11:32 10/12/24 12:00 10/12/24 12:00 10/12/24 12:00 10/12/24 12:00
I&O
10/11/24 10/12/24 10/13/24
06:59 06:59 06:59
Intake Total 500 / 500
Output Total 1850 / 1850
Balance -1350 / -1350
Physical Exam
-
General: Well Developed, Well Nourished, Respiratory Distress (mild), Appears Chronically Ill and Other (Frail and weak-appearing)
HEENT: Normocephalic, Atraumatic, Moist Mucous Membranes and Oxygen (2L NC)
Respiratory: Clear to Auscultation and Non Labored Respirations
Cardiac: Regular Rhythm and S1/S2; Negative Murmur, Rub, JVD or Gallop
GI: Soft, Nontender, Nondistended and Normal Bowel Sounds
Musculoskeletal: No Clubbing, No Cyanosis and No Edema
Skin: Warm and Dry; Negative Rash
Neuro: Awake and Alert
Psych: Calm and Intact Judgement/Insight (somewhat)
--- NOTE | 2024-10-12 13:09 | WOUNDNOTE ---
[facility] RN NOTE: Patient visited for skin assessment per family request. Sacrum intact. Some fungal appearing skin noted on groin and nystatin powder recently ordered and in use. Spoke to RN Belinda on 10/11 who noted heels were intact and new adhesive
foam applied. Patient is on a Centrella Max Air and turns with assistance. She is NPO due to possible GI bleed. Patient denies any other skin issue. in room during assessment. No new orders needed. Will sign off.
[2024-10-12] MEDS: MYCOSTATIN CREAM 1 APPLIC TOPICAL ×3 (13:31→20:09)
--- NOTE | 2024-10-12 14:52 | W.PN.UPDATE ---
Update Note
Progress Note Update
reviewed chart spoke with dr ambriz and nursing. unable to see patient as she had gone down for egd. psych will look in on her tomorrow.
--- NOTE | 2024-10-12 16:08 | PTCARENOTE ---
Patient arrived back to IMU post endoscopy. VSS. Patient on RA. Evans in place draining yellow urine. h&h drawn per order. protonix gtt running per order. Call murillo within reach, bed in lowest position, and bed of wheels locked.
--- NOTE | 2024-10-12 16:28 | PTCARENOTE ---
Patient AOx3. VSS. NSR on monitor. Patient on RA. Dry occasional cough. Evans placed per order due to patient unable to void. Patient NPO per order. Protonix gtt running per order. SCD's on per order. Patients family at bedside. Call murillo within
reach, bed in lowest position, and bed of wheels locked.
[2024-10-12 17:31] LABS: Glucose - Point of Care 85 mg/dl (70-99)
[2024-10-12] MEDS: ZESTRIL PO (20:08)
[2024-10-12] MEDS: MELATONIN 10 MG PO (20:08)
[2024-10-12 23:56] LABS: Glucose - Point of Care 81 mg/dl (70-99)
[2024-10-13] VITALS (13 sets, daily range): BP systolic 114–166; BP diastolic 57–81; BMI 29.7
[2024-10-13 00:38] LABS: Hemoglobin 8.9 g/dL (12.0-16.0)
--- NOTE | 2024-10-13 00:55 | PTCARENOTE ---
Patient resting in bed, awakens to verbal and tactile stimuli. AAO x3, lethargic thus far this shift however able to make needs known. Repositioned for pressure relief throughout shift. NSR on the monitor, no edema, positive radial and pedal pulses
b/l. Lungs diminished and coarse throughout. Cough improved since last evening. BS active x4, paula catheter intact and draining yellow urine. Nystatin cream applied to groin as ordered. Patient has LUE midline. Left forearm IV with protonix gtt
running per order. Will continue to monitor patient closely. Call murillo within reach.
[2024-10-13] MEDS: PROTONIX 100 IV ×2 (05:00→16:09)
[2024-10-13] MEDS: SYNTHROID 25 MCG PO (05:00)
[2024-10-13 05:26] LABS: % Basophils 0.4 % (0-2); % Eosinophils 3.9 % (0-6); % Immature Granulocytes 0.4 % (0-0.5); % Lymphocytes 27.8 % (20.5-51.1); % Monocytes 9.5 % (1.7-9.3); Absolute Eosinophils 0.3 10^3/uL (0-0.7); Absolute Lymphocytes 1.9 10^3/uL (1.2-3.4); Absolute Monocytes 0.7 10^3/uL (0.1-0.6); Hematocrit 26.3 % (37.0-47.0); Hemoglobin 8.9 g/dL (12.0-16.0); Mean Corp Hgb Conc. 33.8 g/dL (33.0-37.0); Mean Corpuscular Hgb 30.5 pg (27.0-31.0); Mean Corpuscular Volume 90.1 fL (81.0-99.0); Mean Platelet Volume 11.6 fL (7.4-10.4); Nucleated Red Blood Cells % 0 %; Platelet Count 205 10^3/uL (130-400); Red Blood Cell Count 2.92 10^6/uL (4.20-5.40); Red Cell Dist. Width 15.2 % (11.5-14.5); White Blood Cell Count 6.9 10^3/uL (4.8-10.8)
[2024-10-13 05:29] LABS: Blood Urea Nitrogen 25 mg/dl (7-17); Calcium 8.7 mg/dl (8.4-10.2); Carbon Dioxide 20 mmol/L (22-30); Chloride 107 mmol/L (98-107); Estimated Creatinine Clearance 59 ml/min; Glucose 80 mg/dl (70-99); Potassium 3.3 mmol/L (3.5-5.1); Sodium 137 mmol/L (135-145); eGFR > 60.00
[2024-10-13 05:42] LABS: Glucose - Point of Care 81 mg/dl (70-99)
[2024-10-13] MEDS: COREG PO (09:42)
[2024-10-13] MEDS: CRESTOR PO (09:43)
[2024-10-13] MEDS: ATIVAN 0.25 MG IV ×3 (10:12→23:11)
[2024-10-13] MEDS: DESENEX/MITRAZOL/ZEASORB 1 APPLIC TOPICAL ×2 (10:20→22:05)
[2024-10-13] MEDS: FARXIGA PO (10:21)
[2024-10-13] MEDS: LAMICTAL PO (10:21)
[2024-10-13] MEDS: MAGIC OR MIRACLE MOUTHWASH PO ×4 (10:21→22:13)
[2024-10-13] MEDS: MYCOSTATIN CREAM 1 APPLIC TOPICAL ×4 (10:22→22:05)
[2024-10-13] MEDS: MIRALAX PO (10:22)
[2024-10-13] MEDS: THERAGRAN PO (10:23)
[2024-10-13] MEDS: NSS (PRESERVATIVE FREE) IV ×2 (10:23→22:13)
[2024-10-13] MEDS: VITAMIN D3 (cholecalciferol) PO (10:24)
[2024-10-13] MEDS: KLOR-CON PO (10:24)
--- NOTE | 2024-10-13 11:11 | W.PN.GI.CBS2 ---
Today's Communication / Plan
-
- Give Protonix (pantoprazole): 8 mg/hr IV by
continuous infusion.
- Check hemoglobin q 8 hours for one day.
- NPO Again, will get CT scan noncontrast to evaluate the reason for the pain.
- Monitor for any further signs of bleeding.
- GI bleeding likely all related to the duodenal ulcer.
Assessment / Plan
-
Pt is a 79yo with hx HTN, bipolar, large HH with intrathoracic stomach, Schatzki ring with prior dilation, correa's, anemia with prior iron infusion, prior work up for anemia with hbg down to 4 in 2017 with neg work up including neg capsule,
restless leg syndrome, NIDDM, with admission 09/21/24 with hypoxemia with concern for PNA, flu and cardiogenic shock-takotsubo with prolonged admission requiring intubation. She was noted with VT, prolong QT, episode of afib, MITALI, electrolyte
imbalance, elevated LFT's with hx chronic elevation. She was seen by GI early in admission for assist with NGT with EGD completed 09/23 with tortuous esophagus, large HH, bilious gastric fluid and unsuccessful placement of OGT. She has slowly
improved and has been on pureed diet with speech therapy following. There was question of epistaxis but now noted with onset of right sided pain yesterday then crampy abdominal pain overnight with drop in hbg. Initial admission hbg 13.6 on
09/21 then running around 10-11 range and now down to 8.2 today with passing of burgundy stool. Last scopes recent EGD 09/23 with attempt OGT, EGD 2019 + correa's large HH, colonoscopy 04/2017 diverticulosis, non bleeding hemorrhoids, tort colon
stool in colon.
-burgundy stool
-abdominal pain
-anemia drop in hbg
-reported Epistaxis
-known large HH with intrathoracic stomach
-hx hypoxemia/sepsis/PNA/cardiogenic shock- takotusubo admission
- VT, prolong QT, episode of afib
- elevated LFT's with hx chronic elevation
-urinary retention
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
-hx schatzki's ring with prior dilation
-chronic dysphagia
EGD 10/12/2024- No gross lesions in the entire esophagus.
- Z-line irregular, 35 cm from the incisors.
- 10 cm hiatal hernia.
- No gross lesions in the entire stomach.
- Non-obstructing non-bleeding duodenal ulcer with
pigmented material. There is no evidence of
perforation. Treated with bipolar cautery.
- Normal second portion of the duodenum.
- No specimens collected.
Recommendation: - Give Protonix (pantoprazole): 8 mg/hr IV by
continuous infusion.
- Check hemoglobin q 8 hours for one day.
- NPO Again, will get CT scan noncontrast to evaluate the reason for the pain.
- Monitor for any further signs of bleeding.
- GI bleeding likely all related to the duodenal ulcer.
-
Subjective
Subjective
Date of Service: October 13, 2024
No further bowel movements, complains of discomfort in the abdomen but mild. Got a call back that patient had more pain after having clear liquid diet.
Objective
Data Reviewed
Laboratory Data:
Laboratory Results
10/13/24 04:43
10/13/24 04:43
Laboratory Results
PT 13.5 Sec (11.4-14.6) 09/22/24 03:50
INR 1.00 09/22/24 03:50
APTT Cancelled 09/23/24 10:37
Phosphorus 3.6 mg/dl (2.5-4.5) 10/08/24 03:56
Magnesium 1.9 mg/dl (1.6-2.3) 10/08/24 03:56
Total Bilirubin 0.7 mg/dl (0.2-1.3) 10/08/24 03:56
AST 25 U/L (14-36) 10/08/24 03:56
ALT 49 U/L (0-35) H 10/08/24 03:56
Alkaline Phosphatase 75 U/L (38-126) 10/08/24 03:56
Vital Signs and I&O:
Vital Signs
Temp Pulse Resp BP Pulse Ox
98.7 F 94 16 135/61 96
10/13/24 07:30 10/13/24 06:07 10/13/24 06:07 10/13/24 06:07 10/13/24 06:07
I&O
10/12/24 10/13/24 10/14/24
06:59 06:59 06:59
Intake Total 500 / 500
Output Total 1850 / 1850 1450 / 1450
Balance -1350 / -1350 -1450 / -1450
Physical Exam
Physical Exam
GI: Soft and Non Distended
--- NOTE | 2024-10-13 11:38 | W.PN.HOSP.TC ---
Today's Communication/Plan
-
Revert to n.p.o.
CT A/P without contrast
IV PPI drip
CBC every 8 hours
Low-dose Ativan
PT/OOB as possible
Assessment / Plan
Assessment / Plan
Ms. Daniel is a 79-year-old female with a medical history of hypertension and bipolar disorder who presented with shortness of breath. She tested positive for influenza 2 days prior to arrival and was started on oseltamivir as an outpatient.
However she had progressively worsening dyspnea and productive cough for 24 hours prior to presenting to the emergency department. In the ED, she was found to be hypoxic with her pulse ox in the mid 80s on room air. She was started on supplemental
oxygen via nasal cannula at that time with improvement in her respiratory status and oxygenation. She was also given nebulizer treatments. She was admitted for further evaluation and management of acute respiratory failure with hypoxia in the
setting of influenza infection. Found to have stress-induced cardiomyopathy with reduced EF and cardiogenic shock, subsequent improvement of LVEF from 30% to 45% while in the hospital. More recently developed abdominal pain with evidence of upper
GI bleeding. Had EGD on 10/12 that showed nonobstructive gastric ulcer. Started on IV PPI drip with clear liquid diet however had to be made n.p.o. again due to recurrent abdomen pain
#UGIB secondary to nonobstructing gastric ulcer
#Acute blood loss anemia with iron deficiency.
-Had epigastric discomfort and developed melena on 10/11. Noted with slowly trending down hemoglobin lowest at the 8.2
-Suspect upper GI source possibly stress ulcer, gastritis, duodenal ulcer
-EGD performed on 09/23 after episode of hematemesis showed torturous esophagus, large hiatal hernia, normal duodenum with no source of bleeding.
-PPI changed to Protonix drip; Updated with sufficient iron stores
-Transfused 2 units of packed red blood cells on 10/11 with appropriate response
-EGD on 10/12 showed nonobstructing gastric ulcer, continued on IV PPI drip
-Was started back on clear liquid diet with recurrence of significant abdominal pain on morning 10/13
-Reverted to strict NPO, Resumed IVF; ordered CT abdomen/pelvis without contrast to assess for perf/obstruction
-Continue on PPI drip and CBC every 8 hours x 3 lab draws
#Anxiety
-Patient noted to have anxiety in association with her abdomen
-Pain requesting a low-dose medication to help
-Order IV Ativan 0.25 mg as needed
#Acute hypoxic respiratory failure
-multifactorial in the settings of influenza A/bacterial pneumonia as well as cardiogenic shock.
-Intubated on 09/21/24 and was ultimately extubated on 09/25/2024
-Respiratory culture positive for Streptococcus and nasal swab positive for influenza
-Unable to complete course of Tamiflu given lack of enteral access;
s/p IV antibiotics with Unasyn, CTX
-Received course of steroids however discontinued as associated with increased mortality during flu
-Follow-up chest x-ray on 09/27 with possible small right loculated pleural effusion.
-Currently with stable respiratory status with minimal O2 requirement, nightly BiPAP
-Continue aspiration cautions and [employer], PRN nebs
-SpO2 goal >90%
#Epistaxis, resolved
-Likely from nasal dryness with supplemental O2
-Hemoglobin stable on CBC
-started nasal spray for moisturizing
-Continue to trend CBC, humidify O2
#Acute kidney injury
-Presumed prerenal in the context of cardiogenic shock
-Renal function normalized with normalization of volume status.
-Home HCTZ was held
#Acute urinary retention
-Improved with Evans catheter removed, although remains with high PVR over the last 24 hours[address]
-Place Evans catheter for acute retention on 10/12
-Plan for TOV prior to DC, when ambulating
#Toxic metabolic encephalopathy protracted secondary to acute illness
#Bipolar disorder.
-Preadmission regimen include Vraylar, clonazepam, lamotrigine, zaleplon.
-Psychiatry input appreciated
�Reinstated Lamictal titrating dose. Initiated on Pristiq on 10/08. Hold Pristiq for now (side effect is a stress cardiomyopathy)
#Dehydration with hypernatremia- resolved
-Developed while on IV diuresis; s/p replacement with D5W
-Sodium initially in the 150s, down to 141 now
-Monitor oral intake, encourage free water intake as swallowing improved
#Severe malnutrition secondary to acute illness
-Diet has been advanced with aspiration precautions
-Has been on TPN, discontinued with improving oral intake.
-Continue calorie count
#Acute HFrEF with cardiogenic shock
#Nonischemic cardiomyopathy
#Takotsubo cardiomyopathy
-Had type II [place] with troponin peak of 14; ECG with diffuse ST changes in anterolateral leads
-Urgent right and left heart cath with LVEF 30 to 35%, patent coronaries, Takotsubo morphology, reduced cardiac index
-Follow-up echocardiogram on 10/02 with improved LVEF at 45%.
-Transient hypotension responded to IV fluid bolus.
-Cardiovascular regimen has been adjusted with reduction dose of Coreg, lisinopril. Holding parameters on antihypertensives. Hold Aldactone acutely given ongoing gastrointestinal issues and risk for hypotension.
#NSVT, Secondary to reduced LVEF and cardiomyopathy
-Status post course of amiodarone
-Continue to monitor on telemetry
-Electrolyte goals K >4, mag >2
#Episode of atrial fibrillation related to PICC line position on 04/30 which has been addressed.
-PICC line position adjusted
-Converted and remains in sinus rhythm.
-No anticoagulation indicated.
#Shock liver
-elevated transaminases suspect in the settings of hemodynamic instability.
-No gastrointestinal complaints upon presentation
-Follow LFTs
#Hypothyroidism
-Chronic, unclear etiology, home meds include levothyroxine 25 mcg
-No signs of thyroid dysfunction at this time
#Prediabetes
-Continue basal bolus protocol with serial Accu-Cheks
DVT prophylaxis: SCDs
Diet: CLD -> NPO
CODE STATUS: Full code
Disposition: Acute inpatient rehab when medically stable
Anticipated Discharge: > 48 hours
Subjective/Interval History
-
Date of Service: October 13, 2024
Seen and examined at the bedside. No acute events reported overnight. AFVSS this morning
Was resumed on clear liquid diet this morning, had some lemon water ice with subsequent abdomen discomfort. Spoke with GI, recommending CT abdomen without contrast which is ordered
Mention some anxiety today. Requesting low-dose Ativan. Patient otherwise denies any other acute complaints such as chest pain, bleeding, dyspnea, fevers or chills
Objective Data
-
Labs:
Laboratory Results
10/13/24 10/13/24
00:22 04:43
WBC 6.9
Hgb 8.9 L 8.9 L
Hct 26.3 L
Plt Count 205
Sodium 137
Potassium 3.3 L
Chloride 107
Carbon Dioxide 20 L
BUN 25 H
Creatinine 0.8
Glucose 80
Calcium 8.7
Vital Signs:
Vital Signs
Temp Pulse Resp BP Pulse Ox
98.7 F 94 16 135/61 96
10/13/24 07:30 10/13/24 06:07 10/13/24 06:07 10/13/24 06:07 10/13/24 06:07
I&O
10/12/24 10/13/24 10/14/24
06:59 06:59 06:59
Intake Total 500 / 500
Output Total 1850 / 1850 1450 / 1450
Balance -1350 / -1350 -1450 / -1450
Review of Systems
-
History Source: Patient and Family
All other systems: Reviewed and negative
Physical Exam
-
General: Well Developed, Well Nourished, Pain and Other (Frail-appearing)
HEENT: Normocephalic, Atraumatic, Moist Mucous Membranes and Anicteric
Respiratory: Clear to Auscultation and Non Labored Respirations
Cardiac: Regular Rhythm and S1/S2; Negative Murmur, Rub or Gallop
GI: Soft, Nondistended, Normal Bowel Sounds, Tender (Epigastric, no peritoneal sign) and No Hepatosplenomegaly
Musculoskeletal: No Clubbing, No Cyanosis and No Edema
Skin: Warm and Dry; Negative Rash
Neuro: AO x 3 and Nonfocal/Grossly Intact; Negative Tremors
Psych: Anxious
Data Reviewed
-
CT Scan: Discussed with Physician (Gastroenterology)
Labs: Labs Reviewed by me, Discussed with Patient and Discussed with Family
[2024-10-13 12:09] LABS: Glucose - Point of Care 76 mg/dl (70-99)
[2024-10-13 15:06] LABS: Hematocrit 26.2 % (37.0-47.0); Mean Corp Hgb Conc. 34.4 g/dL (33.0-37.0); Mean Corpuscular Hgb 30.9 pg (27.0-31.0); Mean Platelet Volume 10.8 fL (7.4-10.4); Platelet Count 204 10^3/uL (130-400); Red Blood Cell Count 2.91 10^6/uL (4.20-5.40); White Blood Cell Count 7.6 10^3/uL (4.8-10.8)
[2024-10-13] MEDS: KCL 270 MEQ IV (16:12)
[2024-10-13] MEDS: LR 1000 IV (16:21)
[2024-10-13 18:35] LABS: Glucose - Point of Care 91 mg/dl (70-99)
--- NOTE | 2024-10-13 18:40 | PTCARENOTE ---
pt c/o pain in epigastric area this am after eating small anount of clear liquids. discussed with hospitalist. pt made npo and ct abdomen done. pt given prn ativan as she was feeling anxious . krider given. LR at 100 ml/hr infusing as well as
protonix drip. pt did not get oob today. resting in bed with at bedside.
[2024-10-13] MEDS: MELATONIN 10 MG PO (22:06)
[2024-10-13] MEDS: KLOR-CON 40 MEQ PO (22:06)
[2024-10-13 22:58] LABS: Glucose - Point of Care 83 mg/dl (70-99)
[2024-10-14] VITALS (12 sets, daily range): BP systolic 125–170; BP diastolic 48–92; BMI 29.3
[2024-10-14 01:07] LABS: Hematocrit 25.5 % (37.0-47.0); Hemoglobin 8.8 g/dL (12.0-16.0); Mean Corp Hgb Conc. 34.5 g/dL (33.0-37.0); Mean Corpuscular Hgb 30.8 pg (27.0-31.0); Mean Corpuscular Volume 89.2 fL (81.0-99.0); Mean Platelet Volume 10.9 fL (7.4-10.4); Platelet Count 187 10^3/uL (130-400); Red Blood Cell Count 2.86 10^6/uL (4.20-5.40); Red Cell Dist. Width 14.8 % (11.5-14.5)
[2024-10-14] MEDS: LR 1000 IV ×2 (03:50→11:31)
[2024-10-14] MEDS: SYNTHROID 25 MCG PO (04:52)
--- NOTE | 2024-10-14 04:59 | PTCARENOTE ---
Pt pulled midline dressing partially off. IV team and KIERA Ayoub notified. Midline redressed by IV team. Rx received for mitts as a protective intervention. Pt responding well to mitts and is resting in bed.
[2024-10-14 05:01] LABS: Glucose - Point of Care 86 mg/dl (70-99)
[2024-10-14 05:53] LABS: % Basophils 0.5 % (0-2); % Eosinophils 5.1 % (0-6); % Immature Granulocytes 0.3 % (0-0.5); % Lymphocytes 23.6 % (20.5-51.1); % Monocytes 9.4 % (1.7-9.3); % Neutrophils 61.1 % (42.2-75.2); Absolute Eosinophils 0.3 10^3/uL (0-0.7); Absolute Lymphocytes 1.4 10^3/uL (1.2-3.4); Absolute Monocytes 0.6 10^3/uL (0.1-0.6); Absolute Neutrophils 3.7 10^3/uL (1.4-6.5); Hematocrit 26.7 % (37.0-47.0); Hemoglobin 9.3 g/dL (12.0-16.0); Mean Corp Hgb Conc. 34.8 g/dL (33.0-37.0); Mean Corpuscular Hgb 30.9 pg (27.0-31.0); Mean Corpuscular Volume 88.7 fL (81.0-99.0); Mean Platelet Volume 11.6 fL (7.4-10.4); Nucleated Red Blood Cells % 0 %; Platelet Count 204 10^3/uL (130-400); Red Blood Cell Count 3.01 10^6/uL (4.20-5.40); Red Cell Dist. Width 14.7 % (11.5-14.5); White Blood Cell Count 6.1 10^3/uL (4.8-10.8)
--- NOTE | 2024-10-14 05:56 | PTCARENOTE ---
Pt aaox3. Pt NSR on monitor. 96% on RA. VS and assessment as documented. Paula in place draining yellow urine with sediment. Pt incontinent of bowel and had a large BM. Pt NPO. Protonix gtt and IVF infusing. Hygiene completed including paula care
and CHG wipes. Pt resting in bed with call murillo in reach.
[2024-10-14 06:08] LABS: Blood Urea Nitrogen 16 mg/dl (7-17); Calcium 8.9 mg/dl (8.4-10.2); Carbon Dioxide 20 mmol/L (22-30); Chloride 106 mmol/L (98-107); Estimated Creatinine Clearance 67 ml/min; Glucose 85 mg/dl (70-99); Magnesium 1.7 mg/dl (1.6-2.3); Potassium 3.9 mmol/L (3.5-5.1); Sodium 134 mmol/L (135-145); eGFR > 60.00
[2024-10-14] MEDS: MIRALAX PO (07:09)
--- NOTE | 2024-10-14 07:16 | PTCARENOTE ---
Pt c/o discomfort in lower abdomen she described as feeling full. Paula in place draining yellow urine with sediment. Urine found under patient on bed. This RN bladder scanned pt for 450. RN adjusted and flushed paula. Paula continued to drain
yellow urine with sediment. Pt bladder scanned again for 300 mLs. Pt stated that she has now felt relief. Pt appears to be resting comfortably in bed at this time and denies any pain or discomfort. Relayed to dayshift RN these findings.
[2024-10-14] MEDS: DESENEX/MITRAZOL/ZEASORB 1 APPLIC TOPICAL ×2 (08:08→20:26)
[2024-10-14] MEDS: THERAGRAN 1 TABLET PO (08:08)
[2024-10-14] MEDS: VITAMIN D3 (cholecalciferol) 25 MCG PO (08:08)
[2024-10-14] MEDS: MAGIC OR MIRACLE MOUTHWASH PO ×4 (08:09→20:27)
[2024-10-14] MEDS: MYCOSTATIN CREAM 1 APPLIC TOPICAL ×4 (08:09→20:53)
[2024-10-14] MEDS: NSS (PRESERVATIVE FREE) IV ×2 (08:09→20:26)
[2024-10-14 08:41] LABS: Iron 46 ug/dl (37-170)
[2024-10-14] MEDS: PROTONIX 100 IV ×2 (08:48→18:01)
[2024-10-14 08:50] LABS: Percent Saturation 17 % (20-50); Total Iron Binding Capacity 260 ug/dl (265-497)
--- NOTE | 2024-10-14 09:15 | PTCARENOTE ---
Rec'd pt this AM. Pt reports feeling much better without any abdominal pain. Evans removed after discussion with Dr. Vizcarra as there were issues overnight with it. Evans removed and pt able to void 300ml clear, yellow urine. Vital signs stable. Pt's
daughter at bedside. She requires frequent reminders to use call murillo as she repeatedly comes out of patients room with multiple requests. Pt remains on IVF and protonix drip. Able to swallow pills without any issue
[2024-10-14] MEDS: ATIVAN 0.25 MG IV ×3 (09:44→22:29)
[2024-10-14 09:48] LABS: Folate > 20.0 ng/ml (2.76-20); Vitamin B12 848 pg/ml (239-931)
--- NOTE | 2024-10-14 09:58 | PTCARENOTE ---
Pt complained of tachycardia and 'waves in her belly' upon eating beef broth. RN and MD at bedside. Pt with hyperactive bowel sounds. HR low 100s, same as this AM. Pt appears very anxious. MD discussed with pt and pt agreed to taking her PRN ativan
as it provided relief yesterday during one of these episodes. See MAR
--- NOTE | 2024-10-14 11:04 | W.PN.HOSP.TC ---
Today's Communication/Plan
-
Resume CLD and advance slowly as patient tolerates
Continue IV PPI drip
Trend CBC
OOB and PT as possible
Continue IV Ativan as needed
Assessment / Plan
Assessment / Plan
Ms. Daniel is a 79-year-old female with a medical history of hypertension and bipolar disorder who presented with shortness of breath. She tested positive for influenza 2 days prior to arrival and was started on oseltamivir as an outpatient.
However she had progressively worsening dyspnea and productive cough for 24 hours prior to presenting to the emergency department. In the ED, she was found to be hypoxic with her pulse ox in the mid 80s on room air. She was started on supplemental
oxygen via nasal cannula at that time with improvement in her respiratory status and oxygenation. She was also given nebulizer treatments. She was admitted for further evaluation and management of acute respiratory failure with hypoxia in the
setting of influenza infection. Found to have stress-induced cardiomyopathy with reduced EF and cardiogenic shock, subsequent improvement of LVEF from 30% to 45% while in the hospital. More recently developed abdominal pain with evidence of upper
GI bleeding. Had EGD on 10/12 that showed nonobstructive gastric ulcer. Started on IV PPI drip with clear liquid diet however had to be made n.p.o. again due to recurrent abdomen pain
#UGIB secondary to nonobstructing gastric ulcer
#Acute blood loss anemia with iron deficiency.
-Had epigastric discomfort and developed melena on 10/11. Noted with slowly trending down hemoglobin lowest at the 8.2
-Suspect upper GI source possibly stress ulcer, gastritis, duodenal ulcer
-EGD performed on 09/23 after episode of hematemesis showed torturous esophagus, large hiatal hernia, normal duodenum with no source of bleeding.
-PPI changed to Protonix drip; Updated with sufficient iron stores
-Transfused 2 units of packed red blood cells on 10/11 with appropriate response
-EGD on 10/12 showed nonobstructing gastric ulcer, continued on IV PPI drip
-Was started back on clear liquid diet with recurrence of significant abdominal pain on morning 10/13, CT A/P unremarkable
-Resumed clear liquid diet as of morning 10/14, plan to advance slowly
-Continue on PPI drip and trend CBC
#Anxiety
-Patient noted to have anxiety in association with her abdomen
-Pain requesting a low-dose medication to help
-Continue IV Ativan 0.25 mg as needed
#Acute hypoxic respiratory failure
-multifactorial in the settings of influenza A/bacterial pneumonia as well as cardiogenic shock.
-Intubated on 09/21/24 and was ultimately extubated on 09/25/2024
-Respiratory culture positive for Streptococcus and nasal swab positive for influenza
-Unable to complete course of Tamiflu given lack of enteral access;
s/p IV antibiotics with Unasyn, CTX
-Received course of steroids however discontinued as associated with increased mortality during flu
-Follow-up chest x-ray on 09/27 with possible small right loculated pleural effusion.
-Currently with stable respiratory status with minimal O2 requirement, nightly BiPAP
-Continue aspiration cautions and [employer], PRN nebs
-SpO2 goal >90%
#Epistaxis, resolved
-Likely from nasal dryness with supplemental O2
-Hemoglobin stable on CBC
-started nasal spray for moisturizing
-Continue to trend CBC, humidify O2
#Acute kidney injury
-Presumed prerenal in the context of cardiogenic shock
-Renal function normalized with normalization of volume status.
-Home HCTZ was held
#Acute urinary retention
-Improved with Evans catheter removed, although remains with high PVR over the last 24 hours[address]
-Place Evans catheter for acute retention on 10/12
-Successful TOV morning of 10/14
#Toxic metabolic encephalopathy protracted secondary to acute illness
#Bipolar disorder.
-Preadmission regimen include Vraylar, clonazepam, lamotrigine, zaleplon.
-Psychiatry input appreciated
�Reinstated Lamictal titrating dose. Initiated on Pristiq on 10/08. Hold Pristiq for now (side effect is a stress cardiomyopathy)
#Dehydration with hypernatremia- resolved
-Developed while on IV diuresis; s/p replacement with D5W
-Sodium initially in the 150s, down to 141 now
-Monitor oral intake, encourage free water intake as swallowing improved
#Severe malnutrition secondary to acute illness
-Diet has been advanced with aspiration precautions
-Has been on TPN, discontinued with improving oral intake.
-Continue calorie count
#Acute HFrEF with cardiogenic shock
#Nonischemic cardiomyopathy
#Takotsubo cardiomyopathy
-Had type II [place] with troponin peak of 14; ECG with diffuse ST changes in anterolateral leads
-Urgent right and left heart cath with LVEF 30 to 35%, patent coronaries, Takotsubo morphology, reduced cardiac index
-Follow-up echocardiogram on 10/02 with improved LVEF at 45%.
-Transient hypotension responded to IV fluid bolus.
-Cardiovascular regimen has been adjusted with reduction dose of Coreg, lisinopril. Holding parameters on antihypertensives. Hold Aldactone acutely given ongoing gastrointestinal issues and risk for hypotension.
#NSVT, Secondary to reduced LVEF and cardiomyopathy
-Status post course of amiodarone
-Continue to monitor on telemetry
-Electrolyte goals K >4, mag >2
#Episode of atrial fibrillation related to PICC line position on 04/30 which has been addressed.
-PICC line position adjusted
-Converted and remains in sinus rhythm.
-No anticoagulation indicated.
#Shock liver
-elevated transaminases suspect in the settings of hemodynamic instability.
-No gastrointestinal complaints upon presentation
-Follow LFTs
#Hypothyroidism
-Chronic, unclear etiology, home meds include levothyroxine 25 mcg
-No signs of thyroid dysfunction at this time
#Prediabetes
-Continue basal bolus protocol with serial Accu-Cheks
DVT prophylaxis: SCDs
Diet: CLD
CODE STATUS: Full code
Disposition: Acute inpatient rehab when medically stable
Family updates: Daughter and 3 patient's on 10/13, daughter on 10/14
Anticipated Discharge: > 48 hours
Subjective/Interval History
-
Date of Service: October 14, 2024
Seen and examined at the bedside. No acute events reported overnight. AFVSS this morning with borderline heart rate near 100/min
Trial of void with successful. Resumed on clear liquids this morning. Hemoglobin stable
Patient was complaining of some anxiety and gurgling after resuming clear liquids. No other acute complaints
Objective Data
-
Labs:
Laboratory Results
10/14/24 10/14/24
00:44 04:50
WBC 7.0 6.1
Hgb 8.8 L 9.3 L
Hct 25.5 L 26.7 L
Plt Count 187 204
Sodium 134 L
Potassium 3.9
Chloride 106
Carbon Dioxide 20 L
BUN 16
Creatinine 0.7
Glucose 85
Calcium 8.9
Vital Signs:
Vital Signs
Temp Pulse Resp BP Pulse Ox
98.9 F 101 24 125/80 98
10/14/24 07:15 10/14/24 08:00 10/14/24 08:00 10/14/24 08:00 10/14/24 08:00
I&O
10/13/24 10/14/24 10/15/24
06:59 06:59 06:59
Intake Total 650 / 650
Output Total 1450 / 1450 1250 / 1250 300 / 300
Balance -1450 / -1450 -600 / -600 -300 / -300
Review of Systems
-
History Source: Patient and Family
All other systems: Reviewed and negative
Physical Exam
-
General: Well Developed, Well Nourished and Appears Chronically Ill
HEENT: Normocephalic, Atraumatic and Moist Mucous Membranes
Respiratory: Clear to Auscultation and Non Labored Respirations
Cardiac: Regular Rhythm, S1/S2 and Tachycardic; Negative Murmur, Rub or Gallop
GI: Soft, Nontender, Nondistended and Normal Bowel Sounds (Hyperactive)
Musculoskeletal: No Clubbing, No Cyanosis and No Edema
Skin: Warm, Dry and Normal Turgor; Negative Rash
Neuro: AO x 3 and Nonfocal/Grossly Intact; Negative Tremors
Psych: Calm
Data Reviewed
-
Labs: Labs Reviewed by me, Discussed with Patient and Discussed with Family
--- NOTE | 2024-10-14 11:07 | W.PN.GI.CBS2 ---
Today's Communication / Plan
-
-Continue Protonix (pantoprazole): 8 mg/hr IV by
continuous infusion.
- Okay to advance to clear liquid diet. CT scan of the abdomen pelvis unremarkable. Will slowly advance to full liquid diet and low residue diet as tolerated. Continue Ensure clear.
- Check hemoglobin daily
- Monitor for any further signs of bleeding.
- GI bleeding likely all related to the duodenal ulcer.
Assessment / Plan
-
Pt is a 79yo with hx HTN, bipolar, large HH with intrathoracic stomach, Schatzki ring with prior dilation, correa's, anemia with prior iron infusion, prior work up for anemia with hbg down to 4 in 2016 with neg work up including neg capsule,
restless leg syndrome, NIDDM, with admission 09/21/24 with hypoxemia with concern for PNA, flu and cardiogenic shock-takotsubo with prolonged admission requiring intubation. She was noted with VT, prolong QT, episode of afib, MITALI, electrolyte
imbalance, elevated LFT's with hx chronic elevation. She was seen by GI early in admission for assist with NGT with EGD completed 09/23 with tortuous esophagus, large HH, bilious gastric fluid and unsuccessful placement of OGT. She has slowly
improved and has been on pureed diet with speech therapy following. There was question of epistaxis but now noted with onset of right sided pain yesterday then crampy abdominal pain overnight with drop in hbg. Initial admission hbg 13.6 on
09/21 then running around 10-11 range and now down to 8.2 today with passing of burgundy stool. Last scopes recent EGD 09/23 with attempt OGT, EGD 2019 + correa's large HH, colonoscopy 04/2017 diverticulosis, non bleeding hemorrhoids, tort colon
stool in colon.
-burgundy stool
-abdominal pain
-anemia drop in hbg
-reported Epistaxis
-known large HH with intrathoracic stomach
-hx hypoxemia/sepsis/PNA/cardiogenic shock- takotusubo admission
- VT, prolong QT, episode of afib
- elevated LFT's with hx chronic elevation
-urinary retention
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
-hx schatzki's ring with prior dilation
-chronic dysphagia
EGD 10/12/2024- No gross lesions in the entire esophagus.
- Z-line irregular, 35 cm from the incisors.
- 10 cm hiatal hernia.
- No gross lesions in the entire stomach.
- Non-obstructing non-bleeding duodenal ulcer with
pigmented material. There is no evidence of
perforation. Treated with bipolar cautery.
- Normal second portion of the duodenum.
- No specimens collected.
Recommendation: -Continue Protonix (pantoprazole): 8 mg/hr IV by
continuous infusion.
- Okay to advance to clear liquid diet. CT scan of the abdomen pelvis unremarkable. Will slowly advance to full liquid diet and low residue diet as tolerated. Continue Ensure clear.
- Check hemoglobin daily
- Monitor for any further signs of bleeding.
- GI bleeding likely all related to the duodenal ulcer.
-
Subjective
Subjective
Date of Service: October 14, 2024
Patient feels much better today, no abdominal pain, nausea or vomiting. Had dark bowel movement last night but nothing since.
Objective
Data Reviewed
Laboratory Data:
Laboratory Results
10/14/24 04:50
10/14/24 04:50
Laboratory Results
PT 13.5 Sec (11.4-14.6) 09/22/24 03:50
INR 1.00 09/22/24 03:50
APTT Cancelled 09/23/24 10:37
Phosphorus 3.6 mg/dl (2.5-4.5) 10/08/24 03:56
Magnesium 1.7 mg/dl (1.6-2.3) 10/14/24 04:50
Total Bilirubin 0.7 mg/dl (0.2-1.3) 10/08/24 03:56
AST 25 U/L (14-36) 10/08/24 03:56
ALT 49 U/L (0-35) H 10/08/24 03:56
Alkaline Phosphatase 75 U/L (38-126) 10/08/24 03:56
Vital Signs and I&O:
Vital Signs
Temp Pulse Resp BP Pulse Ox
98.9 F 101 24 125/80 98
10/14/24 07:15 10/14/24 08:00 10/14/24 08:00 10/14/24 08:00 10/14/24 08:00
I&O
10/13/24 10/14/24 10/15/24
06:59 06:59 06:59
Intake Total 650 / 650
Output Total 1450 / 1450 1250 / 1250 300 / 300
Balance -1450 / -1450 -600 / -600 -300 / -300
Physical Exam
Physical Exam
GI: Soft, Non Distended and Non Tender
[2024-10-14 11:43] LABS: Glucose - Point of Care 89 mg/dl (70-99)
--- NOTE | 2024-10-14 11:46 | W.PN.UPDATE ---
Update Note
Progress Note Update
79 y/o woman who has been in the hospital since 09/21/24 initially for flu. She had an EGD two days ago. She has a diagnosis of bipolar disorder and was being treated by Dr. Lisbet Sr on multiple medications. Her family has apparently expressed
concerns about polypharmacy. Pt. 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 She cannot recall if she was treated with medication. She is now off all scheduled
psych meds but gets PRN Ativan which is helpful for anxiety.
On exam is trim woman appearing younger than her stated age who is alert and appropriate. No psychomotor slowing or excitation. Speech is not pressured or slowed. Cognitively intact. Looks forward to returning to her garden. She is
appropriately concerned about her inability to walk (B12 normal). Had discomfort swallowing broth today following endoscopy (involved cauterization).
It appears that psych meds were ordered,but have been on hold. I would defer starting medications at this time. It is possible this was an isolated manic episode and not require ongoing prophylaxis. If she were to restart meds, would begin with
lamotrigine which could be sufficient and then add low-dose antipsychotic, such as the Vraylar she previously was taking.
Psychiatry will follow.
--- NOTE | 2024-10-14 13:11 | PTCARENOTE ---
arrived to pt's room demanding all her doctors come and speak to him about 'spasm in her stomach?' that occurred earlier. RN updated about what had occurred and that pt simply had very active bowel sounds after eating and that she
was not in any danger. Ativan given with relief. Daughter was in the room when both the GI and hospitalist saw pt this AM. then calmed down. Later, complained of mildew smell coming from shower. RN explained that this occurs from
time to time and running the shower typically resolves the issue. Daughter on speaker phone, both getting upset about this. demanding disinfectant be poured down drain. RN calmed situation down and bi data modeler took care of the drain issue.
Shower running at this time to flush. Room is also full of kessler and daughter has essential oil diffuser running. Family require much attention to remain.
[2024-10-14 18:07] LABS: Glucose - Point of Care 119 mg/dl (70-99)
[2024-10-14] MEDS: NSS (PRESERVATIVE FREE) 0.125 ML IV (20:21)
[2024-10-14] MEDS: LR IV (20:52)
[2024-10-14] MEDS: MELATONIN 10 MG PO (20:52)
--- NOTE | 2024-10-14 22:32 | PTCARENOTE ---
assumed care of patient. pt is AAOx3, at bedside, pt very anxious, and having a panic attack. PRN ativan given. after patient left, this RN asked patient if her is making her anxious. pt stated he is making her very anxious and has
been for the past 2 hours. stated she asked him to go home. pt very upset about this, states she can't calm down.
2230-pt rang stating she was still very anxious after her left and cannot calm down. notified covering SUSPECT ARTIST SUPERVISOR, x1 dose of 0.[address] on the monitor. 110s. pt on RA 96%, dry harsh cough noted, patient not bringing anything up. pt
has been urinating without any difficultly tonight. PPI gtt infusing. able to take pills without issues with water. care ongoing.
[2024-10-14 22:56] LABS: Glucose - Point of Care 111 mg/dl (70-99)
[2024-10-15] VITALS (13 sets, daily range): BP systolic 138–151; BP diastolic 63–108; PULSE 104–135; O2SAT 95–97; BMI 29.2
[2024-10-15] MEDS: PROTONIX 100 IV (02:15)
--- NOTE | 2024-10-15 02:49 | PTCARENOTE ---
pt reports she feels much better after the second dose of IV ativan was given to her. able to sleep on and off so far for night besides when she uses the bedpan.
[2024-10-15] MEDS: SYNTHROID 25 MCG PO (05:08)
[2024-10-15 05:36] LABS: % Basophils 0.8 % (0-2); % Eosinophils 5.5 % (0-6); % Immature Granulocytes 0.4 % (0-0.5); % Lymphocytes 27.1 % (20.5-51.1); % Monocytes 11.8 % (1.7-9.3); % Neutrophils 54.4 % (42.2-75.2); Absolute Eosinophils 0.3 10^3/uL (0-0.7); Absolute Lymphocytes 1.4 10^3/uL (1.2-3.4); Absolute Monocytes 0.6 10^3/uL (0.1-0.6); Absolute Neutrophils 2.8 10^3/uL (1.4-6.5); Hematocrit 26.5 % (37.0-47.0); Hemoglobin 8.9 g/dL (12.0-16.0); Mean Corp Hgb Conc. 33.6 g/dL (33.0-37.0); Mean Corpuscular Hgb 29.9 pg (27.0-31.0); Mean Corpuscular Volume 88.9 fL (81.0-99.0); Mean Platelet Volume 10.8 fL (7.4-10.4); Nucleated Red Blood Cells % 0 %; Platelet Count 189 10^3/uL (130-400); Red Blood Cell Count 2.98 10^6/uL (4.20-5.40); Red Cell Dist. Width 14.6 % (11.5-14.5); White Blood Cell Count 5.1 10^3/uL (4.8-10.8)
[2024-10-15 06:04] LABS: Blood Urea Nitrogen 10 mg/dl (7-17); Calcium 8.8 mg/dl (8.4-10.2); Carbon Dioxide 26 mmol/L (22-30); Chloride 106 mmol/L (98-107); Estimated Creatinine Clearance 67 ml/min; Glucose 112 mg/dl (70-99); Magnesium 1.5 mg/dl (1.6-2.3); Phosphorus 3.5 mg/dl (2.5-4.5); Potassium 3.5 mmol/L (3.5-5.1); Sodium 137 mmol/L (135-145); Triglycerides 94 mg/dl (10-149); eGFR > 60.00
[2024-10-15 08:08] LABS: Glucose - Point of Care 112 mg/dl (70-99)
[2024-10-15] MEDS: MIRALAX PO (09:21)
[2024-10-15] MEDS: MYCOSTATIN CREAM 1 APPLIC TOPICAL ×4 (09:21→21:44)
[2024-10-15] MEDS: VITAMIN D3 (cholecalciferol) 25 MCG PO (09:22)
[2024-10-15] MEDS: THERAGRAN 1 TABLET PO (09:22)
[2024-10-15] MEDS: MAGIC OR MIRACLE MOUTHWASH PO ×4 (09:22→19:28)
[2024-10-15] MEDS: DESENEX/MITRAZOL/ZEASORB 1 APPLIC TOPICAL ×2 (09:22→19:35)
--- NOTE | 2024-10-15 10:40 | W.PN.GI.CBS2 ---
Addendum entered and electronically signed by Carmencita Rose MD 10/15/24 11:40:
She has appointment with MINNIE Torres in our office 11/26 at 11:30 AM.
Original Note:
Today's Communication / Plan
-
- Okay to advance to low residue diet. CT scan of the abdomen pelvis unremarkable.
- Continue Protonix 40 mg po twice a day. Continue this for 8 weeks and then can decrease it to Protonix 40 mg 1 tablet daily.
- Monitor for any further signs of bleeding. Avoid NSAIDs.
- GI bleeding likely all related to the duodenal ulcer.
-IV Ferrlecit in the hospital
-Will arrange for outpatient follow-up with Dr. Boothe in 6 weeks. Will sign off, please call back if needed.
Assessment / Plan
-
Pt is a 79yo with hx HTN, bipolar, large HH with intrathoracic stomach, Schatzki ring with prior dilation, correa's, anemia with prior iron infusion, prior work up for anemia with hbg down to 4 in 2017 with neg work up including neg capsule,
restless leg syndrome, NIDDM, with admission 09/21/24 with hypoxemia with concern for PNA, flu and cardiogenic shock-takotsubo with prolonged admission requiring intubation. She was noted with VT, prolong QT, episode of afib, MITALI, electrolyte
imbalance, elevated LFT's with hx chronic elevation. She was seen by GI early in admission for assist with NGT with EGD completed 09/23 with tortuous esophagus, large HH, bilious gastric fluid and unsuccessful placement of OGT. She has slowly
improved and has been on pureed diet with speech therapy following. There was question of epistaxis but now noted with onset of right sided pain yesterday then crampy abdominal pain overnight with drop in hbg. Initial admission hbg 13.6 on
09/21 then running around 10-11 range and now down to 8.2 today with passing of burgundy stool. Last scopes recent EGD 09/23 with attempt OGT, EGD 2019 + correa's large HH, colonoscopy 04/2017 diverticulosis, non bleeding hemorrhoids, tort colon
stool in colon.
-burgundy stool
-abdominal pain
-anemia drop in hbg
-reported Epistaxis
-known large HH with intrathoracic stomach
-hx hypoxemia/sepsis/PNA/cardiogenic shock- takotusubo admission
- VT, prolong QT, episode of afib
- elevated LFT's with hx chronic elevation
-urinary retention
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
-hx schatzki's ring with prior dilation
-chronic dysphagia
EGD 10/12/2024- No gross lesions in the entire esophagus.
- Z-line irregular, 35 cm from the incisors.
- 10 cm hiatal hernia.
- No gross lesions in the entire stomach.
- Non-obstructing non-bleeding duodenal ulcer with
pigmented material. There is no evidence of
perforation. Treated with bipolar cautery.
- Normal second portion of the duodenum.
- No specimens collected.
Recommendation:
- Okay to advance to low residue diet. CT scan of the abdomen pelvis unremarkable.
- Continue Protonix 40 mg po twice a day. Continue this for 8 weeks and then can decrease it to Protonix 40 mg 1 tablet daily.
- Monitor for any further signs of bleeding. Avoid NSAIDs.
- GI bleeding likely all related to the duodenal ulcer.
-IV Ferrlecit in the hospital
-Will arrange for outpatient follow-up with Dr. Boothe in 6 weeks. Will sign off, please call back if needed.
-
Subjective
Subjective
Date of Service: October 15, 2024
Patient reports feeling very well. Denies any abdominal pain, nausea or vomiting. Tolerating clears. Had dark blackish bowel movement but formed, likely old blood last night. Nothing this morning. No dizziness, lightheadedness, chest pain or
shortness of breath.
Objective
Data Reviewed
Laboratory Data:
Laboratory Results
10/15/24 05:15
10/15/24 05:15
Laboratory Results
PT 13.5 Sec (11.4-14.6) 09/22/24 03:50
INR 1.00 09/22/24 03:50
APTT Cancelled 09/23/24 10:37
Phosphorus 3.5 mg/dl (2.5-4.5) 10/15/24 05:15
Magnesium 1.5 mg/dl (1.6-2.3) L 10/15/24 05:15
Total Bilirubin 0.7 mg/dl (0.2-1.3) 10/08/24 03:56
AST 25 U/L (14-36) 10/08/24 03:56
ALT 49 U/L (0-35) H 10/08/24 03:56
Alkaline Phosphatase 75 U/L (38-126) 10/08/24 03:56
Vital Signs and I&O:
Vital Signs
Temp Pulse Resp BP Pulse Ox
97.4 F 111 22 148/84 98
10/15/24 02:45 10/15/24 10:00 10/15/24 10:00 10/15/24 09:21 10/15/24 10:00
I&O
10/14/24 10/15/24 10/16/24
06:59 06:59 06:59
Intake Total 650 / 650 1979 / 1979
Output Total 1250 / 1250 900 / 900
Balance -600 / -600 1080 / 1080
Physical Exam
Physical Exam
GI: Soft, Non Distended and Non Tender
--- NOTE | 2024-10-15 11:29 | PTCARENOTE ---
Rec'd pt this AM. Pt OOB x2 with PT/OT with rolling walker. continues to void without difficulty. diet upgraded to low residue. Daughter at bedside. Met with daughter and Pt with Dr. Ayala. Pt downgraded to tele. assessment for rehab placement is
ongoing.
--- NOTE | 2024-10-15 11:50 | W.PN.HOSP.TC ---
Today's Communication/Plan
-
Advance to low residue diet
Transition to oral PPI Protonix twice daily
Resume cardiovascular medications: Coreg and lisinopril and monitor blood pressure trend.
Hold Aldactone for now monitoring oral intake.
Resume Lamictal.
Physical therapy and discharge planning
Assessment / Plan
Assessment / Plan
Ms. Daniel is a 79-year-old female with a medical history of hypertension and bipolar disorder who presented with shortness of breath. She tested positive for influenza 2 days prior to arrival and was started on oseltamivir as an outpatient.
However she had progressively worsening dyspnea and productive cough for 24 hours prior to presenting to the emergency department. In the ED, she was found to be hypoxic with her pulse ox in the mid 80s on room air. She was started on supplemental
oxygen via nasal cannula at that time with improvement in her respiratory status and oxygenation. She was also given nebulizer treatments. She was admitted for further evaluation and management of acute respiratory failure with hypoxia in the
setting of influenza infection. Found to have stress-induced cardiomyopathy with reduced EF and cardiogenic shock, subsequent improvement of LVEF from 30% to 45% while in the hospital. More recently developed abdominal pain with evidence of upper
GI bleeding. Had EGD on 10/12 that showed nonobstructive gastric ulcer. Started on IV PPI drip with clear liquid diet however had to be made n.p.o. again due to recurrent abdomen pain
Impression:
Acute hypoxic respiratory failure.
� Intubated 09/21/2024
Sepsis secondary to influenza A/bacterial�community-acquired pneumonia, also suspected aspiration pneumonia given large hiatal hernia with intrathoracic stomach
Shock, multifactorial due to sepsis as well as cardiogenic.
Acute heart failure reduced EF secondary to stress�Takotsubo cardiomyopathy.
Type II NE/demand ischemia with troponin peak 14
Polymorphic ventricular tachycardia on monitoring 09/23/24
Prolonged QTc resolved
Episode of atrial fibrillation with PICC line placement
Acute kidney injury.
Hypovolemic hyponatremia
Hypernatremia while on diuresis
Duodenal ulcer
Acute blood loss anemia secondary to gastrointestinal hemorrhage
Elevated transaminases
Prediabetes
Hypothyroidism on replacement
Bipolar disorder.
#UGIB secondary to nonobstructing gastric ulcer
#Acute blood loss anemia with iron deficiency.
-Had epigastric discomfort and developed melena on 10/11. Noted with slowly trending down hemoglobin lowest at the 8.2
-Suspect upper GI source possibly stress ulcer, gastritis, duodenal ulcer
-EGD performed on 09/23 after episode of hematemesis showed torturous esophagus, large hiatal hernia, normal duodenum with no source of bleeding.
-EGD on 10/12 showed nonobstructing gastric ulcer, continued on IV PPI drip
Diet has been advanced to solids.
Transition to oral PPI.
Acute blood loss anemia. Iron deficiency
Stabilized. Continue monitor.
Replete IV iron.
#Anxiety
-Patient noted to have anxiety in association with her abdomen
-Pain requesting a low-dose medication to help
-Continue IV Ativan 0.25 mg as needed
#Acute hypoxic respiratory failure
-multifactorial in the settings of influenza A/bacterial pneumonia as well as cardiogenic shock.
-Intubated on 09/21/24 and was ultimately extubated on 09/25/2024
-Respiratory culture positive for Streptococcus and nasal swab positive for influenza
-Unable to complete course of Tamiflu given lack of enteral access;
s/p IV antibiotics with Unasyn, CTX
-Received course of steroids however discontinued as associated with increased mortality during flu
-Follow-up chest x-ray on 09/27 with possible small right loculated pleural effusion.
-Currently with stable respiratory status with minimal O2 requirement, nightly BiPAP
-Continue aspiration cautions and BINDER SELECTOR, PRN nebs
-SpO2 goal >90%
#Epistaxis, resolved
-Likely from nasal dryness with supplemental O2
-Hemoglobin stable on CBC
-started nasal spray for moisturizing
-Continue to trend CBC, humidify O2
#Acute kidney injury
-Presumed prerenal in the context of cardiogenic shock
-Renal function normalized with normalization of volume status.
-Home HCTZ was held
#Acute urinary retention
-Improved with Evans catheter removed, although remains with high PVR over the last 24 hours.
-Place Evans catheter for acute retention on 10/12
-Successful TOV morning of 10/14
#Toxic metabolic encephalopathy protracted secondary to acute illness
#Bipolar disorder.
-Preadmission regimen include Vraylar, clonazepam, lamotrigine, zaleplon.
-Psychiatry input appreciated
�Reinstated Lamictal titrating dose. Initiated on Pristiq on 10/08. Hold Pristiq for now (side effect is a stress cardiomyopathy)
#Dehydration with hypernatremia- resolved
-Developed while on IV diuresis; s/p replacement with D5W
-Sodium initially in the 150s, down to 141 now
-Monitor oral intake, encourage free water intake as swallowing improved
#Severe malnutrition secondary to acute illness
-Diet has been advanced with aspiration precautions
-Has been on TPN, discontinued with improving oral intake.
-Continue calorie count
#Acute HFrEF with cardiogenic shock
#Nonischemic cardiomyopathy
#Takotsubo cardiomyopathy
-Had type II NE with troponin peak of 14; ECG with diffuse ST changes in anterolateral leads
-Urgent right and left heart cath with LVEF 30 to 35%, patent coronaries, Takotsubo morphology, reduced cardiac index
-Follow-up echocardiogram on 10/02 with improved LVEF at 45%.
-Transient hypotension responded to IV fluid bolus.
-Cardiovascular regimen has been adjusted with reduction dose of Coreg, lisinopril. Holding parameters on antihypertensives. Hold Aldactone.
#NSVT, Secondary to reduced LVEF and cardiomyopathy
-Status post course of amiodarone
-Continue to monitor on telemetry
-Electrolyte goals K >4, mag >2
#Episode of atrial fibrillation related to PICC line position on 04/30 which has been addressed.
-PICC line position adjusted
-Converted and remains in sinus rhythm.
-No anticoagulation indicated.
#Shock liver
-elevated transaminases suspect in the settings of hemodynamic instability.
-No gastrointestinal complaints upon presentation
-Follow LFTs
#Hypothyroidism
-Chronic, unclear etiology, home meds include levothyroxine 25 mcg
-No signs of thyroid dysfunction at this time
#Prediabetes
-Continue basal bolus protocol with serial Accu-Cheks
DVT prophylaxis: SCDs
Diet: CLD
CODE STATUS: Full code
Disposition: Acute inpatient rehab when medically stable
Anticipated Discharge: 24 - 48 hours
Subjective/Interval History
-
Date of Service: October 15, 2024
Objective Data
-
Labs:
Laboratory Results
10/15/24
05:15
WBC 5.1
Hgb 8.9 L
Hct 26.5 L
Plt Count 189
Sodium 137
Potassium 3.5
Chloride 106
Carbon Dioxide 26
BUN 10
Creatinine 0.7
Glucose 112 H
Calcium 8.8
Vital Signs:
Vital Signs
Temp Pulse Resp BP Pulse Ox
97.4 F 111 22 148/84 98
10/15/24 02:45 10/15/24 10:00 10/15/24 10:00 10/15/24 09:21 10/15/24 10:00
I&O
10/14/24 10/15/24 10/16/24
06:59 06:59 06:59
Intake Total 650 / 650 1979 / 1979
Output Total 1250 / 1250 900 / 900
Balance -600 / -600 1080 / 1080
[2024-10-15 11:59] LABS: Glucose - Point of Care 131 mg/dl (70-99)
--- NOTE | 2024-10-15 13:00 | PTCARENOTE ---
Pts daughter came out of the room saying her mother's heart rate was high. Went into the room. Daughter is telling her mother she thinks she needs oxygen. Pt becoming anxious asking if she needs O2. RN assessed pt's O2 sat as 97% on RA and HR
remains 100s to 110s as it has been for days. Pt's HR does elevate to 120s when she is ambulating but quickly calms down. RN educated pt and provided reassurance. all vital signs remain stable.
--- NOTE | 2024-10-15 13:51 | CM ---
Addendum entered by Nelida Paulson 10/15/24 15:25:
[facility] requested patient diet be upgraded and speech follow patient prior to transfer. [facility] to assess tomorrow and potential is for patient to transfer pending physician assessment. updated physician via tt and will continue to follow for discharge
planning needs.
Original Note:
Patient seen at bedside with PT/OT and daughter in process of assessment. CM reached out to [facility] and await confirmation of ability to accept. CM called and left for patient x2. CM will continue to follow for discharge planning needs.
Plan; [place]
[2024-10-15] MEDS: FERRLECIT 110 MG IV (14:13)
[2024-10-15] MEDS: ATIVAN 0.25 MG IV (14:14)
--- NOTE | 2024-10-15 16:51 | PTCARENOTE ---
Pt given Ativan for anxiety with relief. 2x assist to BSC then back to bed, remained in chair today for 5 hours. vital signs stable. resting comfortably. tolerating low residue diet without issues
[2024-10-15 17:59] LABS: Glucose - Point of Care 108 mg/dl (70-99)
[2024-10-15] MEDS: ZESTRIL 5 MG PO (19:35)
[2024-10-15] MEDS: ROBITUSSIN DM 10 ML PO (19:35)
[2024-10-15] MEDS: PROTONIX 40 MG PO (19:35)
[2024-10-15] MEDS: COREG 12.5 MG PO (19:35)
[2024-10-15] MEDS: MELATONIN 10 MG PO (21:44)
[2024-10-15 21:45] LABS: Glucose - Point of Care 121 mg/dl (70-99)
--- NOTE | 2024-10-15 22:06 | PTCARENOTE ---
assumed care of patient. pt is AAOx3, anxious, able to make needs known. at bedside. concerned over patients cough. patient lungs clear, 96% RA. cough is not new for patient. PRN robitussin given per MAR. positive environment maintained. ST
on the monitor. after beta leticia was given HR now 80s-90s. pt was incontinent of urine and some smears of bowel. full bed bath given. no complaints of pain. care ongoing.
[2024-10-16] VITALS (10 sets, daily range): BP systolic 85–129; BP diastolic 42–94; BMI 29.2
[2024-10-16] MEDS: ROBITUSSIN DM 10 ML PO (00:08)
[2024-10-16] MEDS: SYNTHROID 25 MCG PO (04:47)
[2024-10-16 05:43] LABS: Blood Urea Nitrogen 14 mg/dl (7-17); Calcium 8.6 mg/dl (8.4-10.2); Carbon Dioxide 30 mmol/L (22-30); Chloride 105 mmol/L (98-107); Estimated Creatinine Clearance 58 ml/min; Glucose 118 mg/dl (70-99); Potassium 3.5 mmol/L (3.5-5.1); Sodium 138 mmol/L (135-145); eGFR > 60.00
[2024-10-16 08:05] LABS: Glucose - Point of Care 125 mg/dl (70-99)
[2024-10-16] MEDS: COREG PO (08:56)
[2024-10-16] MEDS: FARXIGA 10 MG PO (08:57)
[2024-10-16] MEDS: LAMICTAL 25 MG PO (08:57)
[2024-10-16] MEDS: VITAMIN D3 (cholecalciferol) 25 MCG PO (08:57)
[2024-10-16] MEDS: PROTONIX 40 MG PO ×2 (08:57→21:25)
[2024-10-16] MEDS: MAGIC OR MIRACLE MOUTHWASH PO ×2 (08:57→12:21)
[2024-10-16] MEDS: CRESTOR 20 MG PO (08:57)
[2024-10-16] MEDS: THERAGRAN 1 TABLET PO (08:57)
[2024-10-16] MEDS: MIRALAX PO (08:57)
[2024-10-16] MEDS: MYCOSTATIN CREAM 1 APPLIC TOPICAL ×3 (08:58→21:28)
[2024-10-16] MEDS: DESENEX/MITRAZOL/ZEASORB 1 APPLIC TOPICAL ×2 (08:58→21:26)
--- NOTE | 2024-10-16 09:53 | PTCARENOTE ---
pt is oob to chair eating breakfast. coreg held per parameters. callbell in reach
--- NOTE | 2024-10-16 10:37 | PN.CDI ---
CDI
- -
CDI:
Physician Documentation Request
Admit Date: 09/21/24 16:32
Dear Doctor Jamie,
Urine cultures 09/22 neg, Urine cultures 10/11 positive for E coli and Micaela albicans
10/11 UA
Laboratory Tests
10/11/24
17:33
Urine Color Yellow
Urine Clarity Clear
Leukocyte Esterase Rfl 2+ A
Urine WBC (Reflex) 11-15 A
Urine Bacteria (Reflex) Few A
Could you please provide a diagnosis that supports the above lab abnormalities and additional evaluation/monitoring:
UTI
Asymptomatic bacteruria
Other
Use of terms such as suspected, likely, concern for, or probable (associated with a specific diagnosis that is being evaluated, monitored, or treated as if it exists) are acceptable and can be coded in the inpatient setting, when documented at the
time of discharge.
Thank you,
Marisela Inman RN, BSN
CDI Specialist
[employer]
Please use your independent medical judgment in providing your response.
[2024-10-16 13:05] LABS: Glucose - Point of Care 119 mg/dl (70-99)
[2024-10-16] MEDS: MYCOSTATIN CREAM TOPICAL (14:28)
[2024-10-16] MEDS: FERRLECIT 110 MG IV (14:59)
--- NOTE | 2024-10-16 15:15 | W.PN.UPDATE ---
Update Note
Progress Note Update
Pt seen with dtr present. Pt states she is feeling better, being stepped down from IMU today. Dtr reports pt is eating better but still not enough. Dtr states pt seems tired. Pristiq was stopped after being held, due to being extended release
and concern for potential side effects. Pt developed GI bleed due to duodenal ulcer. Pt has been taking Lamictal- restarted 10/07, missed yesterday due to npo status, took today.
Pt sitting up in chair, alert, oriented, with good eye contact, smiling, answering questions. Pt states she does not want any med that could make her tired/sleepy during the day.
Imp: hx of Bipolar d/o with arcenio, stable. Poor po intake, improving. Affect appears better, does not appear depressed
Rec: continue Lamictal titration; hold off antidepressant
will follow
--- NOTE | 2024-10-16 15:40 | W.PN.HOSP.TC ---
Today's Communication/Plan
-
Check urinalysis and reflex to culture.
Monitor oral intake.
Continue physical therapy
Supportive care
Being assessed by physiatry for possible acute rehab discharge
Assessment / Plan
Assessment / Plan
Ms. Daniel is a 79-year-old female with a medical history of hypertension and bipolar disorder who presented with shortness of breath. She tested positive for influenza 2 days prior to arrival and was started on oseltamivir as an outpatient.
However she had progressively worsening dyspnea and productive cough for 24 hours prior to presenting to the emergency department. In the ED, she was found to be hypoxic with her pulse ox in the mid 80s on room air. She was started on supplemental
oxygen via nasal cannula at that time with improvement in her respiratory status and oxygenation. She was also given nebulizer treatments. She was admitted for further evaluation and management of acute respiratory failure with hypoxia in the
setting of influenza infection. Found to have stress-induced cardiomyopathy with reduced EF and cardiogenic shock, subsequent improvement of LVEF from 30% to 45% while in the hospital. More recently developed abdominal pain with evidence of upper
GI bleeding. Had EGD on 10/12 that showed nonobstructive gastric ulcer. Started on IV PPI drip with clear liquid diet however had to be made n.p.o. again due to recurrent abdomen pain
Impression:
Acute hypoxic respiratory failure.
� Intubated 09/21/2024
Sepsis secondary to influenza A/bacterial�community-acquired pneumonia, also suspected aspiration pneumonia given large hiatal hernia with intrathoracic stomach
Shock, multifactorial due to sepsis as well as cardiogenic.
Acute heart failure reduced EF secondary to stress�Takotsubo cardiomyopathy.
Type II WI/demand ischemia with troponin peak 14
Polymorphic ventricular tachycardia on monitoring 09/23/24
Prolonged QTc resolved
Episode of atrial fibrillation with PICC line placement
Acute kidney injury.
Hypovolemic hyponatremia
Hypernatremia while on diuresis
Duodenal ulcer
Acute blood loss anemia secondary to gastrointestinal hemorrhage
Elevated transaminases
Prediabetes
Hypothyroidism on replacement
Bipolar disorder.
Plan
#UGIB secondary to nonobstructing gastric ulcer
#Acute blood loss anemia with iron deficiency.
-Had epigastric discomfort and developed melena on 10/11. Noted with slowly trending down hemoglobin lowest at the 8.2
-Suspect upper GI source possibly stress ulcer, gastritis, duodenal ulcer
-EGD performed on 09/23 after episode of hematemesis showed torturous esophagus, large hiatal hernia, normal duodenum with no source of bleeding.
-EGD on 10/12 showed nonobstructing gastric ulcer, continued on IV PPI drip
Diet has been advanced to solids.
Transitioned to oral PPI.
Acute blood loss anemia. Iron deficiency
Stabilized. Continue monitor.
Replete IV iron.
#Acute hypoxic respiratory failure
-multifactorial in the settings of influenza A/bacterial pneumonia as well as cardiogenic shock.
-Intubated on 09/21/24 and was ultimately extubated on 09/25/2024
-Respiratory culture positive for Streptococcus and nasal swab positive for influenza
-Unable to complete course of Tamiflu given lack of enteral access;
s/p IV antibiotics with Unasyn, CTX
-Received course of steroids however discontinued as associated with increased mortality during flu
-Follow-up chest x-ray on 09/27 with possible small right loculated pleural effusion.
-Currently with stable respiratory status with minimal O2 requirement, nightly BiPAP
-Continue aspiration cautions and DELI BAKERY CLERK, PRN nebs
-SpO2 goal >90%
#Epistaxis, resolved
-Likely from nasal dryness with supplemental O2
-Hemoglobin stable on CBC
-started nasal spray for moisturizing
-Continue to trend CBC, humidify O2
#Acute kidney injury
-Presumed prerenal in the context of cardiogenic shock
-Renal function normalized with normalization of volume status.
-Home HCTZ was held
#Acute urinary retention
-Improved with Evans catheter removed, although remains with high PVR over the last 24 hours[address]
-Place Evans catheter for acute retention on 10/12
-Successful TOV morning of 10/14
Nursing reports foul-smelling urine, although patient declines any urinary symptoms. Will check UA and reflex to cultures.
#Toxic metabolic encephalopathy protracted secondary to acute illness
#Bipolar disorder.
-Preadmission regimen include Vraylar, clonazepam, lamotrigine, zaleplon.
-Psychiatry input appreciated
�Reinstated Lamictal titrating dose. Initiated on Pristiq on 10/08. Hold Pristiq for now (side effect is a stress cardiomyopathy)
-Continue Klonopin as needed
#Dehydration with hypernatremia- resolved
-Developed while on IV diuresis; s/p replacement with D5W
-Sodium initially in the 150s, down to 141 now
-Monitor oral intake, encourage free water intake as swallowing improved
#Severe malnutrition secondary to acute illness
-Diet has been advanced with aspiration precautions
-Has been on TPN, discontinued with improving oral intake.
-Continue calorie count. Reported improved oral intake
#Acute HFrEF with cardiogenic shock
#Nonischemic cardiomyopathy
#Takotsubo cardiomyopathy
-Had type II WI with troponin peak of 14; ECG with diffuse ST changes in anterolateral leads
-Urgent right and left heart cath with LVEF 30 to 35%, patent coronaries, Takotsubo morphology, reduced cardiac index
-Follow-up echocardiogram on 10/02 with improved LVEF at 45%.
-Transient hypotension responded to IV fluid bolus.
-Cardiovascular regimen has been adjusted with reduction dose of Coreg, lisinopril. Holding parameters on antihypertensives. Hold Aldactone.
#NSVT, Secondary to reduced LVEF and cardiomyopathy
-Status post course of amiodarone
-Continue to monitor on telemetry
-Electrolyte goals K >4, mag >2
#Episode of atrial fibrillation related to PICC line position on 04/30 which has been addressed.
-PICC line position adjusted
-Converted and remains in sinus rhythm.
-No anticoagulation indicated.
#Shock liver
-elevated transaminases suspect in the settings of hemodynamic instability.
-No gastrointestinal complaints upon presentation
-Follow LFTs
#Hypothyroidism
-Chronic, unclear etiology, home meds include levothyroxine 25 mcg
-No signs of thyroid dysfunction at this time
#Prediabetes
-Continue basal bolus protocol with serial Accu-Cheks
DVT prophylaxis: SCDs
Diet: CLD
CODE STATUS: Full code
Disposition: Acute inpatient rehab when medically stable
Anticipated Discharge: 24 - 48 hours
Subjective/Interval History
-
Date of Service: October 16, 2024
Objective Data
-
Labs:
Laboratory Results
10/16/24
04:44
Sodium 138
Potassium 3.5
Chloride 105
Carbon Dioxide 30
BUN 14
Creatinine 0.8
Glucose 118 H
Calcium 8.6
Vital Signs:
Vital Signs
Temp Pulse Resp BP Pulse Ox
97.8 F 81 25 101/61 96
10/16/24 07:01 10/16/24 12:00 10/15/24 10:16 10/16/24 11:44 10/15/24 19:45
I&O
10/15/24 10/16/24 10/17/24
06:59 06:59 06:59
Intake Total 1979 720 / 720
Output Total 900 / 900
Balance 1080 / 1080 720 / 720
Physical Exam
-
General: Well Developed, Well Nourished and Appears Chronically Ill
HEENT: Normocephalic, Atraumatic and Moist Mucous Membranes
Respiratory: Clear to Auscultation and Non Labored Respirations
Cardiac: Regular Rhythm, S1/S2 and Tachycardic; Negative Murmur, Rub or Gallop
GI: Soft, Nontender, Nondistended and Normal Bowel Sounds (Hyperactive)
Musculoskeletal: No Clubbing, No Cyanosis and No Edema
Skin: Warm, Dry and Normal Turgor; Negative Rash
Neuro: AO x 3 and Nonfocal/Grossly Intact; Negative Tremors
Psych: Calm
--- NOTE | 2024-10-16 15:42 | PTCARENOTE ---
pt transferred to from IMU. AOx3. Denies pain. Tele, NSR with PVC's rate in 90's. lung sounds are diminished in bases b/l. abd soft NT. no edema, pp. pt oriented to surroundings, cb in reach- instructed on use. belongings arrived from IMU.
--- NOTE | 2024-10-16 16:02 | PTCARENOTE ---
pt transported to [address] [place] [address]. report given to Disha. pt noted to have foul smelling urine, hospitalist made aware and ua ordered.
[2024-10-16 17:22] LABS: Glucose - Point of Care 94 mg/dl (70-99)
[2024-10-16] MEDS: MAGIC OR MIRACLE MOUTHWASH 10 ML PO ×2 (17:25→21:27)
--- NOTE | 2024-10-16 17:47 | CM ---
Patient with Hx bipolar disorder with Dx Acute hypoxic respiratory failure, sepsis, influenza A, pneumonia, suspected aspiration pneumonia. Room air. Receiving IV Iron. Per nursing; A/O, anxious. Physiatry Consult 10/05 recommends acute rehab.
PT/OT 10/15 recommend acute rehab. Transferred from IMU to today.
Spoke with [facility]; patient is accepted however they do not have an available bed today. Asked [facility] when bed would be available ---> waiting for response.
Plan [facility] when bed available.
[2024-10-16] MEDS: MELATONIN 10 MG PO (21:25)
[2024-10-16] MEDS: COREG 12.5 MG PO (21:26)
[2024-10-16] MEDS: ZESTRIL 5 MG PO (21:26)
[2024-10-16] MEDS: MYLICON 80 MG PO (21:54)
[2024-10-16] MEDS: KLONOPIN 0.5 MG PO (21:54)
[2024-10-16 22:10] LABS: Glucose - Point of Care 126 mg/dl (70-99)
[2024-10-16 22:34] LABS: Urine Albumin 2+ (Neg - Trace); Urine Bilirubin Negative (Negative); Urine Character Slightly Cloudy (Clear); Urine Color Yellow; Urine Glucose 4+ (Negative); Urine Ketone Negative (Negative); Urine Leukocyte 3+ (Negative); Urine Nitrite Negative (Negative); Urine Occult Blood 4+ (Negative); Urine Urobilinogen Negative (Neg - 1+)
[2024-10-16 22:44] LABS: Urine Squamous Cell 0-2 /LPF (Few)
[2024-10-16 22:45] LABS: Urine Bacteria Many (Negative); Urine White Cell 30-40 /HPF (0-5)
[2024-10-17] VITALS (8 sets, daily range): BP systolic 95–118; BP diastolic 44–84; PULSE 96; O2SAT 95; BMI 29.1
--- NOTE | 2024-10-17 04:41 | PTCARENOTE ---
Patient resting in bed throughout shift, Urine was sent per order to R/O UTI, patient up OOB to use BSC with 2 assist and walker, she had no dizziness or lightheadedness. Her skin is intact, she did ask for her anxiety medicine to help her sleep,
she continues to complain of 'spasms' in her stomach, but also says it could be gas, medication given as ordered, she states no BM in 4 days, but wanted to wait until morning for her PRN suppository. Call murillo within reach.
[2024-10-17 07:14] LABS: Glucose - Point of Care 118 mg/dl (70-99)
[2024-10-17] MEDS: SYNTHROID 25 MCG PO (08:07)
[2024-10-17] MEDS: CRESTOR 20 MG PO (08:07)
[2024-10-17] MEDS: PROTONIX 40 MG PO ×2 (08:08→20:07)
[2024-10-17] MEDS: VITAMIN D3 (cholecalciferol) 25 MCG PO (08:08)
[2024-10-17] MEDS: FARXIGA 10 MG PO (08:08)
[2024-10-17] MEDS: COREG 12.5 MG PO (08:09)
[2024-10-17] MEDS: DULCOLAX 10 MG RECTAL (08:10)
[2024-10-17] MEDS: THERAGRAN 1 TABLET PO (08:10)
[2024-10-17] MEDS: DESENEX/MITRAZOL/ZEASORB 1 APPLIC TOPICAL ×2 (08:16→20:09)
[2024-10-17] MEDS: MIRALAX PO (08:18)
[2024-10-17 08:43] LABS: % Basophils 0.4 % (0-2); % Eosinophils 3.9 % (0-6); % Immature Granulocytes 0.2 % (0-0.5); % Lymphocytes 29.5 % (20.5-51.1); % Monocytes 11.9 % (1.7-9.3); % Neutrophils 54.1 % (42.2-75.2); Absolute Eosinophils 0.2 10^3/uL (0-0.7); Absolute Lymphocytes 1.6 10^3/uL (1.2-3.4); Absolute Monocytes 0.6 10^3/uL (0.1-0.6); Absolute Neutrophils 2.9 10^3/uL (1.4-6.5); Hematocrit 24.9 % (37.0-47.0); Hemoglobin 8.5 g/dL (12.0-16.0); Mean Corp Hgb Conc. 34.1 g/dL (33.0-37.0); Mean Corpuscular Hgb 31.3 pg (27.0-31.0); Mean Corpuscular Volume 91.5 fL (81.0-99.0); Mean Platelet Volume 10.9 fL (7.4-10.4); Nucleated Red Blood Cells % 0 %; Platelet Count 171 10^3/uL (130-400); Red Blood Cell Count 2.72 10^6/uL (4.20-5.40); Red Cell Dist. Width 14.7 % (11.5-14.5); White Blood Cell Count 5.4 10^3/uL (4.8-10.8)
[2024-10-17 09:00] LABS: Blood Urea Nitrogen 12 mg/dl (7-17); Calcium 8.9 mg/dl (8.4-10.2); Carbon Dioxide 27 mmol/L (22-30); Chloride 108 mmol/L (98-107); Estimated Creatinine Clearance 66 ml/min; Glucose 115 mg/dl (70-99); Potassium 3.4 mmol/L (3.5-5.1); Sodium 141 mmol/L (135-145); eGFR > 60.00
[2024-10-17] MEDS: LAMICTAL 25 MG PO (09:35)
[2024-10-17] MEDS: MAGIC OR MIRACLE MOUTHWASH 10 ML PO (09:37)
[2024-10-17] MEDS: MYCOSTATIN CREAM TOPICAL ×4 (10:00→22:21)
--- NOTE | 2024-10-17 12:44 | W.PN.UPDATE ---
Update Note
Progress Note Update
reviewed chart and spoke with nursing. the patient was sleeping and as nursing tells me she was very tired this am and did not sleep well last night (she was awakened by staff around three and they left the light on and she waiting a long time to
call to have it turned off) i did not wake her. will check in w her tomorrow. aware that she is only taking lamictal at this point. agree wtih dr camargo's assessement re resumption of psych meds.
[2024-10-17 13:04] LABS: Glucose - Point of Care 144 mg/dl (70-99)
[2024-10-17] MEDS: MAGIC OR MIRACLE MOUTHWASH PO ×3 (13:21→22:06)
[2024-10-17] MEDS: FERRLECIT 110 MG IV (14:46)
--- NOTE | 2024-10-17 15:04 | CM ---
Met with patient and daughter Ladi
Discussed no beds at [facility] at this point
Discussed other options of acute rehabs - only wants [facility]
Will reach out to [facility] again regarding bed availability
PLAN: Acute rehab, pending bed availability
--- NOTE | 2024-10-17 16:31 | W.PN.HOSP.TC ---
Today's Communication/Plan
-
Continue DIGESTER.
Provide single dose of ceftriaxone pending urine culture
Assessment / Plan
Assessment / Plan
Ms. Daniel is a 79-year-old female with a medical history of hypertension and bipolar disorder who presented with shortness of breath. She tested positive for influenza 2 days prior to arrival and was started on oseltamivir as an outpatient.
However she had progressively worsening dyspnea and productive cough for 24 hours prior to presenting to the emergency department. In the ED, she was found to be hypoxic with her pulse ox in the mid 80s on room air. She was started on supplemental
oxygen via nasal cannula at that time with improvement in her respiratory status and oxygenation. She was also given nebulizer treatments. She was admitted for further evaluation and management of acute respiratory failure with hypoxia in the
setting of influenza infection. Found to have stress-induced cardiomyopathy with reduced EF and cardiogenic shock, subsequent improvement of LVEF from 30% to 45% while in the hospital. More recently developed abdominal pain with evidence of upper
GI bleeding. Had EGD on 10/12 that showed nonobstructive gastric ulcer. Started on IV PPI drip with clear liquid diet however had to be made n.p.o. again due to recurrent abdomen pain
Impression:
Acute hypoxic respiratory failure.
� Intubated 09/21/2024
Sepsis secondary to influenza A/bacterial�community-acquired pneumonia, also suspected aspiration pneumonia given large hiatal hernia with intrathoracic stomach
Shock, multifactorial due to sepsis as well as cardiogenic.
Acute heart failure reduced EF secondary to stress�Takotsubo cardiomyopathy.
Type II TN/demand ischemia with troponin peak 14
Polymorphic ventricular tachycardia on monitoring 09/23/24
Prolonged QTc resolved
Episode of atrial fibrillation with PICC line placement
Acute kidney injury.
Hypovolemic hyponatremia
Hypernatremia while on diuresis
Duodenal ulcer
Acute blood loss anemia secondary to gastrointestinal hemorrhage
Elevated transaminases
Prediabetes
Hypothyroidism on replacement
Bipolar disorder.
Plan
#UGIB secondary to nonobstructing gastric ulcer
#Acute blood loss anemia with iron deficiency.
-Had epigastric discomfort and developed melena on 10/11. Noted with slowly trending down hemoglobin lowest at the 8.2
-Suspect upper GI source possibly stress ulcer, gastritis, duodenal ulcer
-EGD performed on 09/23 after episode of hematemesis showed torturous esophagus, large hiatal hernia, normal duodenum with no source of bleeding.
-EGD on 10/12 showed nonobstructing gastric ulcer, continued on IV PPI drip
Diet has been advanced to solids.
Transitioned to oral PPI.
Acute blood loss anemia. Iron deficiency
Stabilized. Continue monitor.
Replete IV iron.
#Acute hypoxic respiratory failure
-multifactorial in the settings of influenza A/bacterial pneumonia as well as cardiogenic shock.
-Intubated on 09/21/24 and was ultimately extubated on 09/25/2024
-Respiratory culture positive for Streptococcus and nasal swab positive for influenza
-Unable to complete course of Tamiflu given lack of enteral access;
s/p IV antibiotics with Unasyn, CTX
-Received course of steroids however discontinued as associated with increased mortality during flu
-Follow-up chest x-ray on 09/27 with possible small right loculated pleural effusion.
-Currently with stable respiratory status with minimal O2 requirement, nightly BiPAP
-Continue aspiration cautions and HOSPITALIST NOCTURNIST PHYSICIAN, PRN nebs
-SpO2 goal >90%
#Epistaxis, resolved
-Likely from nasal dryness with supplemental O2
-Hemoglobin stable on CBC
-started nasal spray for moisturizing
-Continue to trend CBC, humidify O2
#Acute kidney injury
-Presumed prerenal in the context of cardiogenic shock
-Renal function normalized with normalization of volume status.
-Home HCTZ was held
#Acute urinary retention
-Improved with Evans catheter removed, although remains with high PVR over the last [address]
-Place Evans catheter for acute retention on 10/12
-Successful TOV morning of 10/14
Nursing reports foul-smelling urine, although patient declines any urinary symptoms. Will check UA and reflex to cultures. Noted bacteriuria/E. coli on 10/11. Hold Farxiga. Provide single dose of ceftriaxone pending urine cultures
#Toxic metabolic encephalopathy protracted secondary to acute illness
#Bipolar disorder.
-Preadmission regimen include Vraylar, clonazepam, lamotrigine, zaleplon.
-Psychiatry input appreciated
�Reinstated Lamictal titrating dose. Initiated on Pristiq on 10/08. Hold Pristiq for now (side effect is a stress cardiomyopathy)
-Continue Klonopin as needed
#Dehydration with hypernatremia- resolved
-Developed while on IV diuresis; s/p replacement with D5W
-Sodium initially in the 150s, down to 141 now
-Monitor oral intake, encourage free water intake as swallowing improved
#Severe malnutrition secondary to acute illness
-Diet has been advanced with aspiration precautions
-Has been on TPN, discontinued with improving oral intake.
-Continue calorie count. Reported improved oral intake
#Acute HFrEF with cardiogenic shock
#Nonischemic cardiomyopathy
#Takotsubo cardiomyopathy
-Had type II TN with troponin peak of 14; ECG with diffuse ST changes in anterolateral leads
-Urgent right and left heart cath with LVEF 30 to 35%, patent coronaries, Takotsubo morphology, reduced cardiac index
-Follow-up echocardiogram on 10/02 with improved LVEF at 45%.
-Transient hypotension responded to IV fluid bolus.
-Cardiovascular regimen has been adjusted with reduction dose of Coreg, lisinopril. Holding parameters on antihypertensives. Hold Aldactone.
#NSVT, Secondary to reduced LVEF and cardiomyopathy
-Status post course of amiodarone
-Continue to monitor on telemetry
-Electrolyte goals K >4, mag >2
#Episode of atrial fibrillation related to PICC line position on 04/30 which has been addressed.
-PICC line position adjusted
-Converted and remains in sinus rhythm.
-No anticoagulation indicated.
#Shock liver
-elevated transaminases suspect in the settings of hemodynamic instability.
-No gastrointestinal complaints upon presentation
-Follow LFTs
#Hypothyroidism
-Chronic, unclear etiology, home meds include levothyroxine 25 mcg
-No signs of thyroid dysfunction at this time
#Prediabetes
-Continue basal bolus protocol with serial Accu-Cheks
DVT prophylaxis: SCDs
Diet: CLD
CODE STATUS: Full code
Disposition: Acute inpatient rehab when medically stable
Anticipated Discharge: 24 - 48 hours
Subjective/Interval History
-
Date of Service: October 17, 2024
Objective Data
-
Labs:
Laboratory Results
10/17/24
08:20
WBC 5.4
Hgb 8.5 L
Hct 24.9 L
Plt Count 171
Sodium 141
Potassium 3.4 L
Chloride 108 H
Carbon Dioxide 27
BUN 12
Creatinine 0.7
Glucose 115 H
Calcium 8.9
Vital Signs:
Vital Signs
Temp Pulse Resp BP Pulse Ox
97.7 F 90 16 95/55 96
10/17/24 15:05 10/17/24 15:05 10/17/24 15:05 10/17/24 15:05 10/17/24 15:05
I&O
10/16/24 10/17/24 10/18/24
06:59 06:59 06:59
Intake Total 720 / 720 1800 / 1800 110 / 110
Output Total 400 / 400
Balance 720 / 720 1400 / 1400 110 / 110
Physical Exam
-
General: Well Developed, Well Nourished and Appears Chronically Ill
HEENT: Normocephalic, Atraumatic and Moist Mucous Membranes
Respiratory: Clear to Auscultation and Non Labored Respirations
Cardiac: Regular Rhythm, S1/S2 and Tachycardic; Negative Murmur, Rub or Gallop
GI: Soft, Nontender, Nondistended and Normal Bowel Sounds (Hyperactive)
Musculoskeletal: No Clubbing, No Cyanosis and No Edema
Skin: Warm, Dry and Normal Turgor; Negative Rash
Neuro: AO x 3 and Nonfocal/Grossly Intact; Negative Tremors
Psych: Calm
[2024-10-17] MEDS: STERILE WATER FOR INJECTION 10 ML IV (17:29)
[2024-10-17] MEDS: ROCEPHIN 1000 MG IV (17:29)
[2024-10-17 17:43] LABS: Glucose - Point of Care 98 mg/dl (70-99)
[2024-10-17] MEDS: COREG PO (20:06)
[2024-10-17] MEDS: ZESTRIL PO (20:08)
[2024-10-17 21:39] LABS: Glucose - Point of Care 97 mg/dl (70-99)
[2024-10-17] MEDS: MELATONIN 10 MG PO (22:06)
[2024-10-17] MEDS: KLONOPIN 0.5 MG PO (22:08)
[2024-10-18 03:00] VITALS: BP 122/61
[2024-10-18 06:00] VITALS: BMI 28.9
[2024-10-18] MEDS: SYNTHROID 25 MCG PO (06:00)
[2024-10-18 06:50] LABS: % Basophils 0.6 % (0-2); % Eosinophils 4.9 % (0-6); % Immature Granulocytes 0.4 % (0-0.5); % Monocytes 12.3 % (1.7-9.3); % Neutrophils 51.8 % (42.2-75.2); Absolute Eosinophils 0.2 10^3/uL (0-0.7); Absolute Lymphocytes 1.5 10^3/uL (1.2-3.4); Absolute Monocytes 0.6 10^3/uL (0.1-0.6); Absolute Neutrophils 2.5 10^3/uL (1.4-6.5); Hemoglobin 8.4 g/dL (12.0-16.0); Mean Corp Hgb Conc. 33.6 g/dL (33.0-37.0); Mean Corpuscular Hgb 30.8 pg (27.0-31.0); Mean Corpuscular Volume 91.6 fL (81.0-99.0); Mean Platelet Volume 11.3 fL (7.4-10.4); Nucleated Red Blood Cells % 0 %; Platelet Count 164 10^3/uL (130-400); Red Blood Cell Count 2.73 10^6/uL (4.20-5.40); Red Cell Dist. Width 14.6 % (11.5-14.5); White Blood Cell Count 4.9 10^3/uL (4.8-10.8)
[2024-10-18 06:59] LABS: Blood Urea Nitrogen 12 mg/dl (7-17); Carbon Dioxide 27 mmol/L (22-30); Chloride 108 mmol/L (98-107); Estimated Creatinine Clearance 66 ml/min; Glucose 109 mg/dl (70-99); Potassium 3.2 mmol/L (3.5-5.1); Sodium 142 mmol/L (135-145); eGFR > 60.00
[2024-10-18 07:10] VITALS: BP 128/16
[2024-10-18 07:27] LABS: Glucose - Point of Care 119 mg/dl (70-99)
[2024-10-18] MEDS: LAMICTAL 25 MG PO (08:59)
[2024-10-18] MEDS: KCL 40 MEQ PO (08:59)
[2024-10-18] MEDS: CRESTOR 20 MG PO (09:00)
[2024-10-18] MEDS: COREG 12.5 MG PO ×2 (09:00→20:22)
[2024-10-18] MEDS: PROTONIX 40 MG PO ×2 (09:00→20:23)
[2024-10-18] MEDS: MAGIC OR MIRACLE MOUTHWASH PO ×4 (09:00→21:45)
[2024-10-18] MEDS: VITAMIN D3 (cholecalciferol) 25 MCG PO (09:00)
[2024-10-18] MEDS: THERAGRAN 1 TABLET PO (09:00)
[2024-10-18] MEDS: DESENEX/MITRAZOL/ZEASORB 1 APPLIC TOPICAL (09:00)
[2024-10-18] MEDS: MIRALAX PO (09:00)
[2024-10-18] MEDS: MYCOSTATIN CREAM TOPICAL ×5 (09:03→21:48)
[2024-10-18 11:00] VITALS: BP 119/59
[2024-10-18 12:04] LABS: Glucose - Point of Care 108 mg/dl (70-99)
[2024-10-18] MEDS: FERRLECIT 110 MG IV (13:21)
--- NOTE | 2024-10-18 14:20 | W.PN.UPDATE ---
Update Note
Progress Note Update
patient seen chart reviewed. discussed with dr ambriz and nursing. mrs jose appeared much better today. her mood was good. she was smiling and expressed that she was pleased she had been strong enough to walk about the unit w the help of PT.
she acknowledged the significant improvement in her mood as she begins to feel physically better. expressed concern about which rehab mrs jose would be referred to. he is hopeful for [facility] here at . we discussed the issue of
lamotrogine. as dr camargo writes in his weekend progress note it is unclear whether patient needs a mood stabilizer or antidepressant at this point. her manic episode was over ten years ago and no recurrence. her recent c.o severe depression may
have been due more to being physically so ill and debilitated. i have certainly seen a great improvement in her mood since last tuesday and it is unlikely to be secondary to lamictal. after discussion with patient and who was present
about the pros and cons we decided to stop it for now. it is very unlikely that 25 mg lamictal is responsible for her improvement. more likely to be that she is getting well. will check in w her tomorrow
--- NOTE | 2024-10-18 14:22 | W.PN.HOSP.TC ---
Today's Communication/Plan
-
Continue supportive care
Physical therapy
Placement to acute rehab pending bed availability.
Assessment / Plan
Assessment / Plan
Ms. Daniel is a 79-year-old female with a medical history of hypertension and bipolar disorder who presented with shortness of breath. She tested positive for influenza 2 days prior to arrival and was started on oseltamivir as an outpatient.
However she had progressively worsening dyspnea and productive cough for 24 hours prior to presenting to the emergency department. In the ED, she was found to be hypoxic with her pulse ox in the mid 80s on room air. She was started on supplemental
oxygen via nasal cannula at that time with improvement in her respiratory status and oxygenation. She was also given nebulizer treatments. She was admitted for further evaluation and management of acute respiratory failure with hypoxia in the
setting of influenza infection. Found to have stress-induced cardiomyopathy with reduced EF and cardiogenic shock, subsequent improvement of LVEF from 30% to 45% while in the hospital. More recently developed abdominal pain with evidence of upper
GI bleeding. Had EGD on 10/12 that showed nonobstructive gastric ulcer. Started on IV PPI drip with clear liquid diet however had to be made n.p.o. again due to recurrent abdomen pain
Impression:
Acute hypoxic respiratory failure.
� Intubated 09/21/2024
Sepsis secondary to influenza A/bacterial�community-acquired pneumonia, also suspected aspiration pneumonia given large hiatal hernia with intrathoracic stomach
Shock, multifactorial due to sepsis as well as cardiogenic.
Acute heart failure reduced EF secondary to stress�Takotsubo cardiomyopathy.
Type II RI/demand ischemia with troponin peak 14
Polymorphic ventricular tachycardia on monitoring 09/23/24
Prolonged QTc resolved
Episode of atrial fibrillation with PICC line placement
Acute kidney injury.
Hypovolemic hyponatremia
Hypernatremia while on diuresis
Duodenal ulcer
Acute blood loss anemia secondary to gastrointestinal hemorrhage
Elevated transaminases
Prediabetes
Hypothyroidism on replacement
Bipolar disorder.
Plan
#UGIB secondary to nonobstructing gastric ulcer
#Acute blood loss anemia with iron deficiency.
-Had epigastric discomfort and developed melena on 10/11. Noted with slowly trending down hemoglobin lowest at the 8.2
-Suspect upper GI source possibly stress ulcer, gastritis, duodenal ulcer
-EGD performed on 09/23 after episode of hematemesis showed torturous esophagus, large hiatal hernia, normal duodenum with no source of bleeding.
-EGD on 10/12 showed nonobstructing gastric ulcer, continued on IV PPI drip
Diet has been advanced to solids.
Transitioned to oral PPI.
Acute blood loss anemia. Iron deficiency
Stabilized. Continue monitor.
Replete IV iron.
#Acute hypoxic respiratory failure
-multifactorial in the settings of influenza A/bacterial pneumonia as well as cardiogenic shock.
-Intubated on 09/21/24 and was ultimately extubated on 09/25/2024
-Respiratory culture positive for Streptococcus and nasal swab positive for influenza
-Unable to complete course of Tamiflu given lack of enteral access;
s/p IV antibiotics with Unasyn, CTX
-Received course of steroids however discontinued as associated with increased mortality during flu
-Follow-up chest x-ray on 09/27 with possible small right loculated pleural effusion.
-Currently with stable respiratory status with minimal O2 requirement, nightly BiPAP
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
-SpO2 goal >90%
#Epistaxis, resolved
-Likely from nasal dryness with supplemental O2
-Hemoglobin stable on CBC
-started nasal spray for moisturizing
-Continue to trend CBC, humidify O2
#Acute kidney injury
-Presumed prerenal in the context of cardiogenic shock
-Renal function normalized with normalization of volume status.
-Home HCTZ was held
#Acute urinary retention
-Improved with Evans catheter removed, although remains with high PVR over the last 24 hours[address]
-Place Evans catheter for acute retention on 10/12
-Successful TOV morning of 10/14
Nursing reports foul-smelling urine, although patient declines any urinary symptoms. Will check UA and reflex to cultures. Noted bacteriuria/E. coli on 10/11. Hold Farxiga. Received single dose of ceftriaxone 10/17 pending urine cultures. Remains
asymptomatic.
#Toxic metabolic encephalopathy protracted secondary to acute illness
#Bipolar disorder.
-Preadmission regimen include Vraylar, clonazepam, lamotrigine, zaleplon.
-Psychiatry input appreciated
�Reinstated Lamictal titrating dose. Initiated on Pristiq on 10/08. Hold Pristiq for now (side effect is a stress cardiomyopathy)
-Continue Klonopin as needed
#Dehydration with hypernatremia- resolved
-Developed while on IV diuresis; s/p replacement with D5W
-Sodium initially in the 150s, down to 141 now
-Monitor oral intake, encourage free water intake as swallowing improved
#Severe malnutrition secondary to acute illness
-Diet has been advanced with aspiration precautions
-Has been on TPN, discontinued with improving oral intake.
-Continue calorie count. Reported improved oral intake
#Acute HFrEF with cardiogenic shock
#Nonischemic cardiomyopathy
#Takotsubo cardiomyopathy
-Had type II RI with troponin peak of 14; ECG with diffuse ST changes in anterolateral leads
-Urgent right and left heart cath with LVEF 30 to 35%, patent coronaries, Takotsubo morphology, reduced cardiac index
-Follow-up echocardiogram on 10/02 with improved LVEF at 45%.
-Transient hypotension responded to IV fluid bolus.
-Cardiovascular regimen has been adjusted with reduction dose of Coreg, lisinopril. Holding parameters on antihypertensives. Hold Aldactone.
#NSVT, Secondary to reduced LVEF and cardiomyopathy
-Status post course of amiodarone
-Continue to monitor on telemetry
-Electrolyte goals K >4, mag >2
#Episode of atrial fibrillation related to PICC line position on 04/30 which has been addressed.
-PICC line position adjusted
-Converted and remains in sinus rhythm.
-No anticoagulation indicated.
#Shock liver
-elevated transaminases suspect in the settings of hemodynamic instability.
-No gastrointestinal complaints upon presentation
-Follow LFTs
#Hypothyroidism
-Chronic, unclear etiology, home meds include levothyroxine 25 mcg
-No signs of thyroid dysfunction at this time
#Prediabetes
-Continue basal bolus protocol with serial Accu-Cheks
DVT prophylaxis: SCDs
Diet: CLD
CODE STATUS: Full code
Disposition: Acute inpatient rehab when medically stable
Anticipated Discharge: Within 24 hours
Subjective/Interval History
-
Date of Service: October 18, 2024
Objective Data
-
Labs:
Laboratory Results
10/18/24
06:17
WBC 4.9
Hgb 8.4 L
Hct 25.0 L
Plt Count 164
Sodium 142
Potassium 3.2 L
Chloride 108 H
Carbon Dioxide 27
BUN 12
Creatinine 0.7
Glucose 109 H
Calcium 9.0
Vital Signs:
Vital Signs
Temp Pulse Resp BP Pulse Ox
98.3 F 89 16 119/59 96
10/18/24 11:00 10/18/24 11:00 10/18/24 11:00 10/18/24 11:00 10/18/24 11:00
I&O
10/17/24 10/18/24 10/19/24
06:59 06:59 06:59
Intake Total 1800 / 1800 1010 / 1010
Output Total 400 / 400
Balance 1400 / 1400 1010 / 1010
Physical Exam
-
General: Well Developed, Well Nourished and Appears Chronically Ill
HEENT: Normocephalic, Atraumatic and Moist Mucous Membranes
Respiratory: Clear to Auscultation and Non Labored Respirations
Cardiac: Regular Rhythm, S1/S2 and Tachycardic; Negative Murmur, Rub or Gallop
GI: Soft, Nontender, Nondistended and Normal Bowel Sounds (Hyperactive)
Musculoskeletal: No Clubbing, No Cyanosis and No Edema
Skin: Warm, Dry and Normal Turgor; Negative Rash
Neuro: AO x 3 and Nonfocal/Grossly Intact; Negative Tremors
Psych: Calm
[2024-10-18] MEDS: ROBITUSSIN DM 10 ML PO (14:26)
[2024-10-18 15:20] VITALS: BP 110/61
--- NOTE | 2024-10-18 15:32 | PTOTSP ---
Dysphagia Therapy
Impression: WFL-mild oral stage, history of mild pharyngeal dysphagia on video swallow 09/28/2024.
Recommend:
1. Regular, Thin liquids
2. Medications crushed in puree
3. Strategies: Upright for all meals; small bites/sips; slow rate; alternate solids and liquids; remain upright for at least 30 minutes following meals given esophageal hx
4. Communication/voice evaluation pending ENT assessment
--- NOTE | 2024-10-18 16:09 | CM ---
Spoke with patient and no beds available at [facility]
Discussed beds available at [facility], & daughter refusing referrals to be placed at other facilities.
PLAN: Acute Rehab
[2024-10-18 16:55] LABS: Glucose - Point of Care 101 mg/dl (70-99)
[2024-10-18] MEDS: ZESTRIL 5 MG PO (20:24)
[2024-10-18] MEDS: DESENEX/MITRAZOL/ZEASORB TOPICAL (21:25)
[2024-10-18 21:40] LABS: Glucose - Point of Care 107 mg/dl (70-99)
[2024-10-18] MEDS: MELATONIN 10 MG PO (21:45)
[2024-10-18] MEDS: KLONOPIN 0.5 MG PO (21:46)
[2024-10-18 23:05] VITALS: BP 112/70
[2024-10-19] MEDS: SYNTHROID 25 MCG PO (05:13)
[2024-10-19 06:00] VITALS: BMI 28.9
[2024-10-19 07:04] VITALS: BP 131/57
[2024-10-19 07:08] LABS: Glucose - Point of Care 113 mg/dl (70-99)
[2024-10-19] MEDS: MIRALAX 17 GRAMS PO (08:37)
[2024-10-19] MEDS: COREG 12.5 MG PO (08:38)
[2024-10-19] MEDS: THERAGRAN 1 TABLET PO (08:38)
[2024-10-19] MEDS: PROTONIX 40 MG PO ×2 (08:38→21:01)
[2024-10-19] MEDS: CRESTOR 20 MG PO (08:38)
[2024-10-19] MEDS: MYCOSTATIN CREAM TOPICAL ×4 (08:39→21:02)
[2024-10-19] MEDS: VITAMIN D3 (cholecalciferol) 25 MCG PO (08:39)
[2024-10-19] MEDS: MAGIC OR MIRACLE MOUTHWASH PO ×4 (08:39→21:01)
[2024-10-19] MEDS: DESENEX/MITRAZOL/ZEASORB 1 APPLIC TOPICAL ×2 (08:40→21:03)
--- NOTE | 2024-10-19 08:44 | VATNOTE ---
VAT Rounds: IV in L accessory cephalic forearm noted with some redness and a palpable venous cord approximately 1'. Pt notes mild pain. Heat applied and arm elevated. Will continue to monitor.
[2024-10-19 09:48] VITALS: BP 115/62; PULSE 89; O2SAT 96
[2024-10-19 09:59] LABS: Hematocrit 24.3 % (37.0-47.0); Hemoglobin 8.2 g/dL (12.0-16.0); Mean Corp Hgb Conc. 33.7 g/dL (33.0-37.0); Mean Corpuscular Hgb 30.3 pg (27.0-31.0); Mean Corpuscular Volume 89.7 fL (81.0-99.0); Mean Platelet Volume 10.6 fL (7.4-10.4); Platelet Count 150 10^3/uL (130-400); Red Blood Cell Count 2.71 10^6/uL (4.20-5.40); Red Cell Dist. Width 14.6 % (11.5-14.5); White Blood Cell Count 4.2 10^3/uL (4.8-10.8)
[2024-10-19 10:05] LABS: % Basophils 0.7 % (0-2); % Eosinophils 4.8 % (0-6); % Immature Granulocytes 0.2 % (0-0.5); % Lymphocytes 32.8 % (20.5-51.1); % Neutrophils 48.5 % (42.2-75.2); Absolute Eosinophils 0.2 10^3/uL (0-0.7); Absolute Lymphocytes 1.4 10^3/uL (1.2-3.4); Absolute Monocytes 0.5 10^3/uL (0.1-0.6); Nucleated Red Blood Cells % 0 %
[2024-10-19 10:24] LABS: Blood Urea Nitrogen 10 mg/dl (7-17); Calcium 8.8 mg/dl (8.4-10.2); Carbon Dioxide 26 mmol/L (22-30); Chloride 108 mmol/L (98-107); Estimated Creatinine Clearance 66 ml/min; Glucose 113 mg/dl (70-99); Potassium 3.6 mmol/L (3.5-5.1); Sodium 141 mmol/L (135-145); eGFR > 60.00
[2024-10-19] MEDS: ROCEPHIN 1000 MG IV (11:36)
[2024-10-19] MEDS: STERILE WATER FOR INJECTION 10 ML IV (11:37)
[2024-10-19 12:20] LABS: Glucose - Point of Care 143 mg/dl (70-99)
--- NOTE | 2024-10-19 12:59 | W.PN.UPDATE ---
Update Note
Progress Note Update
patient seen chart reviewed. in contrast to yesterday patient now feeling very depressed. said she had a bad nigiht with staff coming in for various reasons and once again she did not get a good night's sleep. now patient is convinced she needs
'medicine' to help w mood. i asked her more about the 'manic ' episode she had many years ago. i am not sure it was truly indicative of arcenio and underlying bipolar. she seems much more to me like a patient with recurrent depression and in my
conversations eli ortega is not described as someone who has struggled w inc energy dec need for sleep etc which would suggest arcenio. would start with small amounts of zoloft 25 mg and increase depending on tolerance and response. it remains my
opinion that patient's depression has a lot to do with her physical debility and weakness which makes her feel quite down and as she improves in strength and balance etc her mood will improve as well. will follow
[2024-10-19] MEDS: FERRLECIT 110 MG IV (14:09)
[2024-10-19] MEDS: ZOLOFT 25 MG PO (14:11)
[2024-10-19 15:26] VITALS: BP 138/65
--- NOTE | 2024-10-19 16:11 | W.PN.HOSP.TC ---
Today's Communication/Plan
-
Continue physical therapy.
Pending placement to acute rehab
Assessment / Plan
Assessment / Plan
Ms. Daniel is a 79-year-old female with a medical history of hypertension and bipolar disorder who presented with shortness of breath. She tested positive for influenza 2 days prior to arrival and was started on oseltamivir as an outpatient.
However she had progressively worsening dyspnea and productive cough for 24 hours prior to presenting to the emergency department. In the ED, she was found to be hypoxic with her pulse ox in the mid 80s on room air. She was started on supplemental
oxygen via nasal cannula at that time with improvement in her respiratory status and oxygenation. She was also given nebulizer treatments. She was admitted for further evaluation and management of acute respiratory failure with hypoxia in the
setting of influenza infection. Found to have stress-induced cardiomyopathy with reduced EF and cardiogenic shock, subsequent improvement of LVEF from 30% to 45% while in the hospital. More recently developed abdominal pain with evidence of upper
GI bleeding. Had EGD on 10/12 that showed nonobstructive gastric ulcer. Started on IV PPI drip with clear liquid diet however had to be made n.p.o. again due to recurrent abdomen pain
Impression:
Acute hypoxic respiratory failure.
� Intubated 09/21/2024
Sepsis secondary to influenza A/bacterial�community-acquired pneumonia, also suspected aspiration pneumonia given large hiatal hernia with intrathoracic stomach
Shock, multifactorial due to sepsis as well as cardiogenic.
Acute heart failure reduced EF secondary to stress�Takotsubo cardiomyopathy.
Type II HI/demand ischemia with troponin peak 14
Polymorphic ventricular tachycardia on monitoring 09/23/24
Prolonged QTc resolved
Episode of atrial fibrillation with PICC line placement
Acute kidney injury.
Hypovolemic hyponatremia
Hypernatremia while on diuresis
Duodenal ulcer
Acute blood loss anemia secondary to gastrointestinal hemorrhage
Elevated transaminases
Prediabetes
Hypothyroidism on replacement
Bipolar disorder.
Plan
#UGIB secondary to nonobstructing gastric ulcer
#Acute blood loss anemia with iron deficiency.
-Had epigastric discomfort and developed melena on 10/11. Noted with slowly trending down hemoglobin lowest at the 8.2
-Suspect upper GI source possibly stress ulcer, gastritis, duodenal ulcer
-EGD performed on 09/23 after episode of hematemesis showed torturous esophagus, large hiatal hernia, normal duodenum with no source of bleeding.
-EGD on 10/12 showed nonobstructing gastric ulcer, continued on IV PPI drip
Diet has been advanced to solids.
Transitioned to oral PPI.
Acute blood loss anemia. Iron deficiency
Stabilized. Continue monitor.
Replete IV iron.
#Acute hypoxic respiratory failure
-multifactorial in the settings of influenza A/bacterial pneumonia as well as cardiogenic shock.
-Intubated on 09/21/24 and was ultimately extubated on 09/25/2024
-Respiratory culture positive for Streptococcus and nasal swab positive for influenza
-Unable to complete course of Tamiflu given lack of enteral access;
s/p IV antibiotics with Unasyn, CTX
-Received course of steroids however discontinued as associated with increased mortality during flu
-Follow-up chest x-ray on 09/27 with possible small right loculated pleural effusion.
-Currently with stable respiratory status with minimal O2 requirement, nightly BiPAP
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
-SpO2 goal >90%
#Epistaxis, resolved
-Likely from nasal dryness with supplemental O2
-Hemoglobin stable on CBC
-started nasal spray for moisturizing
-Continue to trend CBC, humidify O2
#Acute kidney injury
-Presumed prerenal in the context of cardiogenic shock
-Renal function normalized with normalization of volume status.
-Home HCTZ was held
#Acute urinary retention
-Improved with Evans catheter removed, although remains with high PVR over the last [address]
-Place Evans catheter for acute retention on 10/12
-Successful TOV morning of 10/14
Reported foul-smelling urine while asymptomatic with no recurrent retention. Noted with bacteriuria and repeated culture showing E. coli. Initiated on ceftriaxone and will complete 3 days of treatment with the last dose on 10/20.
#Toxic metabolic encephalopathy protracted secondary to acute illness
#Bipolar disorder.
-Preadmission regimen include Vraylar, clonazepam, lamotrigine, zaleplon.
-Psychiatry input appreciated
�Reinstated Lamictal titrating dose. Initiated on Pristiq on 10/08. Hold Pristiq for now (side effect is a stress cardiomyopathy)
-Continue Klonopin as needed
#Dehydration with hypernatremia- resolved
-Developed while on IV diuresis; s/p replacement with D5W
-Sodium initially in the 150s, down to 141 now
-Monitor oral intake, encourage free water intake as swallowing improved
#Severe malnutrition secondary to acute illness
-Diet has been advanced with aspiration precautions
-Has been on TPN, discontinued with improving oral intake.
-Continue calorie count. Reported improved oral intake
#Acute HFrEF with cardiogenic shock
#Nonischemic cardiomyopathy
#Takotsubo cardiomyopathy
-Had type II HI with troponin peak of 14; ECG with diffuse ST changes in anterolateral leads
-Urgent right and left heart cath with LVEF 30 to 35%, patent coronaries, Takotsubo morphology, reduced cardiac index
-Follow-up echocardiogram on 10/02 with improved LVEF at 45%.
-Transient hypotension responded to IV fluid bolus.
-Cardiovascular regimen has been adjusted with reduction dose of Coreg, lisinopril. Holding parameters on antihypertensives. Hold Aldactone.
#NSVT, Secondary to reduced LVEF and cardiomyopathy
-Status post course of amiodarone
-Continue to monitor on telemetry
-Electrolyte goals K >4, mag >2
#Episode of atrial fibrillation related to PICC line position on 04/30 which has been addressed.
-PICC line position adjusted
-Converted and remains in sinus rhythm.
-No anticoagulation indicated.
#Shock liver
-elevated transaminases suspect in the settings of hemodynamic instability.
-No gastrointestinal complaints upon presentation
-Follow LFTs
#Hypothyroidism
-Chronic, unclear etiology, home meds include levothyroxine 25 mcg
-No signs of thyroid dysfunction at this time
#Prediabetes
-Continue basal bolus protocol with serial Accu-Cheks
DVT prophylaxis: SCDs
Diet: CLD
CODE STATUS: Full code
Disposition: Acute inpatient rehab when medically stable
Anticipated Discharge: 24 - 48 hours
Subjective/Interval History
-
Date of Service: October 19, 2024
Objective Data
-
Labs:
Laboratory Results
10/19/24
09:17
WBC 4.2 L
Hgb 8.2 L
Hct 24.3 L
Plt Count 150
Sodium 141
Potassium 3.6
Chloride 108 H
Carbon Dioxide 26
BUN 10
Creatinine 0.7
Glucose 113 H
Calcium 8.8
Vital Signs:
Vital Signs
Temp Pulse Resp BP Pulse Ox
98.7 F 88 17 138/65 98
10/19/24 15:26 10/19/24 15:26 10/19/24 15:26 10/19/24 15:26 10/19/24 15:26
I&O
10/18/24 10/19/24 10/20/24
06:59 06:59 06:59
Intake Total 1010 / 1010 1320 / 1320
Balance 1010 / 1010 1320 / 1320
Physical Exam
-
General: Well Developed, Well Nourished and Appears Chronically Ill
HEENT: Normocephalic, Atraumatic and Moist Mucous Membranes
Respiratory: Clear to Auscultation and Non Labored Respirations
Cardiac: Regular Rhythm, S1/S2 and Tachycardic; Negative Murmur, Rub or Gallop
GI: Soft, Nontender, Nondistended and Normal Bowel Sounds (Hyperactive)
Musculoskeletal: No Clubbing, No Cyanosis and No Edema
Skin: Warm, Dry and Normal Turgor; Negative Rash
Neuro: AO x 3 and Nonfocal/Grossly Intact; Negative Tremors
Psych: Calm
[2024-10-19 17:02] LABS: Glucose - Point of Care 99 mg/dl (70-99)
--- NOTE | 2024-10-19 17:08 | CM ---
Patient seen at bedside.
called Viet
Discussed no bed availability at [facility] in , bed avail at [facility]
does not want [place]
Spoke with Viet, would like to speak with hospitalist
tt hospitalist
PLAN: [facility]
[2024-10-19] MEDS: MELATONIN 10 MG PO (21:01)
[2024-10-19 21:07] VITALS: BP 89/63
[2024-10-19 21:08] VITALS: BP 102/54
[2024-10-19] MEDS: COREG PO (21:08)
[2024-10-19] MEDS: ZESTRIL PO (21:09)
[2024-10-19 21:42] LABS: Glucose - Point of Care 122 mg/dl (70-99)
[2024-10-19] MEDS: KLONOPIN 0.5 MG PO (22:05)
[2024-10-19 23:32] VITALS: BP 107/53
[2024-10-20] MEDS: SYNTHROID 25 MCG PO (05:45)
[2024-10-20 05:48] VITALS: BMI 28.9
[2024-10-20 07:05] VITALS: BP 133/67
[2024-10-20 07:22] LABS: Glucose - Point of Care 113 mg/dl (70-99)
--- NOTE | 2024-10-20 07:55 | W.PN.HOSP.TC ---
Today's Communication/Plan
-
Pt is medically cleared for d/c, case management aware.
Assessment / Plan
Assessment / Plan
Ms. Daniel is a 79-year-old female with a medical history of hypertension and bipolar disorder who presented with shortness of breath. She tested positive for influenza 2 days prior to arrival and was started on oseltamivir as an outpatient.
However she had progressively worsening dyspnea and productive cough for 24 hours prior to presenting to the emergency department. In the ED, she was found to be hypoxic with her pulse ox in the mid 80s on room air. She was started on supplemental
oxygen via nasal cannula at that time with improvement in her respiratory status and oxygenation. She was also given nebulizer treatments. She was admitted for further evaluation and management of acute respiratory failure with hypoxia in the
setting of influenza infection. Found to have stress-induced cardiomyopathy with reduced EF and cardiogenic shock, subsequent improvement of LVEF from 30% to 45% while in the hospital. More recently developed abdominal pain with evidence of upper
GI bleeding. Had EGD on 10/12 that showed nonobstructive gastric ulcer. Started on IV PPI drip with clear liquid diet however had to be made n.p.o. again due to recurrent abdomen pain
Gen: NAD, AAOx3.
Eyes: EOMI, PERRLA, no scleral icterus.
Neck: supple.
CV: RRR, +S1/S2, no m/r/g.
Resp: CTAB, no rales, wheezes, or rhonchi.
Abd: +BS, soft, NT, ND
Skin: No rashes.
Neuro: CN 2-12 intact, non-focal.
Psych: Normal mood and affect.
Impression:
Acute hypoxic respiratory failure.
� Intubated 09/21/2024
Sepsis secondary to influenza A/bacterial�community-acquired pneumonia, also suspected aspiration pneumonia given large hiatal hernia with intrathoracic stomach
Shock, multifactorial due to sepsis as well as cardiogenic.
Acute heart failure reduced EF secondary to stress�Takotsubo cardiomyopathy.
Type II MO/demand ischemia with troponin peak 14
Polymorphic ventricular tachycardia on monitoring 09/23/24
Prolonged QTc resolved
Episode of atrial fibrillation with PICC line placement
Acute kidney injury.
Hypovolemic hyponatremia
Hypernatremia while on diuresis
Duodenal ulcer
Acute blood loss anemia secondary to gastrointestinal hemorrhage
Elevated transaminases
Prediabetes
Hypothyroidism on replacement
Bipolar disorder.
Plan
#UGIB secondary to nonobstructing gastric ulcer
#Acute blood loss anemia with iron deficiency.
-Had epigastric discomfort and developed melena on 10/11. Noted with slowly trending down hemoglobin lowest at the 8.2
-Suspect upper GI source possibly stress ulcer, gastritis, duodenal ulcer
-EGD performed on 09/23 after episode of hematemesis showed torturous esophagus, large hiatal hernia, normal duodenum with no source of bleeding.
-EGD on 10/12 showed nonobstructing gastric ulcer, continued on IV PPI drip
Diet has been advanced to solids.
Transitioned to oral PPI.
Acute blood loss anemia. Iron deficiency
Stabilized. Continue monitor.
Replete IV iron.
#Acute hypoxic respiratory failure
-multifactorial in the settings of influenza A/bacterial pneumonia as well as cardiogenic shock.
-Intubated on 09/21/24 and was ultimately extubated on 09/25/2024
-Respiratory culture positive for Streptococcus and nasal swab positive for influenza
-Unable to complete course of Tamiflu given lack of enteral access;
s/p IV antibiotics with Unasyn, CTX
-Received course of steroids however discontinued as associated with increased mortality during flu
-Follow-up chest x-ray on 09/27 with possible small right loculated pleural effusion.
-Currently with stable respiratory status with minimal O2 requirement, nightly BiPAP
-Continue aspiration cautions and SPECIAL EVENTS COORDINATOR, PRN nebs
-SpO2 goal >90%
#Epistaxis, resolved
-Likely from nasal dryness with supplemental O2
-Hemoglobin stable on CBC
-started nasal spray for moisturizing
-Continue to trend CBC, humidify O2
#Acute kidney injury
-Presumed prerenal in the context of cardiogenic shock
-Renal function normalized with normalization of volume status.
-Home HCTZ was held
#Acute urinary retention
-Improved with Evans catheter removed, although remains with high PVR over the last 24 hours[address]
-Place Evans catheter for acute retention on 10/12
-Successful TOV morning of 10/14
Reported foul-smelling urine while asymptomatic with no recurrent retention. Noted with bacteriuria and repeated culture showing E. coli. Initiated on ceftriaxone and will complete 3 days of treatment with the last dose on 10/20.
#Toxic metabolic encephalopathy protracted secondary to acute illness
#Bipolar disorder.
-Preadmission regimen include Vraylar, clonazepam, lamotrigine, zaleplon.
-Psychiatry input appreciated
�Reinstated Lamictal titrating dose. Initiated on Pristiq on 10/08. Hold Pristiq for now (side effect is a stress cardiomyopathy)
-Continue Klonopin as needed
#Dehydration with hypernatremia- resolved
-Developed while on IV diuresis; s/p replacement with D5W
-Sodium initially in the 150s, down to 141 now
-Monitor oral intake, encourage free water intake as swallowing improved
#Severe malnutrition secondary to acute illness
-Diet has been advanced with aspiration precautions
-Has been on TPN, discontinued with improving oral intake.
-Continue calorie count. Reported improved oral intake
#Acute HFrEF with cardiogenic shock
#Nonischemic cardiomyopathy
#Takotsubo cardiomyopathy
-Had type II MO with troponin peak of 14; ECG with diffuse ST changes in anterolateral leads
-Urgent right and left heart cath with LVEF 30 to 35%, patent coronaries, Takotsubo morphology, reduced cardiac index
-Follow-up echocardiogram on 10/02 with improved LVEF at 45%.
-Transient hypotension responded to IV fluid bolus.
-Cardiovascular regimen has been adjusted with reduction dose of Coreg, lisinopril. Holding parameters on antihypertensives. Hold Aldactone.
#NSVT, Secondary to reduced LVEF and cardiomyopathy
-Status post course of amiodarone
-Continue to monitor on telemetry
-Electrolyte goals K >4, mag >2
#Episode of atrial fibrillation related to PICC line position on 04/30 which has been addressed.
-PICC line position adjusted
-Converted and remains in sinus rhythm.
-No anticoagulation indicated.
#Shock liver
-elevated transaminases suspect in the settings of hemodynamic instability.
-No gastrointestinal complaints upon presentation
-Follow LFTs
#Hypothyroidism
-Chronic, unclear etiology, home meds include levothyroxine 25 mcg
-No signs of thyroid dysfunction at this time
#Prediabetes
-Continue basal bolus protocol with serial Accu-Cheks
DVT prophylaxis: SCDs
Diet: Low residue
CODE STATUS: Full code
Disposition: Acute inpatient rehab when medically stable
10/20/24 Update: No changes in management. Pt is medically cleared for d/c, case management aware.
Anticipated Discharge: Today
Subjective/Interval History
-
Date of Service: October 20, 2024
'I feel great. I was actually able to sleep last night.' No acute complaints.
Objective Data
-
Vital Signs:
Vital Signs
Temp Pulse Resp BP Pulse Ox
98.1 F 89 16 107/53 95
10/19/24 23:32 10/19/24 23:32 10/19/24 23:32 10/19/24 23:32 10/19/24 23:32
I&O
10/19/24 10/20/24 10/21/24
06:59 06:59 06:59
Intake Total 1320 / 1320 480 / 480
Output Total 400 / 400
Balance 1320 / 1320 80 / 80
[2024-10-20] MEDS: COREG 12.5 MG PO (08:44)
[2024-10-20] MEDS: CRESTOR 20 MG PO (08:44)
[2024-10-20] MEDS: PROTONIX 40 MG PO ×2 (08:44→20:07)
[2024-10-20] MEDS: ZOLOFT 25 MG PO (08:45)
[2024-10-20] MEDS: THERAGRAN 1 TABLET PO (08:45)
[2024-10-20] MEDS: VITAMIN D3 (cholecalciferol) 25 MCG PO (08:45)
[2024-10-20] MEDS: MAGIC OR MIRACLE MOUTHWASH PO ×4 (08:45→22:08)
[2024-10-20] MEDS: MIRALAX 17 GRAMS PO (08:47)
[2024-10-20] MEDS: MYCOSTATIN CREAM TOPICAL ×3 (08:47→22:08)
[2024-10-20] MEDS: DESENEX/MITRAZOL/ZEASORB 1 APPLIC TOPICAL ×2 (08:49→20:08)
--- NOTE | 2024-10-20 09:47 | W.PN.UPDATE ---
Update Note
Progress Note Update
From the mental health stand point patient is doing well, she attributes it to having slept well and resultantly feeling refreshed. Affect is stable, mood is WNR. Denies dysphoria or anhedonia. Appetite stable.
Started on 25 mg of Zolofy yesterday, would continue for now although it is too early to assess the response.
[2024-10-20] MEDS: ROCEPHIN 1000 MG IV (10:55)
[2024-10-20] MEDS: STERILE WATER FOR INJECTION 10 ML IV (10:56)
[2024-10-20 11:27] LABS: Glucose - Point of Care 180 mg/dl (70-99)
--- NOTE | 2024-10-20 12:56 | VATNOTE ---
follow up assessment for L arm infiltrate. pt states that it is slightly tender, pink, cord approx less than 1' . arm elevated, heat applied. pt resting, will cont to monitor
[2024-10-20 15:15] VITALS: BP 99/56
[2024-10-20 15:24] LABS: Hematocrit 28.1 % (37.0-47.0); Hemoglobin 9.2 g/dL (12.0-16.0); Mean Corp Hgb Conc. 32.7 g/dL (33.0-37.0); Mean Corpuscular Hgb 30.4 pg (27.0-31.0); Mean Corpuscular Volume 92.7 fL (81.0-99.0); Mean Platelet Volume 10.6 fL (7.4-10.4); Platelet Count 177 10^3/uL (130-400); Red Blood Cell Count 3.03 10^6/uL (4.20-5.40); Red Cell Dist. Width 14.6 % (11.5-14.5); White Blood Cell Count 5.6 10^3/uL (4.8-10.8)
[2024-10-20 15:45] LABS: Blood Urea Nitrogen 8 mg/dl (7-17); Calcium 9.3 mg/dl (8.4-10.2); Carbon Dioxide 25 mmol/L (22-30); Chloride 107 mmol/L (98-107); Estimated Creatinine Clearance 66 ml/min; Glucose 155 mg/dl (70-99); Potassium 3.8 mmol/L (3.5-5.1); Sodium 140 mmol/L (135-145); eGFR > 60.00
--- NOTE | 2024-10-20 16:25 | PTCARENOTE ---
Patient encouraged to ambulate per family's request; patient ambulated in the room with this RN; patient did not want to ambulate in the vines at this time.
[2024-10-20 17:42] LABS: Glucose - Point of Care 117 mg/dl (70-99)
[2024-10-20] MEDS: MYCOSTATIN CREAM 1 APPLIC TOPICAL ×2 (18:23→22:09)
[2024-10-20] MEDS: ZESTRIL PO (20:08)
[2024-10-20] MEDS: COREG PO (20:09)
[2024-10-20 21:38] LABS: Glucose - Point of Care 107 mg/dl (70-99)
[2024-10-20] MEDS: KLONOPIN 0.5 MG PO (22:07)
[2024-10-20] MEDS: MELATONIN 10 MG PO (22:07)
[2024-10-20 23:05] VITALS: BP 113/60
[2024-10-21 06:00] VITALS: BMI 28.9
[2024-10-21] MEDS: SYNTHROID 25 MCG PO (06:12)
[2024-10-21 07:05] VITALS: BP 116/71
[2024-10-21 07:17] LABS: Glucose - Point of Care 109 mg/dl (70-99)
--- NOTE | 2024-10-21 08:08 | W.PN.HOSP.TC ---
Today's Communication/Plan
-
see bold
Assessment / Plan
Assessment / Plan
Ms. Daniel is a 79-year-old female with a medical history of hypertension and bipolar disorder who presented with shortness of breath. She tested positive for influenza 2 days prior to arrival and was started on oseltamivir as an outpatient.
However she had progressively worsening dyspnea and productive cough for 24 hours prior to presenting to the emergency department. In the ED, she was found to be hypoxic with her pulse ox in the mid 80s on room air. She was started on supplemental
oxygen via nasal cannula at that time with improvement in her respiratory status and oxygenation. She was also given nebulizer treatments. She was admitted for further evaluation and management of acute respiratory failure with hypoxia in the
setting of influenza infection. Found to have stress-induced cardiomyopathy with reduced EF and cardiogenic shock, subsequent improvement of LVEF from 30% to 45% while in the hospital. More recently developed abdominal pain with evidence of upper
GI bleeding. Had EGD on 10/12 that showed nonobstructive gastric ulcer. Started on IV PPI drip with clear liquid diet however had to be made n.p.o. again due to recurrent abdomen pain
Gen: NAD, Awake and alert
Eyes: EOMI, PERRLA, no scleral icterus.
Neck: supple.
CV: remains RRR, +S1/S2, no m/r/g.
Resp: remains CTAB, no rales, wheezes, or rhonchi.
Abd: +BS, soft, NT, ND
Skin: No rashes.
Neuro: CN 2-12 intact, non-focal.
Psych: Normal mood and affect.
Impression:
Acute hypoxic respiratory failure.
� Intubated 09/21/2024
Sepsis secondary to influenza A/bacterial�community-acquired pneumonia, also suspected aspiration pneumonia given large hiatal hernia with intrathoracic stomach
Shock, multifactorial due to sepsis as well as cardiogenic.
Acute heart failure reduced EF secondary to stress�Takotsubo cardiomyopathy.
Type II TN/demand ischemia with troponin peak 14
Polymorphic ventricular tachycardia on monitoring 09/23/24
Prolonged QTc resolved
Episode of atrial fibrillation with PICC line placement
Acute kidney injury.
Hypovolemic hyponatremia
Hypernatremia while on diuresis
Duodenal ulcer
Acute blood loss anemia secondary to gastrointestinal hemorrhage
Elevated transaminases
Prediabetes
Hypothyroidism on replacement
Bipolar disorder.
Plan
#UGIB secondary to nonobstructing gastric ulcer
#Acute blood loss anemia with iron deficiency.
-Had epigastric discomfort and developed melena on 10/11. Noted with slowly trending down hemoglobin lowest at the 8.2
-Suspect upper GI source possibly stress ulcer, gastritis, duodenal ulcer
-EGD performed on 09/23 after episode of hematemesis showed torturous esophagus, large hiatal hernia, normal duodenum with no source of bleeding.
-EGD on 10/12 showed nonobstructing gastric ulcer, continued on IV PPI drip
Diet has been advanced to solids.
Transitioned to oral PPI.
Acute blood loss anemia. Iron deficiency
Stabilized. Continue monitor.
Replete IV iron.
#Acute hypoxic respiratory failure
-multifactorial in the settings of influenza A/bacterial pneumonia as well as cardiogenic shock.
-Intubated on 09/21/24 and was ultimately extubated on 09/25/2024
-Respiratory culture positive for Streptococcus and nasal swab positive for influenza
-Unable to complete course of Tamiflu given lack of enteral access;
s/p IV antibiotics with Unasyn, CTX
-Received course of steroids however discontinued as associated with increased mortality during flu
-Follow-up chest x-ray on 09/27 with possible small right loculated pleural effusion.
-Currently with stable respiratory status with minimal O2 requirement, nightly BiPAP
-Continue aspiration cautions and FLOWER POT PRESS OPERATOR, PRN nebs
-SpO2 goal >90%
#Epistaxis, resolved
-Likely from nasal dryness with supplemental O2
-Hemoglobin stable on CBC
-started nasal spray for moisturizing
-Continue to trend CBC, humidify O2
#Acute kidney injury
-Presumed prerenal in the context of cardiogenic shock
-Renal function normalized with normalization of volume status.
-Home HCTZ was held
#Acute urinary retention
-Improved with Evans catheter removed, although remains with high PVR over the last [address]
-Place Evans catheter for acute retention on 10/12
-Successful TOV morning of 10/14
Reported foul-smelling urine while asymptomatic with no recurrent retention. Noted with bacteriuria and repeated culture showing E. coli. Initiated on ceftriaxone and will complete 3 days of treatment with the last dose on 10/20.
#Toxic metabolic encephalopathy protracted secondary to acute illness
#Bipolar disorder.
-Preadmission regimen include Vraylar, clonazepam, lamotrigine, zaleplon.
-Psychiatry input appreciated
�Reinstated Lamictal titrating dose. Initiated on Pristiq on 10/08. Hold Pristiq for now (side effect is a stress cardiomyopathy)
-Continue Klonopin as needed
#Dehydration with hypernatremia- resolved
-Developed while on IV diuresis; s/p replacement with D5W
-Sodium initially in the 150s, down to 141 now
-Monitor oral intake, encourage free water intake as swallowing improved
#Severe malnutrition secondary to acute illness
-Diet has been advanced with aspiration precautions
-Has been on TPN, discontinued with improving oral intake.
-Continue calorie count. Reported improved oral intake
#Acute HFrEF with cardiogenic shock
#Nonischemic cardiomyopathy
#Takotsubo cardiomyopathy
-Had type II TN with troponin peak of 14; ECG with diffuse ST changes in anterolateral leads
-Urgent right and left heart cath with LVEF 30 to 35%, patent coronaries, Takotsubo morphology, reduced cardiac index
-Follow-up echocardiogram on 10/02 with improved LVEF at 45%.
-Transient hypotension responded to IV fluid bolus.
-Cardiovascular regimen has been adjusted with reduction dose of Coreg, lisinopril. Holding parameters on antihypertensives. Hold Aldactone.
#NSVT, Secondary to reduced LVEF and cardiomyopathy
-Status post course of amiodarone
-Continue to monitor on telemetry
-Electrolyte goals K >4, mag >2
#Episode of atrial fibrillation related to PICC line position on 04/30 which has been addressed.
-PICC line position adjusted
-Converted and remains in sinus rhythm.
-No anticoagulation indicated.
#Shock liver
-elevated transaminases suspect in the settings of hemodynamic instability.
-No gastrointestinal complaints upon presentation
-Follow LFTs
#Hypothyroidism
-Chronic, unclear etiology, home meds include levothyroxine 25 mcg
-No signs of thyroid dysfunction at this time
#Prediabetes
-Continue basal bolus protocol with serial Accu-Cheks
DVT prophylaxis: SCDs
Diet: Low residue
CODE STATUS: Full code
Disposition: Acute inpatient rehab when medically stable
10/20/24 Update: No changes in management. Pt is medically cleared for d/c, case management aware.
10/21/24 Update: Labs drawn 10/20/24 at the family's request. Hb improved from prior. No changes in management. Pt is remains medically cleared for d/c, case management aware.
Anticipated Discharge: Within 24 hours
Subjective/Interval History
-
Date of Service: October 21, 2024
No new complaints.
Objective Data
-
Vital Signs:
Vital Signs
Temp Pulse Resp BP Pulse Ox
97.7 F 83 16 116/71 95
10/21/24 07:05 10/21/24 07:05 10/21/24 07:05 10/21/24 07:05 10/21/24 07:05
I&O
10/20/24 10/21/24 10/22/24
06:59 06:59 06:59
Intake Total 480 / 480 480 / 480
Output Total 400 / 400 0 / 0
Balance 80 / 80 480 / 480
[2024-10-21] MEDS: THERAGRAN 1 TABLET PO (09:22)
[2024-10-21] MEDS: ZOLOFT 25 MG PO ×2 (09:22→21:50)
[2024-10-21] MEDS: STERILE WATER FOR INJECTION 10 ML IV (09:23)
[2024-10-21] MEDS: COREG 12.5 MG PO ×2 (09:23→20:04)
[2024-10-21] MEDS: PROTONIX 40 MG PO ×2 (09:23→20:04)
[2024-10-21] MEDS: MIRALAX 17 GRAMS PO (09:23)
[2024-10-21] MEDS: ROCEPHIN 1000 MG IV (09:23)
[2024-10-21] MEDS: VITAMIN D3 (cholecalciferol) 25 MCG PO (09:23)
[2024-10-21] MEDS: CRESTOR 20 MG PO (09:23)
[2024-10-21] MEDS: MAGIC OR MIRACLE MOUTHWASH PO ×4 (09:24→21:51)
[2024-10-21] MEDS: DESENEX/MITRAZOL/ZEASORB 1 APPLIC TOPICAL (09:27)
[2024-10-21] MEDS: MYCOSTATIN CREAM 1 APPLIC TOPICAL (09:27)
[2024-10-21 12:21] LABS: Glucose - Point of Care 174 mg/dl (70-99)
[2024-10-21] MEDS: MYCOSTATIN CREAM TOPICAL ×3 (13:11→21:51)
--- NOTE | 2024-10-21 13:21 | PTCARENOTE ---
assessed ra cord from previous piv. pt states it feels the same, no change in appearance, applied warmth, arm elevated
[2024-10-21 14:12] VITALS: BP 119/60; BP 134/68; PULSE 88
[2024-10-21 15:10] VITALS: BP 130/63
--- NOTE | 2024-10-21 15:29 | W.PN.UPDATE ---
Update Note
Progress Note Update
Patient reports she feels drowsy in the AM. She reports she is overall feeling better but tiredness an issue for her. Daughter was also questioning as to why she is on Zoloft instead of Lamictal that she was on in the past; patient however reports
depressive symptoms rather than arcenio or mood swings.
I will change the Zoloft to nighttime and of course she was not on it long enough to assess effectiveness.
[2024-10-21 17:45] LABS: Glucose - Point of Care 115 mg/dl (70-99)
[2024-10-21] MEDS: ZESTRIL 5 MG PO (20:04)
[2024-10-21] MEDS: DESENEX/MITRAZOL/ZEASORB TOPICAL (20:05)
[2024-10-21 21:41] LABS: Glucose - Point of Care 109 mg/dl (70-99)
[2024-10-21] MEDS: MELATONIN 10 MG PO (21:50)
[2024-10-21 23:45] VITALS: BP 129/48
[2024-10-22] MEDS: SYNTHROID 25 MCG PO (05:27)
[2024-10-22 06:00] VITALS: BMI 28.9
[2024-10-22 07:02] LABS: Magnesium 1.6 mg/dl (1.6-2.3); Phosphorus 3.3 mg/dl (2.5-4.5); Triglycerides 77 mg/dl (10-149)
[2024-10-22 07:42] VITALS: BP 130/63
[2024-10-22 07:46] LABS: Glucose - Point of Care 122 mg/dl (70-99)
[2024-10-22] MEDS: DESENEX/MITRAZOL/ZEASORB 1 APPLIC TOPICAL (08:00)
[2024-10-22] MEDS: PROTONIX 40 MG PO ×2 (08:01→21:07)
[2024-10-22] MEDS: MYCOSTATIN CREAM TOPICAL ×4 (08:01→21:08)
[2024-10-22] MEDS: MAGIC OR MIRACLE MOUTHWASH PO ×4 (08:01→21:08)
[2024-10-22] MEDS: MIRALAX 17 GRAMS PO (08:02)
[2024-10-22] MEDS: COREG 12.5 MG PO (08:02)
[2024-10-22] MEDS: THERAGRAN 1 TABLET PO (08:02)
[2024-10-22] MEDS: VITAMIN D3 (cholecalciferol) 25 MCG PO (08:02)
[2024-10-22] MEDS: CRESTOR 20 MG PO (08:02)
[2024-10-22 09:35] VITALS: BP 102/52; BP 113/50; BP 99/53; PULSE 79; PULSE 85; O2SAT 93
[2024-10-22] MEDS: STERILE WATER FOR INJECTION 10 ML IV (09:42)
[2024-10-22] MEDS: ROCEPHIN 1000 MG IV (09:42)
[2024-10-22 09:50] VITALS: BP 95/51
--- NOTE | 2024-10-22 10:48 | CM ---
Addendum entered by Nelida Paulson 10/22/24 15:42:
Per Ryann liaison at [facility] bed is available tomorrow for patient to go to [facility]. Pending physician assessment and bed confirmed tomorrow. CM spoke with physician and with patient to confirm plan and will review IMM form to be placed on
chart after patient / to be signed.
Original Note:
CM spoke with patient and . Patient insistent on patient going to [facility] at due to his heart condition and inability to get to other facilities. CM spoke with Liaison at [facility] , no beds available today awaiting assessment of
availability tomorrow. CM updated physician. CM will continue to follow for discharge planning needs.
Plan; [facility] when bed available
[2024-10-22 11:57] LABS: Glucose - Point of Care 142 mg/dl (70-99)
[2024-10-22 13:52] VITALS: BP 112/60
[2024-10-22 14:29] VITALS: BP 112/60
--- NOTE | 2024-10-22 14:52 | W.PN.HOSP.TC ---
Today's Communication/Plan
-
Reduce Coreg and lisinopril dose and monitor for recurrent hypotension
Completed antibiotic course for bacteriuria/UTI
Hold Farxiga
PT/OT
Medically optimized for placement to acute rehab pending bed availability
Assessment / Plan
Assessment / Plan
Ms. Daniel is a 79-year-old female with a medical history of hypertension and bipolar disorder who presented with shortness of breath. She tested positive for influenza 2 days prior to arrival and was started on oseltamivir as an outpatient.
However she had progressively worsening dyspnea and productive cough for 24 hours prior to presenting to the emergency department. In the ED, she was found to be hypoxic with her pulse ox in the mid 80s on room air. She was started on supplemental
oxygen via nasal cannula at that time with improvement in her respiratory status and oxygenation. She was also given nebulizer treatments. She was admitted for further evaluation and management of acute respiratory failure with hypoxia in the
setting of influenza infection. Found to have stress-induced cardiomyopathy with reduced EF and cardiogenic shock, subsequent improvement of LVEF from 30% to 45% while in the hospital. More recently developed abdominal pain with evidence of upper
GI bleeding. Had EGD on 10/12 that showed nonobstructive gastric ulcer. Started on IV PPI drip with clear liquid diet however had to be made n.p.o. again due to recurrent abdomen pain
Impression:
Acute hypoxic respiratory failure.
� Intubated 09/21/2024
Sepsis secondary to influenza A/bacterial�community-acquired pneumonia, also suspected aspiration pneumonia given large hiatal hernia with intrathoracic stomach
Shock, multifactorial due to sepsis as well as cardiogenic.
Acute heart failure reduced EF secondary to stress�Takotsubo cardiomyopathy.
Type II NH/demand ischemia with troponin peak 14
Polymorphic ventricular tachycardia on monitoring 09/23/24
Prolonged QTc resolved
Episode of atrial fibrillation with PICC line placement
Acute kidney injury.
Hypovolemic hyponatremia
Hypernatremia while on diuresis
Duodenal ulcer
Acute blood loss anemia secondary to gastrointestinal hemorrhage
Elevated transaminases
Prediabetes
Hypothyroidism on replacement
Bipolar disorder.
Plan
#UGIB secondary to nonobstructing gastric ulcer
#Acute blood loss anemia with iron deficiency.
-Had epigastric discomfort and developed melena on 10/11. Noted with slowly trending down hemoglobin lowest at the 8.2
-Suspect upper GI source possibly stress ulcer, gastritis, duodenal ulcer
-EGD performed on 09/23 after episode of hematemesis showed torturous esophagus, large hiatal hernia, normal duodenum with no source of bleeding.
-EGD on 10/12 showed nonobstructing gastric ulcer, continued on IV PPI drip
Diet has been advanced to solids.
Transitioned to oral PPI.
Acute blood loss anemia. Iron deficiency
Stabilized. Continue monitor.
Replete IV iron.
#Acute hypoxic respiratory failure
-multifactorial in the settings of influenza A/bacterial pneumonia as well as cardiogenic shock.
-Intubated on 09/21/24 and was ultimately extubated on 09/25/2024
-Respiratory culture positive for Streptococcus and nasal swab positive for influenza
-Unable to complete course of Tamiflu given lack of enteral access;
s/p IV antibiotics with Unasyn, CTX
-Received course of steroids however discontinued as associated with increased mortality during flu
-Follow-up chest x-ray on 09/27 with possible small right loculated pleural effusion.
-Currently with stable respiratory status with minimal O2 requirement, nightly BiPAP
-Continue aspiration cautions and J[employer], PRN nebs
-SpO2 goal >90%
#Epistaxis, resolved
-Likely from nasal dryness with supplemental O2
-Hemoglobin stable on CBC
-started nasal spray for moisturizing
-Continue to trend CBC, humidify O2
#Acute kidney injury
-Presumed prerenal in the context of cardiogenic shock
-Renal function normalized with normalization of volume status.
-Home HCTZ was held
#Acute urinary retention
-Improved with Evans catheter removed, although remains with high PVR over the last 24 hours.
-Place Evans catheter for acute retention on 10/12
-Successful TOV morning of 10/14
Reported foul-smelling urine while asymptomatic with no recurrent retention. Noted with bacteriuria and repeated culture showing E. coli. Initiated on ceftriaxone and will complete 3 days of treatment with the last dose on 10/20. Hold Farxiga for
now
#Toxic metabolic encephalopathy protracted secondary to acute illness
#Bipolar disorder.
-Preadmission regimen include Vraylar, clonazepam, lamotrigine, zaleplon.
-Psychiatry input appreciated
�Reinstated Lamictal titrating dose. Initiated on Pristiq on 10/08. Hold Pristiq for now (side effect is a stress cardiomyopathy)
-Continue Klonopin as needed
#Dehydration with hypernatremia- resolved
-Developed while on IV diuresis; s/p replacement with D5W
-Sodium initially in the 150s, down to 141 now
-Monitor oral intake, encourage free water intake as swallowing improved
#Severe malnutrition secondary to acute illness
-Diet has been advanced with aspiration precautions
-Has been on TPN, discontinued with improving oral intake.
#Acute HFrEF with cardiogenic shock
#Nonischemic cardiomyopathy
#Takotsubo cardiomyopathy
-Had type II NH with troponin peak of 14; ECG with diffuse ST changes in anterolateral leads
-Urgent right and left heart cath with LVEF 30 to 35%, patent coronaries, Takotsubo morphology, reduced cardiac index
-Follow-up echocardiogram on 10/02 with improved LVEF at 45%.
-Transient hypotension responded to IV fluid bolus.
-Cardiovascular regimen has been adjusted with reduction dose of Coreg, lisinopril. Holding parameters on antihypertensives. Hold Aldactone.
BP remains soft and patient is symptomatic. Reduce Coreg to 6.25 mg twice daily. Reduce lisinopril to 2.5 mg daily.
#NSVT, Secondary to reduced LVEF and cardiomyopathy
-Status post course of amiodarone
-Continue to monitor on telemetry
-Electrolyte goals K >4, mag >2
#Episode of atrial fibrillation related to PICC line position on 04/30 which has been addressed.
-PICC line position adjusted
-Converted and remains in sinus rhythm.
-No anticoagulation indicated.
#Shock liver
-elevated transaminases suspect in the settings of hemodynamic instability.
-No gastrointestinal complaints upon presentation
-Follow LFTs
#Hypothyroidism
-Chronic, unclear etiology, home meds include levothyroxine 25 mcg
-No signs of thyroid dysfunction at this time
#Prediabetes
-Continue basal bolus protocol with serial Accu-Cheks
DVT prophylaxis: SCDs
Diet: Low residue
CODE STATUS: Full code
Disposition: Acute inpatient rehab when medically stable
Anticipated Discharge: 24 - 48 hours
Subjective/Interval History
-
Date of Service: October 22, 2024
Objective Data
-
Vital Signs:
Vital Signs
Temp Pulse Resp BP Pulse Ox
98.5 F 84 16 112/60 95
10/22/24 14:29 10/22/24 14:29 10/22/24 14:29 10/22/24 14:29 10/22/24 14:29
I&O
10/21/24 10/22/24 10/23/24
06:59 06:59 06:59
Intake Total 480 / 480 540 / 540
Output Total 0 / 0 0 / 0
Balance 480 / 480 540 / 540
Physical Exam
-
General: Well Developed, Well Nourished and Appears Chronically Ill
HEENT: Normocephalic, Atraumatic and Moist Mucous Membranes
Respiratory: Clear to Auscultation and Non Labored Respirations
Cardiac: Regular Rhythm, S1/S2 and Tachycardic; Negative Murmur, Rub or Gallop
GI: Soft, Nontender, Nondistended and Normal Bowel Sounds (Hyperactive)
Musculoskeletal: No Clubbing, No Cyanosis and No Edema
Skin: Warm, Dry and Normal Turgor; Negative Rash
Neuro: AO x 3 and Nonfocal/Grossly Intact; Negative Tremors
Psych: Calm
[2024-10-22 17:05] LABS: Glucose - Point of Care 103 mg/dl (70-99)
[2024-10-22] MEDS: MELATONIN 10 MG PO (21:07)
[2024-10-22] MEDS: ZOLOFT 25 MG PO (21:07)
[2024-10-22] MEDS: DESENEX/MITRAZOL/ZEASORB TOPICAL (21:09)
[2024-10-22] MEDS: COREG PO (21:26)
[2024-10-22] MEDS: ROBITUSSIN DM 10 ML PO (21:49)
[2024-10-22 22:46] LABS: Glucose - Point of Care 154 mg/dl (70-99)
[2024-10-22 23:27] VITALS: BP 111/49
[2024-10-23] MEDS: SYNTHROID 25 MCG PO (05:56)
[2024-10-23 05:58] VITALS: BMI 28.7
[2024-10-23 07:55] VITALS: BP 127/63
[2024-10-23] MEDS: MAGIC OR MIRACLE MOUTHWASH PO ×2 (08:07→11:07)
[2024-10-23] MEDS: VITAMIN D3 (cholecalciferol) 25 MCG PO (08:07)
[2024-10-23] MEDS: MIRALAX 17 GRAMS PO (08:07)
[2024-10-23] MEDS: THERAGRAN 1 TABLET PO (08:07)
[2024-10-23] MEDS: CRESTOR 20 MG PO (08:07)
[2024-10-23] MEDS: MYCOSTATIN CREAM TOPICAL ×2 (08:07→11:07)
[2024-10-23] MEDS: COREG 6.25 MG PO (08:07)
[2024-10-23] MEDS: DESENEX/MITRAZOL/ZEASORB 1 APPLIC TOPICAL (08:07)
[2024-10-23] MEDS: PROTONIX 40 MG PO (08:07)
[2024-10-23 08:08] LABS: Glucose - Point of Care 122 mg/dl (70-99)
--- NOTE | 2024-10-23 10:33 | W.PN.UPDATE ---
Update Note
Progress Note Update
Patient seen, chart reviewed,discussed with staff. Ms Daniel is in good spirits today. She is anticipating DC to rehab. She tells me she was really dizzy the other day and it appears her BP was low. She feels much better today. Denies any ill
effects of Zoloft. Denies any daytime sleepiness currently. This may have been related to low BP but Zoloft was changed to be given at night which is appropriate.
Impression/Plan: Bipolar by history; ? Depressive disorder rather than true bipolar - Meds have been adjusted while hospitalized, currently prescribed Zoloft 25mg as only psychotropic med and appears to be doing well although it is too soon to
assess full benefit. Recommend continued follow up with OP provider to determine need for mood stabilizer and further increase Zoloft as warranted.
--- NOTE | 2024-10-23 10:41 | CM ---
Addendum entered by Nelida Paulson 10/23/24 12:00:
CM spoke with patient and he reviewed IMM. Patient to sign and place on the chart with nursing/CM assistance. CM will continue to follow for discharge planning needs.
Original Note:
Patient for transfer to [facility] today after 1pm. Patient given IMM form and CM will call to patient to review as he is not currently here. CM will continue to follow for discharge planning needs.
Plan; transfer to [facility] after 1pm
[2024-10-23 12:17] LABS: Glucose - Point of Care 141 mg/dl (70-99)
--- NOTE | 2024-10-23 12:33 | W.DS.TRANS ---
DC Summary - Search Analyst
-
Discharge Instructions:
Discharge Diagnosis/Procedures Acute hypoxic respiratory failure.
� Intubated 09/21/2024
Sepsis secondary to influenza A/bacterial�
community-acquired pneumonia, also suspected
aspiration pneumonia given large hiatal hernia
with intrathoracic stomach
Shock, multifactorial due to sepsis as well as
cardiogenic.
Acute heart failure reduced EF secondary to
stress�Takotsubo cardiomyopathy.
Type II SD/demand ischemia with troponin peak 14
Polymorphic ventricular tachycardia on
monitoring 09/23/24
Prolonged QTc resolved
Episode of atrial fibrillation with PICC line
placement
Acute kidney injury.
Hypovolemic hyponatremia
Hypernatremia while on diuresis
Duodenal ulcer
Acute blood loss anemia secondary to
gastrointestinal hemorrhage
Elevated transaminases
Prediabetes
Hypothyroidism on replacement
Bipolar disorder.
Diet Regular
Instructions:
Stand-Alone Forms:
Changes to Home Medications: Yes
Discharge Medications:
DC Medications w/original date entered in [facility]
levothyroxine 25 mcg tablet (Synthroid) 25 mcg PO DAILY Thyroid 07/28/10
rosuvastatin 20 mg tablet 20 mg PO DAILY High Cholesterol 01/05/23
therapeutic multivitamin 1 tab PO DAILY Supplement 01/05/23
aspirin 81 mg capsule 81 mg PO DAILY Blood Clot Prevention/Tx 07/01/23
albuterol sulfate 90 mcg/actuation aerosol inhaler 1 puff inhalation R [id number] PRN sob/wheezing 09/21/24
cholecalciferol (vitamin D3) 25 mcg (1,000 unit) tablet 25 mcg PO DAILY Supplement 09/21/24
carvedilol 6.25 mg tablet 6.25 mg PO BID #60 tabs 10/23/24
lisinopril 2.5 mg tablet 2.5 mg PO DAILY@2000 #30 tabs 10/23/24
melatonin 5 mg tablet 10 mg (2 x 5 mg) PO HS #15 tabs 10/23/24
pantoprazole 40 mg tablet,delayed release 40 mg PO BID #60 tabs 10/23/24
polyethylene glycol 3350 17 gram oral powder packet 17 g PO DAILY #30 ea 10/23/24
sertraline 25 mg tablet 25 mg PO HS #30 tabs 10/23/24
Home Medication Changes
Coreg and lisinopril initiated for stress cardiomyopathy
Sertraline initiated
Pending Results: No
[2024-10-23 13:01] VITALS: BP 119/61
== END 2024-10-23 13:48 | DRG 871 ==
LOC: 2 NORTH 16:32
PROVIDERS: Emergency Medicine; Internal Medicine; Internal Medicine Cardiovascular Disease; Internal Medicine Gastroenterology; Nurse Practitioner Adult Health; Nurse Practitioner Family; Nurse Practitioner Gerontology; Nurse Practitioner Primary Care; Psychiatry & Neurology Psychiatry; Radiology Diagnostic Radiology; ADMITTING PHYSICIAN Internal Medicine; CONSULT PHYSICIAN Internal Medicine Cardiovascular Disease; CONSULT PHYSICIAN Internal Medicine Critical Care Medicine; CONSULT PHYSICIAN Internal Medicine Gastroenterology; CONSULT PHYSICIAN Physical Medicine & Rehabilitation; CONSULT PHYSICIAN Psychiatry & Neurology Psychiatry; EMERGENCY PHYSICIAN Student in an Organized Health Care Education/Training Program; FAMILY PHYSICIAN Internal Medicine
PROC: 0BH17EZ Insertion of Endotracheal Airway into Trachea, Via Natural or Artificial Opening (ICD-10-PCS; 2024-09-21)
PROC: 5A1945Z Respiratory Ventilation, 24-96 Consecutive Hours (ICD-10-PCS; 2024-09-21)
PROC: 4A023N8 Measurement of Cardiac Sampling and Pressure, Bilateral, Percutaneous Approach (ICD-10-PCS; 2024-09-23)
PROC: B2111ZZ Fluoroscopy of Multiple Coronary Arteries using Low Osmolar Contrast (ICD-10-PCS; 2024-09-23)
PROC: 0DH68UZ Insertion of Feeding Device into Stomach, Via Natural or Artificial Opening Endoscopic (ICD-10-PCS; 2024-09-23)
PROC: 0DH67UZ Insertion of Feeding Device into Stomach, Via Natural or Artificial Opening (ICD-10-PCS; 2024-09-23)
PROC: 5A09357 Assistance with Respiratory Ventilation, Less than 24 Consecutive Hours, Continuous Positive Airway Pressure (ICD-10-PCS; 2024-09-25)
PROC: 02HV33Z Insertion of Infusion Device into Superior Vena Cava, Percutaneous Approach (ICD-10-PCS; 2024-09-28)
PROC: 3E0436Z Introduction of Nutritional Substance into Central Vein, Percutaneous Approach (ICD-10-PCS; 2024-09-28)
PROC: 30233N1 Transfusion of Nonautologous Red Blood Cells into Peripheral Vein, Percutaneous Approach (ICD-10-PCS; 2024-10-11)
PROC: 0DJ08ZZ Inspection of Upper Intestinal Tract, Via Natural or Artificial Opening Endoscopic (ICD-10-PCS; 2024-10-12)
DX: A40.3 Sepsis due to Streptococcus pneumoniae (principal); E43 Unspecified severe protein-calorie malnutrition; G92.8 Other toxic encephalopathy; I21.A1 Myocardial infarction type 2; I50.21 Acute systolic (congestive) heart failure; J96.01 Acute respiratory failure with hypoxia; R65.21 Severe sepsis with septic shock; J69.0 Pneumonitis due to inhalation of food and vomit; J10.08 Influenza due to other identified influenza virus with other specified pneumonia; J13 Pneumonia due to Streptococcus pneumoniae; K72.00 Acute and subacute hepatic failure without coma; R57.0 Cardiogenic shock; K26.4 Chronic or unspecified duodenal ulcer with hemorrhage; F31.89 Other bipolar disorder; E87.1 Hypo-osmolality and hyponatremia; E87.20 Acidosis, unspecified; N17.9 Acute kidney failure, unspecified; I51.81 Takotsubo syndrome; Z99.11 Dependence on respirator [ventilator] status; Q39.9 Congenital malformation of esophagus, unspecified; I47.29 Other ventricular tachycardia; E87.0 Hyperosmolality and hypernatremia; F05 Delirium due to known physiological condition; Q43.8 Other specified congenital malformations of intestine; I42.8 Other cardiomyopathies; D62 Acute posthemorrhagic anemia; N39.0 Urinary tract infection, site not specified; K92.0 Hematemesis; K21.9 Gastro-esophageal reflux disease without esophagitis; E78.00 Pure hypercholesterolemia, unspecified; I10 Essential (primary) hypertension; I70.0 Atherosclerosis of aorta; K44.9 Diaphragmatic hernia without obstruction or gangrene; M85.80 Other specified disorders of bone density and structure, unspecified site; E11.65 Type 2 diabetes mellitus with hyperglycemia; I34.0 Nonrheumatic mitral (valve) insufficiency; E86.1 Hypovolemia; E87.6 Hypokalemia; F43.21 Adjustment disorder with depressed mood; I27.29 Other secondary pulmonary hypertension; E03.9 Hypothyroidism, unspecified; I48.91 Unspecified atrial fibrillation; R04.0 Epistaxis; E66.9 Obesity, unspecified; G43.909 Migraine, unspecified, not intractable, without status migrainosus; Z87.440 Personal history of urinary (tract) infections; Z87.19 Personal history of other diseases of the digestive system; Z88.8 Allergy status to other drugs, medicaments and biological substances; Z88.6 Allergy status to analgesic agent; Z91.041 Radiographic dye allergy status; Z79.890 Hormone replacement therapy; Z79.82 Long term (current) use of aspirin; Z80.3 Family history of malignant neoplasm of breast; Z82.49 Family history of ischemic heart disease and other diseases of the circulatory system; Z83.3 Family history of diabetes mellitus; Z68.30 Body mass index [BMI] 30.0-30.9, adult
CPT/HCPCS: 93308; 31500; 71045; 74018; 74176; 74230; 80048; 80053; 81003; 81015; 82330; 82607; 82728; 82746; 82805; 82962; 83036; 83540; 83550; 83605; 83735; 83880; 84100; 84132; 84134; 84302; 84443; 84478; 84484; 85018; 85025; 85027; 85045; 85610; 85730; 86850; 86900; 86901; 86920; 87040; 87070; 87071; 87077; 87086; 87088; 87186; 87205; 87502; 92526; 92610; 92611; 93005; 93306; 93460; 94002; 94003; 94640; 94660; 96365; 96375; 97110; 97112; 97116; 97163; 97167; 97530; 97535; 99152; 99153; 99291; C1760; C1769; C1894; J2260; J2916; P9016; Q9967

== ENCOUNTER 2024-11-19 10:09 | Outpatient (RCR) | payer MEDICARE, OTHER, SELFPAY | END 2024-11-19 23:59 | disposition home or self-care (01) | LOC: RST 10:09 | PROVIDERS: ATTENDING PHYSICIAN Physical Medicine & Rehabilitation; FAMILY PHYSICIAN Internal Medicine | DX: J96.01 Acute respiratory failure with hypoxia (principal); R53.81 Other malaise; R41.9 Unspecified symptoms and signs involving cognitive functions and awareness | CPT/HCPCS: 96125; 97129; 97130; 97163 ==

== ENCOUNTER 2024-12-20 12:04 | Outpatient (RCR) | payer MEDICARE, OTHER, SELFPAY | END 2024-12-20 23:59 | disposition home or self-care (01) | LOC: ROT 12:04 | PROVIDERS: ATTENDING PHYSICIAN Physical Medicine & Rehabilitation; FAMILY PHYSICIAN Internal Medicine | DX: J96.01 Acute respiratory failure with hypoxia (principal); R53.81 Other malaise; R41.9 Unspecified symptoms and signs involving cognitive functions and awareness | CPT/HCPCS: 97110; 97112; 97116; 97129; 97130; 97167; 97530; 97535; 97537 ==

== ENCOUNTER → 2024-12-25 09:35 | Outpatient (REF) | payer MEDICARE, OTHER, SELFPAY ==
[2024-12-25 10:41] LABS: % Basophils 0.7 % (0-2); % Eosinophils 3.1 % (0-6); % Immature Granulocytes 0.1 % (0-0.5); % Lymphocytes 25.8 % (20.5-51.1); % Neutrophils 62.3 % (42.2-75.2); Absolute Basophils 0.1 10^3/uL (0-0.2); Absolute Eosinophils 0.2 10^3/uL (0-0.7); Absolute Lymphocytes 1.8 10^3/uL (1.2-3.4); Absolute Monocytes 0.5 10^3/uL (0.1-0.6); Absolute Neutrophils 4.2 10^3/uL (1.4-6.5); Hemoglobin 12.9 g/dL (12.0-16.0); Mean Corp Hgb Conc. 32.3 g/dL (33.0-37.0); Mean Corpuscular Hgb 29.8 pg (27.0-31.0); Mean Corpuscular Volume 92.4 fL (81.0-99.0); Mean Platelet Volume 11.1 fL (7.4-10.4); Nucleated Red Blood Cells % 0 %; Platelet Count 236 10^3/uL (130-400); Red Blood Cell Count 4.33 10^6/uL (4.20-5.40); White Blood Cell Count 6.8 10^3/uL (4.8-10.8)
[2024-12-25 11:33] LABS: ALT (SGPT) 18 U/L (0-35); AST (SGOT) 25 U/L (14-36); Albumin 4.8 g/dl (3.5-5.0); Alkaline Phosphatase 63 U/L (38-126); Blood Urea Nitrogen 10 mg/dl (7-17); Calcium 9.9 mg/dl (8.4-10.2); Carbon Dioxide 25 mmol/L (22-30); Chloride 106 mmol/L (98-107); Glucose 109 mg/dl (70-99); HDL Cholesterol 88 mg/dl; Iron 89 ug/dl (37-170); Potassium 3.8 mmol/L (3.5-5.1); Sodium 139 mmol/L (135-145); Total Bilirubin 0.5 mg/dl (0.2-1.3); Total Cholesterol 219 mg/dl (50-199); Total Protein 7.3 g/dl (6.3-8.2); eGFR > 60.00
[2024-12-25 11:42] LABS: Percent Saturation 26 % (20-50); Total Iron Binding Capacity 335 ug/dl (265-497)
[2024-12-25 12:05] LABS: LDL Cholesterol, Calculated 114 mg/dl; Triglyceride 85 mg/dl (10-149); Very Low Density Lipoprotein 17 mg/dl (0-30)
== END ==
LOC: REG 09:35
PROVIDERS: ATTENDING PHYSICIAN Specialist; FAMILY PHYSICIAN Internal Medicine; REFERRING PHYSICIAN Internal Medicine Cardiovascular Disease
DX: E78.2 Mixed hyperlipidemia (principal); D64.9 Anemia, unspecified
CPT/HCPCS: 36415; 80053; 80061; 82728; 83540; 83550; 85025

== ENCOUNTER → 2024-12-31 11:12 | Outpatient (REF) | payer MEDICARE, OTHER, SELFPAY | LOC: HWRCS 11:12 | PROVIDERS: ATTENDING PHYSICIAN Internal Medicine Cardiovascular Disease; FAMILY PHYSICIAN Internal Medicine | DX: I51.81 Takotsubo syndrome (principal); R94.31 Abnormal electrocardiogram [ECG] [EKG] | CPT/HCPCS: 93306 ==

== ENCOUNTER 2025-01-11 06:19 | Day surgery (SDC) | payer MEDICARE, OTHER, SELFPAY | END 2025-01-11 09:19 | disposition home or self-care (01) | LOC: GI 06:19 | PROVIDERS: ATTENDING PHYSICIAN Specialist | DX: K22.70 Barrett's esophagus without dysplasia (principal); K44.9 Diaphragmatic hernia without obstruction or gangrene; K26.0 Acute duodenal ulcer with hemorrhage | CPT/HCPCS: 43239; 88305 ==

== ENCOUNTER 2025-01-21 10:07 | Outpatient (RCR) | payer MEDICARE, OTHER, SELFPAY | END 2025-01-21 23:59 | disposition home or self-care (01) | LOC: ROT 10:07 | PROVIDERS: ATTENDING PHYSICIAN Physical Medicine & Rehabilitation; FAMILY PHYSICIAN Internal Medicine | DX: J96.01 Acute respiratory failure with hypoxia (principal); Z73.6 Limitation of activities due to disability; R53.81 Other malaise; R41.9 Unspecified symptoms and signs involving cognitive functions and awareness | CPT/HCPCS: 97110; 97112; 97116; 97129; 97130; 97530; 97535; 97537 ==

== ENCOUNTER 2025-02-21 10:04 | Outpatient (RCR) | payer MEDICARE, OTHER, SELFPAY | END 2025-02-21 23:59 | disposition home or self-care (01) | LOC: ROT 10:04 | PROVIDERS: ATTENDING PHYSICIAN Physical Medicine & Rehabilitation; FAMILY PHYSICIAN Internal Medicine | DX: J96.01 Acute respiratory failure with hypoxia (principal); Z73.6 Limitation of activities due to disability; R53.81 Other malaise; R41.9 Unspecified symptoms and signs involving cognitive functions and awareness | CPT/HCPCS: 97110; 97112; 97129; 97130; 97140; 97530; 97535; 97537 ==

== ENCOUNTER 2025-02-28 09:56 | Outpatient (RCR) | payer MEDICARE, OTHER, SELFPAY | END 2025-02-28 23:59 | disposition home or self-care (01) | LOC: ROT 09:56 | PROVIDERS: ATTENDING PHYSICIAN Physical Medicine & Rehabilitation; FAMILY PHYSICIAN Internal Medicine | DX: J96.01 Acute respiratory failure with hypoxia (principal); Z73.6 Limitation of activities due to disability; R53.81 Other malaise; R41.9 Unspecified symptoms and signs involving cognitive functions and awareness | CPT/HCPCS: 97110; 97112; 97140 ==

== ENCOUNTER → 2025-03-13 15:05 | Outpatient (REF) | payer MEDICARE, OTHER, SELFPAY ==
[2025-03-13 16:54] LABS: C-Reactive Protein < 5.00 mg/L (0.0-10.00)
== END ==
LOC: REG 15:05
PROVIDERS: ATTENDING PHYSICIAN Internal Medicine
DX: K12.1 Other forms of stomatitis (principal)
CPT/HCPCS: 36415; 85652; 86140; 86235

== ENCOUNTER → 2025-03-19 15:29 | Outpatient (REF) | payer MEDICARE, OTHER, SELFPAY ==
[2025-03-19 16:10] LABS: Hematocrit 38.2 % (37.0-47.0); Hemoglobin 12.6 g/dL (12.0-16.0); Mean Corp Hgb Conc. 33.0 g/dL (33.0-37.0); Mean Corpuscular Volume 92.5 fL (81.0-99.0); Nucleated Red Blood Cells % 0 %; Platelet Count 240 10^3/uL (130-400); Red Cell Dist. Width 15.3 % (11.5-14.5)
== END ==
LOC: REG 15:29
PROVIDERS: ATTENDING PHYSICIAN Internal Medicine
DX: K13.79 Other lesions of oral mucosa (principal)
CPT/HCPCS: 36415; 85025

== ENCOUNTER → 2025-05-07 16:17 | Outpatient (REF) | payer MEDICARE, OTHER, SELFPAY ==
[2025-05-07 16:59] LABS: Hematocrit 41.2 % (37.0-47.0); Hemoglobin 13.1 g/dL (12.0-16.0); Mean Corp Hgb Conc. 31.8 g/dL (33.0-37.0); Mean Corpuscular Volume 99.5 fL (81.0-99.0); Nucleated Red Blood Cells % 0 %; Platelet Count 244 10^3/uL (130-400); Red Cell Dist. Width 13.2 % (11.5-14.5)
[2025-05-07 17:26] LABS: Iron 97 ug/dl (37-170)
[2025-05-07 17:30] LABS: Total Iron Binding Capacity 363 ug/dl (265-497)
[2025-05-07 18:04] LABS: Ferritin 74.5 ng/ml (11.1-264.0)
== END ==
LOC: REG 16:17
PROVIDERS: ATTENDING PHYSICIAN Specialist; FAMILY PHYSICIAN Internal Medicine; REFERRING PHYSICIAN Internal Medicine Cardiovascular Disease
DX: D50.0 Iron deficiency anemia secondary to blood loss (chronic) (principal)
CPT/HCPCS: 36415; 82728; 83540; 83550; 85025

== ENCOUNTER → 2025-05-30 14:27 | Outpatient (REF) | payer MEDICARE, OTHER, SELFPAY | LOC: REG 14:27 | PROVIDERS: ATTENDING PHYSICIAN Internal Medicine | DX: K22.70 Barrett's esophagus without dysplasia (principal); G45.9 Transient cerebral ischemic attack, unspecified; G25.81 Restless legs syndrome; K13.79 Other lesions of oral mucosa | CPT/HCPCS: 36415; 86235 ==

== ENCOUNTER → 2025-06-12 15:58 | Outpatient (REF) | payer MEDICARE, OTHER, SELFPAY ==
[2025-06-12 18:04] LABS: Folate 8.5 ng/ml (2.76-20); Vitamin B12 927 pg/ml (239-931)
== END ==
LOC: REG 15:58
PROVIDERS: ATTENDING PHYSICIAN Dentist General Practice; FAMILY PHYSICIAN Internal Medicine
DX: K14.6 Glossodynia (principal); E67.2 Megavitamin-B6 syndrome
CPT/HCPCS: 36415; 82607; 82746; 84207